=== PATIENT | female | born 1975 | race Caucasian/White ===

== ENCOUNTER 2017-05-18 11:32 | Emergency (ER) | payer OTHER ==
[2017-05-18] MEDS ORDERED: ONDANSETRON 4 MG/2 ML VIAL IVP STA ×3 (12:14→18:22)
[2017-05-18] MEDS ORDERED: SODIUM CHLORIDE 0.9% 1,000 ML IV STA (12:14)
[2017-05-18] MEDS ORDERED: DIPHENOX-ATROP 2.5-0.025 MG 1 EACH TAB PO STA (12:17)
[2017-05-18] MEDS ORDERED: ACETAMINOPHEN IV (For NPO) 1,000 MG in EMPTY BAG 1 BAG IVPB STA (12:22)
[2017-05-18] MEDS ORDERED: IBUPROFEN IV 800 MG in SODIUM CHLORIDE 0.9% 250 ML IV ONE (12:30)
[2017-05-18 12:53] LABS: Basophils % (A) 0 %; Eosinophils % (A) 0 %; HCT 39.7 % (34.0-46.0); HGB 13.8 gm/dL (11.4-16.0); Lymphocytes # (A) 1.7 k/uL (1.0-4.8); Lymphocytes % (A) 20 %; MCH 35.6 pg (25.0-35.0); MCHC 34.8 g/dL (31.0-37.0); MCV 102.1 fL (80.0-100.0); Mean Platelet Volume 6.8; Monocytes # (A) 0.5 k/uL (0-1.0); Monocytes % (A) 6 %; Neutrophils # (A) 6.2 k/uL (1.3-7.7); Neutrophils % (A) 73 %; Platelet Count 205 k/uL (150-450); RBC 3.89 m/uL (3.80-5.40); RDW 12.4 % (11.5-15.5); WBC 8.6 k/uL (3.8-10.6)
[2017-05-18 12:57] LABS: ALT 40 U/L (9-52); AST 22 U/L (14-36); Albumin 4.5 g/dL (3.5-5.0); Alkaline Phosphatase 81 U/L (38-126); Amylase <30 U/L (30-110); Anion Gap 15 mmol/L; Blood Urea Nitrogen 22 mg/dL (7-17); Calcium 10.6 mg/dL (8.4-10.2); Carbon Dioxide 19 mmol/L (22-30); Chloride 106 mmol/L (98-107); Glucose 201 mg/dL (74-99); Lipase 11 U/L (23-300); Potassium 3.6 mmol/L (3.5-5.1); Sodium 140 mmol/L (137-145); Total Bilirubin 0.9 mg/dL (0.2-1.3); Total Protein 6.8 g/dL (6.3-8.2)
[2017-05-18 13:13] VITALS: RESP 18
[2017-05-18] MEDS ORDERED: MAG HYDROX/AL HYDROX/SIMETH 30 ML CUP PO ONE (13:35)
[2017-05-18 14:41] LABS: Appearance,Urine Clear (Clear); Bilirubin,Urine Negative (Negative); Blood,Urine Negative (Negative); Color,Urine Light Yellow; Glucose,Urine (UA) 1+ (Negative); Leukocyte Esterase,Urine Negative (Negative); Nitrite,Urine Negative (Negative); PH, Urine 7.5 (5.0-8.0); Protein,Urine Negative (Negative); Specific Gravity,Urine 1.016 (1.001-1.035); Urobilinogen,Urine <2.0 mg/dL (<2.0)
[2017-05-18 14:58] LABS: Ketones,Urine 2+ (Negative)
[2017-05-18] MEDS ORDERED: CEFEPIME 2 GM in SODIUM CHLORIDE 0.9% 50 ML IVPB STA (15:15)
--- NOTE | 2017-05-18 15:21 | ED ---
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 Patient comes in today complaining of the chills and nausea vomiting and diarrhea. Patient does not complain of any abdominal pain. Patient denies any known fever. Patient denies any blood in the stool or the vomitus. Patient denies any chest pain difficulty breathing or shortness of breath per patient denies any dysuria hematuria urinary frequency. - Related Data Home Medications Medication Instructions Recorded Confirmed Acyclovir [Zovirax] 800 mg PO BID 05/18/17 05/18/17 LORazepam [Ativan] 1 mg PO TID PRN 05/18/17 05/18/17 Metoprolol Tartrate [Lopressor] 12.5 mg PO DAILY 05/18/17 05/18/17 Morphine Sulfate ER [Ms Contin 30 mg PO Q12HR 05/18/17 05/18/17 30Mg] Morphine Sulfate Ir [Msir] 30 mg PO Q4HR PRN 05/18/17 05/18/17 Ondansetron [Zofran] 4 mg PO Q6HR PRN 05/18/17 05/18/17 Sulfamethox-Tmp 400-80Mg [Bactrim 1 tab PO DAILY 05/18/17 05/18/17 SS 400-80 mg] Tacrolimus [Prograf] 2 mg PO Q12H 05/18/17 05/18/17 Topiramate [Trokendi Xr] 50 mg PO DAILY 05/18/17 05/18/17 methylPREDNISolone [Medrol] 8 mg PO DAILY 05/18/17 05/18/17 Allergies Allergy/AdvReac Type Severity Reaction Status Date / Time acetaminophen Allergy Rash/Hives Verified 05/18/17 12:29 [From Darvocet-N] propoxyphene napsylate Allergy Rash/Hives Verified 05/18/17 12:29 [From Darvocet-N] Review of Systems ROS Statement: Those systems with pertinent positive or pertinent negative responses have been documented in the HPI. ROS Other: All systems not noted in ROS Statement are negative. Past Medical History Additional Past Medical History / Comment(s): Congenital heart failure, ALL History of Any Multi-Drug Resistant Organisms: None Reported Past Surgical History: Section, Cholecystectomy, Tubal Ligation Additional Past Surgical History / Comment(s): left knee, left shoulder, bone marrow transplant Past Psychological History: No Psychological Hx Reported Smoking Status: Never smoker Past Alcohol Use History: Occasional Past Drug Use History: None Reported General Exam - General Exam Comments Initial Comments: GENERAL: Patient is well-developed and well-nourished. Patient is nontoxic and well- hydrated and is in mild distress. ENT: Neck is soft and supple. No significant lymphadenopathy is noted. Oropharynx is clear. Moist mucous membranes. Neck has full range of motion without eliciting any pain. EYES: The sclera were anicteric and conjunctiva were pink and moist. Extraocular movements were intact and pupils were equal round and reactive to light. Eyelids were unremarkable. PULMONARY: Unlabored respirations. Good breath sounds bilaterally. No audible rales rhonchi or wheezing was noted. CARDIOVASCULAR: There is a regular rate and rhythm without any murmurs gallops or rubs. ABDOMEN: Soft and nontender with normal bowel sounds. No palpable organomegaly was noted. There is no palpable pulsatile mass. SKIN: Skin is clear with no lesions or rashes and otherwise unremarkable. NEUROLOGIC: Patient is alert and oriented x3. Cranial nerves II through XII are grossly intact. Motor and sensory are also intact. Normal speech, volume and content. Symmetrical smile. MUSCULOSKELETAL: Normal extremities with adequate strength and full range of motion. No lower extremity swelling or edema. No calf tenderness. LYMPHATICS: No significant lymphadenopathy is noted PSYCHIATRIC: Normal psychiatric evaluation. Normal interpersonal interactions appears functionally intact in deals appropriately with others. No signs of depression. No signs of anxiety. Limitations: no limitations Course Vital Signs 05/18/17 05/18/17 11:44 13:12 Temperature 97.4 F L 100.3 F H Pulse Rate 84 71 Respiratory 20 18 Rate Blood Pressure 146/83 136/82 O2 Sat by Pulse 98 97 Oximetry Medical Decision Making - Medical Decision Making Patient received Zofran and Lomotil while in the emergency department she also received a liter of normal saline. I spoke with Dr. Grayson washington at [facility] he wanted the patient transferred to their ER. He also wanted cefepime started here. I spoke to the ER doctor Dr. Moreno and he accepted the patient in the ER. - Lab Data Result diagrams: 05/18/17 12:31 05/18/17 12:31 Lab Results 05/18/17 05/18/17 05/18/17 Range/Units 12:24 12:31 12:31 WBC 8.6 (3.8-10.6) k/uL RBC 3.89 (3.80-5.40) m/uL Hgb 13.8 (11.4-16.0) gm/dL Hct 39.7 (34.0-46.0) % MCV 102.1 H (80.0-100.0) fL MCH 35.6 H (25.0-35.0) pg MCHC 34.8 (31.0-37.0) g/dL RDW 12.4 (11.5-15.5) % Plt Count 205 (150-450) k/uL Neutrophils % 73 % Lymphocytes % 20 % Monocytes % 6 % Eosinophils % 0 % Basophils % 0 % Neutrophils # 6.2 (1.3-7.7) k/uL Lymphocytes # 1.7 (1.0-4.8) k/uL Monocytes # 0.5 (0-1.0) k/uL Eosinophils # 0.0 (0-0.7) k/uL Basophils # 0.0 (0-0.2) k/uL Sodium 140 (137-145) mmol/L Potassium 3.6 (3.5-5.1) mmol/L Chloride 106 (98-107) mmol/L Carbon Dioxide 19 L (22-30) mmol/L Anion Gap 15 mmol/L BUN 22 H (7-17) mg/dL Creatinine 0.86 (0.52-1.04) mg/dL Est GFR (MDRD) Af Amer >60 (>60 ml/min/1.73 sqM) Est GFR (MDRD) Non-Af >60 (>60 ml/min/1.73 sqM) Glucose 201 H (74-99) mg/dL Calcium 10.6 H (8.4-10.2) mg/dL Total Bilirubin 0.9 (0.2-1.3) mg/dL AST 22 (14-36) U/L ALT 40 (9-52) U/L Alkaline Phosphatase 81 (38-126) U/L Total Protein 6.8 (6.3-8.2) g/dL Albumin 4.5 (3.5-5.0) g/dL Amylase <30 L (30-110) U/L Lipase 11 L (23-300) U/L Urine Color Urine Appearance (Clear) Urine pH (5.0-8.0) Ur Specific [place] (1.001-1.035) Urine Protein (Negative) Urine Glucose (UA) (Negative) Urine Ketones (Negative) Urine Blood (Negative) Urine Nitrite (Negative) Urine Bilirubin (Negative) Urine Urobilinogen (<2.0) mg/dL Ur Leukocyte Esterase (Negative) C. difficile (EIA) Intrp Negative (Negative) 05/18/17 Range/Units 14:20 WBC (3.8-10.6) k/uL RBC (3.80-5.40) m/uL Hgb (11.4-16.0) gm/dL Hct (34.0-46.0) % MCV (80.0-100.0) fL MCH (25.0-35.0) pg MCHC (31.0-37.0) g/dL RDW (11.5-15.5) % Plt Count (150-450) k/uL Neutrophils % % Lymphocytes % % Monocytes % % Eosinophils % % Basophils % % Neutrophils # (1.3-7.7) k/uL Lymphocytes # (1.0-4.8) k/uL Monocytes # (0-1.0) k/uL Eosinophils # (0-0.7) k/uL Basophils # (0-0.2) k/uL Sodium (137-145) mmol/L Potassium (3.5-5.1) mmol/L Chloride (98-107) mmol/L Carbon Dioxide (22-30) mmol/L Anion Gap mmol/L BUN (7-17) mg/dL Creatinine (0.52-1.04) mg/dL Est GFR (MDRD) Af Amer (>60 ml/min/1.73 sqM) Est GFR (MDRD) Non-Af (>60 ml/min/1.73 sqM) Glucose (74-99) mg/dL Calcium (8.4-10.2) mg/dL Total Bilirubin (0.2-1.3) mg/dL AST (14-36) U/L ALT (9-52) U/L Alkaline Phosphatase (38-126) U/L Total Protein (6.3-8.2) g/dL Albumin (3.5-5.0) g/dL Amylase (30-110) U/L Lipase (23-300) U/L Urine Color Light Yellow Urine Appearance Clear (Clear) Urine pH 7.5 (5.0-8.0) Ur Specific [place] 1.016 (1.001-1.035) Urine Protein Negative (Negative) Urine Glucose (UA) 1+ H (Negative) Urine Ketones 2+ H (Negative) Urine Blood Negative (Negative) Urine Nitrite Negative (Negative) Urine Bilirubin Negative (Negative) Urine Urobilinogen <2.0 (<2.0) mg/dL Ur Leukocyte Esterase Negative (Negative) C. difficile (EIA) Intrp (Negative) Disposition Clinical Impression: Gastroenteritis, History of bone marrow transplant, History of acute lymphoblastic leukemia (ALL) Disposition: OTHER INSTITUTION NOT DEFINED Referrals: Chris Lafleur MD [Primary Care Provider] - 1-2 days Time of Disposition: 15:20 - Out of Hospital Transfer - Req. Specs Out of Hospital Transfer - Requested Specifics: Other Emergency Center ([facility])
[2017-05-18] MEDS ORDERED: METOCLOPRAMIDE 5 MG/ML 2 ML VIAL IVP STA (15:54)
[2017-05-18] MEDS ORDERED: PANTOPRAZOLE 40 MG/10 ML VIAL IVP STA (15:54)
[2017-05-18 18:23] VITALS: BP 148/72; PULSE 75; TEMP 98.3
== END 2017-05-18 18:49 | disposition short-term general hospital (02) ==
LOC: EC 11:32
DX: K52.9 Noninfective gastroenteritis and colitis, unspecified (principal); Z94.81 Bone marrow transplant status; Z85.6 Personal history of leukemia; Z90.49 Acquired absence of other specified parts of digestive tract; Z98.890 Other specified postprocedural states; Z88.5 Allergy status to narcotic agent; Z88.6 Allergy status to analgesic agent; Z79.899 Other long term (current) drug therapy
CPT/HCPCS: 99284; 96365; 96367; 96375 ×4; 96376 ×2; 36415; 80053; 82150; 83690; 85025; 81003; 87324; 87045; 87046; J2765; J2405; J0692; J0131; J1741; C9113

== ENCOUNTER 2017-09-26 15:06 | Emergency (ER) | payer OTHER ==
[2017-09-26 15:25] VITALS: BP 106/67; PULSE 64; RESP 20; TEMP 99
[2017-09-26] MEDS ORDERED: KETOROLAC 30 MG/ML 1 ML VIAL IM STA (16:01)
--- NOTE | 2017-09-26 16:13 | ED ---
General Adult HPI - General Chief complaint: Fall Stated complaint: Fall Time Seen by Provider: 09/26/17 15:54 Source: patient, RN notes reviewed Mode of arrival: wheelchair Limitations: no limitations - History of Present Illness Initial comments: 42-year-old female presents to the emergency department for a chief complaint of lower back pain 2 hours. Patient states she fell on her bottom down 6 stairs. Patient denies any head injury. She did not hit her head or lose consciousness. No headaches. Patient states states her pain is mostly in her low back and buttocks. Patient has a history of leukemia which she has right now in remission from. She has morphine at home which she usually takes because of this. She did not take any today. Patient has no other complaints at this time including shortness of breath, chest pain, abdominal pain, nausea or vomiting, headache, or visual changes. - Related Data Home Medications Medication Instructions Recorded Confirmed Acyclovir [Zovirax] 800 mg PO BID 05/18/17 05/18/17 LORazepam [Ativan] 1 mg PO TID PRN 05/18/17 05/18/17 Metoprolol Tartrate [Lopressor] 12.5 mg PO DAILY 05/18/17 05/18/17 Morphine Sulfate ER [Ms Contin 30 mg PO Q12HR 05/18/17 05/18/17 30Mg] Morphine Sulfate Ir [Msir] 30 mg PO Q4HR PRN 05/18/17 05/18/17 Ondansetron [Zofran] 4 mg PO Q6HR PRN 05/18/17 05/18/17 Sulfamethox-Tmp 400-80Mg [Bactrim 1 tab PO DAILY 05/18/17 05/18/17 SS 400-80 mg] Tacrolimus [Prograf] 2 mg PO Q12H 05/18/17 05/18/17 Topiramate [Trokendi Xr] 50 mg PO DAILY 05/18/17 05/18/17 methylPREDNISolone [Medrol] 8 mg PO DAILY 05/18/17 05/18/17 Allergies Allergy/AdvReac Type Severity Reaction Status Date / Time acetaminophen Allergy Rash/Hives Verified 09/26/17 15:25 [From Darvocet-N] propoxyphene napsylate Allergy Rash/Hives Verified 09/26/17 15:25 [From Darvocet-N] Review of Systems ROS Statement: Those systems with pertinent positive or pertinent negative responses have been documented in the HPI. ROS Other: All systems not noted in ROS Statement are negative. Past Medical History Additional Past Medical History / Comment(s): Congenital heart failure, ALL History of Any Multi-Drug Resistant Organisms: None Reported Past Surgical History: Section, Cholecystectomy, Tubal Ligation Additional Past Surgical History / Comment(s): left knee, left shoulder, bone marrow transplant Past Psychological History: No Psychological Hx Reported Smoking Status: Former smoker Past Alcohol Use History: Occasional Past Drug Use History: None Reported General Exam Limitations: no limitations General appearance: alert, in no apparent distress Head exam: Present: atraumatic, normocephalic, normal inspection Neck exam: Present: normal inspection, full ROM. Absent: tenderness, meningismus, lymphadenopathy Respiratory exam: Present: normal lung sounds bilaterally. Absent: respiratory distress, wheezes, rales, rhonchi, stridor Cardiovascular Exam: Present: regular rate, normal rhythm, normal heart sounds. Absent: systolic murmur, diastolic murmur, rubs, gallop, clicks Extremities exam: Present: other (Pedal pulse 2+ and capillary refill less than 2 seconds in BLE) Back exam: Present: tenderness (Patient has tenderness of the lumbar spine and sacrum.), paraspinal tenderness (Paraspinal lumbar tenderness), vertebral tenderness (Lumbar spine tenderness). Absent: full ROM (Patient has about 30 of flexion. She has limited extension. Patient has pain when twisting to the right and left ear), CVA tenderness (R), CVA tenderness (L) Neurological exam: Present: alert, oriented X3, CN II-XII intact Psychiatric exam: Present: normal affect, normal mood Course Vital Signs 09/26/17 15:22 Temperature 99.0 F Pulse Rate 64 Respiratory 20 Rate Blood Pressure 106/67 O2 Sat by Pulse 95 Oximetry Medical Decision Making - Medical Decision Making 42-year-old female presents to the emergency department for a chief complaint of fall 2 hours ago. Patient fell down 6 stairs on her buttock. Patient has pain in her low back. She did not hit her head. Patient has limited range of motion of the back but can walk without difficulty. Neurovascular intact in the lower extremities bilaterally. No bladder or bowel changes or saddle anesthesia. There is a possible mild grade 2 spondylolisthesis subluxation of the distal coccygeal segment. No displaced fractures evident in the lumbar spine, sacrum, or coccyx. Patient will be given a stool softener and told to get a doughnut seat. She can take motrin or tylenol for pain. She will follow up with primary care in 1-2 days. Disposition Clinical Impression: Fall Disposition: HOME SELF-CARE Condition: Good Instructions: Coccyx Injury (ED) Additional Instructions: Please take a stool softener and use a doughnut seat if it is helpful to you. Return to the emergency department if symptoms worsen. Follow-up with primary care in 1-2 days. Is patient prescribed a controlled substance at d/c from ED?: No Referrals: Chris Lafleur MD [Primary Care Provider] - 1-2 days Time of Disposition: 16:54
--- NOTE | 2017-09-26 16:30 | XR ---
EXAMINATION TYPE: XR lumbar spine 2 or 3V DATE OF EXAM: 09/26/2017 COMPARISON: NONE HISTORY: Fall down stairs, pain TECHNIQUE: Three-view lumbar spine FINDINGS: There 5 lumbar-type vertebral bodies. Pedicles are intact. Disc heights are preserved. Vert ebral body heights are preserved. Alignment is normal. IMPRESSION: 1. Normal three-view lumbar spine
--- NOTE | 2017-09-26 16:30 | XR ---
EXAMINATION TYPE: XR sacrum coccyx DATE OF EXAM: 09/26/2017 COMPARISON: NONE HISTORY: Fall, pain TECHNIQUE: Three-view sacrum and coccyx FINDINGS: Sacroiliac joints are intact. Bowel gas overlies the sacrum creating some limitation. No di splaced fractures are identified. Tiny amount subluxation of the distalmost coccyx is not excluded. T his is visualized on the lateral projection IMPRESSION: 1. Possible mild grade 2 spondylolisthesis subluxation of the distal coccygeal segment anterior iden tified on the lateral projection.
== END 2017-09-26 17:10 | disposition home or self-care (01) ==
LOC: EC 15:06
DX: M54.5 Low back pain (principal); I50.9 Heart failure, unspecified; C95.91 Leukemia, unspecified, in remission; Z87.891 Personal history of nicotine dependence; Z79.891 Long term (current) use of opiate analgesic; Z79.899 Other long term (current) drug therapy; Z88.5 Allergy status to narcotic agent; W10.9XXA Fall (on) (from) unspecified stairs and steps, initial encounter; Y92.009 Unspecified place in unspecified non-institutional (private) residence as the place of occurrence of the external cause
CPT/HCPCS: 72100; 72220; 99283; 96372; J1885

== ENCOUNTER 2017-10-26 18:29 | Inpatient (IN) | payer OTHER ==
--- NOTE | 2017-10-26 19:06 | ED ---
Nausea/Vomiting/Diarrhea HPI - General Source: patient, family, RN notes reviewed Mode of arrival: wheelchair Limitations: no limitations - History of Present Illness MD complaint: nausea, vomiting, diarrhea, abdominal pain <Shahab Subramanian - Last Filed: 10/26/17 21:30> <Armando Feng - Last Filed: 10/26/17 22:18> - General Chief complaint: Nausea/Vomiting/Diarrhea Stated complaint: Vomiting/Diarrhea Time Seen by Provider: 10/26/17 18:54 - History of Present Illness Initial comments: This is a 42-year-old female history of AML who is been treated with bone marrow transplant about a year ago in August who states she had the onset this morning of nausea vomiting and diarrhea with multiple episodes of all the above. She believes she's vomited more than 20 times. Diarrhea is been less than that. She does not think she ate any food was bad her boyfriend does have shingles but she's been on prophylaxis. She has some generalized abdominal pain but now she also complains of some back pain extremity pain because she threw up her pain medication. She denies any overt fevers she has had some chills some nonspecific crampy abdominal pain. (Shahab Subramanian) - Related Data Home Medications Medication Instructions Recorded Confirmed Acyclovir [Zovirax] 800 mg PO BID 05/18/17 05/18/17 LORazepam [Ativan] 1 mg PO TID PRN 05/18/17 05/18/17 Metoprolol Tartrate [Lopressor] 12.5 mg PO DAILY 05/18/17 05/18/17 Morphine Sulfate ER [Ms Contin 30 mg PO Q12HR 05/18/17 05/18/17 30Mg] Morphine Sulfate Ir [Msir] 30 mg PO Q4HR PRN 05/18/17 05/18/17 Ondansetron [Zofran] 4 mg PO Q6HR PRN 05/18/17 05/18/17 Sulfamethox-Tmp 400-80Mg [Bactrim 1 tab PO DAILY 05/18/17 05/18/17 SS 400-80 mg] Tacrolimus [Prograf] 2 mg PO Q12H 05/18/17 05/18/17 Topiramate [Trokendi Xr] 50 mg PO DAILY 05/18/17 05/18/17 methylPREDNISolone [Medrol] 8 mg PO DAILY 05/18/17 05/18/17 Allergies Allergy/AdvReac Type Severity Reaction Status Date / Time acetaminophen Allergy Rash/Hives Verified 10/26/17 18:35 [From Darvocet-N] fondaparinux [From Arixtra] Allergy Rash/Hives Verified 10/26/17 18:36 propoxyphene napsylate Allergy Rash/Hives Verified 10/26/17 18:35 [From Darvocet-N] Review of Systems ROS Other: All systems not noted in ROS Statement are negative. <Shahab Subramanian - Last Filed: 10/26/17 21:30> ROS Other: All systems not noted in ROS Statement are negative. <Armando Feng - Last Filed: 10/26/17 22:18> ROS Statement: Those systems with pertinent positive or pertinent negative responses have been documented in the HPI. Past Medical History Past Medical History: Cancer, Heart Failure Additional Past Medical History / Comment(s): Congenital heart failure, ALL History of Any Multi-Drug Resistant Organisms: None Reported Past Surgical History: Section, Cholecystectomy, Tubal Ligation Additional Past Surgical History / Comment(s): left knee, left shoulder, bone marrow transplant Past Psychological History: No Psychological Hx Reported Smoking Status: Former smoker Past Alcohol Use History: Occasional Past Drug Use History: None Reported <Shahab Subramanian - Last Filed: 10/26/17 21:30> General Exam Limitations: no limitations General appearance: alert, anxious Head exam: Present: atraumatic, normocephalic, normal inspection Eye exam: Present: normal appearance, PERRL, EOMI. Absent: scleral icterus, conjunctival injection, periorbital swelling ENT exam: Present: mucous membranes dry Neck exam: Present: normal inspection. Absent: tenderness, meningismus, lymphadenopathy Respiratory exam: Present: normal lung sounds bilaterally. Absent: respiratory distress, wheezes, rales, rhonchi, stridor Cardiovascular Exam: Present: regular rate, normal rhythm, normal heart sounds. Absent: systolic murmur, diastolic murmur, rubs, gallop, clicks GI/Abdominal exam: Present: soft, normal bowel sounds. Absent: distended, tenderness, guarding, rebound, rigid Extremities exam: Present: normal inspection, full ROM, normal capillary refill. Absent: tenderness, pedal edema, joint swelling, calf tenderness Back exam: Present: normal inspection Neurological exam: Present: alert, oriented X3, CN II-XII intact Psychiatric exam: Present: normal affect, normal mood Skin exam: Present: warm, dry, intact, normal color. Absent: rash <MorisShahab - Last Filed: 10/26/17 21:30> <Armando Feng - Last Filed: 10/26/17 22:18> - General Exam Comments Initial Comments: This is a well-developed well-nourished awake alert oriented 3 female (Shahab Subramanian) Course <Shahab Subramanian - Last Filed: 10/26/17 21:30> <Armando Feng - Last Filed: 10/26/17 22:18> Vital Signs 10/26/17 10/26/17 18:32 21:05 Temperature 98.3 F Pulse Rate 82 64 Respiratory 18 18 Rate Blood Pressure 138/86 141/68 O2 Sat by Pulse 98 100 Oximetry - Reevaluation(s) Reevaluation #1: 10/26/17 21:30 Patient was still nauseated. Care was endorsed to Dr. Feng at our shift change. (Shahab Subramanian) 10/26/17 22:15 Evaluated by myself, Dr. Feng. Patient resting comfortably in bed. Case was discussed with a hematology fellow who recommended I spoke with Dr. Martinez. Case was discussed with him who recommended talking to the transplant doctor. Case was then discussed with Dr. Orona at [phone]. He feels patient is stable for admission here. He would like patient to continue to receive IV fluids and recheck renal status in the morning. He would like to talk to admitting physician tomorrow regarding patient's status. He states if patient did seem to worsen she may need transfer at that point. Dr. Hart has been paged for admission for Dr. Lafleur. Patient and family are updated. Patient is nauseated again at this time (Armando Feng) Medical Decision Making - Lab Data Result diagrams: 10/26/17 20:15 10/26/17 20:15 <Shahab Subramanian - Last Filed: 10/26/17 21:30> - Lab Data Result diagrams: 10/26/17 20:15 10/26/17 20:15 <Armando Feng - Last Filed: 10/26/17 22:18> - Lab Data Lab Results 10/26/17 10/26/17 10/26/17 Range/Units 20:15 20:15 20:15 WBC 5.9 (3.8-10.6) k/uL RBC 4.28 (3.80-5.40) m/uL Hgb 14.1 (11.4-16.0) gm/dL Hct 40.8 (34.0-46.0) % MCV 95.3 (80.0-100.0) fL MCH 32.9 (25.0-35.0) pg MCHC 34.5 (31.0-37.0) g/dL RDW 13.3 (11.5-15.5) % Plt Count 176 (150-450) k/uL Neutrophils % 63 % Lymphocytes % 31 % Monocytes % 4 % Eosinophils % 0 % Basophils % 0 % Neutrophils # 3.7 (1.3-7.7) k/uL Lymphocytes # 1.8 (1.0-4.8) k/uL Monocytes # 0.2 (0-1.0) k/uL Eosinophils # 0.0 (0-0.7) k/uL Basophils # 0.0 (0-0.2) k/uL Sodium 141 (137-145) mmol/L Potassium 3.8 (3.5-5.1) mmol/L Chloride 103 (98-107) mmol/L Carbon Dioxide 19 L (22-30) mmol/L Anion Gap 19 mmol/L BUN 19 H (7-17) mg/dL Creatinine 1.06 H (0.52-1.04) mg/dL Est GFR (CKD-EPI)AfAm 74 (>60 ml/min/1.73 sqM) Est GFR (CKD-EPI)NonAf 64 (>60 ml/min/1.73 sqM) Glucose 134 H (74-99) mg/dL Calcium 10.0 (8.4-10.2) mg/dL Magnesium 1.8 (1.6-2.3) mg/dL Total Bilirubin 0.9 (0.2-1.3) mg/dL AST 34 (14-36) U/L ALT 41 (9-52) U/L Alkaline Phosphatase 93 (38-126) U/L Total Protein 7.7 (6.3-8.2) g/dL Albumin 4.9 (3.5-5.0) g/dL Amylase 35 (30-110) U/L Lipase 11 L (23-300) U/L Urine Color Yellow Urine Appearance Cloudy H (Clear) Urine pH 5.5 (5.0-8.0) Ur Specific [place] 1.023 (1.001-1.035) Urine Protein 1+ H (Negative) Urine Glucose (UA) Negative (Negative) Urine Ketones 2+ H (Negative) Urine Blood Moderate H (Negative) Urine Nitrite Negative (Negative) Urine Bilirubin Negative (Negative) Urine Urobilinogen 2.0 (<2.0) mg/dL Ur Leukocyte Esterase Large H (Negative) Urine RBC 46 H (0-5) /hpf Urine WBC >182 H (0-5) /hpf Ur Squamous Epith Cells 2 (0-4) /hpf Urine Mucus Few H (None) /hpf Disposition <Shahab Subramanian - Last Filed: 10/26/17 21:30> Is patient prescribed a controlled substance at d/c from ED?: No Decision Time: 22:18 <Armando Feng - Last Filed: 10/26/17 22:18> Clinical Impression: Acute vomiting Disposition: ADMITTED IP TO THIS HOSP Referrals: Chris Lafleur MD [Primary Care Provider] - 1-2 days
[2017-10-26] MEDS ORDERED: SODIUM CHLORIDE 0.9% 2,000 ML IV STA (20:02)
[2017-10-26] MEDS ORDERED: ONDANSETRON ODT 4 MG TAB PO STA (20:02)
[2017-10-26] MEDS ORDERED: SODIUM CHLORIDE 0.9% 1,000 ML IV STA (20:02)
[2017-10-26 20:28] LABS: Appearance,Urine Cloudy (Clear); Basophils % (A) 0 %; Bilirubin,Urine Negative (Negative); Blood,Urine Moderate (Negative); Color,Urine Yellow; Eosinophils % (A) 0 %; Glucose,Urine (UA) Negative (Negative); HCT 40.8 % (34.0-46.0); HGB 14.1 gm/dL (11.4-16.0); Ketones,Urine 2+ (Negative); Leukocyte Esterase,Urine Large (Negative); Lymphocytes # (A) 1.8 k/uL (1.0-4.8); Lymphocytes % (A) 31 %; MCH 32.9 pg (25.0-35.0); MCHC 34.5 g/dL (31.0-37.0); MCV 95.3 fL (80.0-100.0); Mean Platelet Volume 7.4; Monocytes # (A) 0.2 k/uL (0-1.0); Monocytes % (A) 4 %; Mucus,Urine Few /hpf; Neutrophils # (A) 3.7 k/uL (1.3-7.7); Neutrophils % (A) 63 %; Nitrite,Urine Negative (Negative); PH, Urine 5.5 (5.0-8.0); Platelet Count 176 k/uL (150-450); Protein,Urine 1+ (Negative); RBC 4.28 m/uL (3.80-5.40); RBC,Urine 46 /hpf (0-5); RDW 13.3 % (11.5-15.5); Specific Gravity,Urine 1.023 (1.001-1.035); Squamous Epithelial Cell,Urine 2 /hpf (0-4); WBC 5.9 k/uL (3.8-10.6); WBC,Urine >182 /hpf (0-5)
[2017-10-26 20:33] LABS: Albumin 4.9 g/dL (3.5-5.0); Magnesium 1.8 mg/dL (1.6-2.3); Potassium 3.8 mmol/L (3.5-5.1); Total Bilirubin 0.9 mg/dL (0.2-1.3); Total Protein 7.7 g/dL (6.3-8.2)
--- NOTE | 2017-10-26 20:37 | XR ---
EXAMINATION TYPE: XR chest 2V DATE OF EXAM: 10/26/2017 COMPARISON: NONE TECHNIQUE: PA and lateral views submitted. HISTORY: Pain FINDINGS: The lungs are clear and there is no pneumothorax, pleural effusion, or focal pneumonia. Postsurgica l changes overlying the mediastinum. Hyperinflation suggests COPD. Hypertrophic changes of the spine. IMPRESSION: 1. No acute process.
--- NOTE | 2017-10-26 20:38 | XR ---
EXAMINATION TYPE: XR KUB DATE OF EXAM: 10/26/2017 COMPARISON: NONE HISTORY: Pain TECHNIQUE: One view abdominal series FINDINGS: The osseous structures are intact. The bowel gas pattern is nonspecific. Calcifications the pelvis a re likely vascular. Surgical clips in the gallbladder fossa.. IMPRESSION: 1. Nonspecific abdomen.
[2017-10-26] MEDS ORDERED: ONDANSETRON 4 MG/2 ML VIAL IVP STA ×2 (20:52→22:14)
[2017-10-26] MEDS ORDERED: fentaNYL (PF) 50 MCG/ML 2 ML AMP IV STA (20:53)
[2017-10-26] MEDS ORDERED: ONDANSETRON 4 MG/2 ML VIAL IVP PRN (22:18)
[2017-10-26] MEDS ORDERED: NALOXONE 0.4 MG/ML 1 ML VIAL IV PRN (22:18)
[2017-10-26] MEDS ORDERED: ACETAMINOPHEN TAB 325 MG TAB PO PRN (22:32)
[2017-10-26] MEDS ORDERED: ACETAMINOPHEN TAB 325 MG TAB PO STA (22:32)
[2017-10-26] MEDS ORDERED: ACETAMINOPHEN IV (For NPO) 1,000 MG in EMPTY BAG 1 BAG IVPB STA (22:39)
[2017-10-26] MEDS: cefTRIAXone IN SWFI 1,000 MG/10 ML SYRINGE IVP SCH (23:51)
[2017-10-26] MEDS: SODIUM CHLORIDE 0.9% 1,000 ML IV SCH (23:52)
[2017-10-27] MEDS ORDERED: ACETAMINOPHEN IV (For NPO) 1,000 MG in EMPTY BAG 1 BAG IVPB PRN (00:27)
[2017-10-27] MEDS ORDERED: ONDANSETRON 4 MG/2 ML VIAL IVP STA (00:29)
[2017-10-27] MEDS: MORPHINE SULFATE 2 MG/ML SYRINGE IVP PRN ×6 (00:54→23:21)
[2017-10-27 01:18] VITALS: BMI 20.5
[2017-10-27] MEDS: METOCLOPRAMIDE 5 MG/ML 2 ML VIAL IVP PRN ×2 (04:15→19:02)
[2017-10-27 07:49] LABS: Basophils % (A) 0 %; Eosinophils % (A) 0 %; HCT 33.3 % (34.0-46.0); HGB 11.3 gm/dL (11.4-16.0); Lymphocytes # (A) 2.4 k/uL (1.0-4.8); Lymphocytes % (A) 38 %; MCH 32.9 pg (25.0-35.0); MCHC 33.9 g/dL (31.0-37.0); MCV 97.2 fL (80.0-100.0); Mean Platelet Volume 7.1; Monocytes # (A) 0.3 k/uL (0-1.0); Monocytes % (A) 5 %; Neutrophils # (A) 3.4 k/uL (1.3-7.7); Neutrophils % (A) 55 %; Platelet Count 157 k/uL (150-450); RBC 3.42 m/uL (3.80-5.40); RDW 13.5 % (11.5-15.5); WBC 6.2 k/uL (3.8-10.6)
[2017-10-27 07:54] LABS: ALT 32 U/L (9-52); AST 22 U/L (14-36); Albumin 3.5 g/dL (3.5-5.0); Alkaline Phosphatase 66 U/L (38-126); Anion Gap 14 mmol/L; Blood Urea Nitrogen 17 mg/dL (7-17); Calcium 8.8 mg/dL (8.4-10.2); Carbon Dioxide 17 mmol/L (22-30); Chloride 110 mmol/L (98-107); Glucose 94 mg/dL (74-99); Sodium 141 mmol/L (137-145); Total Bilirubin 0.5 mg/dL (0.2-1.3); Total Protein 5.9 g/dL (6.3-8.2)
[2017-10-27] MEDS: ACYCLOVIR 800 MG TAB PO SCH ×2 (08:56→23:20)
[2017-10-27] MEDS: SODIUM CHLORIDE 0.9% 1,000 ML IV SCH ×2 (08:56→19:00)
[2017-10-27] MEDS: PANTOPRAZOLE 40 MG/10 ML VIAL IVP SCH ×2 (08:56→23:20)
[2017-10-27] MEDS: TACROLIMUS 1 MG CAP PO SCH ×2 (08:56→23:20)
[2017-10-27] MEDS ORDERED: PANTOPRAZOLE 40 MG/10 ML VIAL IV SCH (09:00)
[2017-10-27] MEDS: cefTRIAXone IN SWFI 1,000 MG/10 ML SYRINGE IVP SCH ×2 (11:07→23:24)
--- NOTE | 2017-10-27 13:11 | P.HPIM ---
History of Present Illness H&P Date: 10/27/17 Chief Complaint: Nausea and vomiting Mrs. Key is a 42-year-old female with a past medical history of congenital heart disease, AML status post bone marrow transplant coming into the hospital with a chief complaint of nausea vomiting and diarrhea for the past 1 day. Patient states that she threw up 36 times in the past 12 hours and was not able to keep down anything. Patient also had diarrhea loose watery 5-6 with no blood or mucus. Patient states couple of days back she was having urinary urgency and frequency and she was also having chills for the past couple of days he did patient denies having any blood in her urine but has pain while urination. Patient denies having any also had foot consumption. She was also complaining of diffuse abdominal pain that was with her nausea and vomiting. She denies having any chest pain, cough, difficulty in breathing or lower extremity swelling. She follows with [facility] at [place] for her AML. She is in remission currently. Patient has been compliant with her home medication regimen and did not miss any of her doses except the ones yesterday as she could not keep them down with her vomiting. Review of Systems REVIEW OF SYSTEMS: PSYCH: No anxiety or depression NEURO:No c/o weakness of the extremties, No facial droop, No speech abnormalities. VASCULAR: No lower extremity edema HEMATOLOGIC: History of AML status post bone marrow transplant RESPIRATORY: No cough, No SOB, No chest discomfort. IMMUNE: On antibiotics for prophylaxis INTEGUMENT: no rashes OPHTHALMOLOGIC: No blurry vision and no eye discharge : As per HPI [employer]: She does not have her periods CARDIAC: No chest pain , shortness of breath , paroxysmal nocturnal dyspnea MUSCULOSKELETAL : No Aches or pains in the joints or muscles. GI: As per HPI Past Medical History Past Medical History: Cancer, Heart Failure Additional Past Medical History / Comment(s): Congenital heart failure, ALL History of Any Multi-Drug Resistant Organisms: None Reported Past Surgical History: Section, Cholecystectomy, Tubal Ligation Additional Past Surgical History / Comment(s): left knee, left shoulder, bone marrow transplant Past Psychological History: No Psychological Hx Reported Smoking Status: Former smoker Past Alcohol Use History: Occasional Past Drug Use History: None Reported - Past Family History Mother Family Medical History: No Reported History Father Family Medical History: No Reported History Medications and Allergies Home Medications Medication Instructions Recorded Confirmed Type Acyclovir [Zovirax] 800 mg PO BID@0800,2200 05/18/17 10/27/17 History LORazepam [Ativan] 1 mg PO TID@0800,1400,2200 05/18/17 10/27/17 History Metoprolol Tartrate [Lopressor] 12.5 mg PO DAILY 05/18/17 10/27/17 History Morphine Sulfate ER [Ms Contin 30 mg PO BID@0800,2200 05/18/17 10/27/17 History 30Mg] Morphine Sulfate Ir [Msir] 30 mg PO Q3H PRN 05/18/17 10/27/17 History Sulfamethox-Tmp 400-80Mg [Bactrim 1 tab PO DAILY@0800 05/18/17 10/27/17 History SS 400-80 mg] Tacrolimus [Prograf] 2 mg PO BID@0800,2000 05/18/17 10/27/17 History Topiramate [Trokendi Xr] 50 mg PO DAILY 05/18/17 10/27/17 History Amoxicillin 2,000 mg PO ONCE PRN 10/27/17 10/27/17 History Dexamethasone [Decadron Intensol 5 mg PO TID PRN 10/27/17 10/27/17 History Oral Solution] Hydrocortisone Oint 1 applic TOPICAL BID PRN 10/27/17 10/27/17 History [Hydrocortisone 1% Oint] Magnesium Plus Protein 2 tab PO TID@0800,1400,2200 10/27/17 10/27/17 History Ondansetron HCl [Zofran] 8 mg PO Q8H PRN 10/27/17 10/27/17 History Pantoprazole Sodium [Protonix] 40 mg PO DAILY 10/27/17 10/27/17 History Prochlorperazine [Compazine] 10 mg PO Q6H PRN 10/27/17 10/27/17 History Triamcinolone 0.1% Ointment 1 applic TOPICAL TID PRN 10/27/17 10/27/17 History [Kenalog 0.1% Ointment] Allergies Allergy/AdvReac Type Severity Reaction Status Date / Time acetaminophen Allergy Rash/Hives Verified 10/26/17 18:35 [From Darvocet-N] fondaparinux [From Arixtra] Allergy Rash/Hives Verified 10/26/17 18:36 propoxyphene napsylate Allergy Rash/Hives Verified 10/26/17 18:35 [From Darvocet-N] Physical Exam Vitals: Vital Signs Temp Pulse Pulse Resp BP BP Pulse Ox 10/27/17 09:08 98.4 F 62 16 124/76 98 10/27/17 01:05 99.0 F 88 16 10/27/17 01:02 100.0 F H 10/26/17 23:15 99.1 F 81 16 135/72 100 10/26/17 22:22 100.6 F H 69 18 146/65 100 10/26/17 21:05 64 18 141/68 100 10/26/17 18:32 98.3 F 82 18 138/86 98 Intake and Output 10/26/17 10/27/17 10/27/17 22:59 06:59 14:59 Other: # Voids 2 Weight 49.442 kg 49.442 kg 49.442 kg GENERAL EXAM GEN. APPEARANCE: thin appearance HEAD EXAM: atraumatic, normocephalic, normal inspection EYE EXAM: normal appearance, PERRL, EOMI. Absent: scleral icterus, conjunctival injection, periorbital swelling ENT EXAM: normal exam, mucous membranes moist NECK EXAM: normal inspection. Absent: tenderness, meningismus, full ROM, lymphadenopathy RESPIRATORY EXAM: normal lung sounds bilaterally. Absent: respiratory distress , wheezes, rales, rhonchi, stridor CARDIOVASCULAR EXAM: regular rate, normal rhythm, normal heart sounds. Pansystolic murmur GI/ABDOMINAL EXAM: soft, normal bowel sounds. Absent: distended, tenderness, guarding, rebound, rigid EXTREMITIES EXAM: normal inspection, full ROM, normal capillary refill. Absent : tenderness, pedal edema, joint swelling, calf tenderness BACK EXAM: normal inspection NEUROLOGICAL EXAM: alert, oriented X3, no focal neurological deficits PSYCHIATRIC EXAM: normal affect, normal mood SKIN EXAM: warm, dry, intact, normal color. Absent: rash Results CBC & Chem 7: 10/27/17 06:45 10/27/17 06:45 Labs: Abnormal Lab Results - Last 24 Hours (Table) 10/26/17 10/26/17 10/27/17 Range/Units 20:15 20:15 06:45 RBC 3.42 L (3.80-5.40) m/uL Hgb 11.3 L (11.4-16.0) gm/dL Hct 33.3 L (34.0-46.0) % Chloride (98-107) mmol/L Carbon Dioxide 19 L (22-30) mmol/L BUN 19 H (7-17) mg/dL Creatinine 1.06 H (0.52-1.04) mg/dL Glucose 134 H (74-99) mg/dL Total Protein (6.3-8.2) g/dL Lipase 11 L (23-300) U/L Urine Appearance Cloudy H (Clear) Urine Protein 1+ H (Negative) Urine Ketones 2+ H (Negative) Urine Blood Moderate H (Negative) Ur Leukocyte Esterase Large H (Negative) Urine RBC 46 H (0-5) /hpf Urine WBC >182 H (0-5) /hpf Urine Mucus Few H (None) /hpf 10/27/17 Range/Units 06:45 RBC (3.80-5.40) m/uL Hgb (11.4-16.0) gm/dL Hct (34.0-46.0) % Chloride 110 H (98-107) mmol/L Carbon Dioxide 17 L (22-30) mmol/L BUN (7-17) mg/dL Creatinine (0.52-1.04) mg/dL Glucose (74-99) mg/dL Total Protein 5.9 L (6.3-8.2) g/dL Lipase (23-300) U/L Urine Appearance (Clear) Urine Protein (Negative) Urine Ketones (Negative) Urine Blood (Negative) Ur Leukocyte Esterase (Negative) Urine RBC (0-5) /hpf Urine WBC (0-5) /hpf Urine Mucus (None) /hpf Microbiology - Last 24 Hours (Table) 10/26/17 20:15 Urine Culture - Preliminary Urine,Voided Thrombosis Risk Factor Assmnt - Choose All That Apply Any of the Below Risk Factors Present?: No Other Risk Factors: No Other congenital or acquired thrombophilia - If yes, enter type in comment: No Thrombosis Risk Factor Assessment Level: Very Low Risk Assessment and Plan Assessment: ASSESSMENT Acute nausea and vomiting - most likely gastroenteritis Urinary tract infection AML status post bone marrow transplant in remission Congenital heart disease PLAN : Continue the patient on IV fluids. Ceftriaxone for her UTI. Antibiotics did help her with the nausea and vomiting and she did not throw up since this morning. We will resume her home medications. Advanced the diet as tolerated. Hematology Dr. Rodriguez has been consulted. Discussed in detail the treatment plan with the patient at bedside today. Further recommendations to follow depending on the clinical course of the patient.
[2017-10-27] MEDS ORDERED: TOPIRAMATE 25 MG TAB PO SCH (22:30)
[2017-10-27] MEDS: LORazepam 1 MG TAB PO SCH (23:20)
[2017-10-27] MEDS: TOPIRAMATE 25 MG TAB PO SCH (23:20)
[2017-10-28] MEDS: SODIUM CHLORIDE 0.9% 1,000 ML IV SCH ×5 (05:07→22:15)
[2017-10-28] MEDS: MORPHINE SULFATE 2 MG/ML SYRINGE IVP PRN ×4 (06:58→22:14)
[2017-10-28 08:01] LABS: ALT 38 U/L (9-52); AST 27 U/L (14-36); Alkaline Phosphatase 74 U/L (38-126); Anion Gap 14 mmol/L; Blood Urea Nitrogen 12 mg/dL (7-17); Calcium 8.9 mg/dL (8.4-10.2); Carbon Dioxide 19 mmol/L (22-30); Chloride 106 mmol/L (98-107); Glucose 78 mg/dL (74-99); Potassium 3.4 mmol/L (3.5-5.1); Sodium 139 mmol/L (137-145); Total Bilirubin 0.7 mg/dL (0.2-1.3); Total Protein 6.4 g/dL (6.3-8.2)
[2017-10-28 08:02] LABS: Basophils % (A) 0 %; Eosinophils # (A) 0.1 k/uL (0-0.7); Eosinophils % (A) 1 %; HCT 36.7 % (34.0-46.0); HGB 12.3 gm/dL (11.4-16.0); Lymphocytes # (A) 3.5 k/uL (1.0-4.8); Lymphocytes % (A) 53 %; MCH 32.9 pg (25.0-35.0); MCHC 33.5 g/dL (31.0-37.0); MCV 98.1 fL (80.0-100.0); Mean Platelet Volume 6.9; Monocytes # (A) 0.4 k/uL (0-1.0); Monocytes % (A) 6 %; Neutrophils # (A) 2.5 k/uL (1.3-7.7); Neutrophils % (A) 38 %; Platelet Count 147 k/uL (150-450); RBC 3.74 m/uL (3.80-5.40); RDW 13.5 % (11.5-15.5); WBC 6.7 k/uL (3.8-10.6)
[2017-10-28] MEDS: LORazepam 1 MG TAB PO SCH ×3 (08:30→22:14)
[2017-10-28] MEDS: TOPIRAMATE 25 MG TAB PO SCH ×2 (08:30→22:16)
[2017-10-28] MEDS: PANTOPRAZOLE 40 MG/10 ML VIAL IVP SCH ×2 (08:30→22:14)
[2017-10-28] MEDS: TACROLIMUS 1 MG CAP PO SCH ×2 (08:31→22:16)
[2017-10-28] MEDS: ACYCLOVIR 800 MG TAB PO SCH ×2 (08:31→22:16)
[2017-10-28] MEDS: cefTRIAXone IN SWFI 1,000 MG/10 ML SYRINGE IVP SCH ×2 (12:40→22:47)
--- NOTE | 2017-10-28 15:15 | P.PN ---
Subjective Progress Note Date: 10/28/17 Principal diagnosis: UTI and Acute Gastritis Mrs. Key is a 42-year-old female with a past medical history of congenital heart disease, AML status post bone marrow transplant coming into the hospital with a chief complaint of nausea vomiting and diarrhea for the past 1 day. Patient states that she threw up 36 times in the past 12 hours and was not able to keep down anything. Patient also had diarrhea loose watery 5-6 with no blood or mucus. Patient states couple of days back she was having urinary urgency and frequency and she was also having chills for the past couple of days he did patient denies having any blood in her urine but has pain while urination. Patient denies having any also had foot consumption. She was also complaining of diffuse abdominal pain that was with her nausea and vomiting. She denies having any chest pain, cough, difficulty in breathing or lower extremity swelling. She follows with [facility] [place] for her AML. She is in remission currently. Patient has been compliant with her home medication regimen and did not miss any of her doses except the ones yesterday as she could not keep them down with her vomiting. On 10/28/2017 ; patient is lying in bed comfortably. She is getting IV fluids and levofloxacin. She states her vomiting did improve and she did not throw up since last night. But she is nauseous. She is able to tolerate by mouth liquids but not solids as of yet. She states overall she feels that she is being well hydrated with IV fluids. She was seen by Dr. Jennifer goodman who said that he would talk with with her cancer doctors at [facility] to get her something to improve her appetite. On review of systems Constitutional: Generalized weakness and fatigue Cardiovascular: No chest pain or palpitations Respiratory: No cough or difficulty in breathing : No hematuria or dysuria Objective - Vital Signs Vital signs: Vital Signs Temp 97.6 F 10/28/17 08:29 Pulse 60 10/28/17 08:29 Resp 18 10/28/17 08:29 BP 148/82 10/28/17 08:29 Pulse Ox 100 10/28/17 08:29 Intake & Output 10/27/17 10/28/17 10/28/17 18:59 06:59 18:59 Weight 49.442 kg Other: Voiding Method Toilet # Voids 1 2 - Exam GEN. APPEARANCE: thin appearance HEAD EXAM: atraumatic, normocephalic, normal inspection EYE EXAM: normal appearance, PERRL, EOMI. Absent: scleral icterus, conjunctival injection, periorbital swelling ENT EXAM: normal exam, mucous membranes moist NECK EXAM: normal inspection. Absent: tenderness, meningismus, full ROM, lymphadenopathy RESPIRATORY EXAM: normal lung sounds bilaterally. Absent: respiratory distress , wheezes, rales, rhonchi, stridor CARDIOVASCULAR EXAM: regular rate, normal rhythm, normal heart sounds. Pansystolic murmur GI/ABDOMINAL EXAM: soft, normal bowel sounds. Absent: distended, tenderness, guarding, rebound, rigid EXTREMITIES EXAM: normal inspection, full ROM, normal capillary refill. Absent : tenderness, pedal edema, joint swelling, calf tenderness NEUROLOGICAL EXAM: alert, oriented X3, no focal neurological deficits PSYCHIATRIC EXAM: normal affect, normal mood SKIN EXAM: warm, dry, intact, normal color. Absent: rash - Labs CBC & Chem 7: 10/28/17 06:59 10/28/17 06:59 Labs: Abnormal Lab Results - Last 24 Hours (Table) 10/28/17 10/28/17 Range/Units 06:59 06:59 RBC 3.74 L (3.80-5.40) m/uL Plt Count 147 L (150-450) k/uL Potassium 3.4 L (3.5-5.1) mmol/L Carbon Dioxide 19 L (22-30) mmol/L Microbiology - Last 24 Hours (Table) 10/26/17 20:15 Urine Culture - Final Urine,Voided 10/26/17 22:35 Blood Culture - Preliminary Blood No Growth after 24 hours Assessment and Plan Assessment: ASSESSMENT Acute gastroenteritis Urinary tract infection AML status post bone marrow transplant in remission Congenital heart disease PLAN : Continue the patient on IV fluids. Ceftriaxone for her UTI. Antibiotics did help her with the nausea and vomiting and she did not throw up since last night. Awaiting blood and urine cultures. Advanced the diet as tolerated. Hematology Dr. Rodriguez has been consulted and is on board. Discussed in detail the treatment plan with the patient at bedside today. Further recommendations to follow depending on the clinical course of the patient.
--- NOTE | 2017-10-28 16:07 | P.CONS ---
History of Present Illness - Reason for Consult Consult date: 10/28/17 Hx: Leukemia Requesting physician: Armando Feng - Chief Complaint Decreased Appetite. - History of Present Illness Ms Key is a pleasant [place], in good health otherwise, she was last seen by me in December 2015 after noticing a reddish raised area of swelling on her outer left thigh, in early 07/05. She was started on antibiotics, but did not respond. 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 She was treated with prednisone and responded, she was later diagnosed with Acute leukemia, and underwent transplant. She presents to the hospital with a chief complaint of nausea vomiting and diarrhea for the past couple days. Patient states that she threw up over 30 times in the past 12 hours and was not able to keep down anything. Patient also had diarrhea loose watery 5-6 with no blood or mucus. Patient states couple of days back she was having urinary urgency and frequency and she was also having chills for the past couple of days he did patient denies having any blood in her urine but has pain while urination. She states her biggest concern is she has lost a lot of weight and has no desire to eat a thing, this has been going on for a while. She was also complaining of diffuse abdominal pain that was with her nausea and vomiting. As far as her Leukemia, currently in remission. She was treated and followed by [facility]. Continues on Prograft. Review of Systems A 14 point review of systems assessed and completed and all negative except HPI Past Medical History Past Medical History: Cancer, Heart Failure Additional Past Medical History / Comment(s): Congenital heart failure, ALL History of Any Multi-Drug Resistant Organisms: None Reported Past Surgical History: Section, Cholecystectomy, Tubal Ligation Additional Past Surgical History / Comment(s): left knee, left shoulder, bone marrow transplant Past Psychological History: No Psychological Hx Reported Smoking Status: Former smoker Past Alcohol Use History: Occasional Past Drug Use History: None Reported - Past Family History Mother Family Medical History: No Reported History Father Family Medical History: No Reported History Medications and Allergies Home Medications Medication Instructions Recorded Confirmed Type Acyclovir [Zovirax] 800 mg PO BID@0800,2200 05/18/17 10/27/17 History LORazepam [Ativan] 1 mg PO TID@0800,1400,2200 05/18/17 10/27/17 History Metoprolol Tartrate [Lopressor] 12.5 mg PO DAILY 05/18/17 10/27/17 History Morphine Sulfate ER [Ms Contin 30 mg PO BID@0800,2200 05/18/17 10/27/17 History 30Mg] Morphine Sulfate Ir [Msir] 30 mg PO Q3H PRN 05/18/17 10/27/17 History Sulfamethox-Tmp 400-80Mg [Bactrim 1 tab PO DAILY@0800 05/18/17 10/27/17 History SS 400-80 mg] Tacrolimus [Prograf] 2 mg PO BID@0800,2000 05/18/17 10/27/17 History Topiramate [Trokendi Xr] 50 mg PO DAILY 05/18/17 10/27/17 History Amoxicillin 2,000 mg PO ONCE PRN 10/27/17 10/27/17 History Dexamethasone [Decadron Intensol 5 mg PO TID PRN 10/27/17 10/27/17 History Oral Solution] Hydrocortisone Oint 1 applic TOPICAL BID PRN 10/27/17 10/27/17 History [Hydrocortisone 1% Oint] Magnesium Plus Protein 2 tab PO TID@0800,1400,2200 10/27/17 10/27/17 History Ondansetron HCl [Zofran] 8 mg PO Q8H PRN 10/27/17 10/27/17 History Pantoprazole Sodium [Protonix] 40 mg PO DAILY 10/27/17 10/27/17 History Prochlorperazine [Compazine] 10 mg PO Q6H PRN 10/27/17 10/27/17 History Triamcinolone 0.1% Ointment 1 applic TOPICAL TID PRN 10/27/17 10/27/17 History [Kenalog 0.1% Ointment] Allergies Allergy/AdvReac Type Severity Reaction Status Date / Time acetaminophen Allergy Rash/Hives Verified 10/26/17 18:35 [From Darvocet-N] fondaparinux [From Arixtra] Allergy Rash/Hives Verified 10/26/17 18:36 propoxyphene napsylate Allergy Rash/Hives Verified 10/26/17 18:35 [From Darvocet-N] Physical Exam Vitals: Vital Signs Temp Pulse Resp BP Pulse Ox 10/28/17 15:00 99 F 60 17 121/79 99 10/28/17 08:29 97.6 F 60 18 148/82 100 10/28/17 01:00 98.9 F 65 15 102/65 98 10/27/17 20:21 99.1 F 64 14 119/72 99 Intake and Output 10/28/17 10/28/17 10/28/17 06:59 14:59 22:59 Other: # Voids 2 2 - Constitutional General appearance: average body habitus, cooperative, no acute distress - EENT Eyes: EOMI, PERRLA, dentition normal ENT: NA/AT, normal oropharynx - Neck Neck: other - Respiratory Respiratory: bilateral: CTA (No increased effort) - Cardiovascular Rhythm: regular Heart sounds: normal: S1, S2 - Gastrointestinal General gastrointestinal: normal bowel sounds, soft, tenderness - Integumentary Integumentary: pale - Neurologic Neurologic: CNII-XII intact - Musculoskeletal Musculoskeletal: gait normal, generalized weakness, strength equal bilaterally - Psychiatric Psychiatric: A&O x's 3, appropriate affect, intact judgment & insight Results CBC & Chem 7: 10/28/17 06:59 10/28/17 06:59 Labs: Abnormal Lab Results - Last 24 Hours (Table) 10/28/17 10/28/17 Range/Units 06:59 06:59 RBC 3.74 L (3.80-5.40) m/uL Plt Count 147 L (150-450) k/uL Potassium 3.4 L (3.5-5.1) mmol/L Carbon Dioxide 19 L (22-30) mmol/L Microbiology - Last 24 Hours (Table) 10/26/17 20:15 Urine Culture - Final Urine,Voided 10/26/17 22:35 Blood Culture - Preliminary Blood No Growth after 24 hours Assessment and Plan Plan: Assessment and Recommendations: 1. Acute Intractable Nausea and Vomiting - Likely secondary to viral Gastritis and/or Bacterial UTI - Agree with supportive care and treaments 2. History of Acute Leukemia with Transplant - Continue Prograft - CBC appears within normal limits, as not to suggest concern for any recurrent malignant disease - Leukocytosis is neutrophil shift would be consistent with acute infection 3. Decreased PO intake, Weight loss - If persists after treatment of number one , may benefit from appetite stimulatator as megace or marinil Physician Attestation: I have completed the Full history and physical of this patient and agree with above dictation by Alondra Gutierrez NP. Dictated as a scribe.
[2017-10-29] MEDS: MORPHINE SULFATE 2 MG/ML SYRINGE IVP PRN ×2 (02:38→05:50)
[2017-10-29 05:50] VITALS: BP 108/56; PULSE 80; RESP 18; TEMP 98.7
[2017-10-29 08:00] LABS: Basophils % (A) 0 %; Eosinophils # (A) 0.1 k/uL (0-0.7); Eosinophils % (A) 1 %; HCT 32.3 % (34.0-46.0); HGB 10.9 gm/dL (11.4-16.0); Lymphocytes # (A) 2.1 k/uL (1.0-4.8); Lymphocytes % (A) 54 %; MCH 32.8 pg (25.0-35.0); MCHC 33.9 g/dL (31.0-37.0); MCV 96.6 fL (80.0-100.0); Mean Platelet Volume 7.7; Monocytes # (A) 0.3 k/uL (0-1.0); Monocytes % (A) 7 %; Neutrophils # (A) 1.3 k/uL (1.3-7.7); Neutrophils % (A) 34 %; Platelet Count 120 k/uL (150-450); RBC 3.34 m/uL (3.80-5.40); RDW 13.3 % (11.5-15.5); WBC 3.8 k/uL (3.8-10.6)
[2017-10-29 09:15] LABS: Anisocytosis (M) Present; Poikilocytosis (M) Present
[2017-10-29] MEDS: TOPIRAMATE 25 MG TAB PO SCH (09:51)
[2017-10-29] MEDS: TACROLIMUS 1 MG CAP PO SCH (09:51)
[2017-10-29] MEDS: cefTRIAXone IN SWFI 1,000 MG/10 ML SYRINGE IVP SCH (09:51)
[2017-10-29] MEDS: ACYCLOVIR 800 MG TAB PO SCH (09:51)
[2017-10-29] MEDS: PANTOPRAZOLE 40 MG/10 ML VIAL IVP SCH (09:52)
[2017-10-29] MEDS: SODIUM CHLORIDE 0.9% 1,000 ML IV SCH (09:52)
[2017-10-29] MEDS: LORazepam 1 MG TAB PO SCH (09:52)
[2017-10-29] MEDS ORDERED: PROCHLORPERAZINE 10 MG TAB PO PRN (10:54)
[2017-10-29] MEDS ORDERED: MORPHINE SULFATE IR 15 MG TABLET PO PRN (10:54)
[2017-10-29] MEDS ORDERED: ONDANSETRON 4 MG TAB PO PRN (10:54)
[2017-10-29] MEDS ORDERED: MORPHINE SULFATE ER 30 MG TABLET PO SCH (11:00)
--- NOTE | 2017-10-29 17:09 | P.PN ---
Subjective Progress Note Date: 10/29/17 Principal diagnosis: Nausea and Vomiting Patient seen in follow-up, still decreased appetite, no other acute complaints Objective - Vital Signs Vital signs: Vital Signs Temp 98.7 F 10/29/17 05:50 Pulse 80 10/29/17 05:50 Resp 18 10/29/17 05:50 BP 108/56 10/29/17 05:50 Pulse Ox 96 10/29/17 05:50 Intake & Output 10/28/17 10/29/17 10/29/17 18:59 06:59 18:59 Intake Total 1500 Balance 1500 Weight 49.442 kg Intake: Intake, IV Titration 900 Amount Sodium Chloride 0.9% 1, 900 000 ml @ 100 mls/hr IV . Q10H BINU Rx#:[id number] Oral 600 Other: Voiding Method Toilet Toilet # Voids 2 1 - Constitutional General appearance: Present: average body habitus, cooperative, no acute distress - EENT Eyes: Present: EOMI, dentition normal ENT: Present: NA/AT, normal oropharynx - Neck Details: Supple, Trachea Midline Neck: Present: normal ROM - Respiratory Respiratory: bilateral: CTA (No increased effort) - Cardiovascular Rhythm: regular Heart sounds: normal: S1, S2 - Gastrointestinal General gastrointestinal: Present: normal bowel sounds, soft - Integumentary Integumentary: Present: pale - Neurologic Neurologic: Present: CNII-XII intact - Musculoskeletal Musculoskeletal: Present: generalized weakness, strength equal bilaterally - Psychiatric Psychiatric: Present: A&O x's 3, appropriate affect, intact judgment & insight - Labs CBC & Chem 7: 10/29/17 07:41 10/28/17 06:59 Labs: Abnormal Lab Results - Last 24 Hours (Table) 10/29/17 Range/Units 07:41 RBC 3.34 L (3.80-5.40) m/uL Hgb 10.9 L (11.4-16.0) gm/dL Hct 32.3 L (34.0-46.0) % Plt Count 120 L (150-450) k/uL Microbiology - Last 24 Hours (Table) 10/26/17 22:35 Blood Culture - Preliminary Blood No Growth after 48 hours 10/26/17 20:15 Urine Culture - Final Urine,Voided Assessment and Plan Plan: Assessment and Recommendations: 1. Acute Intractable Nausea and Vomiting - Likely secondary to viral Gastritis and/or Bacterial UTI - Agree with supportive care and treaments 2. History of Acute Leukemia with Transplant - Continue Prograft - CBC appears within normal limits, as not to suggest concern for any recurrent malignant disease - Leukocytosis is neutrophil shift would be consistent with acute infection 3. Decreased PO intake, Weight loss - If persists after treatment of number one , may benefit from appetite stimulatator as megace or marinol 4. Mild Thrombocytopenia - Recent decrease in platelets - WIll check smear with history of Leukemia, likely from infection component of prograft Physician Attestation: I have completed the Full history and physical of this patient and agree with above dictation by Alondra Gutierrez NP. Dictated as a scribe.
--- NOTE | 2017-10-29 17:16 | P.DS ---
Providers Date of admission: 10/26/17 22:18 Expected date of discharge: 10/29/17 Attending physician: Kelton Gannon Consults: 10/26/17 22:19 Consult Physician Urgent Consulting Provider: Campos Rodriguez Consult Reason/Comments: Oncological care Do you want consulting provider notified?: Yes Primary care physician: Miquel Perez Hospital Course: final Diagnoses: Acute gastroenteritis,improved Urinary tract infection AML status post bone marrow transplant in remission Congenital heart disease Hospital course:UTI and Acute Gastritis Mrs. Key is a 42-year-old female with a past medical history of congenital heart disease, AML status post bone marrow transplant coming into the hospital with a chief complaint of nausea vomiting and diarrhea for the past 1 day. Patient states that she threw up 36 times in the past 12 hours and was not able to keep down anything. Patient also had diarrhea loose watery 5-6 with no blood or mucus. Patient states couple of days back she was having urinary urgency and frequency and she was also having chills for the past couple of days he did patient denies having any blood in her urine but has pain while urination. Patient denies having any also had foot consumption. She was also complaining of diffuse abdominal pain that was with her nausea and vomiting. She denies having any chest pain, cough, difficulty in breathing or lower extremity swelling. She follows with [facility] [place] [facility] [employer] for her AML. She is in remission currently. Patient has been compliant with her home medication regimen and did not miss any of her doses except the ones yesterday as she could not keep them down with her vomiting. On 10/28/2017 ; patient is lying in bed comfortably. She is getting IV fluids and levofloxacin. She states her vomiting did improve and she did not throw up since last night. But she is nauseous. She is able to tolerate by mouth liquids but not solids as of yet. She states overall she feels that she is being well hydrated with IV fluids. She was seen by Dr. Rodriguez earlier who said that he would talk with with her cancer doctors at [facility] to get her something to improve her appetite. 10/29/2017 no overnight events. Maintained on gentle IV fluid hydration, IV antibiotics. Headache, nausea, diarrhea subsided. patient is being discharged home in a stable condition with guarded prognosis. GEN. APPEARANCE: thin appearance HEAD EXAM: atraumatic, normocephalic, normal inspection EYE EXAM: normal appearance, PERRL, EOMI. Absent: scleral icterus, conjunctival injection, periorbital swelling ENT EXAM: normal exam, mucous membranes moist NECK EXAM: normal inspection. Absent: tenderness, meningismus, full ROM, lymphadenopathy RESPIRATORY EXAM: normal lung sounds bilaterally. Absent: respiratory distress , wheezes, rales, rhonchi, stridor CARDIOVASCULAR EXAM: regular rate, normal rhythm, normal heart sounds. Pansystolic murmur GI/ABDOMINAL EXAM: soft, normal bowel sounds. Absent: distended, tenderness, guarding, rebound, rigid EXTREMITIES EXAM: normal inspection, full ROM, normal capillary refill. Absent : tenderness, pedal edema, joint swelling, calf tenderness NEUROLOGICAL EXAM: alert, oriented X3, no focal neurological deficits PSYCHIATRIC EXAM: normal affect, normal mood SKIN EXAM: warm, dry, intact, normal color. Absent: rash The impression and plan of care has been dictated as directed. : I performed a history and examination of this patient, discussed the same with the dictator. I agree with the dictator's note ,documented as a scribe. Any additional findings or plans will be noted time taken: 35 minutes. Patient Condition at Discharge: Stable Plan - Discharge Summary Discharge Rx Participant: No New Discharge Prescriptions: Continue Morphine Sulfate Ir [MSIR] 30 mg PO Q3H PRN PRN Reason: Pain Morphine Sulfate ER [Ms Contin] 30 mg PO BID@0800,2200 LORazepam [Ativan] 1 mg PO TID@0800,1400,2200 Topiramate [Trokendi Xr] 50 mg PO DAILY Tacrolimus [Prograf] 2 mg PO BID@0800,2000 Metoprolol Tartrate [Lopressor] 12.5 mg PO DAILY Acyclovir [Zovirax] 800 mg PO BID@0800,2200 Dexamethasone [Decadron Intensol Oral Solution] 5 mg PO TID PRN PRN Reason: TO TREAT GVHD Hydrocortisone Oint [Hydrocortisone 1% Oint] 1 applic TOPICAL BID PRN PRN Reason: Rash Magnesium Plus Protein 2 tab PO TID@0800,1400,2200 Ondansetron HCl [Zofran] 8 mg PO Q8H PRN PRN Reason: Nausea Pantoprazole Sodium [Protonix] 40 mg PO DAILY Prochlorperazine [Compazine] 10 mg PO Q6H PRN PRN Reason: Nausea Triamcinolone 0.1% Ointment [Kenalog 0.1% Ointment] 1 applic TOPICAL TID PRN PRN Reason: Rash Sulfamethox-Tmp 400-80Mg [Bactrim SS 400-80 mg] 1 tab PO DAILY@0800 #0 Discontinued Amoxicillin 2,000 mg PO ONCE PRN PRN Reason: DENTAL APPOINTMENT Discharge Medication List Acyclovir [Zovirax] 800 mg PO BID@0800,0 05/18/17 [History] LORazepam [Ativan] 1 mg PO TID@0800,1400,219905/18/17 [History] Metoprolol Tartrate [Lopressor] 12.5 mg PO DAILY 05/18/17 [History] Morphine Sulfate ER [Ms Contin] 30 mg PO BID@0800,219905/18/17 [History] Morphine Sulfate Ir [MSIR] 30 mg PO Q3H PRN 05/18/17 [History] Tacrolimus [Prograf] 2 mg PO BID@0800,199905/18/17 [History] Topiramate [Trokendi Xr] 50 mg PO DAILY 05/18/17 [History] Dexamethasone [Decadron Intensol Oral Solution] 5 mg PO TID PRN 10/27/17 [ History] Hydrocortisone Oint [Hydrocortisone 1% Oint] 1 applic TOPICAL BID PRN 10/27/17 [ History] Magnesium Plus Protein 2 tab PO TID@0800,1400,0 10/27/17 [History] Ondansetron HCl [Zofran] 8 mg PO Q8H PRN 10/27/17 [History] Pantoprazole Sodium [Protonix] 40 mg PO DAILY 10/27/17 [History] Prochlorperazine [Compazine] 10 mg PO Q6H PRN 10/27/17 [History] Triamcinolone 0.1% Ointment [Kenalog 0.1% Ointment] 1 applic TOPICAL TID PRN 03/06 [History] Sulfamethox-Tmp 400-80Mg [Bactrim SS 400-80 mg] 1 tab PO DAILY@0800 #0 10/29/17 [Rx] Follow up Appointment(s)/Referral(s): OncologistDr.@ [facility] [Other] - 3 Weeks (patient will need to call [facility] and schedule own appt.) Chris Lafleur MD [Primary Care Provider] - 11/05/17 1:40 pm Ambulatory/Diagnostic Orders: Complete Blood Count w/diff [LAB.AMB] Time Frame: 3 Days, Location: Determined By Patient Patient Instructions/Handouts: Acute Nausea and Vomiting (DC) Activity/Diet/Wound Care/Special Instructions: Diet: soft,heart healthy Discharge Disposition: HOME SELF-CARE
[2017-10-30] MEDS ORDERED: PANTOPRAZOLE 40 MG TABLET PO SCH (07:30)
== END 2017-10-29 14:30 | disposition home or self-care (01) | DRG 690 ==
LOC: EC 18:29 → 3SUR 22:18 → 5ONC 10-28 16:24
PROVIDERS: ADMIT Internal Medicine; ATTEND Internal Medicine
DX: N39.0 Urinary tract infection, site not specified (principal); C92.01 Acute myeloblastic leukemia, in remission; Z94.81 Bone marrow transplant status; A08.4 Viral intestinal infection, unspecified; Z87.891 Personal history of nicotine dependence; L52 Erythema nodosum; I50.9 Heart failure, unspecified; R63.4 Abnormal weight loss; Z68.20 Body mass index [BMI] 20.0-20.9, adult; Z79.2 Long term (current) use of antibiotics; Z79.899 Other long term (current) drug therapy
CPT/HCPCS: 36415; 71046; 74018; 80053; 81001; 82150; 83690; 83735; 85025; 87040; 87086; 87324; 96361; 96374; 96375; 96376; 99285

== ENCOUNTER 2018-04-04 23:56 | Emergency (ER) | payer OTHER ==
[2018-04-05] MEDS ORDERED: SODIUM CHLORIDE 0.9% 1,000 ML IV STA ×2 (01:16)
[2018-04-05] MEDS ORDERED: ONDANSETRON 4 MG/2 ML VIAL IVP STA (01:16)
--- NOTE | 2018-04-05 01:16 | ED ---
Nausea/Vomiting/Diarrhea HPI - General Chief complaint: Nausea/Vomiting/Diarrhea Stated complaint: Vomitting Time Seen by Provider: 04/05/18 01:06 Source: patient, RN notes reviewed, old records reviewed Mode of arrival: ambulatory Limitations: no limitations - History of Present Illness Initial comments: This is a 42-year-old female the ER for evaluation of persistent nausea and vomiting. Patient is unable to keep down medications secondary significant nausea vomiting. Does not feel well, with occasional fever. States she has a tinea but is currently not going to treatment, his 2 years of remission. Patient denies any other significant complaints no diarrhea no recent sick contact or travel history no chest pain or abdominal pain MD complaint: nausea, vomiting, diarrhea -: days(s) Description of Vomiting: food contents Associated Abdominal Pain: No Quality: cramping Consistency: constant Improves with: none Worsens with: eating Associated Symptoms: denies other symptoms - Related Data Home Medications Medication Instructions Recorded Confirmed Acyclovir [Zovirax] 800 mg PO BID@0800,2200 05/18/17 10/27/17 LORazepam [Ativan] 1 mg PO TID@0800,1400,0 05/18/17 10/27/17 Metoprolol Tartrate [Lopressor] 12.5 mg PO DAILY 05/18/17 10/27/17 Morphine Sulfate ER [Ms Contin] 30 mg PO BID@0800,0 05/18/17 10/27/17 Morphine Sulfate Ir [MSIR] 30 mg PO Q3H PRN 05/18/17 10/27/17 Tacrolimus [Prograf] 2 mg PO BID@0800,199905/18/17 10/27/17 Topiramate [Trokendi Xr] 50 mg PO DAILY 05/18/17 10/27/17 Dexamethasone [Decadron Intensol 5 mg PO TID PRN 10/27/17 10/27/17 Oral Solution] Hydrocortisone Oint 1 applic TOPICAL BID PRN 10/27/17 10/27/17 [Hydrocortisone 1% Oint] Magnesium Plus Protein 2 tab PO TID@0800,1400,2200 10/27/17 10/27/17 Ondansetron HCl [Zofran] 8 mg PO Q8H PRN 10/27/17 10/27/17 Pantoprazole Sodium [Protonix] 40 mg PO DAILY 10/27/17 10/27/17 Prochlorperazine [Compazine] 10 mg PO Q6H PRN 10/27/17 10/27/17 Triamcinolone 0.1% Ointment 1 applic TOPICAL TID PRN 10/27/17 10/27/17 [Kenalog 0.1% Ointment] Previous Rx's Medication Instructions Recorded Sulfamethox-Tmp 400-80Mg [Bactrim 1 tab PO DAILY@0800 #0 10/29/17 SS 400-80 mg] Allergies Allergy/AdvReac Type Severity Reaction Status Date / Time acetaminophen Allergy Rash/Hives Verified 04/05/18 00:08 [From Darvocet-N] fondaparinux [From Arixtra] Allergy Rash/Hives Verified 04/05/18 00:08 propoxyphene napsylate Allergy Rash/Hives Verified 04/05/18 00:08 [From Darvocet-N] Review of Systems ROS Statement: Those systems with pertinent positive or pertinent negative responses have been documented in the HPI. ROS Other: All systems not noted in ROS Statement are negative. Past Medical History Past Medical History: Cancer, Heart Failure Additional Past Medical History / Comment(s): Congenital heart failure, ALL History of Any Multi-Drug Resistant Organisms: None Reported Past Surgical History: Section, Cholecystectomy, Tubal Ligation Additional Past Surgical History / Comment(s): left knee, left shoulder, bone marrow transplant Past Psychological History: Anxiety Smoking Status: Former smoker Past Alcohol Use History: Occasional Past Drug Use History: None Reported - Past Family History Mother Family Medical History: No Reported History Father Family Medical History: No Reported History General Exam Limitations: no limitations General appearance: alert, in no apparent distress Head exam: Present: atraumatic, normocephalic, normal inspection Eye exam: Present: normal appearance, PERRL, EOMI. Absent: scleral icterus, conjunctival injection, periorbital swelling ENT exam: Present: normal exam, mucous membranes moist Neck exam: Present: normal inspection. Absent: tenderness, meningismus, lymphadenopathy Respiratory exam: Present: normal lung sounds bilaterally. Absent: respiratory distress, wheezes, rales, rhonchi, stridor Cardiovascular Exam: Present: regular rate, normal rhythm, normal heart sounds. Absent: systolic murmur, diastolic murmur, rubs, gallop, clicks GI/Abdominal exam: Present: soft, normal bowel sounds. Absent: distended, tenderness, guarding, rebound, rigid Extremities exam: Present: normal inspection, full ROM, normal capillary refill. Absent: tenderness, pedal edema, joint swelling, calf tenderness Back exam: Present: normal inspection Neurological exam: Present: alert, oriented X3, CN II-XII intact Psychiatric exam: Present: normal affect, normal mood Skin exam: Present: warm, dry, intact, normal color. Absent: rash Course Vital Signs 04/05/18 00:04 Temperature 99.5 F Pulse Rate 81 Respiratory 24 Rate Blood Pressure 128/79 O2 Sat by Pulse 99 Oximetry - Reevaluation(s) Reevaluation #1: 04/05/18 05:54 Medical record is reviewed Reevaluation #2: 04/05/18 05:54 Patient's symptoms are much improved, resolved Medical Decision Making - Medical Decision Making 42 female the ER with persistent nausea vomiting. Patient symptoms are much improved currently. Patient can be discharged home - Lab Data Result diagrams: 04/05/18 01:58 04/05/18 01:58 Lab Results 04/05/18 04/05/18 04/05/18 Range/Units 01:58 01:58 01:58 WBC 11.5 H (3.8-10.6) k/uL RBC 4.05 (3.80-5.40) m/uL Hgb 14.5 (11.4-16.0) gm/dL Hct 41.2 (34.0-46.0) % MCV 101.6 H (80.0-100.0) fL MCH 35.6 H (25.0-35.0) pg MCHC 35.1 (31.0-37.0) g/dL RDW 12.9 (11.5-15.5) % Plt Count 165 (150-450) k/uL Neutrophils % 73 % Lymphocytes % 20 % Monocytes % 5 % Eosinophils % 1 % Basophils % 0 % Neutrophils # 8.5 H (1.3-7.7) k/uL Lymphocytes # 2.3 (1.0-4.8) k/uL Monocytes # 0.5 (0-1.0) k/uL Eosinophils # 0.1 (0-0.7) k/uL Basophils # 0.0 (0-0.2) k/uL PT (9.0-12.0) sec INR (<1.2) APTT (22.0-30.0) sec Sodium 139 (137-145) mmol/L Potassium 3.4 L (3.5-5.1) mmol/L Chloride 102 (98-107) mmol/L Carbon Dioxide 22 (22-30) mmol/L Anion Gap 15 mmol/L BUN 23 H (7-17) mg/dL Creatinine 0.77 (0.52-1.04) mg/dL Est GFR (CKD-EPI)AfAm >90 (>60 ml/min/1.73 sqM) Est GFR (CKD-EPI)NonAf >90 (>60 ml/min/1.73 sqM) Glucose 179 H (74-99) mg/dL Lactic Ac Sepsis Rflx Plasma Lactic Acid [place] (0.7-2.0) mmol/L Calcium 10.4 H (8.4-10.2) mg/dL Phosphorus 2.9 (2.5-4.5) mg/dL Magnesium 1.5 L (1.6-2.3) mg/dL Total Bilirubin 1.1 (0.2-1.3) mg/dL AST 33 (14-36) U/L ALT 36 (9-52) U/L Alkaline Phosphatase 75 (38-126) U/L Total Creatine Kinase 49 (30-135) U/L CK-MB (CK-2) 0.7 (0.0-2.4) ng/mL CK-MB (CK-2) Rel Index 1.4 Troponin I <0.012 (0.000-0.034) ng/mL Total Protein 7.9 (6.3-8.2) g/dL Albumin 4.9 (3.5-5.0) g/dL TSH 3.010 (0.465-4.680) mIU/L Urine Color Urine Appearance (Clear) Urine pH (5.0-8.0) Ur Specific [place] (1.001-1.035) Urine Protein (Negative) Urine Glucose (UA) (Negative) Urine Ketones (Negative) Urine Blood (Negative) Urine Nitrite (Negative) Urine Bilirubin (Negative) Urine Urobilinogen (<2.0) mg/dL Ur Leukocyte Esterase (Negative) Urine RBC (0-5) /hpf Urine WBC (0-5) /hpf Ur Squamous Epith Cells (0-4) /hpf Urine Bacteria (None) /hpf Urine Mucus (None) /hpf 04/05/1818 04/05/18 Range/Units 01:58 01:58 02:49 WBC (3.8-10.6) k/uL RBC (3.80-5.40) m/uL Hgb (11.4-16.0) gm/dL Hct (34.0-46.0) % MCV (80.0-100.0) fL MCH (25.0-35.0) pg MCHC (31.0-37.0) g/dL RDW (11.5-15.5) % Plt Count (150-450) k/uL Neutrophils % % Lymphocytes % % Monocytes % % Eosinophils % % Basophils % % Neutrophils # (1.3-7.7) k/uL Lymphocytes # (1.0-4.8) k/uL Monocytes # (0-1.0) k/uL Eosinophils # (0-0.7) k/uL Basophils # (0-0.2) k/uL PT 10.4 (9.0-12.0) sec INR 1.1 (<1.2) APTT 22.6 (22.0-30.0) sec Sodium (137-145) mmol/L Potassium (3.5-5.1) mmol/L Chloride (98-107) mmol/L Carbon Dioxide (22-30) mmol/L Anion Gap mmol/L BUN (7-17) mg/dL Creatinine (0.52-1.04) mg/dL Est GFR (CKD-EPI)AfAm (>60 ml/min/1.73 sqM) Est GFR (CKD-EPI)NonAf (>60 ml/min/1.73 sqM) Glucose (74-99) mg/dL Lactic Ac Sepsis Rflx Y Plasma Lactic Acid [place] 3.7 H* (0.7-2.0) mmol/L Calcium (8.4-10.2) mg/dL Phosphorus (2.5-4.5) mg/dL Magnesium (1.6-2.3) mg/dL Total Bilirubin (0.2-1.3) mg/dL AST (14-36) U/L ALT (9-52) U/L Alkaline Phosphatase (38-126) U/L Total Creatine Kinase (30-135) U/L CK-MB (CK-2) (0.0-2.4) ng/mL CK-MB (CK-2) Rel Index Troponin I (0.000-0.034) ng/mL Total Protein (6.3-8.2) g/dL Albumin (3.5-5.0) g/dL TSH (0.465-4.680) mIU/L Urine Color Urine Appearance (Clear) Urine pH (5.0-8.0) Ur Specific [place] (1.001-1.035) Urine Protein (Negative) Urine Glucose (UA) (Negative) Urine Ketones (Negative) Urine Blood (Negative) Urine Nitrite (Negative) Urine Bilirubin (Negative) Urine Urobilinogen (<2.0) mg/dL Ur Leukocyte Esterase (Negative) Urine RBC (0-5) /hpf Urine WBC (0-5) /hpf Ur Squamous Epith Cells (0-4) /hpf Urine Bacteria (None) /hpf Urine Mucus (None) /hpf 04/05/18 Range/Units 05:05 WBC (3.8-10.6) k/uL RBC (3.80-5.40) m/uL Hgb (11.4-16.0) gm/dL Hct (34.0-46.0) % MCV (80.0-100.0) fL MCH (25.0-35.0) pg MCHC (31.0-37.0) g/dL RDW (11.5-15.5) % Plt Count (150-450) k/uL Neutrophils % % Lymphocytes % % Monocytes % % Eosinophils % % Basophils % % Neutrophils # (1.3-7.7) k/uL Lymphocytes # (1.0-4.8) k/uL Monocytes # (0-1.0) k/uL Eosinophils # (0-0.7) k/uL Basophils # (0-0.2) k/uL PT (9.0-12.0) sec INR (<1.2) APTT (22.0-30.0) sec Sodium (137-145) mmol/L Potassium (3.5-5.1) mmol/L Chloride (98-107) mmol/L Carbon Dioxide (22-30) mmol/L Anion Gap mmol/L BUN (7-17) mg/dL Creatinine (0.52-1.04) mg/dL Est GFR (CKD-EPI)AfAm (>60 ml/min/1.73 sqM) Est GFR (CKD-EPI)NonAf (>60 ml/min/1.73 sqM) Glucose (74-99) mg/dL Lactic Ac Sepsis Rflx Plasma Lactic Acid [place] (0.7-2.0) mmol/L Calcium (8.4-10.2) mg/dL Phosphorus (2.5-4.5) mg/dL Magnesium (1.6-2.3) mg/dL Total Bilirubin (0.2-1.3) mg/dL AST (14-36) U/L ALT (9-52) U/L Alkaline Phosphatase (38-126) U/L Total Creatine Kinase (30-135) U/L CK-MB (CK-2) (0.0-2.4) ng/mL CK-MB (CK-2) Rel Index Troponin I (0.000-0.034) ng/mL Total Protein (6.3-8.2) g/dL Albumin (3.5-5.0) g/dL TSH (0.465-4.680) mIU/L Urine Color Yellow Urine Appearance Clear (Clear) Urine pH 6.5 (5.0-8.0) Ur Specific [place] 1.017 (1.001-1.035) Urine Protein Trace H (Negative) Urine Glucose (UA) Negative (Negative) Urine Ketones 2+ H (Negative) Urine Blood Negative (Negative) Urine Nitrite Negative (Negative) Urine Bilirubin Negative (Negative) Urine Urobilinogen <2.0 (<2.0) mg/dL Ur Leukocyte Esterase Large H (Negative) Urine RBC 1 (0-5) /hpf Urine WBC 7 H (0-5) /hpf Ur Squamous Epith Cells 1 (0-4) /hpf Urine Bacteria Rare H (None) /hpf Urine Mucus Occasional H (None) /hpf - EKG Data -: EKG Interpreted by Me (EKG shows NSR rate 69 OK 152 QRS 106 QTc 458) - Radiology Data Radiology results: report reviewed (Asked x-rays negative for acute disease), image reviewed Disposition Clinical Impression: Acute vomiting Disposition: HOME SELF-CARE Condition: Good Instructions: Acute Nausea and Vomiting (ED) Is patient prescribed a controlled substance at d/c from ED?: No Referrals: Chris Lafleur MD [Primary Care Provider] - 1-2 days
[2018-04-05] MEDS ORDERED: LORazepam 2 MG/ML INJ IV STA (01:36)
[2018-04-05] MEDS ORDERED: MORPHINE SULFATE 4 MG/ML SYRINGE IVP STA (01:36)
[2018-04-05] MEDS ORDERED: PANTOPRAZOLE 40 MG/10 ML VIAL IVP STA (01:36)
[2018-04-05 02:24] LABS: Basophils % (A) 0 %; Eosinophils # (A) 0.1 k/uL (0-0.7); Eosinophils % (A) 1 %; HCT 41.2 % (34.0-46.0); HGB 14.5 gm/dL (11.4-16.0); Lymphocytes # (A) 2.3 k/uL (1.0-4.8); Lymphocytes % (A) 20 %; MCH 35.6 pg (25.0-35.0); MCHC 35.1 g/dL (31.0-37.0); MCV 101.6 fL (80.0-100.0); Monocytes # (A) 0.5 k/uL (0-1.0); Monocytes % (A) 5 %; Neutrophils # (A) 8.5 k/uL (1.3-7.7); Neutrophils % (A) 73 %; Platelet Count 165 k/uL (150-450); RBC 4.05 m/uL (3.80-5.40); RDW 12.9 % (11.5-15.5); WBC 11.5 k/uL (3.8-10.6)
--- NOTE | 2018-04-05 02:31 | XR ---
EXAMINATION TYPE: XR chest 2V DATE OF EXAM: 04/05/2018 COMPARISON: NONE HISTORY: Weakness TECHNIQUE: Frontal and lateral views of the chest are obtained. FINDINGS: Heart and mediastinum are normal. There are sternal wires. Lungs are clear of infiltrate. There is previous surgery on the left clavicle. Diaphragm is normal. IMPRESSION: Normal chest. No change.
[2018-04-05 02:39] LABS: ALT 36 U/L (9-52); AST 33 U/L (14-36); Albumin 4.9 g/dL (3.5-5.0); Alkaline Phosphatase 75 U/L (38-126); Anion Gap 15 mmol/L; Blood Urea Nitrogen 23 mg/dL (7-17); Calcium 10.4 mg/dL (8.4-10.2); Carbon Dioxide 22 mmol/L (22-30); Chloride 102 mmol/L (98-107); Glucose 179 mg/dL (74-99); Magnesium 1.5 mg/dL (1.6-2.3); Phosphorus 2.9 mg/dL (2.5-4.5); Potassium 3.4 mmol/L (3.5-5.1); Sodium 139 mmol/L (137-145); Total Bilirubin 1.1 mg/dL (0.2-1.3); Total Protein 7.9 g/dL (6.3-8.2)
[2018-04-05 02:44] LABS: INR 1.1 (<1.2); Partial Thromboplastin Time 22.6 sec (22.0-30.0); Prothrombin Time 10.4 sec (9.0-12.0)
[2018-04-05 02:46] LABS: Creatine Kinase 49 U/L (30-135)
[2018-04-05 02:59] LABS: Creatine Kinase MB 0.7 ng/mL (0.0-2.4); Troponin I <0.012 ng/mL (0.000-0.034)
[2018-04-05] MEDS ORDERED: POTASSIUM BICARBONATE/CIT AC 20 MEQ TABLET.EFF PO ONE (03:35)
[2018-04-05] MEDS ORDERED: MAGNESIUM OXIDE 400 MG TAB PO STA (03:35)
[2018-04-05 06:01] LABS: Appearance,Urine Clear (Clear); Bacteria,Urine Rare /hpf; Bilirubin,Urine Negative (Negative); Blood,Urine Negative (Negative); Color,Urine Yellow; Glucose,Urine (UA) Negative (Negative); Ketones,Urine 2+ (Negative); Leukocyte Esterase,Urine Large (Negative); Mucus,Urine Occasional /hpf; Nitrite,Urine Negative (Negative); PH, Urine 6.5 (5.0-8.0); Protein,Urine Trace (Negative); RBC,Urine 1 /hpf (0-5); Specific Gravity,Urine 1.017 (1.001-1.035); Squamous Epithelial Cell,Urine 1 /hpf (0-4); Urobilinogen,Urine <2.0 mg/dL (<2.0); WBC,Urine 7 /hpf (0-5)
[2018-04-05 06:37] VITALS: BP 122/78; PULSE 73; RESP 16; TEMP 98.8
== END 2018-04-05 06:37 | disposition home or self-care (01) ==
LOC: EC 23:56
DX: R11.2 Nausea with vomiting, unspecified (principal); R19.7 Diarrhea, unspecified; I50.9 Heart failure, unspecified; R50.9 Fever, unspecified; Z87.891 Personal history of nicotine dependence; Z88.6 Allergy status to analgesic agent; Z88.8 Allergy status to other drugs, medicaments and biological substances; Z79.891 Long term (current) use of opiate analgesic; Z79.899 Other long term (current) drug therapy; Z90.49 Acquired absence of other specified parts of digestive tract; Z87.2 Personal history of diseases of the skin and subcutaneous tissue; Z85.6 Personal history of leukemia
CPT/HCPCS: 96374 ×2; 96375 ×4; 96361 ×6; 99284 ×2; 36415; 93005; 80053; 82550; 82553; 83605; 83735; 84100; 84443; 84484; 85025; 85610; 85730; 81001; 87086; 71046; J2060; J2270; J2405; C9113

== ENCOUNTER 2018-05-23 10:06 | Observation (INO) | payer MEDICARE, OTHER ==
[2018-05-23] MEDS ORDERED: SODIUM CHLORIDE 0.9% 1,000 ML IV STA ×3 (10:41→13:20)
--- NOTE | 2018-05-23 11:14 | ED ---
Abdominal Pain HPI - General Chief Complaint: Abdominal Pain Stated Complaint: dehydration/Cancer pt Time Seen by Provider: 05/23/18 10:32 Source: patient, RN notes reviewed Mode of arrival: ambulatory Limitations: no limitations - History of Present Illness Initial Comments: Is a 42-year-old female with a history of leukemia who is status post stem cell transplant and also history of cholecystectomy who states she's had 3 days of crampy abdominal pain mostly mid and upper abdominal area she feels tired had decreased oral intake feels thirsty started developing rhinorrhea and a cough. She denies any fevers chills or sweats any phlegm production dysuria hematuria or other symptoms. The crampy dull pain is [id number] in severity. MD Complaint: abdominal pain - Related Data Home Medications Medication Instructions Recorded Confirmed Acyclovir [Zovirax] 800 mg PO BID@0800,2200 05/18/17 05/23/18 LORazepam [Ativan] 1 mg PO TID@0800,1400,2200 05/18/17 05/23/18 Metoprolol Tartrate [Lopressor] 12.5 mg PO DAILY 05/18/17 05/23/18 Dexamethasone [Decadron Intensol 5 mg PO TID PRN 10/27/17 05/23/18 Oral Solution] Hydrocortisone Oint 1 applic TOPICAL BID PRN 10/27/17 05/23/18 [Hydrocortisone 1% Oint] Magnesium Plus Protein 2 tab PO TID@0800,1400,2200 10/27/17 05/23/18 Ondansetron HCl [Zofran] 8 mg PO Q8H PRN 10/27/17 05/23/18 Pantoprazole Sodium [Protonix] 40 mg PO DAILY 10/27/17 05/23/18 Prochlorperazine [Compazine] 10 mg PO Q6H PRN 10/27/17 05/23/18 Triamcinolone 0.1% Ointment 1 applic TOPICAL TID PRN 10/27/17 05/23/18 [Kenalog 0.1% Ointment] Docusate [Colace] 100 mg PO DAILY PRN 05/23/18 05/23/18 Tacrolimus [Prograf] 0.5 mg PO DAILY 05/23/18 05/23/18 Topiramate [Topamax] 50 mg PO DAILY 05/23/18 05/23/18 Previous Rx's Medication Instructions Recorded Sulfamethox-Tmp 400-80Mg [Bactrim 1 tab PO DAILY@0800 #0 10/29/17 SS 400-80 mg] Allergies Allergy/AdvReac Type Severity Reaction Status Date / Time fondaparinux [From Arixtra] Allergy Rash/Hives Verified 05/23/18 11:26 propoxyphene napsylate Allergy Rash/Hives Verified 05/23/18 11:26 [From Darvocet-N] Review of Systems ROS Statement: Those systems with pertinent positive or pertinent negative responses have been documented in the HPI. ROS Other: All systems not noted in ROS Statement are negative. Past Medical History Past Medical History: Cancer, Heart Failure Additional Past Medical History / Comment(s): Congenital heart failure, ALL History of Any Multi-Drug Resistant Organisms: None Reported Past Surgical History: Section, Cholecystectomy, Tubal Ligation Additional Past Surgical History / Comment(s): left knee, left shoulder, bone marrow transplant, open heart surgery Past Psychological History: Anxiety Smoking Status: Former smoker Past Alcohol Use History: Occasional Past Drug Use History: Marijuana - Past Family History Mother Family Medical History: No Reported History Father Family Medical History: No Reported History General Exam - General Exam Comments Initial Comments: This is a well-developed well-nourished awake alert oriented history female Limitations: no limitations General appearance: alert, anxious Head exam: Present: atraumatic, normocephalic, normal inspection Eye exam: Present: normal appearance, PERRL, EOMI. Absent: scleral icterus, conjunctival injection, periorbital swelling ENT exam: Present: mucous membranes dry, other (Bogginess mucosa TMs appear to be intact and clear) Neck exam: Present: normal inspection. Absent: tenderness, meningismus, lymphadenopathy Respiratory exam: Present: normal lung sounds bilaterally. Absent: respiratory distress, wheezes, rales, rhonchi, stridor Cardiovascular Exam: Present: regular rate, normal rhythm, normal heart sounds. Absent: systolic murmur, diastolic murmur, rubs, gallop, clicks GI/Abdominal exam: Present: soft, tenderness (Minimal discomfort to palpation no guarding rebound masses or bruits), normal bowel sounds. Absent: distended, guarding, rebound, rigid Rectal exam: Present: deferred Extremities exam: Present: normal inspection, full ROM, normal capillary refill. Absent: tenderness, pedal edema, joint swelling, calf tenderness Back exam: Present: normal inspection Neurological exam: Present: alert, oriented X3, CN II-XII intact Psychiatric exam: Present: normal affect, normal mood Skin exam: Present: warm, dry, intact, normal color. Absent: rash Course Vital Signs 05/23/18 05/23/18 10:19 12:22 Temperature 98.7 F Pulse Rate 79 Respiratory 18 16 Rate Blood Pressure 129/76 O2 Sat by Pulse 98 Oximetry Medical Decision Making - Medical Decision Making The patient had been getting improvement after IV fluids and Bentyl but she did again experienced intractable pain of unknown etiology at this time. I did discuss the eyes with her and with Dr. mobley the patient will be admitted for evaluation by GI. - Lab Data Result diagrams: 05/23/18 11:10 05/23/18 11:10 Lab Results 05/23/18 05/23/18 05/23/18 Range/Units 11:10 11:10 11:10 WBC 11.8 H (3.8-10.6) k/uL RBC 3.46 L (3.80-5.40) m/uL Hgb 11.9 (11.4-16.0) gm/dL Hct 36.8 (34.0-46.0) % MCV 106.5 H (80.0-100.0) fL MCH 34.6 (25.0-35.0) pg MCHC 32.4 (31.0-37.0) g/dL RDW 12.5 (11.5-15.5) % Plt Count 212 (150-450) k/uL Neutrophils % 77 % Lymphocytes % 17 % Monocytes % 4 % Eosinophils % 0 % Basophils % 0 % Neutrophils # 9.1 H (1.3-7.7) k/uL Lymphocytes # 2.0 (1.0-4.8) k/uL Monocytes # 0.5 (0-1.0) k/uL Eosinophils # 0.0 (0-0.7) k/uL Basophils # 0.0 (0-0.2) k/uL Macrocytosis Slight Sodium 139 (137-145) mmol/L Potassium 5.2 H (3.5-5.1) mmol/L Chloride 110 H (98-107) mmol/L Carbon Dioxide 22 (22-30) mmol/L Anion Gap 7 mmol/L BUN 27 H (7-17) mg/dL Creatinine 0.90 (0.52-1.04) mg/dL Est GFR (CKD-EPI)AfAm >90 (>60 ml/min/1.73 sqM) Est GFR (CKD-EPI)NonAf 78 (>60 ml/min/1.73 sqM) Glucose 118 H (74-99) mg/dL Plasma Lactic Acid Cayden (0.7-2.0) mmol/L Calcium 9.5 (8.4-10.2) mg/dL Total Bilirubin 0.5 (0.2-1.3) mg/dL AST 18 (14-36) U/L ALT 28 (9-52) U/L Alkaline Phosphatase 84 (38-126) U/L Total Creatine Kinase <20 L (30-135) U/L CK-MB (CK-2) 0.4 (0.0-2.4) ng/mL CK-MB (CK-2) Rel Index Troponin I <0.012 (0.000-0.034) ng/mL Total Protein 6.5 (6.3-8.2) g/dL Albumin 4.0 (3.5-5.0) g/dL Amylase 39 (30-110) U/L Lipase 24 (23-300) U/L Urine Color Urine Appearance (Clear) Urine pH (5.0-8.0) Ur Specific [place] (1.001-1.035) Urine Protein (Negative) Urine Glucose (UA) (Negative) Urine Ketones (Negative) Urine Blood (Negative) Urine Nitrite (Negative) Urine Bilirubin (Negative) Urine Urobilinogen (<2.0) mg/dL Ur Leukocyte Esterase (Negative) Urine RBC (0-5) /hpf Urine WBC (0-5) /hpf Ur Squamous Epith Cells (0-4) /hpf Hyaline Casts (0-2) /lpf Urine Mucus (None) /hpf Influenza Type A RNA (Not Detectd) Influenza Type B (PCR) (Not Detectd) 05/23/18 05/23/18 05/23/18 Range/Units 11:10 11:10 11:40 WBC (3.8-10.6) k/uL RBC (3.80-5.40) m/uL Hgb (11.4-16.0) gm/dL Hct (34.0-46.0) % MCV (80.0-100.0) fL MCH (25.0-35.0) pg MCHC (31.0-37.0) g/dL RDW (11.5-15.5) % Plt Count (150-450) k/uL Neutrophils % % Lymphocytes % % Monocytes % % Eosinophils % % Basophils % % Neutrophils # (1.3-7.7) k/uL Lymphocytes # (1.0-4.8) k/uL Monocytes # (0-1.0) k/uL Eosinophils # (0-0.7) k/uL Basophils # (0-0.2) k/uL Macrocytosis Sodium (137-145) mmol/L Potassium (3.5-5.1) mmol/L Chloride (98-107) mmol/L Carbon Dioxide (22-30) mmol/L Anion Gap mmol/L BUN (7-17) mg/dL Creatinine (0.52-1.04) mg/dL Est GFR (CKD-EPI)AfAm (>60 ml/min/1.73 sqM) Est GFR (CKD-EPI)NonAf (>60 ml/min/1.73 sqM) Glucose (74-99) mg/dL Plasma Lactic Acid Cayden 1.1 (0.7-2.0) mmol/L Calcium (8.4-10.2) mg/dL Total Bilirubin (0.2-1.3) mg/dL AST (14-36) U/L ALT (9-52) U/L Alkaline Phosphatase (38-126) U/L Total Creatine Kinase (30-135) U/L CK-MB (CK-2) (0.0-2.4) ng/mL CK-MB (CK-2) Rel Index Troponin I (0.000-0.034) ng/mL Total Protein (6.3-8.2) g/dL Albumin (3.5-5.0) g/dL Amylase (30-110) U/L Lipase (23-300) U/L Urine Color Yellow Urine Appearance Clear (Clear) Urine pH 5.5 (5.0-8.0) Ur Specific [place] 1.020 (1.001-1.035) Urine Protein Negative (Negative) Urine Glucose (UA) Negative (Negative) Urine Ketones Negative (Negative) Urine Blood Negative (Negative) Urine Nitrite Negative (Negative) Urine Bilirubin Negative (Negative) Urine Urobilinogen <2.0 (<2.0) mg/dL Ur Leukocyte Esterase Small H (Negative) Urine RBC 1 (0-5) /hpf Urine WBC 3 (0-5) /hpf Ur Squamous Epith Cells 2 (0-4) /hpf Hyaline Casts 3 H (0-2) /lpf Urine Mucus Few H (None) /hpf Influenza Type A RNA Not Detected (Not Detectd) Influenza Type B (PCR) Not Detected (Not Detectd) - Radiology Data Radiology results: report reviewed (Review the imaging and report shows no acute findings.), image reviewed Disposition Clinical Impression: Abdominal pain, Dehydration Disposition: ADMITTED IP TO THIS [facility] Condition: Stable Referrals: Chris Lafleur MD [Primary Care Provider] - 1-2 days
[2018-05-23] MEDS ORDERED: KETOROLAC 30 MG/ML 1 ML VIAL IVP STA (11:22)
--- NOTE | 2018-05-23 11:41 | XR ---
EXAMINATION TYPE: XR chest 2V DATE OF EXAM: 05/23/2018 COMPARISON: 04/05/2018 HISTORY: Chest pain TECHNIQUE: Frontal and lateral views of the chest are obtained. FINDINGS: There is no focal air space opacity. No evidence for pneumothorax. No pleural effusion. The cardiac silhouette size is within normal limits. The osseous structures are grossly intact. IMPRESSION: 1. No acute cardiopulmonary process.
--- NOTE | 2018-05-23 11:42 | XR ---
EXAMINATION TYPE: XR KUB DATE OF EXAM: 05/23/2018 COMPARISON: NONE HISTORY: Pain TECHNIQUE: Single supine KUB image of the abdomen is obtained FINDINGS: Small bowel demonstrates no evidence for dilatation or air fluid levels. Gas and fecal material is seen in non-distended colon. No convincing evidence for pneumoperitoneum. No unusual calcifications. The lung bases are clear. The osseous structures are intact. IMPRESSION: 1. Overall nonobstructive bowel gas pattern.
[2018-05-23 11:49] LABS: ALT 28 U/L (9-52); AST 18 U/L (14-36); Alkaline Phosphatase 84 U/L (38-126); Amylase 39 U/L (30-110); Anion Gap 7 mmol/L; Blood Urea Nitrogen 27 mg/dL (7-17); Calcium 9.5 mg/dL (8.4-10.2); Carbon Dioxide 22 mmol/L (22-30); Chloride 110 mmol/L (98-107); Glucose 118 mg/dL (74-99); Lipase 24 U/L (23-300); Potassium 5.2 mmol/L (3.5-5.1); Sodium 139 mmol/L (137-145); Total Bilirubin 0.5 mg/dL (0.2-1.3); Total Protein 6.5 g/dL (6.3-8.2)
[2018-05-23 12:11] LABS: Appearance,Urine Clear (Clear); Bilirubin,Urine Negative (Negative); Blood,Urine Negative (Negative); Color,Urine Yellow; Glucose,Urine (UA) Negative (Negative); Hyaline Casts,Urine 3 /lpf (0-2); Ketones,Urine Negative (Negative); Leukocyte Esterase,Urine Small (Negative); Mucus,Urine Few /hpf; Nitrite,Urine Negative (Negative); PH, Urine 5.5 (5.0-8.0); Protein,Urine Negative (Negative); RBC,Urine 1 /hpf (0-5); Squamous Epithelial Cell,Urine 2 /hpf (0-4); Urobilinogen,Urine <2.0 mg/dL (<2.0); WBC,Urine 3 /hpf (0-5)
[2018-05-23 12:17] LABS: Basophils % (A) 0 %; Eosinophils % (A) 0 %; HCT 36.8 % (34.0-46.0); HGB 11.9 gm/dL (11.4-16.0); Lymphocytes % (A) 17 %; MCH 34.6 pg (25.0-35.0); MCHC 32.4 g/dL (31.0-37.0); MCV 106.5 fL (80.0-100.0); Macrocytosis Slight; Mean Platelet Volume 7.1; Monocytes # (A) 0.5 k/uL (0-1.0); Monocytes % (A) 4 %; Neutrophils # (A) 9.1 k/uL (1.3-7.7); Neutrophils % (A) 77 %; Platelet Count 212 k/uL (150-450); RBC 3.46 m/uL (3.80-5.40); RDW 12.5 % (11.5-15.5); WBC 11.8 k/uL (3.8-10.6)
[2018-05-23 12:18] LABS: Creatine Kinase <20 U/L (30-135)
[2018-05-23 12:28] LABS: Creatine Kinase MB 0.4 ng/mL (0.0-2.4)
[2018-05-23 12:31] LABS: Troponin I <0.012 ng/mL (0.000-0.034)
[2018-05-23] MEDS ORDERED: DICYCLOMINE 10 MG/ML 2 ML AMP IM STA (13:20)
[2018-05-23] MEDS ORDERED: NALOXONE 0.4 MG/ML 1 ML VIAL IV PRN (15:07)
[2018-05-23] MEDS ORDERED: KETOROLAC 30 MG/ML 1 ML VIAL IVP PRN (15:07)
[2018-05-23] MEDS ORDERED: TRIAMCINOLONE ACET 0.1% OINTMENT 15 GM TUBE TOPICAL PRN (15:09)
[2018-05-23] MEDS: SODIUM CHLORIDE 0.9% 1,000 ML IV SCH (16:25)
[2018-05-23] MEDS ORDERED: HYDROcodone/APAP 5-325MG 1 EACH TAB PO ONE (17:22)
[2018-05-23] MEDS ORDERED: IOPAMIDOL-300 CONTRAST 30 ML VIAL (ORAL USE) PO PRN (20:29)
[2018-05-23] MEDS: HYDROmorphone 0.5 MG/0.5 ML SYRINGE IVP PRN (20:45)
[2018-05-23] MEDS ORDERED: PANTOPRAZOLE 40 MG TABLET PO SCH (20:45)
[2018-05-23] MEDS ORDERED: ONDANSETRON 4 MG TAB PO PRN (22:57)
[2018-05-23] MEDS ORDERED: HYDROCORTISONE 1% OINT 28.35 GM TUBE TOPICAL PRN (22:57)
[2018-05-23] MEDS ORDERED: DOCUSATE 100 MG CAP PO PRN (22:57)
[2018-05-23] MEDS ORDERED: PROCHLORPERAZINE 10 MG TAB PO PRN (22:57)
[2018-05-23] MEDS ORDERED: ALPRAZolam 0.25 MG TAB PO PRN (22:58)
[2018-05-23] MEDS ORDERED: TEMAZEPAM 15 MG CAP PO PRN (22:58)
--- NOTE | 2018-05-23 23:32 | HP ---
HISTORY AND PHYSICAL DATE OF SERVICE: 05/23/2018 CHIEF COMPLAINT: Abdominal pain. HISTORY OF PRESENT ILLNESS: This 42-year-old woman with a past medical history of multiple medical problems including history of CHF, history of DJD, history of congenital heart failure, irregular rhythm with a leaky valve and regurgitation valve recently, history of menorrhagia, history of cholecystectomy also history of anxiety, nicotine dependence, history of THC, also had a recent diagnosis of acute lymphocytic leukemia. The patient had stem cell transplant at [facility] and the patient also had a cortisone injection in the left knee and left shoulder recently. Currently the patient is complaining of upper abdominal pain, which was radiating back and forth for the last 3 days. Patient also had back pain also. The patient is admitted for further evaluation and treatment because intractable back pain. The pain is crampy. The p.o. intake was significantly limited resulting dehydration. The initial evaluation included KUB x-ray did not show any acute abnormality. There is no history of fever, rigors or chills at this time. PAST MEDICAL HISTORY: History of acute myelogenic leukemia, bone marrow transplant, history of congestive heart failure, congenital heart disease, history of tubal ligation. MEDICATIONS: Prior to admission include: 1. Kenalog 0.1% topically t.i.d. p.r.n. 2. Topamax 50 mg. 3. Prograf 0.5 mg daily. 4. Bactrim mg 1 p.o. daily. 5. Compazine 10 mg q.6h. 6. Protonix 40 mg daily. 7. Zofran 8 mg daily p.r.n. 8. Lopressor 12.5 mg. 9. Magnesium 2 tablets p.o. t.i.d. 10.Ativan 1 mg p.o. t.i.d. 11.Hydrocortisone 1% topically b.i.d. 12.Colace 100 mg daily p.r.n. 13.Decadron 5 mg t.i.d. p.r.n. 14.Zovirax 800 mg p.o. b.i.d. ALLERGIES: ARIXTRA AND PROPOXYPHENE. FAMILY HISTORY: History of hyperlipidemia, history of renal disease, vitamin D deficiency and anemia. SOCIAL HISTORY: History of alcohol. History of THC, history of nicotine dependence. REVIEW OF SYSTEMS: ENT: No diminished hearing or vision. CARDIOVASCULAR: No angina or palpitations. RESPIRATORY: No cough. GI as mentioned earlier. No dysuria. CENTRAL NERVOUS SYSTEM: No numbness, weakness. ALLERGY/IMMUNOLOGY: As mentioned earlier. HEMATOLOGY/ONCOLOGY: As mentioned earlier. ENDOCRINE: History of diabetes or hypothyroidism. CONSTITUTIONAL: As mentioned earlier. Dermatology: Negative. Rheumatology: Negative. Psychiatry: As mentioned earlier. PHYSICAL EXAMINATION: The patient is alert and oriented times three. VITAL SIGNS: Pulse 61. Blood pressure 120/68, respiration 18, temperature 98.2, pulse ox 98% on room air. HEENT: Conjunctivae normal. NECK is no jugular venous distention. CARDIOVASCULAR: S1, S2. RESPIRATIONS: Breath sounds diminished in the bases. No rhonchi. No crackles. ABDOMEN: Soft. Mild diffuse tenderness in the epigastrium. No mass palpable. No guarding and no rigidity. LEGS: No edema. No swelling. NERVOUS SYSTEM: Higher functions as mentioned earlier. Moves all 4 limbs. No focal motor deficits. Lymphatics: No lymph nodes palpable in the neck, axillae or groin. SKIN: No ulcer, rash or bleeding. LABS: At this time shows WBC 11.8, hemoglobin 11.9, sodium 139, potassium 5.2. ASSESSMENT: 1. Acute upper abdominal pain for evaluation, rule out acute gastritis. 2. Dehydration. 3. Diminished p.o. intake. 4. History of stem cell transplantation for acute leukemia. 5. Increased glucose. 6. Increased MCV. 7. Increased WBC. 8. History of congestive heart failure. 9. History of congenital heart failure and heart disease. 10.Nephrolithiasis. 11.History of migraine. 12.History of cholecystectomy. 13.History of nicotine dependence. 14.History of THC. 15.History of anxiety. RECOMMENDATIONS AND DISCUSSION: In this 42-year-old woman who presents with multiple medical complex medical issues, we will monitor the patient closely. Continue the current medications, offer symptomatic treatment. Protonix and I would also recommend a CT scan of the abdomen and pelvis. We will consult Gastroenterology for possible EGD for further evaluation. Also consult Dr. Rodriguez and Dr. Gasca for continued hematology oncology consultation also. Guarded prognosis. Further recommendations to follow. MMODL / IJN: [id number] / [facility]
[2018-05-24] MEDS: HEPARIN SODIUM,PORCINE 5,000 UNIT/ML 1 ML VIAL SQ SCH ×3 (00:28→20:55)
[2018-05-24] MEDS: PANTOPRAZOLE 40 MG/10 ML VIAL IVP SCH ×4 (00:36→20:58)
[2018-05-24] MEDS: HYDROmorphone 0.5 MG/0.5 ML SYRINGE IVP PRN ×5 (00:37→18:27)
[2018-05-24] MEDS: SODIUM CHLORIDE 0.9% 1,000 ML IV SCH ×2 (00:38→15:17)
[2018-05-24] MEDS: IOPAMIDOL-300 CONTRAST 30 ML VIAL (ORAL USE) PO PRN ×2 (07:54→08:45)
[2018-05-24] MEDS ORDERED: MAGNESIUM PLUS PROTEIN PO SCH (08:00)
[2018-05-24] MEDS ORDERED: LORazepam 1 MG TAB PO PRN (08:00)
[2018-05-24] MEDS: TOPIRAMATE 25 MG TAB PO SCH (09:34)
[2018-05-24] MEDS: TACROLIMUS 0.5 MG CAP PO SCH (09:34)
[2018-05-24] MEDS: ACYCLOVIR 800 MG TAB PO SCH ×2 (09:34→20:55)
[2018-05-24] MEDS: METOPROLOL TARTRATE 25 MG TAB PO SCH (09:35)
--- NOTE | 2018-05-24 09:55 | CT ---
EXAMINATION TYPE: CT abdomen pelvis wo con DATE OF EXAM: 05/24/2018 COMPARISON: Previous study dated 03/17/2013. HISTORY: Stomach pains CT DLP: 226.0 mGycm Automated exposure control for dose reduction was used. FINDINGS: Visualized portions of the lungs are clear. There is no pleural or pericardial fluid. The h eart is not enlarged. Within the abdomen, the gallbladder is been removed. Liver and spleen appear unremarkable. Both adrenal glands appear normal. There is no evidence of nephrolithiasis or hydronephrosis. Limited views of the pancreas are unremarkable. There is no significant retroperitoneal or inguinal adenopathy. There is some fullness in the right e xternal iliac region. I could not exclude some adenopathy in this location. The bladder is unremarkable. The uterus and ovaries are normal. There are scattered diverticula within the sigmoid:. I do not see convincing evidence of diverticulit is. There is marked prominence of the ileocecal valve and this appears to have progressed from the pr evious study. The appendix is not clearly visualized. Small bowel loops are of normal caliber. There is a small amount of free fluid within the pelvis. There is no evidence of free air. There is mild, generalized anasarca of the lower abdomen and pelvic soft tissues. No bony lesion is seen. IMPRESSION: 1. I CANNOT EXCLUDE SOME RIGHT-SIDED ILIAC ADENOPATHY. 2. MILD, GENERALIZED ANASARCA. 3. MARKED PROMINENCE OF THE ILEOCECAL VALVE WHICH APPEARS TO HAVE PROGRESSED. DIRECT VISUALIZATION WO ULD BE SUGGESTED.
[2018-05-24 16:31] VITALS: BMI 18.8
--- NOTE | 2018-05-24 19:20 | PN ---
PROGRESS NOTE DATE OF SERVICE: 05/24/2018. This 42-year-old woman who was admitted with abdominal pain, had a CT scan of the abdomen showed some abnormalities. No other acute findings at this time. The pain is slightly better today. Patient unable to keep some fluids down. Some adenopathy was noted also. Mildly prominent ileocecal valve was also noted. PAST MEDICAL HISTORY: Reviewed. REVIEW OF SYSTEM: CARDIOVASCULAR: No angina. RESPIRATORY: As mentioned earlier. GI as mentioned earlier. no dysuria. PHYSICAL EXAM: Patient is alert, oriented x3. The pulse is 54, blood pressure 130/82, respiratory rate 16, temperature 98.2, pulse ox 100 percent on room air. HEENT: Conjunctivae normal. Oral mucosa moist. NECK is no jugular venous distention. No carotid bruit. No lymph node enlargement. CARDIOVASCULAR: S1, S2. RESPIRATORY: Breath sounds diminished in the bases. No rhonchi. No crackles. ABDOMEN: Soft. Mild diffuse tenderness. LEGS: No edema, no swelling. CENTRAL NERVOUS SYSTEM: No focal deficits. LABS: WBC 11.8, hemoglobin 11.9. UA noted. ASSESSMENT: 1. Acute abdominal pain, possible acute gastritis. 2. Chronically occluded right-sided iliac adenopathy in the CT scan. 3. Dehydration present on admission. 4. Diminished p.o. intake. 5. History of stem cell transplantation for acute leukemia. 6. Increased glucose. 7. Increased MCV. 8. Increased WBC. 9. History of congestive heart failure and heart disease. 10.Nephrolithiasis. 11.History of migraines. 12.History of cholecystectomy. 13.History of nicotine dependence. 14.History of TSH. 15.History of anxiety. RECOMMENDATIONS AND DISCUSSION: Recommend to continue current medications, management. Monitoring and symptomatic treatment. Otherwise, at this time, I recommend advance diet. Surgical and gastroenterology consultations underway. Guarded prognosis because of multiple complex medical issues. CT scan report noted. Further recommendations to follow. MMODL / IJN: [id number] / [facility]
[2018-05-24 21:10] VITALS: RESP 18
[2018-05-24] MEDS ORDERED: PANTOPRAZOLE 40 MG/10 ML VIAL IVP SCH (23:00)
[2018-05-25] MEDS: HYDROmorphone 0.5 MG/0.5 ML SYRINGE IVP PRN ×3 (00:16→10:03)
[2018-05-25] MEDS: SODIUM CHLORIDE 0.9% 1,000 ML IV SCH (01:10)
[2018-05-25 05:02] VITALS: BP 122/66; PULSE 62; TEMP 98.2
--- NOTE | 2018-05-25 08:19 | CONS ---
CONSULTATION DATE OF SERVICE: May 24, 2018. REASON FOR CONSULTATION: History of acute lymphoblastic leukemia. CHIEF COMPLAINT: Abdominal pain. Maddy is a very pleasant, 42 years old lady, well known to our practice and she was initially evaluated by Dr. Rodriguez in 2016 for abnormal blood count and after extensive evaluation, she was diagnosed with acute lymphoblastic leukemia. She was referred to [facility] and was treated over there and then she underwent allogeneic stem cell transplantation in 2016. She has been doing well in that regard. Over the last 4 days she has been experiencing abdominal pain, mostly lower abdominal pain, a crampy feeling off and on, then and became consistent. It was not related to eating and not related to bowel movement. She has chronic nausea since she has had the transplant, which happens in the morning and then resolves and this has not worsened. There is no vomiting and no change in her bowel habit and there is no urinary symptoms. There is no fever or chills. This pain has been going on for the last 4 days. Her weight has been relatively stable over the last 6 months. Because of this persistent pain, the patient came into the emergency department. Her laboratory workup was negative and she did undergo a CT scan of the abdomen and pelvis earlier today which basically reveals some prominence at the ileocecal valve, but otherwise was negative. PAST MEDICAL HISTORY: As stated above. She has a history of acute myelogenous leukemia. History of degenerative joint disease. She had congenital heart disease for which she had open- heart surgery. SURGERY: She had tubal ligation in the past, , cholecystectomy, knee surgery and shoulder surgery. ALLERGIES: She is ALLERGIC TO ARIXTRA AND PROPOXYPHENE. FAMILY HISTORY: For malignancy is negative. SOCIAL HISTORY: She is an occasional alcohol user. She is a past user of marijuana. She is a former smoker. REVIEW OF SYSTEMS: As stated above in the history of present illness. Otherwise negative. MEDICATIONS: Medication all reviewed in her electronic medical record. PHYSICAL EXAMINATION: She is alert, oriented x3. She does not appear to be in distress at this time. Well developed, well nourished. Her vital signs are temperature 98.4, afebrile. Pulse is a 54, regular. Respirations 16, blood pressure 131/81. HEENT: Normocephalic, atraumatic. No obvious scleral icterus. NECK: Supple. No jugular venous distention. Chest equal expansion bilaterally. Lungs are clear to auscultation and percussion. Heart is regular rhythm. Abdomen is soft. No obvious organomegaly or masses. Bowel sounds present. She has tenderness in the kathy umbilical tenderness and right lower quadrant tenderness. Extremities revealed no significant edema. SKIN: No significant bruise, petechiae. LYMPHATICS: No peripherally enlarged cervical supraclavicular nodes. MUSCULOSKELETAL: Moving all extremities appropriately. No percussion tenderness detected over spine, sternum. LABORATORY DATA: WBC are 11.8, hemoglobin is 11.9, hematocrit 36.8, platelets are 212. Sodium 139, potassium 5.2, chloride 110, CO2 is 22, BUN is 27, creatinine 0.9, total bilirubin 0.5, AST is 18, ALT is 28. Amylase, lipase are within normal limits. IMPRESSION: 1. History of acute lymphoblastic leukemia. The patient is status post allogeneic stem cell transplantation. There is no evidence to suggest recurrent disease. 2. Abdominal pain of unclear etiology. RECOMMENDATION: 1. I discussed the recent laboratory data with the patient and her family today. 2. Awaiting GI evaluation in regard to her abdominal pain. May consider a colonoscopy. Thank you very much. MMODL / IJN: [id number] /
[2018-05-25] MEDS: HEPARIN SODIUM,PORCINE 5,000 UNIT/ML 1 ML VIAL SQ SCH (09:04)
[2018-05-25] MEDS: TACROLIMUS 0.5 MG CAP PO SCH (09:04)
[2018-05-25] MEDS: ACYCLOVIR 800 MG TAB PO SCH (09:04)
[2018-05-25] MEDS: PANTOPRAZOLE 40 MG/10 ML VIAL IVP SCH (09:04)
[2018-05-25] MEDS: TOPIRAMATE 25 MG TAB PO SCH (09:04)
[2018-05-25] MEDS: METOPROLOL TARTRATE 25 MG TAB PO SCH (09:05)
[2018-05-25 09:33] LABS: Basophils % (A) 0 %; Eosinophils % (A) 1 %; HCT 35.8 % (34.0-46.0); HGB 11.7 gm/dL (11.4-16.0); Lymphocytes # (A) 2.1 k/uL (1.0-4.8); Lymphocytes % (A) 37 %; MCH 34.5 pg (25.0-35.0); MCHC 32.8 g/dL (31.0-37.0); MCV 105.4 fL (80.0-100.0); Macrocytosis Slight; Mean Platelet Volume 6.9; Monocytes # (A) 0.3 k/uL (0-1.0); Monocytes % (A) 5 %; Neutrophils # (A) 3.1 k/uL (1.3-7.7); Neutrophils % (A) 55 %; Platelet Count 172 k/uL (150-450); RDW 12.4 % (11.5-15.5); WBC 5.6 k/uL (3.8-10.6)
--- NOTE | 2018-05-26 13:59 | DS ---
DISCHARGE SUMMARY FINAL DIAGNOSES: 1. Upper abdominal pain, possible acute gastritis, improved. 2. Right-sided iliac adenopathy in the CT scan. 3. Dehydration present on admission. 4. Diminished p.o. intake. 5. History of stem cell transplant for acute leukemia. 6. Increased glucose. 7. Increased MCV. 8. Increased WBC. 9. History of congestive heart failure and heart disease. 10.Nephrolithiasis. 11.History of migraine. 12.History of cholecystectomy. 13.History of nicotine dependence. 14.History of anxiety disorder. DISCHARGE DISPOSITION: The patient will be discharged in stable condition with guarded prognosis. HISTORY OF PRESENT ILLNESS: This 42-year-old woman with a past medical history of multiple medical problems was admitted with upper abdominal pain. The patient was treated symptomatically, seen by Dr. Villegas, also recommended possible evaluation in the outpatient setting and colonoscopy. Patient improved significantly. The white count was stable at 5.6. The patient is being discharged in stable condition with guarded prognosis. On exam, vital signs stable. CARDIOVASCULAR: S1, S2. Abdomen soft. Nervous system: No focal deficits. DISCHARGE ADVICE AND MEDICATIONS: 1. Discharge diet is cardiac, soft. 2. Activity limited until follow up. 3. Follow up with Dr. Lafleur in 2 to 3 days. 4. Follow up with Gastroenterology for 1 week for outpatient evaluation follow up. 5. Follow up with Hematology/Oncology as recommended. MEDICATIONS: 1. Zovirax 800 mg p.o. b.i.d. 2. Decadron 5 mg t.i.d. p.r.n. 3. Colace 100 mg daily p.r.n. 4. Hydrocortisone as before. 5. Ativan 1 mg t.i.d. p.r.n. 6. Magnesium as before. 7. Metoprolol 12.5 mg daily. 8. Zofran 8 mg q.8h p.r.n. 9. Protonix 40 mg daily. 10.Compazine 10 mg q.6h p.r.n. 11.Prograf 0.5 mg p.o. daily. 12.Topamax 50 mg p.o. daily. 13ointment t.i.d. p.r.n. 14.Bactrim DS 1 p.o. daily. The patient is being discharged in a stable condition with a guarded prognosis. MMODL / IJN: [id number] / [facility]
== END 2018-05-25 13:55 | disposition home or self-care (01) ==
LOC: EC 10:06 → 3NMEDONC 15:07
PROVIDERS: ADMIT Internal Medicine; ATTEND Internal Medicine
DX: R10.10 Upper abdominal pain, unspecified (principal); R59.9 Enlarged lymph nodes, unspecified; E86.0 Dehydration; Z94.84 Stem cells transplant status; Z85.6 Personal history of leukemia; I50.9 Heart failure, unspecified; R73.9 Hyperglycemia, unspecified; D72.829 Elevated white blood cell count, unspecified; R71.8 Other abnormality of red blood cells; R05 Cough; R11.0 Nausea; G43.909 Migraine, unspecified, not intractable, without status migrainosus; N20.0 Calculus of kidney; F41.9 Anxiety disorder, unspecified; M19.90 Unspecified osteoarthritis, unspecified site; Z90.49 Acquired absence of other specified parts of digestive tract; Z87.891 Personal history of nicotine dependence; Z82.49 Family history of ischemic heart disease and other diseases of the circulatory system; Z84.1 Family history of disorders of kidney and ureter; Z83.2 Family history of diseases of the blood and blood-forming organs and certain disorders involving the immune mechanism; Z88.8 Allergy status to other drugs, medicaments and biological substances; J34.89 Other specified disorders of nose and nasal sinuses; Z79.899 Other long term (current) drug therapy; Z88.5 Allergy status to narcotic agent
CPT/HCPCS: 96376 ×2; 96361 ×2; 96372 ×3; 96375 ×2; 96374; 99285; 36415; 80053; 82150; 82550; 82553; 83605; 83690; 84484; 85025 ×2; 81001; 87040; 87502; 71046; 74018; 74176; G0378 ×3; J0500; J1644 ×2; J1885; C9113 ×2; J1170 ×3

== ENCOUNTER → 2020-06-06 | Outpatient (CLI) | payer MEDICARE, OTHER ==
--- NOTE | 2020-06-06 11:41 | FL ---
EXAMINATION TYPE: FL barium swallow DATE OF EXAM: 06/06/2020 CLINICAL INDICATION: 44-year-old female R13.10, dysphagia, history of hiatal hernia and GERD. COMPARISON: None Total Fluoroscopy Time: 1 minute 45 seconds Total images: 28 FINDINGS: The swallowing mechanism is normal and hypopharyngeal anatomy is preserved. The cervical and thoracic portions have a normal course and caliber and normal motility. The mucosa is normal and no persistent filling defect is encountered. There is a moderate-sized hiatal hernia and severe gastroesophageal reflux to the throat during Valsa lva and turning maneuvers. IMPRESSION: Moderate-sized hiatal hernia with severe gastroesophageal reflux up to the throat.
== END | disposition home or self-care (01) ==
LOC: RADUSWWP 09:46
PROVIDERS: ATTEND Surgery Plastic and Reconstructive Surgery
DX: K44.9 Diaphragmatic hernia without obstruction or gangrene (principal); K21.9 Gastro-esophageal reflux disease without esophagitis
CPT/HCPCS: 74220

== ENCOUNTER → 2020-06-29 | Outpatient (CLI) | payer MEDICARE, OTHER ==
[2020-06-29 15:15] VITALS: BP 122/82; PULSE 128; RESP 20; TEMP 97.7; BMI 36.8
--- NOTE | 2020-06-29 15:21 | P.HPBAR ---
Bariatric H&P - History & Physicial H&P Date: 06/29/20 History & Physicial: Visit/CC: initial visit Patient initial contact: Initial weight: Initial weight in pounds: Height: 5 ft 5 in Initial BMI: Last weight: Current weight: 100.607 kg Current weight in pounds: 221.80 Current BMI: 36.8 [place] body weight (based on NIH guidelines): 56.699 kg Excess body weight loss: The patient is a 44 year-old F who presents for Bariatric Assessment. DATE OF SERVICE: 06/29/2020 REASON FOR CONSULTATION: Initial bariatric evaluation. HISTORY OF PRESENT ILLNESS: Maddy Key is a 44-year-old female who comes with lifelong morbid obesity. 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 She also comes in with gastroparesis. Her highest weight is at present. She had C-sections and tubal including cholecystectomy. She has not done recent medical supervised weight loss. She is looking into the gastric bypass to address her gastroesophageal reflux disease including morbid obesity. She presents in consultation. At height of 5 feet 5 inches, her ideal body weight is 149 pounds. She comes in 221 pounds. Her body mass index is 36.9. She is 72 pounds overweight. PAST MEDICAL HISTORY: 1. Morbid obesity due to excess calories 2. Body mass index of 3. Osteoarthritis of the knees. 4. Congenital heart disease. 6. Gastroesophageal reflux disease 7. Acute lymphocytic leukemia (ALL) 8. Depressive disorder 9. Generalized anxiety disorder 10. Migraines 11. Gastroparesis PAST SURGICAL HISTORY: 1. Cholecystectomy 2. section 3. Tubal ligation 4. Left knee arthroscopy 5. Left shoulder rotator cuff repair 6. Bone marrow transplant 7. Open heart surgery, age 18 months 8. EGDs 9. Hysteroscopy 10. Dilation and curettage 11. Multiple blood transfusions HOME MEDICATIONS: Home Medications Medication Instructions Recorded Confirmed Acyclovir [Zovirax] 800 mg PO BID@0800,2200 05/18/17 06/29/20 Hydrocortisone Oint 1 applic TOPICAL BID PRN 10/27/17 06/29/20 [Hydrocortisone 1% Oint] Magnesium Plus Protein 2 tab PO TID@0800,1400,2200 10/27/17 06/29/20 Pantoprazole Sodium [Protonix] 40 mg PO DAILY 10/27/17 06/29/20 Prochlorperazine [Compazine] 10 mg PO Q6H PRN 10/27/17 06/29/20 dexAMETHasone [Decadron Intensol 5 mg PO TID PRN 10/27/17 06/29/20 Oral Solution] ondansetron HCL [Zofran] 8 mg PO Q8H PRN 10/27/17 06/29/20 Docusate [Colace] 100 mg PO DAILY PRN 05/23/18 06/29/20 Tacrolimus [Prograf] 0.5 mg PO DAILY 05/23/18 06/29/20 Escitalopram [Lexapro] 5 mg PO DAILY 06/29/20 06/29/20 Pregabalin [Lyrica] 25 mg PO DIRECTED 06/29/20 06/29/20 SUMAtriptan succinate [Imitrex] 50 mg PO DIRECTED 06/29/20 06/29/20 Previous Rx's Medication Instructions Recorded Sulfamethox-Tmp 400-80Mg [Bactrim 1 tab PO DAILY@0800 #0 10/29/17 SS 400-80 mg] ALLERGIES: Allergies Allergy/AdvReac Type Severity Reaction Status Date / Time fondaparinux [From Arixtra] Allergy Rash/Hives Verified 06/29/20 15:44 propoxyphene napsylate Allergy Rash/Hives Verified 06/29/20 15:44 [From Darvocet-N] SOCIAL HISTORY: Past tobacco use. FAMILY HISTORY: No family history of ulcerative colitis disease or Crohn's disease. Family history of morbid obesity. No lupus in the family. No reports of stomach or esophageal cancer. REVIEW OF ORGAN SYSTEMS: CONSTITUTIONAL: At height of 5 feet 5 inches, her ideal body weight is 149 pounds. She comes in 221 pounds. Her body mass index is 36.9. She is 72 pounds overweight. HEENT: Denies any active troubles with hearing. Wears glasses. ENDOCRINE: No diabetes. No hypothyroidism. CARDIOVASCULAR: Past reports of palpitations or heart attacks or chest pain. Has congenital heart disease. RESPIRATORY: Has daytime somnolence. Has asthma. Has chronic obstructive pulmonary disease. GASTROINTESTINAL: Denies any bright red blood per rectum. No diarrhea. No constipation. Has gastroesophageal reflux disease. Has gastroparesis. GENITOURINARY: No bladder urgency. No recent blood in urine. Has kidney stones. Has heavy menstrual bleeding. MUSCULOSKELETAL: Has lower back pain and joint pain. Has osteoarthritis of the knees. NEURO: Has headaches. No seizure disorders. PSYCH: Has depression. No suicidal ideation. Has anxiety. RHEUMATOLOGIC: No lupus. No rheumatoid arthritis. On chronic immune suppr ession with Prograf and Decadron HEMATOLOGIC: Denies any abnormal bleeding or bruising. Has acute lymphocytic leukemia (ALL). SKIN: No rash. No skin cancer. PHYSICAL EXAM: VITAL SIGNS: Height 5 foot 5 inches, weight 221 pounds. BMI 36.9 Vital Signs Temp 97.7 F 06/29/20 15:08 Pulse 128 H 06/29/20 15:08 Resp 20 06/29/20 15:08 BP 122/82 06/29/20 15:08 Pulse Ox GENERAL: Well-developed in no acute distress. HEENT: No scleral icterus. Extraocular movements grossly intact. Hears conversational speech. No nasal drainage. NECK: Supple without lymphadenopathy. CHEST: Nonlabored respirations with equal bilateral excursions. CARDIOVASCULAR: Regular rate and regular rhythm. Distal 2+ pulses. ABDOMEN: Obese, soft, nontender, nondistended. MUSCULOSKELETAL: No clubbing, cyanosis. NEURO: No focal or lateralizing signs. Cranial nerves 2 through 12 grossly within normal limits. PSYCH: Appropriate affect. Alert and oriented to person, place and time. SKIN: Good skin turgor. Well perfused. ASSESSMENT: 1. Morbid obesity due to excess calories 2. Body mass index of 3. Osteoarthritis of the knees. 4. Congenital heart disease. 6. Gastroesophageal reflux disease 7. Acute lymphocytic leukemia (ALL) 8. Depressive disorder 9. Generalized anxiety disorder 10. Migraines 11. Gastroparesis PLAN: 1. Surgical options including a band, gastric bypass, sleeve gastrectomy were described in detail. Alternatives such as gastric balloon including duodenal switch were described. She is looking into the gastric bypass. 2. The [place] bariatric surgical collaborative data and outcomes calculator were described with surgical options. 3. Recommend a bariatric metabolic panel to evaluate for micro- including macronutrient deficiencies. 4. Recommend evaluation and treatment for sleep apnea. 5. Dietary surveillance and counseling was reviewed. Increased protein intake over 65 grams daily advised. 6. Will need cardiac risk assessment. 7. Recommend medical risk assessment. 8. Psych assessment per insurance guidelines. 9. May need repeat upper endoscopy for recent gastritis and follow-up after therapy 10. Recommend 12-lead EKG. 11. Recommend esophagram 12. She is elevated risk for per-operative complications with chronic immune suppression, congenital heart disease, and active acute lymphocytic leukemia. 13. Will need clearance letter from oncologist as well. Thank you for this consultation. Past Medical History Past Medical History: Cancer, Heart Failure, Osteoarthritis (OA) Additional Past Medical History / Comment(s): Congenital heart failure,"irreg rythym" ALL, kidney stones,mumur"leaky heart valve", migraines,past menorrhagia History of Any Multi-Drug Resistant Organisms: None Reported Past Surgical History: Section, Cholecystectomy, Tubal Ligation Additional Past Surgical History / Comment(s): left knee arthroscopy, left shoulder torn rotator cuff repair has pin in place, bone marrow transplant, open heart surgery at age 18 months "they took an artery out of her leg to use in heart", egd, 2016 d&c/hysteroscopy/novasure ablation, pt stated had both flu and pne vaccine but commercial underwriter unable to verify dates at time of admit. Past Anesthesia/Blood Transfusion Reactions: No Reported Reaction Additional Past Anesthesia/Blood Transfusion Reaction / Comm: several blood transfusion-pt denies any reaction Past Psychological History: Anxiety Smoking Status: Former smoker Past Alcohol Use History: Occasional Additional Past Alcohol Use History / Comment(s): started smoking age 17(1992) and quit age 22(1998), smoked less than 1 ppd. Past Drug Use History: Marijuana Additional Drug Use History / Comment(s): uses marijuana for appetite - Past Family History Mother Family Medical History: Hyperlipidemia, Renal Disease Additional Family Medical History / Comment(s): vit d- deficiency, anemia Father Family Medical History: COPD Additional Family Medical History / Comment(s): "bowel problems-hx resection" Surgical - Exam Vital Signs Temp Pulse Resp BP 97.7 F 128 H 20 122/82 06/29/20 15:08 06/29/20 15:08 06/29/20 15:08 06/29/20 15:08 Results - Labs 06/29/20 15:32 06/29/20 15:32 Bariatric Checklist Checklist: Plan: Checklist: EGD: 1. Hiatal hernia: 2. H. Pylori: HgbA1c: Vitamin D: Smoking: Former smoker Primary care physician referral: Dr. Lafleur Psychiatry clearance: Cardiology clearance: Sleep study: Diet journal: VTE risk score: VTE risk level: Rehab needs at discharge:
[2020-06-29 16:33] LABS: HCT 33.4 % (34.0-46.0); HGB 11.4 gm/dL (11.4-16.0); MCH 34.5 pg (25.0-35.0); MCHC 34.2 g/dL (31.0-37.0); MCV 100.9 fL (80.0-100.0); Macrocytosis Slight; Mean Platelet Volume 7.8; Platelet Count 245 k/uL (150-450); RBC 3.31 m/uL (3.80-5.40); RDW 15.1 % (11.5-15.5); WBC 4.8 k/uL (3.8-10.6)
[2020-06-29 22:50] LABS: INR 0.96 (0.90-1.11); Partial Thromboplastin Time 25.9 sec (23.5-31.0); Prothrombin Time 10.5 sec (9.9-11.9)
[2020-06-30 02:47] LABS: % Iron Saturation 64.23 (12.00-45.00); African American GFR (CKD) 78.2 (60.0-200.0); Albumin 4.5 g/dL (3.80-4.90); Albumin/Globulin Ratio 2.25 (1.60-3.17); Anion Gap 7.5 mmol/L (4.00-12.00); Calcium 9.1 mg/dL (8.7-10.3); Carbon Dioxide 23.5 mmol/L (21.6-31.8); Chol/HDL Ratio 4.65; Folate, Serum 15.5 ng/mL; Magnesium 1.8 mg/dL (1.5-2.4); Non-African American GFR(CKD) 67.5 (60.0-200.0); Phosphorus 3.6 mg/dL (2.4-5.1); Potassium 4.5 mmol/L (3.5-5.5); Total Bilirubin 0.4 mg/dL (0.3-1.2); Total Protein 6.5 g/dL (6.2-8.2)
[2020-06-30 03:23] LABS: Hemoglobin A1C 6.1 % (4.0-6.0)
[2020-06-30 14:19] LABS: Zinc, Serum 55 ug/dL (60-130)
[2020-07-01 07:41] LABS: Vitamin A 58 ug/dL (38-106)
[2020-07-04 10:44] LABS: Selenium 130 mcg/L (63-160)
[2020-07-04 14:01] LABS: Vit B1(Thiamine) 60 ug/L (38-122)
== END | disposition home or self-care (01) ==
LOC: BARWHC3 14:32
PROVIDERS: ATTEND Surgery Plastic and Reconstructive Surgery
DX: E66.01 Morbid (severe) obesity due to excess calories (principal); M17.0 Bilateral primary osteoarthritis of knee; Q24.9 Congenital malformation of heart, unspecified; K21.9 Gastro-esophageal reflux disease without esophagitis; C91.00 Acute lymphoblastic leukemia not having achieved remission; F32.9 Major depressive disorder, single episode, unspecified; F41.9 Anxiety disorder, unspecified; G43.909 Migraine, unspecified, not intractable, without status migrainosus; K31.84 Gastroparesis; D50.8 Other iron deficiency anemias; K90.89 Other intestinal malabsorption; E55.9 Vitamin D deficiency, unspecified; K74.1 Hepatic sclerosis; N19 Unspecified kidney failure; K50.90 Crohn's disease, unspecified, without complications; Z88.8 Allergy status to other drugs, medicaments and biological substances; Z79.891 Long term (current) use of opiate analgesic; Z79.899 Other long term (current) drug therapy; Z90.49 Acquired absence of other specified parts of digestive tract
CPT/HCPCS: 84255; 84134; 84425; 80061; 80053; 82607; 82728; 82525; 82746; 83540; 83550; 83735; 84100; 84443; 84590; 84630; 85027; 85610; 85730; 83721; 82306; 83970; 83036; 93005; 36415; G0463; 99211

== ENCOUNTER → 2021-01-25 | Outpatient (CLI) | payer MEDICARE ==
--- NOTE | 2021-01-25 16:20 | P.PN ---
Subjective Progress Note Date: 01/25/21 She comes in with weight loss. She has GERD. She reports clearance with her oncologist for bariatric procedures. Her GERD is worse. She presents for options. She is on Prograf and steroids. Recommend hiatal hernia repair first to manage reflux. Continue assessment for weight loss procedures.
[2021-01-25 16:47] VITALS: BP 131/86; PULSE 99; RESP 18; TEMP 98.3; BMI 35.2
[2021-01-25 17:19] LABS: HCT 41.9 % (34.0-46.0); HGB 14.1 gm/dL (11.4-16.0); MCH 35.3 pg (25.0-35.0); MCHC 33.6 g/dL (31.0-37.0); MCV 104.9 fL (80.0-100.0); Macrocytosis Slight; Mean Platelet Volume 7.6; Platelet Count 260 k/uL (150-450); RDW 14.2 % (11.5-15.5); WBC 5.5 k/uL (3.8-10.6)
[2021-01-25 17:52] LABS: Prothrombin Time 10.4 sec (9.0-12.0)
[2021-01-25 23:52] LABS: Hemoglobin A1C 5.8 % (4.0-6.0)
[2021-01-26 10:31] LABS: Zinc, Serum 75 ug/dL (60-130)
[2021-01-26 15:36] LABS: Folate, Serum 7.8 ng/mL
[2021-01-26 16:24] LABS: % Iron Saturation 37.35 (12.00-45.00); African American GFR (CKD) 56.6 (60.0-200.0); Albumin/Globulin Ratio 2.17 (1.60-3.17); Anion Gap 13.6 mmol/L (4.00-12.00); BUN/Creat Ratio 10.77 Ratio (12.00-20.00); Calcium 9.8 mg/dL (8.7-10.3); Carbon Dioxide 19.4 mmol/L (21.6-31.8); Chol/HDL Ratio 6.21; Globulin 2.3 g/dL (1.6-3.3); LDL Cholesterol,Calculated 118.6 mg/dL (0.0-131.0); Magnesium 1.9 mg/dL (1.5-2.4); Non-African American GFR(CKD) 48.8 (60.0-200.0); Phosphorus 3.2 mg/dL (2.4-5.1); Potassium 5.3 mmol/L (3.5-5.5); Total Bilirubin 0.5 mg/dL (0.3-1.2); Total Protein 7.3 g/dL (6.2-8.2); VLDL Calculation 53.4 mg/dL (5.00-40.00)
[2021-01-26 22:07] LABS: Ferritin 4468.3 ng/mL (10.0-291.0)
[2021-01-27 06:09] LABS: Vitamin A 40 ug/dL (38-106)
[2021-01-27 13:05] LABS: Vit B1(Thiamine) 61 ug/L (38-122)
== END ==
LOC: BARWHC3 15:53
PROVIDERS: ATTEND Surgery Plastic and Reconstructive Surgery
DX: E66.01 Morbid (severe) obesity due to excess calories (principal); E89.1 Postprocedural hypoinsulinemia; D50.8 Other iron deficiency anemias; E44.0 Moderate protein-calorie malnutrition; E55.9 Vitamin D deficiency, unspecified; K74.1 Hepatic sclerosis; N19 Unspecified kidney failure; K50.90 Crohn's disease, unspecified, without complications; Z68.35 Body mass index [BMI] 35.0-35.9, adult; Z87.891 Personal history of nicotine dependence; Z88.8 Allergy status to other drugs, medicaments and biological substances; Z88.6 Allergy status to analgesic agent
CPT/HCPCS: 84255; 84134; 84425; 80061; 80053; 82607; 82728; 82525; 82746; 83540; 83550; 83735; 84100; 84443; 84590; 84630; 85027; 85610; 85730; 82306; 83970; 83036; G0463; 99211

== ENCOUNTER → 2022-01-17 | Outpatient (CLI) | payer MEDICARE ==
[2022-01-17 14:06] VITALS: BP 132/92; PULSE 77; TEMP 99.8; BMI 40.6
--- NOTE | 2022-01-17 14:21 | P.BASOAP ---
Subjective Progress Note Date: 01/17/22 She has severe regurgitation. Still pending oncology clearance. Recommend diet class. Recommend weight loss surgery following. She needs approval for weight loss procedure. Needs psych and PCP clearance for weight loss procedure. Recommend letter for clearances. She is pending cardiology. Repeat labs. Needs EKG update. Last labs 2020. Objective - Vital Signs Vital signs: Vital Signs Temp 99.8 F H 01/17/22 14:01 Pulse 77 01/17/22 14:01 Resp BP 132/92 01/17/22 14:01 Pulse Ox FiO2 Intake & Output 01/16/22 01/17/22 01/17/22 18:59 06:59 18:59 Weight 94.347 kg Assessment/Plan Plan: Date: 01/17/22 Initial Weight: Initial BMI: Current Weight: 94.347 kg Current BMI: 40.6 Type of Surgery: Total Volume in Band: Previous Volume: Volume Removed: Volume Added: Band Size:
== END | disposition home or self-care (01) ==
LOC: BARWHC3 13:50
PROVIDERS: ATTEND Surgery Plastic and Reconstructive Surgery
DX: E66.01 Morbid (severe) obesity due to excess calories (principal); Z68.41 Body mass index [BMI] 40.0-44.9, adult
CPT/HCPCS: 99211

== ENCOUNTER → 2022-01-26 | Outpatient (CLI) | payer MEDICARE ==
[2022-01-26 10:05] LABS: Partial Thromboplastin Time 23.9 sec (22.0-30.0); Prothrombin Time 10.7 sec (9.0-12.0)
[2022-01-26 14:53] LABS: HCT 44.4 % (37.2-46.3); HGB 15.1 g/dL (12.0-15.0); MCH 34.6 pg (27.0-32.0); MCV 101.6 fL (80.0-97.0); Mean Platelet Volume 9.5 fL (9.5-12.2); NRBC Per 100 WBC 0 /100 WBCS (0.0-0.0); Platelet Count 299 X 10*3/uL (140-440); RBC 4.37 X 10*6/uL (4.10-5.20); RDW 12.3 % (11.5-14.5); WBC 6.29 X 10*3/uL (4.50-10.00)
[2022-01-26 15:58] LABS: Chol/HDL Ratio 6.44 Ratio; LDL Cholesterol,Calculated 220.7 mg/dL (0.0-131.0); Prealbumin 26.6 mg/dL (18.0-42.0)
[2022-01-26 16:07] LABS: % Iron Saturation 28.04 (12.00-45.00); ALT 63 U/L (8-44); AST 51 U/L (13-35); African American GFR (CKD) 61.9 (60.0-200.0); Albumin 4.7 g/dL (3.8-4.9); Albumin/Globulin Ratio 1.88 (1.60-3.17); Alkaline Phosphatase 109 U/L (41-126); Blood Urea Nitrogen 24.6 mg/dL (9.0-27.0); Carbon Dioxide 21.2 mmol/L (20.0-27.5); Chloride 100 mmol/L (96-109); Globulin 2.5 g/dL (1.6-3.3); Glucose 217 mg/dL (70-110); Iron 115 ug/dL (50-170); Magnesium 1.9 mg/dL (1.5-2.4); Non-African American GFR(CKD) 53.4 (60.0-200.0); Phosphorus 4.3 mg/dL (2.4-5.1); Potassium 4.3 mmol/L (3.5-5.5); Sodium 137 mmol/L (135-145); Total Iron Binding Capacity 410 ug/dL (228-460); Total Protein 7.2 g/dL (6.2-8.2)
== END | disposition home or self-care (01) ==
LOC: LABWHC1 08:47
PROVIDERS: ATTEND Surgery Plastic and Reconstructive Surgery
DX: E66.01 Morbid (severe) obesity due to excess calories (principal); D50.8 Other iron deficiency anemias; K91.2 Postsurgical malabsorption, not elsewhere classified; E44.0 Moderate protein-calorie malnutrition; E45 Retarded development following protein-calorie malnutrition; K74.1 Hepatic sclerosis; N19 Unspecified kidney failure; T56.894A Toxic effect of other metals, undetermined, initial encounter
CPT/HCPCS: 36415; 80053; 80061; 82306; 82525; 82607; 82728; 82746; 83036; 83540; 83550; 83735; 83970; 84100; 84134; 84255; 84425; 84443; 84590; 84630; 85027; 85610; 85730; 93005

== ENCOUNTER 2022-02-09 07:51 | Day surgery (SDC) | payer MEDICARE ==
--- NOTE | 2022-02-09 07:25 | P.GSHP ---
History of Present Illness H&P Date: 02/09/22 CHIEF COMPLAINT: Morbid obesity HISTORY OF PRESENT ILLNESS: Maddy Key is a 46-year-old female who comes with lifelong morbid obesity. She comes in with moderate to severe gastroesophageal reflux disease including morbid obesity. She is on immunosuppressants. She completed an upper endoscopy. She presents here for further assessment. At height of 5 feet 5 inches, her ideal body weight is 149 pounds. She comes in 201 pounds from 211 pounds, 8 months ago. She has lost 11 pounds in 8 months. Her body mass index is 43.4 down to 39.3. She is 52 pounds overweight. PAST MEDICAL HISTORY: 1. Morbid obesity due to excess calories 2. Body mass index of 43.3 3. Osteoarthritis of the knees. 4. Congenital heart disease. 6. Gastroesophageal reflux disease 7. Acute lymphocytic leukemia (ALL) 8. Depressive disorder 9. Generalized anxiety disorder 10. Migraines 11. Gastroparesis PAST SURGICAL HISTORY: 1. Cholecystectomy 2. section 3. Tubal ligation 4. Left knee arthroscopy 5. Left shoulder rotator cuff repair 6. Bone marrow transplant 7. Open heart surgery, age 18 months 8. EGDs 9. Hysteroscopy 10. Dilation and curettage 11. Multiple blood transfusions HOME MEDICATIONS: Home Medications Medication Instructions Recorded Confirmed Acyclovir [Zovirax] 800 mg PO BID@0800,2200 05/18/17 01/17/22 Hydrocortisone Oint 1 applic TOPICAL BID PRN 10/27/17 01/17/22 [Hydrocortisone 1% Oint] Magnesium Plus Protein 2 tab PO BID 10/27/17 01/17/22 Pantoprazole Sodium [Protonix] 40 mg PO DAILY 10/27/17 01/17/22 Prochlorperazine [Compazine] 10 mg PO QAM PRN 10/27/17 01/17/22 Docusate [Colace] 100 mg PO DAILY 05/23/18 01/17/22 Tacrolimus [Prograf] 1 mg PO QAM 05/23/18 01/17/22 Escitalopram [Lexapro] 5 mg PO DAILY 06/29/20 01/17/22 SUMAtriptan succinate [Imitrex] 50 mg PO DIRECTED PRN 06/29/20 01/17/22 Ergocalciferol [Vitamin D2 (1250 50,000 unit PO WEEKLY 02/02/21 01/17/22 Mcg = 61130 Iu)] Cyclobenzaprine [Flexeril] 10 mg PO BID 10/03/21 01/17/22 Cyclobenzaprine [Flexeril] 10 mg PO DAILY PRN 10/03/21 01/17/22 Fluticasone/Vilanterol [Breo 1 inhalation INHALATION QAM 10/03/21 01/17/22 Ellipta 200-25 Mcg Inhaler] Insulin Glargine,Hum.rec.anlog 20 units SQ QAM 10/03/21 01/17/22 [Toujeo Solostar] Levothyroxine Sodium 25 mcg PO QAM 10/03/21 01/17/22 Pioglitazone [Actos] 15 mg PO QAM 10/03/21 01/17/22 Ruxolitinib Phosphate [Jakafi] 5 mg PO BID 10/03/21 01/17/22 Tacrolimus [Prograf] 0.5 mg PO HS 10/03/21 01/17/22 carvediloL [Coreg] 3.125 mg PO BID 10/03/21 01/17/22 lisinopriL [Zestril] 5 mg PO DAILY 10/03/21 01/17/22 sitaGLIPtin [Januvia] 50 mg PO QAM 10/03/21 01/17/22 traMADol HCl [Ultram] 50 mg PO QID 10/03/21 01/17/22 Previous Rx's Medication Instructions Recorded Sulfamethox-Tmp 400-80Mg [Bactrim 1 tab PO DAILY@0800 #0 10/29/17 SS 400-80 mg] ALLERGIES: Allergies Allergy/AdvReac Type Severity Reaction Status Date / Time fondaparinux [From Arixtra] Allergy Rash/Hives Verified 01/25/21 16:44 propoxyphene napsylate Allergy Rash/Hives Verified 01/25/21 16:44 [From Darvocet-N] SOCIAL HISTORY: Past tobacco use. FAMILY HISTORY: No family history of ulcerative colitis disease or Crohn's disease. Family history of morbid obesity. No lupus in the family. No reports of stomach or esophageal cancer. REVIEW OF ORGAN SYSTEMS: CONSTITUTIONAL: At height of 5 feet 5 inches, her ideal body weight is 149 pounds. She comes in 201 pounds from 211 pounds, 8 months ago. She has lost 11 pounds in 8 months. Her body mass index is 43.4 down to 39.3. She is 52 pounds overweight. HEENT: Denies any active troubles with hearing. Wears glasses. ENDOCRINE: No diabetes. No hypothyroidism. CARDIOVASCULAR: Past reports of palpitations or heart attacks or chest pain. Has congenital heart disease. RESPIRATORY: Has daytime somnolence. Has asthma. Has chronic obstructive pulmonary disease. GASTROINTESTINAL: Denies any bright red blood per rectum. No diarrhea. No constipation. Has gastroesophageal reflux disease. Has gastroparesis. GENITOURINARY: No bladder urgency. No recent blood in urine. Has kidney stones. Has heavy menstrual bleeding. MUSCULOSKELETAL: Has lower back pain and joint pain. Has osteoarthritis of the knees. NEURO: Has headaches. No seizure disorders. PSYCH: Has depression. No suicidal ideation. Has anxiety. RHEUMATOLOGIC: No lupus. No rheumatoid arthritis. On chronic immune suppression with Prograf and Decadron HEMATOLOGIC: Denies any abnormal bleeding or bruising. Has acute lymphocytic leukemia (ALL). SKIN: No rash. No skin cancer. PHYSICAL EXAM: VITAL SIGNS: Height 5 foot 0 inches, weight 201 pounds. BMI 40.8 GENERAL: Well-developed in no acute distress. HEENT: No scleral icterus. Extraocular movements grossly intact. Hears conversational speech. No nasal drainage. NECK: Supple without lymphadenopathy. CHEST: Nonlabored respirations with equal bilateral excursions. CARDIOVASCULAR: Regular rate and regular rhythm. Distal 2+ pulses. ABDOMEN: Obese, soft, nontender, nondistended. MUSCULOSKELETAL: No clubbing, cyanosis. NEURO: No focal or lateralizing signs. Cranial nerves 2 through 12 grossly within normal limits. PSYCH: Appropriate affect. Alert and oriented to person, place and time. SKIN: Good skin turgor. Well perfused. EKG: Reviewed with septal infarct, abnormal EKG. FINDINGS: Squamocolumnar junction 33 cm from the incisors. Diaphragmatic hiatus at 35 cm. Hiatal hernia, 2 cm Hill grade 3 lower esophageal valve. LA grade B erosive esophagitis. No active duodenitis. Chronic gastritis Final Pathologic Diagnosis STOMACH, ANTRUM, BIOPSY: Mild chronic gastritis. Negative for Helicobacter organisms on H&E staining. ASSESSMENT: 1. Morbid obesity due to excess calories 2. Body mass index of 43.4 to 40.8 3. Osteoarthritis of the knees. 4. Congenital heart disease. 6. Gastroesophageal reflux disease 7. Acute lymphocytic leukemia (ALL) 8. Depressive disorder 9. Generalized anxiety disorder 10. Migraines 11. Gastroparesis 12. Elevated liver enzymes 13. Hypertriglyceridemia 14. Hypercholesterolemia 15. Vitamin D deficiency 16. Secondary hyperparathyroidism 17. Hiatal hernia PLAN: 1. Hiatal hernia repair advised for which she is high risk due to her immune suppression. 2. Recommend inpatient hospitalization due to high risk complications 3. Anti-emetics and non-narcotic pain management reviewed. Past Medical History Past Medical History: Cancer, Heart Failure, COPD, Diabetes Mellitus, GERD/Reflux, Osteoarthritis (OA), Thyroid Disorder Additional Past Medical History / Comment(s): Congenital heart failure,"irreg rhythm" ,AML 2016-had chemo, radiation, stem cell transplant, hx of kidney stones, mumur"leaky heart valve", migraines. GVHD History of Any Multi-Drug Resistant Organisms: None Reported Past Surgical History: Section, Cholecystectomy, Orthopedic Surgery, Tubal Ligation, Uterine Ablation Additional Past Surgical History / Comment(s): left knee arthroscopy, left shoulder torn rotator cuff repair has pin in place, stem cell transplant, open heart surgery at age 18 months "they took an artery out of leg to use in heart", egd, 2016 Past Anesthesia/Blood Transfusion Reactions: No Reported Reaction Additional Past Anesthesia/Blood Transfusion Reaction / Comment(s): several blood transfusion-pt denies any reaction Smoking Status: Former smoker - Past Family History Mother Family Medical History: Hyperlipidemia, Renal Disease Additional Family Medical History / Comment(s): vit d- deficiency, anemia Father Family Medical History: COPD Additional Family Medical History / Comment(s): "bowel problems-hx resection" Medications and Allergies Home Medications Medication Instructions Recorded Confirmed Type Acyclovir [Zovirax] 800 mg PO BID@0800,2200 05/18/17 02/06/22 History Magnesium Plus Protein 2 tab PO BID 10/27/17 02/06/22 History Pantoprazole Sodium [Protonix] 40 mg PO BID 10/27/17 02/06/22 History Prochlorperazine [Compazine] 10 mg PO QAM 10/27/17 02/06/22 History Docusate [Colace] 100 mg PO DAILY 05/23/18 02/06/22 History Tacrolimus [Prograf] 1 mg PO BID 05/23/18 02/06/22 History Escitalopram [Lexapro] 5 mg PO DAILY 06/29/20 02/06/22 History SUMAtriptan succinate [Imitrex] 50 mg PO DIRECTED PRN 06/29/20 02/06/22 History Ergocalciferol [Vitamin D2 (1250 50,000 unit PO WEEKLY 02/02/21 02/06/22 History Mcg = 61057 Iu)] Cyclobenzaprine [Flexeril] 10 mg PO BID 10/03/21 02/06/22 History Insulin Glargine,Hum.rec.anlog 10 units SQ QAM 10/03/21 02/06/22 History [Toujeo Solostar] Levothyroxine Sodium 25 mcg PO QAM 10/03/21 02/06/22 History Pioglitazone [Actos] 15 mg PO QAM 10/03/21 02/06/22 History Ruxolitinib Phosphate [Jakafi] 5 mg PO BID 10/03/21 02/06/22 History carvediloL [Coreg] 3.125 mg PO BID 10/03/21 02/06/22 History lisinopriL [Zestril] 5 mg PO DAILY 10/03/21 02/06/22 History sitaGLIPtin [Januvia] 50 mg PO QAM 10/03/21 02/06/22 History traMADol HCl [Ultram] 50 mg PO QID 10/03/21 02/06/22 History Allergies Allergy/AdvReac Type Severity Reaction Status Date / Time fondaparinux [From Arixtra] Allergy Intermediate Rash/Hives Verified 02/06/22 09 :33 propoxyphene napsylate Allergy Intermediate Rash/Hives Verified 02/06/22 09:33 [From Darvocet-N]
[~2022-02-09 07:51] MED LIST: ACETAMINOPHEN TAB 500 MG TAB PO STA; DEXAMETHASONE SOD PHOSPHATE 4 MG/ML 1 ML VIAL IV ONE; HYDROmorphone 0.5 MG/0.5 ML SYRINGE IVP PRN; LACTATED RINGERS 1,000 ML IV SCH; LIDOCAINE 1% (10MG/ML) FOR IV START INTRADERMA PRN; MIDAZOLAM 2 MG/2 ML VIAL IV PRN; ONDANSETRON 4 MG/2 ML VIAL IVP ONE; SCOPOLAMINE 1 MG/72 HR PATCH TRANSDERM STA
[2022-02-09 08:39] LABS: Glucose,Whole Blood 129 mg/dL (70-110)
[2022-02-09 09:01] LABS: Basophils % (A) 1 %; Eosinophils # (A) 0.1 k/uL (0-0.7); Eosinophils % (A) 1 %; HCT 46.5 % (34.0-46.0); HGB 15.4 gm/dL (11.4-16.0); Lymphocytes # (A) 3.6 k/uL (1.0-4.8); Lymphocytes % (A) 55 %; MCH 34.3 pg (25.0-35.0); MCHC 33.2 g/dL (31.0-37.0); MCV 103.5 fL (80.0-100.0); Macrocytosis Slight; Mean Platelet Volume 7.4; Monocytes # (A) 0.4 k/uL (0-1.0); Monocytes % (A) 6 %; Neutrophils # (A) 2.2 k/uL (1.3-7.7); Neutrophils % (A) 34 %; Platelet Count 282 k/uL (150-450); RBC 4.49 m/uL (3.80-5.40); RDW 12.7 % (11.5-15.5); WBC 6.5 k/uL (3.8-10.6)
[2022-02-09 09:10] LABS: Albumin 4.8 g/dL (3.5-5.0); Calcium 9.4 mg/dL (8.4-10.2); Potassium 4.3 mmol/L (3.5-5.1); Total Bilirubin 0.8 mg/dL (0.2-1.3); Total Protein 7.2 g/dL (6.3-8.2)
[2022-02-09] MEDS ORDERED: GLYCOPYRROLATE 0.2 MG/ML 2 ML VIAL ONE (09:35)
[2022-02-09] MEDS ORDERED: LIDOCAINE 2% INJ 20 MG/ML (2 ML VIAL) ONE (09:35)
[2022-02-09] MEDS ORDERED: MIDAZOLAM 2 MG/2 ML VIAL ONE (09:35)
[2022-02-09] MEDS ORDERED: ROCURONIUM 10 MG/ML (5 ML VIAL) IV ONE (09:35)
[2022-02-09] MEDS ORDERED: PROPOFOL 10 MG/ML 20 ML VIAL IV ONE (09:35)
[2022-02-09] MEDS ORDERED: fentaNYL (PF) 50 MCG/ML 2 ML AMP ONE (09:35)
[2022-02-09] MEDS ORDERED: SUCCINYLCHOLINE CHLORIDE 200 MG/10 ML VIAL IV ONE (09:35)
[2022-02-09] MEDS ORDERED: NEOSTIGMINE 1 MG/ML 10 ML VIAL ONE (09:35)
[2022-02-09] MEDS ORDERED: HEPARIN SODIUM,PORCINE 5,000 UNIT/ML 1 ML VIAL ONE (09:35)
[2022-02-09] MEDS ORDERED: HEPARIN SODIUM,PORCINE/PF 5,000 UNIT/0.5 ML SYRINGE SQ ONE (09:39)
[2022-02-09] MEDS ORDERED: BUPIVACAIN-EPI 0.25%-1:200,000 30 ML VIAL SQ ONE (10:13)
[2022-02-09 11:00] VITALS: TEMP 97.1
--- NOTE | 2022-02-09 11:50 | P.OP ---
Date of Procedure: 02/09/22 Description of Procedure: SURGEON: YASH BOATENG MD PREOPERATIVE DIAGNOSES: 1. Gastroesophageal reflux disease 2. Diaphragmatic hiatal hernia 3. Morbid obesity due to excess calories, BMI 42.1 4. Congenital heart disease. 6. Gastroesophageal reflux disease 7. Acute lymphocytic leukemia (ALL) 8. Depressive disorder 9. Generalized anxiety disorder 10. Migraines 11. Gastroparesis 12. Elevated liver enzymes 13. Hypertriglyceridemia 14. Hypercholesterolemia 15. Vitamin D deficiency 16. Secondary hyperparathyroidism 17. Osteoarthritis of the knees. POSTOPERATIVE DIAGNOSES: 1. Gastroesophageal reflux disease 2. Diaphragmatic hiatal hernia 3. Morbid obesity due to excess calories, BMI 42.1 4. Congenital heart disease. 6. Gastroesophageal reflux disease 7. Acute lymphocytic leukemia (ALL) 8. Depressive disorder 9. Generalized anxiety disorder 10. Migraines 11. Gastroparesis 12. Elevated liver enzymes 13. Hypertriglyceridemia 14. Hypercholesterolemia 15. Vitamin D deficiency 16. Secondary hyperparathyroidism 17. Osteoarthritis of the knees. 18. Cirrhosis of the liver 19. Severe hepatomegaly OPERATION: 1. Robotic-assisted da Laura Xi laparoscopic hiatal hernia repair ABORTED for diagnostic laparoscopy DUE TO new cirrhosis of the liver with severe hepatomegaly ANESTHESIA: General with local anesthetic. ESTIMATED BLOOD LOSS: 5 mL Pathology: None COMPLICATIONS: None. FINDINGS: 1. Severe hepatomegaly with macronodular cirrhosis of the liver prohibiting exposure in view of the stomach/hiatus hernia 2. Pelvis unremarkable for prevention of adhesions INDICATIONS: The patient is a 46-year-old female who presents with gastroesophageal reflux recalcitrant to medical therapy with a symptomatic diaphragmatic hiatal hernia. Preoperative workup including upper endoscopy demonstrated hiatal hernia with erosive esophagitis. She completed an esophagram. Given the severity of her symptoms, she had elected for surgical intervention. Benefits and risks including bleeding, infection, recurrence, dysphagia, injury to the lung, need for further surgery was described at length. Informed consent was obtained. DESCRIPTION: The patient was brought into the operating room and placed in supine position. Preoperatively she had received heparin subcutaneously for DVT prophylaxis. After general induction, the abdomen was prepped and draped in standard sterile fashion. The patient had previously voided prior to coming to the operating room. Ioban draping was placed along the abdomen. A timeout protocol was confirmed with the surgical team, for which the patient's name, procedure to be performed including DVT prophylaxis with bilateral SCDs, and preoperative antibiotics were also confirmed. A robotic da Laura Xi system was prepped and primed. At 15 cm from the xiphoid to just below the umbilicus, proposed port sites were marked with indelible marker along the left axillary line, left mid-clavicular line with each ports were marked 10 cm from each other. A 5 mm 0 degrees laparoscopic trocar entry was performed along the left upper quadrant. The abdomen was insufflated to 15 mmHg pressure was tolerated well. Next, one 8 mm robotic port was placed along the right upper abdomen. An 8-mm port was were placed along the left lateral abdominal wall. The camera 8-mm port was maintained along the epigastrium. Another 12 mm port was placed along the left upper abdominal wall after exchanging the 5 mm port. Please note that the ports were placed at least 20 cm away from the target anatomy. Diagnostic laparoscopy demonstrated no injury to bowel, viscera. No acute peritoneal adhesions were identified. Severe cirrhosis of the liver with macronodular cirrhosis was identified. Separate hepatomegaly was also confirmed. A grasper was used to attempt to elevate the liver however the stomach was completely secured by the liver prohibiting view and further advancement of the procedure. As a result, hiatal hernia was aborted due to new findings of cirrhosis of the liver with hepatomegaly and risk of port of renal hypertension. All instruments and pneumoperitoneum were evacuated from the abdominal cavity. The incisions were cleansed with dilute hydrogen peroxide with saline solution. Incisions were reapproximated using 4-0 Monocryl in an interrupted subcuticular fashion. The 12-mm port site fascial defect was less than 8 mm in size. Exofin was applied to the skin. Local anesthetic was infiltrated in all wounds for postop analgesia. Multiple intra-abdominal films were obtained. At the end of the procedure, needle, sponge, and instrument count was verified correct by the rn medical surgical. The patient had tolerated the procedure well and was taken to the postanesthesia unit in stable condition. Plan - Discharge Summary Discharge Rx Participant: Yes New Discharge Prescriptions: New Acetaminophen Tab [Tylenol Tab] 1,000 mg PO Q6HR PRN #30 tablet PRN Reason: Pain Continue Acyclovir [Zovirax] 800 mg PO BID@0800,2200 Magnesium Plus Protein 2 tab PO BID Pantoprazole Sodium [Protonix] 40 mg PO BID Prochlorperazine [Compazine] 10 mg PO QAM Tacrolimus [Prograf] 1 mg PO BID Docusate [Colace] 100 mg PO DAILY Escitalopram [Lexapro] 5 mg PO DAILY SUMAtriptan succinate [Imitrex] 50 mg PO DIRECTED PRN PRN Reason: Migraine Headache Pioglitazone [Actos] 15 mg PO QAM Insulin Glargine,Hum.rec.anlog [Rafa Wellingtonostlorelei] 10 units SQ QAM carvediloL [Coreg] 3.125 mg PO BID Ergocalciferol [Vitamin D2 (1250 Mcg = 96812 Iu)] 50,000 unit PO WEEKLY traMADol HCl [Ultram] 50 mg PO QID sitaGLIPtin [Januvia] 50 mg PO QAM lisinopriL [Zestril] 5 mg PO DAILY Cyclobenzaprine [Flexeril] 10 mg PO BID Levothyroxine Sodium 25 mcg PO QAM Ruxolitinib Phosphate [Jakafi] 5 mg PO BID Discharge Medication List Acyclovir [Zovirax] 800 mg PO BID@0800,2200 05/18/17 [History] Magnesium Plus Protein 2 tab PO BID 10/27/17 [History] Pantoprazole Sodium [Protonix] 40 mg PO BID 10/27/17 [History] Prochlorperazine [Compazine] 10 mg PO QAM 10/27/17 [History] Docusate [Colace] 100 mg PO DAILY 05/23/18 [History] Tacrolimus [Prograf] 1 mg PO BID 05/23/18 [History] Escitalopram [Lexapro] 5 mg PO DAILY 06/29/20 [History] SUMAtriptan succinate [Imitrex] 50 mg PO DIRECTED PRN 06/29/20 [History] Ergocalciferol [Vitamin D2 (1250 Mcg = 38343 Iu)] 50,000 unit PO WEEKLY 02/02/21 [History] Cyclobenzaprine [Flexeril] 10 mg PO BID 10/03/21 [History] Insulin Glargine,Hum.rec.anlog [Todanica Wellingtonostlorelei] 10 units SQ QAM 10/03/21 [History] Levothyroxine Sodium 25 mcg PO QAM 10/03/21 [History] Pioglitazone [Actos] 15 mg PO QAM 10/03/21 [History] Ruxolitinib Phosphate [Jakafi] 5 mg PO BID 10/03/21 [History] carvediloL [Coreg] 3.125 mg PO BID 10/03/21 [History] lisinopriL [Zestril] 5 mg PO DAILY 10/03/21 [History] sitaGLIPtin [Januvia] 50 mg PO QAM 10/03/21 [History] traMADol HCl [Ultram] 50 mg PO QID 10/03/21 [History] Acetaminophen Tab [Tylenol Tab] 1,000 mg PO Q6HR PRN #30 tablet 02/09/22 [Rx] Follow up [facility]ment(s[facility] [place] [facility] [place] Patient Instructions/Handouts: *Surgery [facility] - (Anesthesia) Discharge Instructions Outpatient Surgery, Scopolamine (Absorbed through the skin), Cirrhosis (GEN), Non-Alcoholic Fatty Liver Disease (GEN) Activity/Diet/Wound Care/Special Instructions: No lifting over 10 pounds for 1 week. May shower. No bath tub soaks for two weeks until February 23 Diet as tolerated. Use Tylenol, simethicone scheduled for the next 24-48 hours for best pain relief. Use ice along incisions for today to prevent swelling. Discharge Disposition: HOME SELF-CARE
[2022-02-09] MEDS ORDERED: SODIUM CHLORIDE 0.9% 1,000 ML IV ONE (12:18)
[2022-02-09 12:27] VITALS: RESP 15
[2022-02-09 12:28] LABS: Glucose,Whole Blood 135 mg/dL (70-110)
[2022-02-09 12:46] VITALS: BP 157/79; PULSE 80
== END 2022-02-09 13:45 | disposition home or self-care (01) ==
LOC: OR 07:51
PROVIDERS: ATTEND Surgery Plastic and Reconstructive Surgery
DX: K44.9 Diaphragmatic hernia without obstruction or gangrene (principal); K21.9 Gastro-esophageal reflux disease without esophagitis; E66.01 Morbid (severe) obesity due to excess calories; I10 Essential (primary) hypertension; Q24.9 Congenital malformation of heart, unspecified; C91.00 Acute lymphoblastic leukemia not having achieved remission; K74.69 Other cirrhosis of liver; J44.9 Chronic obstructive pulmonary disease, unspecified; H53.40 Unspecified visual field defects; F41.1 Generalized anxiety disorder; G43.909 Migraine, unspecified, not intractable, without status migrainosus; K31.84 Gastroparesis; R74.8 Abnormal levels of other serum enzymes; E78.1 Pure hyperglyceridemia; E78.00 Pure hypercholesterolemia, unspecified; E55.9 Vitamin D deficiency, unspecified; N25.81 Secondary hyperparathyroidism of renal origin; M17.10 Unilateral primary osteoarthritis, unspecified knee; K74.60 Unspecified cirrhosis of liver; R16.0 Hepatomegaly, not elsewhere classified; Z68.41 Body mass index [BMI] 40.0-44.9, adult; Z88.8 Allergy status to other drugs, medicaments and biological substances
CPT/HCPCS: 81025; 80053; 85025; 43280; J2250; J0330; J1644; J1100; J2710; J0690; J2405; J3010; J2704; J1170; J2001

== ENCOUNTER 2022-02-12 11:17 | Emergency (ER) | payer MEDICARE ==
[2022-02-12 11:42] VITALS: TEMP 98.3
[2022-02-12] MEDS ORDERED: SODIUM CHLORIDE 0.9% 1,000 ML IV STA (12:16)
[2022-02-12] MEDS ORDERED: ONDANSETRON 4 MG/2 ML VIAL IVP STA (12:16)
[2022-02-12] MEDS ORDERED: HYDROmorphone 1 MG/ML 1 ML SYRINGE IVP STA (12:16)
[2022-02-12] MEDS ORDERED: FAMOTIDINE 20 MG/2 ML VIAL IV STA (12:17)
--- NOTE | 2022-02-12 12:23 | ED ---
General Adult HPI - General Chief complaint: Abdominal Pain Stated complaint: abd pain Time Seen by Provider: 02/12/22 11:52 Source: patient, RN notes reviewed Mode of arrival: ambulatory Limitations: no limitations - History of Present Illness Initial comments: Patient is a pleasant 46-year-old female presenting to the emergency department with complaints of abdominal pain. Onset of symptoms was a couple of days ago. Slightly worse since that time. Patient does have nausea and did vomit once. Patient does have history of chronic similar symptoms related with her hiatal hernia. Patient was going to have surgery on Saturday. Patient states they did go and however surgery was not done secondary to her having cirrhosis. - Related Data Home Medications Medication Instructions Recorded Confirmed Acyclovir [Zovirax] 800 mg PO BID@0800,2200 05/18/17 02/06/22 Magnesium Plus Protein 2 tab PO BID 10/27/17 02/06/22 Pantoprazole Sodium [Protonix] 40 mg PO BID 10/27/17 02/06/22 Prochlorperazine [Compazine] 10 mg PO QAM 10/27/17 02/06/22 Docusate [Colace] 100 mg PO DAILY 05/23/18 02/06/22 Tacrolimus [Prograf] 1 mg PO BID 05/23/18 02/06/22 Escitalopram [Lexapro] 5 mg PO DAILY 06/29/20 02/06/22 SUMAtriptan succinate [Imitrex] 50 mg PO DIRECTED PRN 06/29/20 02/06/22 Ergocalciferol [Vitamin D2 (1250 50,000 unit PO WEEKLY 02/02/21 02/06/22 Mcg = 46318 Iu)] Cyclobenzaprine [Flexeril] 10 mg PO BID 10/03/21 02/06/22 Insulin Glargine,Hum.rec.anlog 10 units SQ QAM 10/03/21 02/06/22 [Toujepaul Solostar] Levothyroxine Sodium 25 mcg PO QAM 10/03/21 02/06/22 Pioglitazone [Actos] 15 mg PO QAM 10/03/21 02/06/22 Ruxolitinib Phosphate [Jakafi] 5 mg PO BID 10/03/21 02/06/22 carvediloL [Coreg] 3.125 mg PO BID 10/03/21 02/06/22 lisinopriL [Zestril] 5 mg PO DAILY 10/03/21 02/06/22 sitaGLIPtin [Januvia] 50 mg PO QAM 10/03/21 02/06/22 traMADol HCl [Ultram] 50 mg PO QID 10/03/21 02/06/22 Previous Rx's Medication Instructions Recorded Acetaminophen Tab [Tylenol Tab] 1,000 mg PO Q6HR PRN #30 tablet 02/09/22 Allergies Allergy/AdvReac Type Severity Reaction Status Date / Time fondaparinux [From Arixtra] Allergy Intermediate Rash/Hives Verified 02/12/22 11:42 propoxyphene napsylate Allergy Intermediate Rash/Hives Verified 02/12/22 11:42 [From Darvocet-N] Review of Systems ROS Statement: Those systems with pertinent positive or pertinent negative responses have been documented in the HPI. ROS Other: All systems not noted in ROS Statement are negative. Constitutional: Denies: fever Eyes: Denies: eye pain ENT: Denies: ear pain Respiratory: Denies: cough Cardiovascular: Denies: chest pain Endocrine: Denies: fatigue Gastrointestinal: Reports: as per HPI, abdominal pain, nausea, vomiting. Denies: constipation Genitourinary: Denies: dysuria Musculoskeletal: Denies: back pain Skin: Denies: rash Neurological: Denies: weakness Past Medical History Past Medical History: Cancer, Heart Failure, COPD, Diabetes Mellitus, Osteoarthritis (OA) Additional Past Medical History / Comment(s): Congenital heart failure,"irreg rythym" ,ALL, hx of kidney stones,mumur"leaky heart valve", migraines,past menorrhagia. GVHD History of Any Multi-Drug Resistant Organisms: None Reported Past Surgical History: Section, Cholecystectomy, Tubal Ligation Additional Past Surgical History / Comment(s): left knee arthroscopy, left shoulder torn rotator cuff repair has pin in place, bone marrow transplant, open heart surgery at age 18 months "they took an artery out of her leg to use in heart", egd, 2015 d&c/hysteroscopy/novasure ablation, pt stated had both flu and pne vaccine 2020 but entry writer unable to verify dates at time of admit. Past Anesthesia/Blood Transfusion Reactions: No Reported Reaction Additional Past Anesthesia/Blood Transfusion Reaction / Comment(s): several blood transfusion-pt denies any reaction Past Psychological History: Anxiety, Depression Smoking Status: Former smoker - Past Family History Mother Family Medical History: Hyperlipidemia, Renal Disease Additional Family Medical History / Comment(s): vit d- deficiency, anemia Father Family Medical History: COPD Additional Family Medical History / Comment(s): "bowel problems-hx resection" General Exam Limitations: no limitations General appearance: alert, in no apparent distress Head exam: Present: normocephalic Eye exam: Present: normal appearance Neck exam: Present: normal inspection Respiratory exam: Present: normal lung sounds bilaterally Cardiovascular Exam: Present: regular rate, normal rhythm Expanded Peripheral pulses: 2+: Posterior Tibialis (R), Posterior Tibialis (L) GI/Abdominal exam: Present: soft, tenderness (Mild diffuse tenderness), normal bowel sounds. Absent: distended, guarding, rebound, rigid, pulsatile mass Extremities exam: Present: normal inspection. Absent: pedal edema, calf tenderness Neurological exam: Present: alert Psychiatric exam: Present: normal affect, normal mood Skin exam: Present: normal color Course Vital Signs 02/12/22 02/12/22 11:40 13:30 Temperature 98.3 F Pulse Rate 81 77 Respiratory 16 15 Rate Blood Pressure 115/71 101/79 O2 Sat by Pulse 95 94 L Oximetry Medical Decision Making - Medical Decision Making Patient reevaluated and resting comfortably in bed. Patient updated on results and need for follow-up. - Lab Data Result diagrams: 02/12/22 12:25 02/12/22 13:11 Lab Results 02/12/22 02/12/22 02/12/22 Range/Units 12:25 12:25 13:11 WBC 5.8 (3.8-10.6) k/uL RBC 4.28 (3.80-5.40) m/uL Hgb 14.4 (11.4-16.0) gm/dL Hct 43.7 (34.0-46.0) % MCV 102.3 H (80.0-100.0) fL MCH 33.7 (25.0-35.0) pg MCHC 33.0 (31.0-37.0) g/dL RDW 12.5 (11.5-15.5) % Plt Count 265 (150-450) k/uL MPV 7.3 Neutrophils % 40 % Lymphocytes % 49 % Monocytes % 7 % Eosinophils % 1 % Basophils % 1 % Neutrophils # 2.3 (1.3-7.7) k/uL Lymphocytes # 2.8 (1.0-4.8) k/uL Monocytes # 0.4 (0-1.0) k/uL Eosinophils # 0.1 (0-0.7) k/uL Basophils # 0.0 (0-0.2) k/uL Macrocytosis Slight PT 10.5 (9.0-12.0) sec INR 1.0 (<1.2) APTT 22.6 (22.0-30.0) sec Sodium 137 (137-145) mmol/L Potassium 4.6 (3.5-5.1) mmol/L Chloride 104 (98-107) mmol/L Carbon Dioxide 21 L (22-30) mmol/L Anion Gap 12 mmol/L BUN 25 H (7-17) mg/dL Creatinine 0.90 (0.52-1.04) mg/dL Est GFR (CKD-EPI)AfAm 88 (>60 ml/min/1.73 sqM) Est GFR (CKD-EPI)NonAf 76 (>60 ml/min/1.73 sqM) Glucose 128 H (74-99) mg/dL Calcium 8.8 (8.4-10.2) mg/dL Total Bilirubin 0.3 (0.2-1.3) mg/dL AST 48 H (14-36) U/L ALT 36 H (4-34) U/L Alkaline Phosphatase 111 (38-126) U/L Total Protein 6.6 (6.3-8.2) g/dL Albumin 4.2 (3.5-5.0) g/dL Amylase 40 (30-110) U/L Lipase 23 (23-300) U/L - Radiology Data Radiology results: report reviewed (Computed tomography scan abdomen pelvis does not reveal acute abnormality) Disposition Clinical Impression: Abdominal pain Disposition: HOME SELF-CARE Condition: Stable Instructions (If sedation given, give patient instructions): Abdominal Pain (ED) Additional Instructions: Please do follow-up with your primary care physician and surgeon next couple of days for recheck. Return for vomiting, increased pain, fevers, worsening or changing symptoms or other concerns. Is patient prescribed a controlled substance at d/c from ED?: No Referrals: Chris Lafleur MD [Primary Care Provider] - 1-2 days Time of Disposition: 14:41
[2022-02-12 12:40] LABS: Basophils % (A) 1 %; Eosinophils # (A) 0.1 k/uL (0-0.7); Eosinophils % (A) 1 %; HCT 43.7 % (34.0-46.0); HGB 14.4 gm/dL (11.4-16.0); Lymphocytes # (A) 2.8 k/uL (1.0-4.8); Lymphocytes % (A) 49 %; MCH 33.7 pg (25.0-35.0); MCV 102.3 fL (80.0-100.0); Macrocytosis Slight; Mean Platelet Volume 7.3; Monocytes # (A) 0.4 k/uL (0-1.0); Monocytes % (A) 7 %; Neutrophils # (A) 2.3 k/uL (1.3-7.7); Neutrophils % (A) 40 %; Platelet Count 265 k/uL (150-450); RBC 4.28 m/uL (3.80-5.40); RDW 12.5 % (11.5-15.5); WBC 5.8 k/uL (3.8-10.6)
[2022-02-12 13:26] LABS: Partial Thromboplastin Time 22.6 sec (22.0-30.0); Prothrombin Time 10.5 sec (9.0-12.0)
[2022-02-12 13:31] VITALS: PULSE 77
[2022-02-12 13:39] LABS: Albumin 4.2 g/dL (3.5-5.0); Calcium 8.8 mg/dL (8.4-10.2); Potassium 4.6 mmol/L (3.5-5.1); Total Bilirubin 0.3 mg/dL (0.2-1.3); Total Protein 6.6 g/dL (6.3-8.2)
--- NOTE | 2022-02-12 14:36 | CT ---
EXAMINATION TYPE: CT abdomen pelvis w con DATE OF EXAM: 02/12/2022 HISTORY: Diffuse pain, history of stage IV cirrhosis. CT DLP: 1619.2mGycm Automated Exposure Control for Dose Reduction was Utilized. CONTRAST: CT scan of the abdomen and pelvis is performed without oral but with IV Contrast, patient injected wi th 100 mL of Isovue 300. COMPARISON: CT abdomen and pelvis May 24, 2018 FINDINGS: LUNG BASES: No significant abnormality is appreciated. LIVER/GB: Cholecystectomy clips are redemonstrated. Liver is normal in size without concerning mass o r biliary dilatation. Surrounding ascites. PANCREAS: Mild to moderate generalized fat replaced atrophy. SPLEEN: No significant abnormality is seen. ADRENALS: No significant abnormality is seen. KIDNEYS: Symmetric cortical medullary uptake and excretion without hydronephrosis seen bilaterally. S ubcentimeter thin-walled cyst anterior left kidney lower pole level delayed axial image 37 is noted. BOWEL: Fvaxu-ge-azgothry size hiatal hernia on the current exam. No suspicious small or large bowel d ilatation. UTERUS/ADNEXA: Prominent cervix or uterus remnant is redemonstrated. Scattered pelvic phleboliths. LYMPH NODES: No greater than 1cm abdominal or pelvic lymph nodes are appreciated. OSSEOUS STRUCTURES: No significant abnormality is seen. OTHER: No significant additional abnormality is seen. IMPRESSION: No ascites. No significant acute finding is seen to account for patient's clinical sympto ms of nonspecified pain.
[2022-02-12 15:22] VITALS: BP 107/70; RESP 16
== END 2022-02-12 15:22 | disposition home or self-care (01) ==
LOC: EC 11:17
DX: R10.9 Unspecified abdominal pain (principal); E11.9 Type 2 diabetes mellitus without complications; J44.9 Chronic obstructive pulmonary disease, unspecified; Z87.891 Personal history of nicotine dependence; Z88.6 Allergy status to analgesic agent; Z88.8 Allergy status to other drugs, medicaments and biological substances
CPT/HCPCS: 36415; 80053; 82150; 83690; 85025; 85610; 85730; 74177; 99284; 96374; 96375; 96361; J2405; J1170; Q9967

== ENCOUNTER → 2022-09-12 | Outpatient (CLI) | payer MEDICARE ==
[2022-09-12 15:24] VITALS: BP 146/93; PULSE 85; TEMP 98.5; BMI 35.3
--- NOTE | 2022-09-12 15:38 | P.BASOAP ---
Subjective Progress Note Date: 09/12/22 Hiatal hernia repair. Weight loss. Hepatomegaly reviewed. Objective - Vital Signs Vital signs: Vital Signs Temp 98.5 F 09/12/22 15:20 Pulse 85 09/12/22 15:20 Resp BP 146/93 09/12/22 15:20 Pulse Ox FiO2 Intake & Output 09/11/22 09/12/22 09/12/22 18:59 06:59 18:59 Weight 82.1 kg Assessment/Plan Plan: Date: 09/12/22 Initial Weight: Initial BMI: Current Weight: 82.1 kg Current BMI: 35.3 Type of Surgery: Total Volume in Band: Previous Volume: Volume Removed: Volume Added: Band Size:
== END ==
LOC: BARWHC3 13:51
PROVIDERS: ATTEND Surgery Plastic and Reconstructive Surgery
DX: M51.36 Other intervertebral disc degeneration, lumbar region (principal); M47.816 Spondylosis without myelopathy or radiculopathy, lumbar region; G89.29 Other chronic pain
CPT/HCPCS: 99211

== ENCOUNTER 2022-10-22 09:29 | Observation (INO) | payer MEDICARE ==
[~2022-10-22 09:29] MED LIST changes: -ACETAMINOPHEN TAB 500 MG TAB PO STA; +CHLORHEXIDINE GLUCONATE 15 ML CUP MUCOUS MEM PRN; -DEXAMETHASONE SOD PHOSPHATE 4 MG/ML 1 ML VIAL IV ONE; -HYDROmorphone 0.5 MG/0.5 ML SYRINGE IVP PRN; -LACTATED RINGERS 1,000 ML IV SCH; -LIDOCAINE 1% (10MG/ML) FOR IV START INTRADERMA PRN; -MIDAZOLAM 2 MG/2 ML VIAL IV PRN; -ONDANSETRON 4 MG/2 ML VIAL IVP ONE; +PANTOPRAZOLE 40 MG/10 ML VIAL IVP PRN; -SCOPOLAMINE 1 MG/72 HR PATCH TRANSDERM STA
[2022-10-22] MEDS ORDERED: LIDOCAINE 1% (10MG/ML) FOR IV START INTRADERMA PRN (09:46)
[2022-10-22] MEDS ORDERED: ONDANSETRON 4 MG/2 ML VIAL IVP ONE (09:46)
[2022-10-22] MEDS ORDERED: DEXAMETHASONE SOD PHOSPHATE 4 MG/ML 1 ML VIAL IV ONE (09:46)
[2022-10-22] MEDS ORDERED: MIDAZOLAM 2 MG/2 ML VIAL IV PRN (09:46)
--- NOTE | 2022-10-22 10:13 | P.GSHP ---
History of Present Illness H&P Date: 10/22/22 CHIEF COMPLAINT: Paraesophageal hiatal hernia with gastroesophageal reflux disease. HISTORY OF PRESENT ILLNESS: The patient is a 47-year-old female who presents with symptomatic paraesophageal hiatal hernia over 3 years with gastroesophageal reflux disease. She has completed upper endoscopy workup. Now she presents for surgical intervention. PAST MEDICAL HISTORY: Please see list. PAST SURGICAL HISTORY: Please see list. MEDICATIONS: Please see list. ALLERGIES: Please see list. SOCIAL HISTORY: No illicit drug use FAMILY HISTORY: No reports of Crohn disease or ulcerative colitis. REVIEW OF ORGAN SYSTEMS: CONSTITUTIONAL: No reports of fevers or chills. GI: Denies any blood in stools or constipation. PHYSICAL EXAM: VITAL SIGNS: Stable GENERAL: Well-developed pleasant and in no acute distress. HEENT: No scleral icterus. Extraocular movements grossly intact. Moist buccal mucosa. NECK: Supple without lymphadenopathy. CHEST: Unlabored respirations. Equal bilateral excursions. CARDIOVASCULAR: Regular rate and rhythm. Distal 2+ pulses. ABDOMEN: Soft, nondistended. No peritoneal signs. MUSCULOSKELETAL: No clubbing, cyanosis, or edema. SKIN: Well-perfused. Good skin turgor. REPORTS: Upper endoscopy demonstrates paraesophageal hiatal hernia BARIUM SWALLOW: Images reviewed demonstrating paraesophageal hiatal hernia. This is my independent interpretation. REPORTS: Cardiology risk assessment obtained. Please see chart. ASSESSMENT: 1. Diaphragmatic paraesophageal hiatal hernia with severe gastroesophageal reflux disease. PLAN: 1. Recommend proceeding with a robotic paraesophageal hiatal hernia with possible mesh. 2. Benefits and risks of surgical intervention was discussed including possibility of open technique. 3. Inpatient hospitalization recommended of 2 nights 4. DVT prophylaxis. 5. Antibiotic prophylaxis. 6. She has also completed a very low caloric high-protein diet to address underlying hepatomegaly. 7. Non narcotic pain management including abdominal wall block described 8. Blood sugar glucose described. 9. Weight loss management described. 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 Past Anesthesia/Blood Transfusion Reactions: No Reported Reaction Additional Past Anesthesia/Blood Transfusion Reaction / Comment(s): several blood transfusion-pt denies any reaction Past Psychological History: Anxiety, Depression Additional Psychological History / Comment(s): no medications at this time Smoking Status: Former smoker Past Alcohol Use History: Occasional Additional Past Alcohol Use History / Comment(s): started smoking age 17(1992) and quit age 22(1998), smoked less than 1 ppd. Past Drug Use History: Marijuana Additional Drug Use History / Comment(s): uses marijuana for appetite, edibles.or oil - Past Family History Mother Family Medical History: Hyperlipidemia, Renal Disease Additional Family Medical History / Comment(s): vit d- deficiency, anemia Father Family Medical History: COPD Additional Family Medical History / Comment(s): "bowel problems-hx resection" Medications and Allergies Home Medications Medication Instructions Recorded Confirmed Type Acyclovir [Zovirax] 800 mg PO BID 05/18/17 10/18/22 History Pantoprazole Sodium [Protonix] 40 mg PO BID 10/27/17 10/18/22 History Docusate [Colace] 100 mg PO DAILY 05/23/18 10/18/22 History Tacrolimus [Prograf] 1 mg PO BID 05/23/18 10/18/22 History Ergocalciferol [Vitamin D2 (1250 1,250 mcg PO FLOYD 02/02/21 10/18/22 History Mcg = 50627 Iu)] Levothyroxine Sodium 25 mcg PO DAILY 10/03/21 10/18/22 History Pioglitazone [Actos] 15 mg PO DAILY 10/03/21 10/18/22 History Ruxolitinib Phosphate [Jakafi] 5 mg PO BID 10/03/21 10/18/22 History carvediloL [Coreg] 3.125 mg PO BID 10/03/21 10/18/22 History Empagliflozin [Jardiance] 25 mg PO DAILY 02/12/22 10/18/22 History Sulfamethoxazole/Trimethoprim 1 tab PO DAILY 02/12/22 10/18/22 History [Bactrim SS 400-80 mg] HYDROcodone/APAP 5-325MG [[place] 1 tab PO Q6HR PRN 10/18/22 10/18/22 History 5-325] Prochlorperazine [Compazine] 10 mg PO BID PRN 10/18/22 10/18/22 History Allergies Allergy/AdvReac Type Severity Reaction Status Date / Time fondaparinux [From Arixtra] Allergy Intermediate Rash/Hives Verified 10/18/22 11:31 propoxyphene napsylate Allergy Intermediate Rash/Hives Verified 10/18/22 11:31 [From Darvocet-N]
[2022-10-22 10:36] LABS: Glucose,Whole Blood 100 mg/dL (70-110)
[2022-10-22 10:43] LABS: Basophils % (A) 0 %; Eosinophils # (A) 0.1 k/uL (0-0.7); Eosinophils % (A) 2 %; HGB 13.9 gm/dL (11.4-16.0); Lymphocytes # (A) 2.2 k/uL (1.0-4.8); Lymphocytes % (A) 41 %; MCH 33.6 pg (25.0-35.0); MCHC 33.1 g/dL (31.0-37.0); MCV 101.7 fL (80.0-100.0); Macrocytosis Slight; Mean Platelet Volume 7.3; Monocytes # (A) 0.3 k/uL (0-1.0); Monocytes % (A) 6 %; Neutrophils # (A) 2.5 k/uL (1.3-7.7); Neutrophils % (A) 47 %; Platelet Count 310 k/uL (150-450); RBC 4.13 m/uL (3.80-5.40); RDW 13.2 % (11.5-15.5); WBC 5.3 k/uL (3.8-10.6)
[2022-10-22] MEDS ORDERED: HEPARIN SODIUM,PORCINE/PF 5,000 UNIT/0.5 ML SYRINGE SQ PRN (10:44)
[2022-10-22] MEDS ORDERED: HEPARIN SODIUM,PORCINE/PF 5,000 UNIT/0.5 ML SYRINGE SQ ONE (10:46)
[2022-10-22 10:47] LABS: Prothrombin Time 10.7 sec (9.0-12.0)
[2022-10-22 10:54] LABS: ALT 35 U/L (4-34); AST 39 U/L (14-36); African American GFR (CKD) 69 (>60 ml/min/1.73 sqM); Albumin 4.4 g/dL (3.5-5.0); Alkaline Phosphatase 94 U/L (38-126); Anion Gap 8 mmol/L; Blood Urea Nitrogen 19 mg/dL (7-17); Calcium 9.3 mg/dL (8.4-10.2); Carbon Dioxide 26 mmol/L (22-30); Chloride 106 mmol/L (98-107); Glucose 95 mg/dL (74-99); Non-African American GFR(CKD) 60 (>60 ml/min/1.73 sqM); Potassium 4.3 mmol/L (3.5-5.1); Sodium 140 mmol/L (137-145); Total Bilirubin 0.6 mg/dL (0.2-1.3); Total Protein 6.9 g/dL (6.3-8.2)
[2022-10-22] MEDS: LACTATED RINGERS 1,000 ML IV SCH (11:07)
[2022-10-22] MEDS ORDERED: PROPOFOL 10 MG/ML 20 ML VIAL IV ONE (11:16)
[2022-10-22] MEDS ORDERED: PHENYLEPHRINE-0.9% NACL SYG 1,000 MCG/10 ML SYRINGE ONE (11:16)
[2022-10-22] MEDS ORDERED: fentaNYL (PF) 50 MCG/ML 2 ML AMP ONE (11:16)
[2022-10-22] MEDS ORDERED: MIDAZOLAM 2 MG/2 ML VIAL ONE (11:16)
[2022-10-22] MEDS ORDERED: ROCURONIUM 10 MG/ML (5 ML VIAL) IV ONE (11:16)
[2022-10-22] MEDS ORDERED: NEOSTIGMINE 1 MG/ML 10 ML VIAL ONE (11:16)
[2022-10-22] MEDS ORDERED: LIDOCAINE 2% INJ 20 MG/ML (2 ML VIAL) ONE (11:16)
[2022-10-22] MEDS ORDERED: KETOROLAC 15 MG/ML 1 ML VIAL ONE (11:16)
[2022-10-22] MEDS ORDERED: SUCCINYLCHOLINE CHLORIDE 200 MG/10 ML VIAL IV ONE (11:16)
[2022-10-22] MEDS ORDERED: GLYCOPYRROLATE 0.2 MG/ML 2 ML VIAL ONE (11:16)
[2022-10-22] MEDS ORDERED: LIDOCAINE 0.5%-EPI 1:200,000 50 ML VIAL SQ ONE (12:12)
[2022-10-22] MEDS ORDERED: LACTATED RINGERS 1,000 ML IV ONE (12:55)
[2022-10-22 13:47] LABS: Glucose,Whole Blood 160 mg/dL (70-110)
[2022-10-22] MEDS: HYDROmorphone 0.5 MG/0.5 ML SYRINGE IVP PRN ×2 (14:05→14:16)
--- NOTE | 2022-10-22 14:05 | P.OP ---
Date of Procedure: 10/22/22 Description of Procedure: SURGEON: YASH BOATENG MD PREOPERATIVE DIAGNOSES: 1. Symptomatic paraesophageal diaphragmatic hiatal hernia. 2. Gastroesophageal reflux disease. 3. Morbid obesity due to excess calories, BMI 42.1 down to 34.8 4. Congenital heart disease. 5. Cirrhosis of the liver with hepatomegaly 6. Gastroesophageal reflux disease 7. Acute lymphocytic leukemia (ALL) 8. Depressive disorder 9. Generalized anxiety disorder 10. Migraines 11. Gastroparesis 12. Elevated liver enzymes 13. Hypertriglyceridemia 14. Hypercholesterolemia 15. Vitamin D deficiency 16. Secondary hyperparathyroidism 17. Osteoarthritis of the knees. POSTOPERATIVE DIAGNOSES: 1. Paraesophageal midline diaphragmatic hernia, 3 cm, without incarceration. 2. Gastroesophageal reflux disease. 3. Morbid obesity due to excess calories, BMI 42.1 down to 34.8 4. Congenital heart disease. 5. Cirrhosis of the liver with hepatomegaly 6. Gastroesophageal reflux disease 7. Acute lymphocytic leukemia (ALL) 8. Depressive disorder 9. Generalized anxiety disorder 10. Migraines 11. Gastroparesis 12. Elevated liver enzymes 13. Hypertriglyceridemia 14. Hypercholesterolemia 15. Vitamin D deficiency 16. Secondary hyperparathyroidism 17. Osteoarthritis of the knees. OPERATION: 1. Robotic-assisted da Laura Xi laparoscopic repair of incarcerated paraesophageal hiatal hernia, 4 x 3 cm, with [place] Biopatch A 8 x 8 cm. 2. Intraoperative esophagogastroduodenoscopy ANESTHESIA: General with local anesthetic. ESTIMATED BLOOD LOSS: 5 mL SPECIMENS REMOVED: None COMPLICATIONS: None. Condition: stable Disposition: floor FINDINGS: 1. Midline incarcerated paraesophageal hiatal hernia 4 x 3 cm 2. Intraoperative upper endoscopy confirms complete closure of hiatal hernia from Hill grade 3 to Hill grade 1 3. Intraesophageal length over 2 cm 4. Incarceration of upper pole of the stomach with mediastinal fat INDICATIONS: The patient is a 47-year-old female who presents with gastroesophageal reflux disease poorly controlled despite medications, and a symptomatic diaphragmatic hiatal hernia. Preoperative workup including upper endoscopy demonstrated a sliding hiatal hernia. Given the severity of symptoms, the patient had elected for surgical intervention. Benefits and risks including bleeding, infection, recurrence, dysphagia, injury to the lung, need for further surgery was described at length. Informed consent was obtained. DESCRIPTION: The patient was brought into the operating room and placed in supine position. Preoperatively the patient had received heparin subcutaneously for DVT prophylaxis. After general induction, the abdomen was prepped and draped in standard sterile fashion. The patient had previously voided prior to coming to the operating room. [place] draping was placed along the abdomen. A timeout protocol was confirmed with the surgical team, for which the patient's name, procedure to be performed including DVT prophylaxis with bilateral SCDs, and preoperative antibiotics were also confirmed. A robotic da Laura Xi system was prepped and primed. At 12 cm from the xiphoid to just below the umbilicus, proposed port sites were marked with indelible marker along the left axillary line, left mid-clavicular line with each ports were marked 10 cm from each other. A 5 mm 0 degrees laparoscopic trocar entry was performed along the left upper quadrant. The abdomen was insufflated to 15 mmHg pressure was tolerated well. Diagnostic laparoscopy demonstrated no injury to bowel, viscera, or mesentery. No injury had occurred to the small bowel or viscera. Cirrhosis of the liver fatty liver disease was identified. Previous trochar sites from cholecystectomy were used. Next, one 8 mm robotic port was placed along the right upper abdomen. An 8-mm port was were placed along the right lateral lateral abdominal wall. The camera 8-mm port was maintained along the epigastrium. Another 12 mm port was placed along the left upper abdominal wall after exchanging the 5 mm port. Please note that the ports were placed at least 20 cm away from the target anatomy. Care was taken to check that each robotic arm were safely away from collision with the bed or the patient. At the epigastrium, a medium sized Nirmal liver retractor was placed under direct visualization with the Iron Assistant Athletic Trainer placed under the right shoulder of the patient. All robotic arms were used. The patient was repositioned in reverse Trendelenburg position at 21-degrees after lowering the bed. The robot was docked above the right side of the patient. Using a grasper for arm 3, a grasper for arm 1, including vessel sealer for arm 2, the robotic system was docked and primed as described. Instruments were interchanged by the reference library assistant. I had sat at the console. The gastrohepatic ligament was cleaved using a vessel sealer. Next, the phrenoes ophageal ligament was mobilized and the distal esophagus was mobilized circumferentially. The left and right crura was identified. Circumferentially, the hernia sac was excised and brought into the peritoneal cavity. Moderate dissection into the mediastinum was performed to release the esophagus into the abdominal cavity. The paraesophageal hiatal hernia sac was also incised and divided from the esophagus. Care was taken to avoid any gastrotomy. The measured defect was consistent with 3 cm axial length and 3 cm in width. After dissection, the distal esophagus of 2+ cm was brought into the abdominal cavity. Once the hiatus and crura was dissected, 2-0 VLOC nonabsorbable suture was placed to reapproximate the diaphragmatic hiatus posteriorly. To buttress the repair, a [place] Biopatch A was prepared along the back table and cut in half of a najera-hole fashion as to reinforce the repair as an underlay. The mesh was placed along the crural repair and tagged using horizontal mattress s utures using 2-0 VLOC. An Olympus gastroscope was passed through posterior oropharynx. Retroflexion of the scope confirmed a Hill grade 1 lower esophageal valve. The stomach had been desufflated. No evidence of leaks were found of the esophagus or stomach. The GI tract with desufflated This concluded the endoscopic portion of the case. The robot was undocked from the patient. I re-scrubbed into the case. All instruments and pneumoperitoneum and specimens were evacuated from the abdominal cavity. Incisions were reapproximated using 4-0 Monocryl in an interrupted subcuticular fashion. Liquid glue was applied to the skin. Local anesthetic was infiltrated in all wounds for postop analgesia. At the end of the procedure, needle, sponge, and instrument count was verified correct by the surgical territory manager. The patient had tolerated the procedure well and was taken to the postanesthesia unit in stable condition.
--- NOTE | 2022-10-22 16:02 | FL ---
EXAMINATION TYPE: FL esophagus cervic/pharynx DATE OF EXAM: 10/22/2022 LIMITED UGI-ESOPHAGRAM: CLINICAL HISTORY: Hiatal hernia with Remigio fundoplication surgery earlier today. TECHNIQUE: Limited esophagram is performed utilizing 20 oz of barium. A total of 17 seconds of fluor oscopic time was utilized during procedure and 15 images obtained. FINDINGS: The patient swallowed contrast without difficulty or delay. Esophageal peristalsis and mo tility are within normal limits. There is good flow of contrast along the diaphragmatic hiatus into t he stomach, there is no evidence of contrast extravasation to suggest leak. No persistent hiatal vidhi ia is seen. Patient remains asymptomatic. Overlying sternal wires several which are broken are identi fied. Cholecystectomy clips are identified. IMPRESSION: No evidence of leak or significant obstruction status post Alonzo fundoplication surgery earlier today.
[2022-10-22] MEDS: ONDANSETRON 4 MG/2 ML VIAL IVP SCH ×2 (16:56→23:11)
[2022-10-22] MEDS: METOCLOPRAMIDE 5 MG/ML 2 ML VIAL IVP SCH ×2 (16:56→23:11)
[2022-10-22] MEDS: HYDROmorphone 1 MG/ML 1 ML SYRINGE IVP PRN ×2 (16:57→20:56)
[2022-10-22] MEDS: HYDROcodone/APAP 5-325MG 1 EACH TAB PO PRN (19:27)
[2022-10-22] MEDS: carvediloL 3.125 MG TAB PO SCH (20:56)
[2022-10-22] MEDS: ACYCLOVIR 800 MG TAB PO SCH (20:56)
[2022-10-22] MEDS: TACROLIMUS 1 MG CAP PO SCH (20:56)
[2022-10-22] MEDS: HEPARIN SODIUM,PORCINE/PF 5,000 UNIT/0.5 ML SYRINGE SQ SCH (20:57)
[2022-10-22] MEDS: Ruxolitinib Phosphate [Jakafi] 5 MG Tablet PO SCH (20:59)
[2022-10-23] MEDS: HYDROmorphone 1 MG/ML 1 ML SYRINGE IVP PRN ×5 (00:59→20:51)
[2022-10-23] MEDS: LEVOTHYROXINE 25 MCG TAB PO SCH (05:03)
[2022-10-23] MEDS: ONDANSETRON 4 MG/2 ML VIAL IVP SCH ×3 (05:03→19:19)
[2022-10-23] MEDS: METOCLOPRAMIDE 5 MG/ML 2 ML VIAL IVP SCH ×3 (05:03→19:19)
[2022-10-23] MEDS: HYDROcodone/APAP 5-325MG 1 EACH TAB PO PRN ×2 (08:34→19:13)
[2022-10-23] MEDS: carvediloL 3.125 MG TAB PO SCH ×2 (08:36→21:37)
[2022-10-23] MEDS: HEPARIN SODIUM,PORCINE/PF 5,000 UNIT/0.5 ML SYRINGE SQ SCH ×2 (08:36→21:41)
[2022-10-23] MEDS: DOCUSATE 100 MG CAP PO SCH (08:36)
[2022-10-23] MEDS: TACROLIMUS 1 MG CAP PO SCH ×2 (08:37→21:44)
[2022-10-23] MEDS: SULFAMETHOX-TMP 400-80MG 1 EACH TAB PO SCH (08:37)
[2022-10-23] MEDS: ACYCLOVIR 800 MG TAB PO SCH ×2 (08:38→21:28)
[2022-10-23] MEDS: DAPAGLIFLOZIN PROPANEDIOL 10 MG TABLET PO SCH (08:40)
[2022-10-23] MEDS: PIOGLITAZONE 15 MG TAB PO SCH (08:40)
[2022-10-23] MEDS: Ruxolitinib Phosphate [Jakafi] 5 MG Tablet PO SCH ×2 (08:41→21:55)
[2022-10-23 08:46] LABS: Glucose,Whole Blood 161 mg/dL (70-110)
[2022-10-23] MEDS: LACTATED RINGERS 1,000 ML IV SCH ×3 (10:57→17:02)
[2022-10-23 11:36] LABS: Glucose,Whole Blood 92 mg/dL (70-110)
--- NOTE | 2022-10-23 13:21 | P.PN ---
Subjective Progress Note Date: 10/23/22 CHIEF COMPLAINT: paraesophageal diaphragmatic hiatal hernia HISTORY OF PRESENT ILLNESS: Patient is postop day #1 status post robotic- assisted laparoscopic repair of incarcerated paraesophageal hiatal hernia with gore biopatch. The patient is complaining of abdominal pain. She did need Dilaudid this morning even after taking a [place]. She is having flatus. No bowel movement. Denies any difficulty urinating. Upper GI shows no evidence of leak or obstruction. Patient tolerating liquids. Afebrile. WBC 5.3HB 13.9 creatinine 1.09 PHYSICAL EXAM: VITAL SIGNS: Reviewed GENERAL: Well-developed in no acute distress. HEENT: No sclera icterus. Extraocular movements grossly intact. Moist buccal mucosa. Head is atraumatic, normocephalic. Hears conversational speech. No nasal drainage. NECK: Supple without lymphadenopathy. CHEST: Non-labored respirations and equal bilateral excursions. CARDIOVASCULAR: Palpable 2+ radial pulses. ABDOMEN: Soft. Nondistended. Incision sites clean dry and intact MUSCULOSKELETAL: No clubbing or cyanosis. NEUROLOGIC: No focal or lateralizing signs. Cranial nerves II through XII grossly intact. PSYCH: Appropriate affect. Alert and oriented to person, place and time. SKIN: Well perfused. Good skin turgor. ASSESSMENT: 1. Paraesophageal midline diaphragmatic hernia, 3 cm, without incarceration. 2. Gastroesophageal reflux disease. 3. Morbid obesity due to excess calories, BMI 42.1 down to 34.8 4. Congenital heart disease. 5. Cirrhosis of the liver with hepatomegaly 6. Gastroesophageal reflux disease 7. Acute lymphocytic leukemia (ALL) 8. Depressive disorder 9. Generalized anxiety disorder 10. Migraines 11. Gastroparesis 12. Elevated liver enzymes 13. Hypertriglyceridemia 14. Hypercholesterolemia 15. Vitamin D deficiency 16. Secondary hyperparathyroidism 17. Osteoarthritis of the knees. PLAN: -Continue pain management -Add Mylicon chews for gas pains -Abdominal binder ordered -Continue Remigio clear liquid diet -Encourage patient to ambulate -Continue supportive care -Anticipate discharge possibly tomorrow Physician Tube Backer note has been reviewed by physician. Signing provider agrees with the documented findings, assessment, and plan of care. Objective - Vital Signs Vital signs: Vital Signs Temp 98.3 F 10/23/22 12:15 Pulse 82 10/23/22 12:15 Resp 16 10/23/22 12:15 BP 111/74 06/06/23 12:15 Pulse Ox 92 L 10/23/22 12:15 FiO2 Intake & Output 10/22/22 10/23/22 10/23/22 18:59 06:59 18:59 Intake Total 1600 240 Output Total 20 Balance 1580 240 Weight 80.9 kg Intake: IV 1550 Intake, IV Titration 50 Amount ceFAZolin 2 gm In Sodium 50 Chloride 0.9% 50 ml @ 100 mls/hr IVPB ONCE PRN Rx# :[id number] Oral 240 Output: Estimated Blood Loss 20 Other: Voiding Method Toilet Toilet Toilet # Voids 1 1 - Labs CBC & Chem 7: 10/22/22 10:26 10/22/22 10:26 Labs: Abnormal Lab Results - Last 24 Hours (Table) 10/22/22 10/23/22 Range/Units 13:46 08:45 POC Glucose (mg/dL) 160 H 161 H (70-110) mg/dL
[2022-10-23] MEDS: SIMETHICONE 80 MG CHEWABLE PO SCH ×3 (13:25→21:37)
[2022-10-23 14:48] VITALS: BMI 34.8
[2022-10-23 17:14] LABS: Glucose,Whole Blood 96 mg/dL (70-110)
[2022-10-23 20:26] LABS: Glucose,Whole Blood 98 mg/dL (70-110)
[2022-10-24] MEDS: METOCLOPRAMIDE 5 MG/ML 2 ML VIAL IVP SCH ×3 (01:18→12:46)
[2022-10-24] MEDS: ONDANSETRON 4 MG/2 ML VIAL IVP SCH ×3 (01:18→12:46)
[2022-10-24] MEDS: HYDROmorphone 1 MG/ML 1 ML SYRINGE IVP PRN ×2 (01:30→06:44)
[2022-10-24] MEDS: LEVOTHYROXINE 25 MCG TAB PO SCH (06:44)
[2022-10-24 07:12] LABS: Glucose,Whole Blood 102 mg/dL (70-110)
[2022-10-24 07:30] VITALS: RESP 16
[2022-10-24] MEDS: DAPAGLIFLOZIN PROPANEDIOL 10 MG TABLET PO SCH (09:18)
[2022-10-24] MEDS: HEPARIN SODIUM,PORCINE/PF 5,000 UNIT/0.5 ML SYRINGE SQ SCH (09:18)
[2022-10-24] MEDS: TACROLIMUS 1 MG CAP PO SCH (09:18)
[2022-10-24] MEDS: SIMETHICONE 80 MG CHEWABLE PO SCH ×2 (09:18→12:47)
[2022-10-24] MEDS: ACYCLOVIR 800 MG TAB PO SCH (09:18)
[2022-10-24] MEDS: PIOGLITAZONE 15 MG TAB PO SCH (09:18)
[2022-10-24] MEDS: SULFAMETHOX-TMP 400-80MG 1 EACH TAB PO SCH (09:18)
[2022-10-24] MEDS: DOCUSATE 100 MG CAP PO SCH (09:18)
[2022-10-24] MEDS: carvediloL 3.125 MG TAB PO SCH (09:18)
[2022-10-24] MEDS: Ruxolitinib Phosphate [Jakafi] 5 MG Tablet PO SCH (09:19)
[2022-10-24 11:27] LABS: Glucose,Whole Blood 99 mg/dL (70-110)
[2022-10-24 12:19] VITALS: BP 134/83; PULSE 86; TEMP 98.3
--- NOTE | 2022-10-24 12:32 | P.DS ---
Providers Date of admission: 10/23/22 07:35 Expected date of discharge: 10/24/22 Attending physician: Aleena Vanegas Primary care physician: Miquel Perez Hospital Course: Discharge diagnosis 1. Paraesophageal midline diaphragmatic hernia, 3 cm, without incarceration. 2. Gastroesophageal reflux disease. 3. Morbid obesity due to excess calories, BMI 42.1 down to 34.8 4. Congenital heart disease. 5. Cirrhosis of the liver with hepatomegaly 6. Gastroesophageal reflux disease 7. Acute lymphocytic leukemia (ALL) 8. Depressive disorder 9. Generalized anxiety disorder 10. Migraines 11. Gastroparesis 12. Elevated liver enzymes 13. Hypertriglyceridemia 14. Hypercholesterolemia 15. Vitamin D deficiency 16. Secondary hyperparathyroidism 17. Osteoarthritis of the knees. Hospital course The patient is a 47-year-old female who presents with gastroesophageal reflux disease poorly controlled despite medications and a symptomatic diaphragmatic hiatal hernia. She is status post Robotic-assisted da Laura Xi laparoscopic repair of incarcerated paraesophageal hiatal hernia with [place] Biopatch. Patient reports her pain is controlled. She is tolerating diet. Upper GI showed no evidence of leak or obstruction. She is afebrile. She has been up and ambulating. She is stable for discharge. Physician Motorcoach Driver note has been reviewed by physician. Signing provider agrees with the documented findings, assessment, and plan of care. Patient Condition at Discharge: Stable Plan - Discharge Summary Discharge Rx Participant: Yes New Discharge Prescriptions: New bisacodyL [Dulcolax] 5 mg PO DAILY PRN #10 tab PRN Reason: Constipation Simethicone 40 mg/0.6 ml Drops [Mylicon Drops] 40 mg PO PCHS PRN #30 ml PRN Reason: Gas Omeprazole [PriLOSEC] 40 mg PO DAILY #30 cap Ondansetron Odt [Zofran Odt] 4 mg PO Q8HR PRN #9 tab PRN Reason: Nausea Continue Acyclovir [Zovirax] 800 mg PO BID Tacrolimus [Prograf] 1 mg PO BID Docusate [Colace] 100 mg PO DAILY Pioglitazone [Actos] 15 mg PO DAILY carvediloL [Coreg] 3.125 mg PO BID Sulfamethoxazole/Trimethoprim [Bactrim SS 400-80 mg] 1 tab PO DAILY Prochlorperazine [Compazine] 10 mg PO BID PRN PRN Reason: Nausea Levothyroxine Sodium 25 mcg PO DAILY Ruxolitinib Phosphate [Jakafi] 5 mg PO BID Empagliflozin [Jardiance] 25 mg PO DAILY HYDROcodone/APAP 5-325MG [[place] 5-325] 1 tab PO Q6HR PRN PRN Reason: Pain Discontinued Pantoprazole Sodium [Protonix] 40 mg PO BID No Action Ergocalciferol [Vitamin D2 (1250 Mcg = 40183 Iu)] 1,250 mcg PO FLOYD Discharge Medication List Acyclovir [Zovirax] 800 mg PO BID 05/18/17 [History] Docusate [Colace] 100 mg PO DAILY 05/23/18 [History] Tacrolimus [Prograf] 1 mg PO BID 05/23/18 [History] Ergocalciferol [Vitamin D2 (1250 Mcg = 16174 Iu)] 1,250 mcg PO FLOYD 02/02/21 [History] Levothyroxine Sodium 25 mcg PO DAILY 10/03/21 [History] Pioglitazone [Actos] 15 mg PO DAILY 10/03/21 [History] Ruxolitinib Phosphate [Jakafi] 5 mg PO BID 10/03/21 [History] carvediloL [Coreg] 3.125 mg PO BID 10/03/21 [History] Empagliflozin [Jardiance] 25 mg PO DAILY 02/12/22 [History] Sulfamethoxazole/Trimethoprim [Bactrim SS 400-80 mg] 1 tab PO DAILY 02/12/22 [History] HYDROcodone/APAP 5-325MG [[place] 5-325] 1 tab PO Q6HR PRN 10/18/22 [History] Prochlorperazine [Compazine] 10 mg PO BID PRN 10/18/22 [History] Omeprazole [PriLOSEC] 40 mg PO DAILY #30 cap 10/24/22 [Rx] Ondansetron Odt [Zofran Odt] 4 mg PO Q8HR PRN #9 tab 10/24/22 [Rx] Simethicone 40 mg/0.6 ml Drops [Mylicon Drops] 40 mg PO PCHS PRN #30 ml 10/24/22 [Rx] bisacodyL [Dulcolax] 5 mg PO DAILY PRN #10 tab 10/24/22 [Rx] Follow up Appointment(s)/Referral(s): [facility] [[facility]-STAFF] - 10/31/22 Activity/Diet/Wound Care/Special Instructions: Liquid diet only for 2 weeks No lifting over 4 pounds in 4 weeks, May shower No soaking in bath tubs for 2 weeks Please notify your surgeon if you develop nausea and vomiting including new onset of abdominal pain. Please ambulate at all times. Use Simethicone, Gas-X, scheduled for the next 24-48 hours for best pain relief. Use ice along incisions for the today to prevent swelling. Please open, cut, crush pills larger than the size of a tic tack No carbonated beverages. No straws. Hold on taking the Vitamin D until seen by surgeon due to increased bleeding risk with this medication Continue pain medication as prescribed by pain specialist Do not remove scopolamine patch for 3 days, if present Avoiding Gas Avoid drinking through a straw. Do not chew gum or tobacco. These actions cause you to swallow air, which produces excess gas in your stomach. Chew with your mouth closed. Avoid any foods that cause stomach gas and distention. These foods include corn, dried beans, peas, lentils, onions, broccoli, cauliflower and any food from the cabbage family. Avoid carbonated drinks, alcohol, citrus and tomato products. Carbonated drinks (sodas) are not allowed for the first six to eight weeks after surgery. After this time you can try them again in small amounts Clear Liquid Diet The first diet after surgery is the clear liquid diet. It includes the following liquids: Apple juice Cranberry juice Grape juice Chicken broth Beef broth Flavored gelatin (Jell-O) Decaf tea and coffee Caffeinated beverages are permitted based on tolerance Popsicles [place]ien ice Full Liquid Diet The full liquid diet contains anything on the clear liquid diet, plus: Milk, soy, rice and almond (no chocolate) Cream of wheat, cream of rice, grits Strained creamed soups (no tomato or broccoli) Vanilla and strawberry-flavored ice cream Sherbet Blended, custard styled or whipped yogurt (plain or vanilla only) Vanilla and butterscotch pudding (no chocolate or coconut) Nutritional drinks including Ensure, Boost, [place] Instant Breakfast (no chocolate-flavored) Note: Dairy products, such as milk, ice cream and pudding, may cause diarrhea in some people just after surgery. You may need to avoid milk products. If so, substitute them with lactose-free beverages, such as soy, rice, Lactaid or almond milks. Discharge Disposition: HOME SELF-CARE
[2022-10-24] MEDS: HYDROcodone/APAP 5-325MG 1 EACH TAB PO PRN (12:45)
== END 2022-10-24 14:08 | disposition home or self-care (01) ==
LOC: OR 09:29 → 5NMEDONC 13:32 → OR 10-23 07:35
PROVIDERS: ADMIT Surgery Plastic and Reconstructive Surgery; ATTEND Surgery Plastic and Reconstructive Surgery
DX: K44.0 Diaphragmatic hernia with obstruction, without gangrene (principal); K21.9 Gastro-esophageal reflux disease without esophagitis; K76.0 Fatty (change of) liver, not elsewhere classified; K74.60 Unspecified cirrhosis of liver; G43.909 Migraine, unspecified, not intractable, without status migrainosus; C91.01 Acute lymphoblastic leukemia, in remission; D89.813 Graft-versus-host disease, unspecified; J44.9 Chronic obstructive pulmonary disease, unspecified; E11.43 Type 2 diabetes mellitus with diabetic autonomic (poly)neuropathy; K31.84 Gastroparesis; E78.1 Pure hyperglyceridemia; E78.00 Pure hypercholesterolemia, unspecified; E55.9 Vitamin D deficiency, unspecified; N25.81 Secondary hyperparathyroidism of renal origin; M17.0 Bilateral primary osteoarthritis of knee; F32.A Depression, unspecified; F41.1 Generalized anxiety disorder; E66.01 Morbid (severe) obesity due to excess calories; Z68.34 Body mass index [BMI] 34.0-34.9, adult; Z79.84 Long term (current) use of oral hypoglycemic drugs; Z79.890 Hormone replacement therapy; Z79.899 Other long term (current) drug therapy; Z88.5 Allergy status to narcotic agent; Z88.8 Allergy status to other drugs, medicaments and biological substances; Z87.442 Personal history of urinary calculi; Z90.49 Acquired absence of other specified parts of digestive tract; Z94.81 Bone marrow transplant status; Z87.74 Personal history of (corrected) congenital malformations of heart and circulatory system; Z87.891 Personal history of nicotine dependence; Z83.49 Family history of other endocrine, nutritional and metabolic diseases; Z84.1 Family history of disorders of kidney and ureter; Z83.2 Family history of diseases of the blood and blood-forming organs and certain disorders involving the immune mechanism; Z82.5 Family history of asthma and other chronic lower respiratory diseases
CPT/HCPCS: 43282; S2900; 74210; 80053; 81025; 85025; 85610

== ENCOUNTER → 2022-10-31 | Outpatient (CLI) | payer MEDICARE ==
[2022-10-31 15:46] VITALS: BP 136/83; PULSE 71; TEMP 98.2; BMI 34.0
--- NOTE | 2022-10-31 15:59 | P.BASOAP ---
Subjective Progress Note Date: 10/31/22 She has 3 years of medical supervised weight loss. She wants the sleeve. She reports no reflux. She is doing very well. Sleeve for anti-rejection medications. Objective - Vital Signs Vital signs: Vital Signs Temp 98.2 F 10/31/22 15:41 Pulse 71 10/31/22 15:41 Resp BP 136/83 10/31/22 15:41 Pulse Ox FiO2 Intake & Output 10/30/22 10/31/22 10/31/22 18:59 06:59 18:59 Weight 78.925 kg Assessment/Plan Plan: Date: 10/31/22 Initial Weight: Initial BMI: Current Weight: 78.925 kg Current BMI: 34.0 Type of Surgery: Total Volume in Band: Previous Volume: Volume Removed: Volume Added: Band Size:
== END ==
LOC: BARWHC3 14:34
PROVIDERS: ATTEND Surgery Plastic and Reconstructive Surgery
DX: E66.01 Morbid (severe) obesity due to excess calories (principal); Z68.34 Body mass index [BMI] 34.0-34.9, adult; Z88.8 Allergy status to other drugs, medicaments and biological substances; Z87.891 Personal history of nicotine dependence
CPT/HCPCS: 99211

== ENCOUNTER → 2023-01-28 | Outpatient (CLI) | payer MEDICARE ==
[2023-01-28 12:22] VITALS: BMI 33.5
== END ==
LOC: BARWHC3 08:44
PROVIDERS: ATTEND Surgery Plastic and Reconstructive Surgery
DX: E66.01 Morbid (severe) obesity due to excess calories (principal); Z71.3 Dietary counseling and surveillance; Z68.33 Body mass index [BMI] 33.0-33.9, adult; Z88.6 Allergy status to analgesic agent; Z88.5 Allergy status to narcotic agent; Z87.891 Personal history of nicotine dependence
CPT/HCPCS: 97804

== ENCOUNTER → 2023-03-13 | Outpatient (CLI) | payer MEDICARE ==
[2023-03-13 14:54] VITALS: BP 122/73; PULSE 94; TEMP 98.3; BMI 33.7
--- NOTE | 2023-03-13 15:31 | P.BASOAP ---
Subjective Progress Note Date: 03/13/23 She lost 50 pounds. Target 115 oz of fluids daily. Weight of 180 pounds for 5'0. Reports feeling fat. Follow up after adjusting diet. No heartburn. She has dysphagia occassional Objective - Vital Signs Vital signs: Vital Signs Temp 98.3 F 03/13/23 14:49 Pulse 94 03/13/23 14:49 Resp BP 122/73 03/13/23 14:49 Pulse Ox FiO2 Intake & Output 03/12/23 03/13/23 03/13/23 18:59 06:59 18:59 Weight 78.471 kg Assessment/Plan Plan: Date: 03/13/23 Initial Weight: Initial BMI: Current Weight: 78.471 kg Current BMI: 33.7 Type of Surgery: Total Volume in Band: Previous Volume: Volume Removed: Volume Added: Band Size:
== END ==
LOC: BARWHC3 14:17
PROVIDERS: ATTEND Surgery Plastic and Reconstructive Surgery
DX: Z53.9 Procedure and treatment not carried out, unspecified reason (principal)
CPT/HCPCS: 99211

== ENCOUNTER → 2023-04-17 | Outpatient (CLI) | payer MEDICARE ==
[2023-04-17 15:14] VITALS: BP 121/85; PULSE 104; TEMP 97.9; BMI 35.9
--- NOTE | 2023-04-17 15:26 | P.BASOAP ---
Subjective Progress Note Date: 04/17/23 She has BMI 35.0. Plan for Sleeve. No more reflux. HR high 120 down to 58. Sleeve it is! Objective - Vital Signs Vital signs: Vital Signs Temp 97.9 F 04/17/23 14:46 Pulse 104 H 04/17/23 14:46 Resp BP 121/85 04/17/23 14:46 Pulse Ox FiO2 Intake & Output 04/16/23 04/17/23 04/17/23 18:59 06:59 18:59 Weight 83.461 kg Assessment/Plan Plan: Date: 04/17/23 Initial Weight: Initial BMI: Current Weight: 83.461 kg Current BMI: 35.9 Type of Surgery: Total Volume in Band: Previous Volume: Volume Removed: Volume Added: Band Size:
== END ==
LOC: BARWHC3 14:10
PROVIDERS: ATTEND Surgery Plastic and Reconstructive Surgery
DX: Z53.9 Procedure and treatment not carried out, unspecified reason (principal)
CPT/HCPCS: 99211

== ENCOUNTER → 2023-05-15 | Outpatient (CLI) | payer MEDICARE ==
[2023-05-15 15:33] VITALS: BP 112/75; PULSE 48; RESP 16; TEMP 98.5; BMI 35.5
--- NOTE | 2023-06-06 16:59 | P.BASOAP ---
Subjective Progress Note Date: 05/15/23 DATE OF SERVICE: 05/15/23 CHIEF COMPLAINT: Morbid obesity HISTORY OF PRESENT ILLNESS: Maddy Key is a 47-year-old female who comes with lifelong morbid obesity. She has completed medical supervised weight loss. She denies any current gastroesophageal reflux disease following a hiatal hernia repair. She has maintained weight loss over 6 months. She presents for surgical options. At height of 5 feet 0 inches, her ideal body weight is 127 pounds. Highest weight 221 pounds, BMI 43.4. She comes in 182 pounds from 208 pounds, 1 year. She has lost 26 pounds in 1 year. Her body mass index is 43.4 down to 35.5. Lifetime weight loss of 39 pounds. She is 81 pounds overweight. PAST MEDICAL HISTORY: 1. Morbid obesity due to excess calories 2. Body mass index of 43.3 3. Osteoarthritis of the knees. 4. Congenital heart disease. 6. Gastroesophageal reflux disease 7. Acute lymphocytic leukemia (ALL) 8. Depressive disorder 9. Generalized anxiety disorder 10. Migraines 11. Gastroparesis 12. Cirrhosis of the liver PAST SURGICAL HISTORY: 1. Cholecystectomy 2. section 3. Tubal ligation 4. Left knee arthroscopy 5. Left shoulder rotator cuff repair 6. Bone marrow transplant 7. Open heart surgery, age 18 months 8. EGDs 9. Hysteroscopy 10. Dilation and curettage 11. Multiple blood transfusions 12. Hiatal hernia repair. HOME MEDICATIONS: Home Medications Medication Instructions Recorded Confirmed Acyclovir [Zovirax] 800 mg PO BID 05/18/17 06/12/23 Levothyroxine Sodium 25 mcg PO DAILY 10/03/21 06/12/23 Pioglitazone [Actos] 15 mg PO DAILY 10/03/21 06/12/23 Ruxolitinib Phosphate [Jakafi] 5 mg PO BID 10/03/21 06/12/23 Empagliflozin [Jardiance] 25 mg PO DAILY 02/12/22 06/12/23 Sulfamethoxazole/Trimethoprim 1 tab PO DAILY 02/12/22 06/12/23 [Bactrim SS 400-80 mg] HYDROcodone/APAP 5-325MG [[place] 1 tab PO Q6HR PRN 10/18/22 06/12/23 5-325] Prochlorperazine [Compazine] 10 mg PO DAILY 10/18/22 06/12/23 Tacrolimus [Prograf] 0.5 mg PO BID 05/23/23 06/12/23 Previous Rx's Medication Instructions Recorded Omeprazole [PriLOSEC] 40 mg PO DAILY #30 cap 10/24/22 Apixaban [Eliquis] 5 mg PO BID #180 tab 05/28/23 Metoprolol Tartrate [Lopressor] 25 mg PO BID #180 tab 05/28/23 Simethicone 40 mg/0.6 ml Drops 40 mg PO PCHS PRN #30 ml 05/28/23 [Mylicon Drops] bisacodyL [Dulcolax] 5 mg PO DAILY PRN #10 tab 05/28/23 ALLERGIES: Allergies Allergy/AdvReac Type Severity Reaction Status Date / Time fondaparinux [From Arixtra] Allergy Intermediate Rash/Hives Verified 05/27/23 09:38 propoxyphene napsylate Allergy Intermediate Rash/Hives Verified 05/27/23 09:38 [facility] SOCIAL HISTORY: Past tobacco use. FAMILY HISTORY: No family history of ulcerative colitis disease or Crohn's disease. Family history of morbid obesity. No lupus in the family. No reports of stomach or esophageal cancer. REVIEW OF ORGAN SYSTEMS: CONSTITUTIONAL: At height of 5 feet 5 inches, her ideal body weight is 149 pounds. She comes in 201 pounds from 211 pounds, 8 months ago. She has lost 11 pounds in 8 months. Her body mass index is 43.4 down to 39.3. She is 52 pounds overweight. Her highest weight is 221 pounds, BMI 43.4. HEENT: Denies any active troubles with hearing. Wears glasses. ENDOCRINE: Has diabetes type II insulin dependent. Has hypothyroidism. CARDIOVASCULAR: Past reports of palpitations or heart attacks or chest pain. Linn s congestive heart disease. RESPIRATORY: Has daytime somnolence. Has asthma. Has chronic obstructive pulmonary disease. GASTROINTESTINAL: Denies any bright red blood per rectum. No diarrhea. No const ipation. Has gastroesophageal reflux disease. Has gastroparesis. GENITOURINARY: No bladder urgency. No recent blood in urine. Has kidney stones. Has heavy menstrual bleeding. MUSCULOSKELETAL: Has lower back pain and joint pain. Has osteoarthritis of the knees, including back. NEURO: Has headaches. No seizure disorders. PSYCH: Has depression. No suicidal ideation. Has anxiety. RHEUMATOLOGIC: No lupus. No rheumatoid arthritis. On chronic immune suppression with Prograf and Decadron HEMATOLOGIC: Denies any abnormal bleeding or bruising. Has acute lymphocytic leukemia (ALL). SKIN: No rash. No skin cancer. PHYSICAL EXAM: VITAL SIGNS: Height 5 foot 0 inches, weight 182 pounds. BMI 35.5 Vital Signs Temp 98.5 F 05/15/23 15:17 Pulse 48 L 05/15/23 15:17 Resp 16 05/15/23 15:17 BP 112/75 05/15/23 15:17 Pulse Ox FiO2 GENERAL: Well-developed in no acute distress. HEENT: No scleral icterus. Extraocular movements grossly intact. Hears conversational speech. No nasal drainage. NECK: Supple without lymphadenopathy. CHEST: Nonlabored respirations with equal bilateral excursions. CARDIOVASCULAR: Regular rate and regular rhythm. Distal 2+ pulses. ABDOMEN: Obese, soft, nontender, nondistended. MUSCULOSKELETAL: No clubbing, cyanosis. NEURO: No focal or lateralizing signs. PSYCH: Appropriate affect. Alert and oriented to person, place and time. SKIN: Good skin turgor. Well perfused. LABS: Reviewed. Hemoglobin 13.9. LFTs elevated EKG: Septal infarct. Abnormal EKG. STUDIES: Barium swallow independently reviewed from October 2022 demonstrates hiatal hernia repair without obstruction. This is my independent interpretation ASSESSMENT: 1. Morbid obesity due to excess calories 2. Body mass index of 43.4 to 35.5 3. Osteoarthritis of the knees. 4. Congenital heart disease. 6. Gastroesophageal reflux disease 7. Acute lymphocytic leukemia (ALL) 8. Depressive disorder 9. Generalized anxiety disorder 10. Migraines 11. Gastroparesis 12. Elevated liver enzymes 13. Hypertriglyceridemia 14. Hypercholesterolemia 15. Vitamin D deficiency 16. Secondary hyperparathyroidism 17. Hiatal hernia 18. Cirrhosis of the liver PLAN: 1. Bariatric options between a sleeve, band and a Dajuan-en-Y gastric bypass were reviewed in detail. The patient elected for a sleeve gastrectomy. Robotic assisted approach described. 2. [facility] [place] [facility] Data was obtained. 3. An 8 page second-generation bariatric consent form was reviewed in detail including potential of bleeding, infection, leaks, adequate weight loss, nutritional deficiencies which the patient demonstrated understanding of the risks. 4. A 2 week high-protein low caloric 800 kcal diet described to address hepatomegaly. 5. Preoperative labs including complete metabolic panel and CBC with type and screen recommended. 6. DVT prophylaxis per [place] [facility]. 7. Antibiotic prophylaxis. 8. Inpatient hospitalization anticipated for more than 2 nights. 9. All questions and concerns were addressed with the patient. 10. The patient is at elevated risk for perioperative complications with leukemia 11. Overall, patient has expressed understanding of bariatric care including postoperative diet and commitment of lifestyle. Patient should benefit from surgical intervention for correction of morbid obesity. 12. She is elevated risk due to pre-existing comorbid conditions 13. Strict 2 week diet advised including hydration over 64 ounces daily and increased activity Objective - Vital Signs Vital signs: Vital Signs Temp 98.5 F 05/15/23 15:17 Pulse 48 L 05/15/23 15:17 Resp 16 05/15/23 15:17 BP 112/75 05/15/23 15:17 Pulse Ox FiO2 Assessment/Plan Plan: Date: 05/15/23 Initial Weight: 100.267 kg Initial BMI: 43.2 Current Weight: 82.554 kg Current BMI: 35.5 Type of Surgery: Total Volume in Band: Previous Volume: Volume Removed: Volume Added: Band Size:
== END ==
LOC: BARWHC3 14:53
PROVIDERS: ATTEND Surgery Plastic and Reconstructive Surgery
DX: E66.01 Morbid (severe) obesity due to excess calories (principal); C91.00 Acute lymphoblastic leukemia not having achieved remission; M17.0 Bilateral primary osteoarthritis of knee; I51.9 Heart disease, unspecified; K21.9 Gastro-esophageal reflux disease without esophagitis; F32.A Depression, unspecified; F41.1 Generalized anxiety disorder; G43.909 Migraine, unspecified, not intractable, without status migrainosus; K31.84 Gastroparesis; E78.00 Pure hypercholesterolemia, unspecified; E78.1 Pure hyperglyceridemia; E55.9 Vitamin D deficiency, unspecified; E03.9 Hypothyroidism, unspecified; K44.9 Diaphragmatic hernia without obstruction or gangrene; K74.60 Unspecified cirrhosis of liver; F12.90 Cannabis use, unspecified, uncomplicated; Z68.35 Body mass index [BMI] 35.0-35.9, adult; Z98.84 Bariatric surgery status; Z88.8 Allergy status to other drugs, medicaments and biological substances; Z88.5 Allergy status to narcotic agent; Z79.890 Hormone replacement therapy; Z79.899 Other long term (current) drug therapy; Z87.891 Personal history of nicotine dependence
CPT/HCPCS: 99211

== ENCOUNTER → 2023-05-23 | Outpatient (CLI) | payer MEDICARE ==
[2023-05-23 15:47] LABS: Basophils # (A) 0.04 X 10*3/uL (0.00-0.10); Basophils % (A) 0.6 %; Eosinophils # (A) 0.12 X 10*3/uL (0.04-0.35); Eosinophils % (A) 1.9 %; HCT 41.5 % (37.2-46.3); HGB 13.7 g/dL (12.0-15.0); Lymphocytes % (A) 37.7 %; MCH 32.4 pg (27.0-32.0); MCV 98.1 FL (80.0-97.0); Monocytes # (A) 0.62 X 10*3/uL (0.20-1.00); Monocytes % (A) 9.7 %; NRBC Per 100 WBC 0 X 10*3/uL (0.00-0.01); Neutrophils # (A) 3.15 X 10*3/uL (1.80-7.70); Neutrophils % (A) 49.6 %; Platelet Count 302 X 10*3/uL (140-440); RBC 4.23 X 10*6/uL (4.10-5.20); RDW 13.6 % (11.5-14.5); WBC 6.36 X 10*3/uL (4.50-10.00)
[2023-05-23 16:11] LABS: ALT 26 U/L (8-44); AST 24 U/L (13-35); Albumin 4.6 g/dL (3.8-4.9); Albumin/Globulin Ratio 1.84 Ratio (1.60-3.17); Alkaline Phosphatase 105 U/L (41-126); BUN/Creat Ratio 23.64 Ratio (12.00-20.00); Calcium 9.8 mg/dL (8.7-10.3); Carbon Dioxide 24.7 mmol/L (21.6-31.8); Chloride 103 mmol/L (96-109); Globulin 2.5 g/dL (1.6-3.3); Glucose 90 mg/dL (70-110); Potassium 4.5 mmol/L (3.5-5.5); Sodium 140 mmol/L (135-145); Total Bilirubin 0.2 mg/dL (0.3-1.2); Total Protein 7.1 g/dL (6.2-8.2)
== END | disposition home or self-care (01) ==
LOC: LABPAT 11:33
PROVIDERS: ATTEND Surgery Plastic and Reconstructive Surgery
DX: Z01.812 Encounter for preprocedural laboratory examination (principal)
CPT/HCPCS: 80053; 85025; 86850; 86900; 86901

== ENCOUNTER 2023-05-27 09:15 | Inpatient (IN) | payer MEDICARE ==
--- NOTE | 2023-05-27 08:11 | P.GSHP ---
History of Present Illness H&P Date: 05/27/23 CHIEF COMPLAINT: Morbid obesity HISTORY OF PRESENT ILLNESS: Maddy Key is a 47-year-old female who comes with lifelong morbid obesity. She has severe gastroesophageal reflux disease, obstructive sleep apnea, including comorbidities related to morbid obesity. She has undergone moderate weight loss preoperatively including hiatal hernia repair. She presents for sleeve gastrectomy. At height of 5 feet 0 inches, her ideal body weight is 127 pounds. She comes was 208 pounds down to 183 pounds, 1 year ago. Her body mass index was 43.4 down to 35.7. PAST MEDICAL HISTORY: 1. Morbid obesity due to excess calories 2. Body mass index of 43.3 3. Osteoarthritis of the Knees. 4. Congenital Heart Disease. 6. Gastroesophageal Reflux Disease 7. Acute Lymphocytic Leukemia (All) 8. Depressive Disorder 9. Generalized Anxiety Disorder 10. Migraines 11. Gastroparesis Past Surgical History: 1. Cholecystectomy 2. section 3. Tubal ligation 4. Left knee arthroscopy 5. Left shoulder rotator cuff repair 6. Bone marrow transplant 7. Open heart surgery, age 18 months 8. EGDs 9. Hysteroscopy 10. Dilation and curettage 11. Multiple blood transfusions 12. Status post hiatal hernia repair HOME MEDICATIONS: Reviewed ALLERGIES: Reviewed SOCIAL HISTORY: Past tobacco use. FAMILY HISTORY: No family history of ulcerative colitis disease or Crohn's disease. Family history of morbid obesity. No lupus in the family. No reports of stomach or esophageal cancer. REVIEW OF ORGAN SYSTEMS: CONSTITUTIONAL: At height of 5 feet 5 inches, her ideal body weight is 149 pounds. She comes in 201 pounds from 211 pounds, 8 months ago. She has lost 11 pounds in 8 months. Her body mass index is 43.4 down to 39.3. She is 52 pounds overweight. HEENT: Denies any active troubles with hearing. Wears glasses. ENDOCRINE: Has diabetes type II insulin dependent. Has hypothyroidism. CARDIOVASCULAR: Past reports of palpitations or heart attacks or chest pain. Has congestive heart disease. RESPIRATORY: Has daytime somnolence. Has asthma. Has chronic obstructive pulmona ry disease. GASTROINTESTINAL: Denies any bright red blood per rectum. No diarrhea. No constipation. Has gastroesophageal reflux disease. Has gastroparesis. GENITOURINARY: No bladder urgency. No recent blood in urine. Has kidney stones. Has heavy menstrual bleeding. MUSCULOSKELETAL: Has lower back pain and joint pain. Has osteoarthritis of the knees, including back. NEURO: Has headaches. No seizure disorders. PSYCH: Has depression. No suicidal ideation. Has anxiety. RHEUMATOLOGIC: No lupus. No rheumatoid arthritis. On chronic immune suppression with Prograf and Decadron HEMATOLOGIC: Denies any abnormal bleeding or bruising. Has acute lymphocytic leukemia (ALL). SKIN: No rash. No skin cancer. PHYSICAL EXAM: VITAL SIGNS: Height 5 foot 0 inches, weight 182 pounds. BMI 35.7 GENERAL: Well-developed in no acute distress. HEENT: No scleral icterus. Extraocular movements grossly intact. Hears conversational speech. No nasal drainage. NECK: Supple without lymphadenopathy. CHEST: Nonlabored respirations with equal bilateral excursions. CARDIOVASCULAR: Regular rate and regular rhythm. Distal 2+ pulses. ABDOMEN: Obese, soft, nontender, nondistended. MUSCULOSKELETAL: No clubbing, cyanosis. NEURO: No focal or lateralizing signs. Cranial nerves 2 through 12 grossly within normal limits. PSYCH: Appropriate affect. Alert and oriented to person, place and time. SKIN: Good skin turgor. Well perfused. ASSESSMENT: 1. Morbid obesity due to excess calories 2. Body mass index of 43.4 to 35.7 3. Osteoarthritis of the knees. 4. Congenital heart disease. 6. Gastroesophageal reflux disease 7. Acute lymphocytic leukemia (ALL) 8. Depressive disorder 9. Generalized anxiety disorder 10. Migraines 11. Gastroparesis 12. Elevated liver enzymes 13. Hypertriglyceridemia 14. Hypercholesterolemia 15. Vitamin D deficiency 16. Secondary hyperparathyroidism 17. Status post hiatal hernia repair PLAN: 1. Bariatric options between a sleeve, band and a Dajuan-en-Y gastric bypass were reviewed in detail. The patient elected for a sleeve gastrectomy. Robotic assisted approach described. 2. The [place] [facility] Data was also reviewed with benefits and risks as described. 3. An 8 page second-generation bariatric consent form was reviewed in detail including potential of bleeding, infection, leaks, adequate weight loss, nutritional deficiencies which the patient demonstrated understanding of the risks. 4. A 2 week high-protein low caloric 800 kcal diet described to address hepatomegaly. 5. Preoperative labs including complete metabolic panel and CBC with type and screen recommended. 6. DVT prophylaxis per [place] [facility]. 7. Antibiotic prophylaxis. 8. Inpatient hospitalization anticipated for more than 2 nights. 9. All questions and concerns were addressed with the patient. 10. The patient is at elevated risk for perioperative complications with sleep apnea and hypertensive heart disease. 11. Overall, patient has expressed understanding of bariatric care including postoperative diet and commitment of lifestyle. Patient should benefit from surgical intervention for correction of morbid obesity. 12. She is elevated risk for complications due to multiple co-morbidities and chronic immunosuppresants. 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 Past Anesthesia/Blood Transfusion Reactions: No Reported Reaction Additional Past Anesthesia/Blood Transfusion Reaction / Comment(s): several blood transfusion-pt denies any reaction Additional Drug Use History / Comment(s): uses marijuana for appetite, edibles.or oil - Past Family History Mother Family Medical History: Hyperlipidemia, Renal Disease Additional Family Medical History / Comment(s): vit d- deficiency, anemia Father Family Medical History: COPD Additional Family Medical History / Comment(s): "bowel problems-hx resection" Medications and Allergies Home Medications Medication Instructions Recorded Confirmed Type Acyclovir [Zovirax] 800 mg PO BID 05/18/17 05/23/23 History Docusate [Colace] 100 mg PO DAILY 05/23/18 05/23/23 History Ergocalciferol [Vitamin D2 (1250 1,250 mcg PO FLOYD 02/02/21 05/23/23 History Mcg = 50907 Iu)] Levothyroxine Sodium 25 mcg PO DAILY 10/03/21 05/23/23 History Pioglitazone [Actos] 15 mg PO DAILY 10/03/21 05/23/23 History Ruxolitinib Phosphate [Jakafi] 5 mg PO BID 10/03/21 05/23/23 History carvediloL [Coreg] 3.125 mg PO BID 10/03/21 05/23/23 History Empagliflozin [Jardiance] 25 mg PO DAILY 02/12/22 05/23/23 History Sulfamethoxazole/Trimethoprim 1 tab PO DAILY 02/12/22 05/23/23 History [Bactrim SS 400-80 mg] HYDROcodone/APAP 5-325MG [[place] 1 tab PO Q6HR PRN 10/18/22 05/23/23 History 5-325] Prochlorperazine [Compazine] 10 mg PO DAILY 10/18/22 05/23/23 History Omeprazole [PriLOSEC] 40 mg PO DAILY #30 cap 10/24/22 05/23/23 Rx bisacodyL [Dulcolax] 5 mg PO DAILY PRN #10 tab 10/24/22 05/23/23 Rx Escitalopram [Lexapro] 10 mg PO DAILY 05/23/23 05/23/23 History Magnesium + Protein 133 mg PO DAILY 05/23/23 History Tacrolimus [Prograf] 0.5 mg PO HS 05/23/23 05/23/23 History Tacrolimus [Prograf] 0.5 mg PO HS 05/23/23 05/23/23 History Allergies Allergy/AdvReac Type Severity Reaction Status Date / Time fondaparinux [From Arixtra] Allergy Intermediate Rash/Hives Verified 05/23/23 08:24 propoxyphene napsylate Allergy Intermediate Rash/Hives Verified 05/23/23 08:24 [From Hayleyt-N]
[~2023-05-27 09:15] MED LIST changes: +ACETAMINOPHEN TAB 500 MG TAB PO PRN; +ALVIMOPAN 12 MG CAPSULE PO PRN; +DEXAMETHASONE SOD PHOSPHATE 4 MG/ML 1 ML VIAL IV ONE; +ENOXAPARIN 40 MG/0.4 ML SYRINGE SQ PRN; +LIDOCAINE 1% (10MG/ML) FOR IV START INTRADERMA PRN; +ONDANSETRON 4 MG/2 ML VIAL IVP ONE; +ONDANSETRON 4 MG/2 ML VIAL IVP PRN; +SCOPOLAMINE 1 MG/72 HR PATCH TRANSDERM ONE; +droPERidol 5 MG/2 ML VIAL IVP PRN
[2023-05-27] MEDS: LACTATED RINGERS 1,000 ML IV SCH (09:50)
[2023-05-27 09:59] LABS: Glucose,Whole Blood 92 mg/dL (70-110)
[2023-05-27] MEDS ORDERED: LIDOCAINE 1% INJ 10MG/ML (20 ML MDV) ONE (10:16)
[2023-05-27] MEDS ORDERED: MIDAZOLAM 2 MG/2 ML VIAL ONE (10:16)
[2023-05-27] MEDS ORDERED: PROPOFOL 10 MG/ML 20 ML VIAL IV ONE (10:16)
[2023-05-27] MEDS ORDERED: ROCURONIUM 10 MG/ML (5 ML VIAL) IV ONE (10:16)
[2023-05-27] MEDS ORDERED: NEOSTIGMINE 1 MG/ML 10 ML VIAL ONE (10:16)
[2023-05-27] MEDS ORDERED: GLYCOPYRROLATE 0.2 MG/ML 2 ML VIAL ONE (10:16)
[2023-05-27] MEDS ORDERED: PHENYLEPHRINE 10 MG/ML VIAL ONE (10:16)
[2023-05-27] MEDS ORDERED: KETOROLAC 15 MG/ML 1 ML VIAL ONE (10:16)
[2023-05-27] MEDS ORDERED: fentaNYL (PF) 50 MCG/ML 2 ML AMP ONE (10:16)
[2023-05-27] MEDS ORDERED: LABETALOL 5 MG/ML VIAL MDV ONE (10:16)
[2023-05-27] MEDS ORDERED: SUCCINYLCHOLINE CHLORIDE 200 MG/10 ML VIAL IV ONE (10:16)
[2023-05-27 10:32] LABS: Basophils % (A) 0 %; Eosinophils # (A) 0.1 k/uL (0-0.7); Eosinophils % (A) 2 %; HCT 42.7 % (34.0-46.0); HGB 14.2 gm/dL (11.4-16.0); Lymphocytes # (A) 1.9 k/uL (1.0-4.8); Lymphocytes % (A) 39 %; MCH 33.3 pg (25.0-35.0); MCHC 33.3 g/dL (31.0-37.0); MCV 99.8 fL (80.0-100.0); Mean Platelet Volume 7.1; Monocytes # (A) 0.3 k/uL (0-1.0); Monocytes % (A) 5 %; Neutrophils # (A) 2.5 k/uL (1.3-7.7); Neutrophils % (A) 50 %; Platelet Count 285 k/uL (150-450); RBC 4.28 m/uL (3.80-5.40); RDW 13.3 % (11.5-15.5)
[2023-05-27 10:47] LABS: ALT 23 U/L (4-34); AST 29 U/L (14-36); African American GFR (CKD) 80 (>60 ml/min/1.73 sqM); Albumin 4.3 g/dL (3.5-5.0); Alkaline Phosphatase 75 U/L (38-126); Anion Gap 8 mmol/L; Blood Urea Nitrogen 22 mg/dL (7-17); Carbon Dioxide 23 mmol/L (22-30); Chloride 108 mmol/L (98-107); Glucose 84 mg/dL (74-99); Non-African American GFR(CKD) 69 (>60 ml/min/1.73 sqM); Potassium 4.6 mmol/L (3.5-5.1); Sodium 139 mmol/L (137-145); Total Bilirubin 0.6 mg/dL (0.2-1.3); Total Protein 6.9 g/dL (6.3-8.2)
[2023-05-27] MEDS ORDERED: LIDOCAINE 1%/EPI 1:200,000 MPF 10 ML VIAL SQ ONE (10:55)
[2023-05-27] MEDS: HYDROmorphone 0.5 MG/0.5 ML SYRINGE IVP PRN ×2 (12:44→13:08)
[2023-05-27] MEDS ORDERED: LACTATED RINGERS 1,000 ML IV ONE (12:45)
--- NOTE | 2023-05-27 13:57 | P.CRDCN ---
History of Present Illness Consult date: 05/27/23 Reason for Consult (text): abnormal EKG History of present illness: History of present illness: This is a 47 year old female patient of Dr. 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 We have been asked to evaluate the patient for abnormal EKG. Patient was last seen in the office in February of this year for preop clearance. Patient has been brought in under the care of Dr. Wolff that is post gastric sleeve. Patient is seen today in the recovery room where an EKG was obtained and found to be abnormal. Patient denies having any chest pain, palpitations, lightheadedness or dizziness, no shortness of breath. EKG atrial flutter rate controlled Home cardiac medications: Coreg 3.125 mg twice daily. Review Of Systems: At the time of my exam: CONSTITUTIONAL: Denies fever or chills. CARDIOVASCULAR: Denies chest pain, Denies shortness of breath, no orthopnea, PND or palpitations. RESPIRATORY: Denies cough. GASTROINTESTINAL: Denies abdominal pain, diarrhea, constipation, nausea or vomiting. MUSCULOSKELETAL: Denies myalgias. NEUROLOGIC: Denies numbness, tingling or weakness. ENDOCRINE: Denies fatigue, weight change, polydipsia or polyurina. GENITOURINARY: Denies burning, hematuria or urgency with micturation. HEMATOLOGIC: Denies history of anemia or bleeding. Physical examination: Gen: This is a 47-year-old female. She is resting on stretcher and a ppears to be comfortable VS: reviewed HEENT: Head is atraumatic, normocephalic. Pupils equal, round. Sclerae is anicteric. NECK: Supple. No JVD. LUNGS: Clear to auscultation. No wheezes or rhonchi. No intercostal retractions. HEART: Irregular rate and rhythm. No murmur. ABDOMEN: Soft No tenderness. EXTREMITIES: No pedal edema. No calf tenderness. Dorsalis pedis +2 bilaterally. NEUROLOGICAL: Patient is awake, alert and oriented x3. 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 Further recommendations to follow based upon clinical course Thank you kindly for this consultation. Nurse practitioner note has been reviewed, I agree with documented findings and plan of care. Patient was seen and examined. 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 Past Anesthesia/Blood Transfusion Reactions: No Reported Reaction Additional Past Anesthesia/Blood Transfusion Reaction / Comment(s): several blood transfusion-pt denies any reaction Additional Drug Use History / Comment(s): uses marijuana for appetite, edibles.or oil - Past Family History Mother Family Medical History: Hyperlipidemia, Renal Disease Additional Family Medical History / Comment(s): vit d- deficiency, anemia Father Family Medical History: COPD Additional Family Medical History / Comment(s): "bowel problems-hx resection" Medications and Allergies Home Medications Medication Instructions Recorded Confirmed Type Acyclovir [Zovirax] 800 mg PO BID 05/18/17 05/27/23 History Docusate [Colace] 100 mg PO DAILY 05/23/18 05/27/23 History Ergocalciferol [Vitamin D2 (1250 1,250 mcg PO FLOYD 02/02/21 05/27/23 History Mcg = 11115 Iu)] Levothyroxine Sodium 25 mcg PO DAILY 10/03/21 05/27/23 History Pioglitazone [Actos] 15 mg PO DAILY 10/03/21 05/27/23 History Ruxolitinib Phosphate [Jakafi] 5 mg PO BID 10/03/21 05/27/23 History carvediloL [Coreg] 3.125 mg PO BID 10/03/21 05/27/23 History Empagliflozin [Jardiance] 25 mg PO DAILY 02/12/22 05/27/23 History Sulfamethoxazole/Trimethoprim 1 tab PO DAILY 02/12/22 05/27/23 History [Bactrim SS 400-80 mg] HYDROcodone/APAP 5-325MG [[place] 1 tab PO Q6HR PRN 10/18/22 05/27/23 History 5-325] Prochlorperazine [Compazine] 10 mg PO DAILY 10/18/22 05/27/23 History Omeprazole [PriLOSEC] 40 mg PO DAILY #30 cap 10/24/22 05/27/23 Rx bisacodyL [Dulcolax] 5 mg PO DAILY PRN #10 tab 10/24/22 05/27/23 Rx Escitalopram [Lexapro] 10 mg PO DAILY 05/23/23 05/27/23 History Magnesium + Protein 133 mg PO DAILY 05/23/23 05/27/23 History Tacrolimus [Prograf] 0.5 mg PO HS 05/23/23 05/27/23 History Tacrolimus [Prograf] 0.5 mg PO HS 05/23/23 05/27/23 History Allergies Allergy/AdvReac Type Severity Reaction Status Date / Time fondaparinux [From Arixtra] Allergy Intermediate Rash/Hives Verified 05/27/23 09:38 propoxyphene napsylate Allergy Intermediate Rash/Hives Verified 05/27/23 09:38 [From Darvocet-N] Physical Exam Vitals: Vital Signs Temp Pulse Resp BP BP Pulse Ox 05/27/23 13:28 80 16 140/77 97 05/27/23 13:13 77 18 144/69 96 05/27/23 12:58 73 18 147/91 97 05/27/23 12:43 76 18 153/86 97 05/27/23 12:28 70 16 142/95 97 05/27/23 12:13 97.5 F L 112 H 16 146/94 95 05/27/23 09:30 97.6 F 87 14 125/77 97 Intake and Output 05/26/23 05/27/23 05/27/23 22:59 06:59 14:59 Intake Total 850 Output Total 10 Balance 840 Intake: IV 850 Output: Estimated Blood Loss 10 Other: Weight 80.8 kg Results 05/27/23 10:00 05/27/23 10:00 Cardiac Enzymes 05/27/23 Range/Units 10:00 AST 29 (14-36) U/L CBC 05/27/23 Range/Units 10:00 WBC 5.0 (3.8-10.6) k/uL RBC 4.28 (3.80-5.40) m/uL Hgb 14.2 (11.4-16.0) gm/dL Hct 42.7 (34.0-46.0) % Plt Count 285 (150-450) k/uL Comprehensive Metabolic Panel 05/27/23 Range/Units 10:00 Sodium 139 (137-145) mmol/L Potassium 4.6 (3.5-5.1) mmol/L Chloride 108 H (98-107) mmol/L Carbon Dioxide 23 (22-30) mmol/L BUN 22 H (7-17) mg/dL Creatinine 0.97 (0.52-1.04) mg/dL Glucose 84 (74-99) mg/dL Calcium 9.0 (8.4-10.2) mg/dL AST 29 (14-36) U/L ALT 23 (4-34) U/L Alkaline Phosphatase 75 (38-126) U/L Total Protein 6.9 (6.3-8.2) g/dL Albumin 4.3 (3.5-5.0) g/dL Current Medications Generic Name Dose Route Start Last Admin Trade Name Freq PRN Reason Stop Dose Admin Chlorhexidine Gluconate 15 ml 05/27/23 07:00 Chlorhexidine Gluconate 15 Ml Cup MUCOUS MEM 05/28/23 23:00 ONCE PRN Pre-Op Droperidol 0.625 mg 05/27/23 08:43 Droperidol 5 Mg/2 Ml Vial IVP 05/27/23 23:00 ONCE PRN Phase 1 or 2 - Nausea/Vomiting Hydromorphone HCl 0.5 mg 05/27/23 08:43 05/27/23 13:08 Hydromorphone 0.5 Mg/0.5 Ml Syringe IVP 05/27/23 23:00 0.5 mg Q5M PRN Administration Phase 1 or 2 - Pain Control Lactated Ringer's 1,000 mls @ 20 mls/hr 05/27/23 08:43 05/27/23 09:50 Lactated Ringers IV 800 mls .Q24H BINU Administration Lidocaine HCl 0.1 ml 05/27/23 08:43 Lidocaine 1% (10mg/Ml) For Iv Start INTRADERMA PER PROTOCOL PRN IV Start Ondansetron HCl 4 mg 05/27/23 05:00 Ondansetron 4 Mg/2 Ml Vial IVP 05/28/23 00:01 ONCE PRN pre-op Intake and Output 05/26/23 05/27/23 05/27/23 22:59 06:59 14:59 Intake Total 850 Output Total 10 Balance 840 Intake: IV 850 Output: Estimated Blood Loss 10 Other: Weight 80.8 kg Patient Weight 05/28/23 06:59 Weight 80.8 kg 05/27/23 10:00 05/27/23 10:00
[2023-05-27] MEDS ORDERED: NALOXONE 0.4 MG/ML 1 ML VIAL IV PRN (14:59)
--- NOTE | 2023-05-27 14:59 | P.OP ---
Date of Procedure: 05/27/23 Description of Procedure: SURGEON: YASH BOATENG MD PREOPERATIVE DIAGNOSES: 1. Morbid obesity due to excess calories 2. Body mass index of 43.4 to 35.7 3. Osteoarthritis of the knees. 4. Congenital heart disease. 6. Gastroesophageal reflux disease 7. Acute lymphocytic leukemia (ALL) 8. Depressive disorder 9. Generalized anxiety disorder 10. Migraines 11. Gastroparesis 12. Elevated liver enzymes 13. Hypertriglyceridemia 14. Hypercholesterolemia 15. Vitamin D deficiency 16. Secondary hyperparathyroidism 17. Status post hiatal hernia repair 18. Hepatomegaly POSTOPERATIVE DIAGNOSES: 1. Morbid obesity due to excess calories 2. Body mass index of 43.4 to 35.7 3. Osteoarthritis of the knees. 4. Congenital heart disease. 6. Gastroesophageal reflux disease 7. Acute lymphocytic leukemia (ALL) 8. Depressive disorder 9. Generalized anxiety disorder 10. Migraines 11. Gastroparesis 12. Elevated liver enzymes 13. Hypertriglyceridemia 14. Hypercholesterolemia 15. Vitamin D deficiency 16. Secondary hyperparathyroidism 17. Status post hiatal hernia repair 18. Hepatomegaly OPERATION: 1. Robotic assisted daVinci Xi laparoscopic sleeve gastrectomy with 40-Welsh bougie, multiport. 2. Intraoperative esophagogastroduodenoscopy. ANESTHESIA: Gen. local anesthetic ESTIMATED BLOOD LOSS: 5 mL SPECIMENS REMOVED: Sleeve gastrectomy COMPLICATIONS: None. FINDINGS: 1. Negative intraoperative esophagogastrojejunoscopy leak test. 2. Mild hepatomegaly and no recurrent hiatus hernia. 3. Total of 6 staplers used including 2 - 60 mm green robot mac and 4 - 60 mm blue robot loads used to create the gastric sleeve. 4. Sleeve gastrectomy, 29 x 4 cm INDICATIONS: Maddy Key is a 47-year-old female who comes with lifelong morbid obesity. She has severe gastroesophageal reflux disease, obstructive sleep apnea, including comorbidities related to morbid obesity. She has undergone moderate weight loss preoperatively including hiatal hernia repair. She presents for sleeve gastrectomy. At height of 5 feet 0 inches, her ideal body weight is 127 pounds. She comes was 208 pounds down to 183 pounds, 1 year ago. Her body mass index was 43.4 down to 35.7. All surgical options for morbid obesity had been described using the [place] [facility] collaborative comorbidity resolution including complication risk score. A second-generation bariatric consent form was described in detail including the possibility of protein malnutrition, leaks, gastric stricture, venous thrombosis, gastroesophageal reflux disease, need for further surgery for which she demonstrated understanding. Benefits and risks of the procedure were described at length. Informed consent was obtained. DESCRIPTION: The patient was brought into the operating room theater. Preoperatively she had received Lovenox subcutaneously for DVT prophylaxis. Additionally she had Peridex oral solution as an oral decontaminant. After general induction, the abdomen was prepped and draped in standard sterile fashion. An Ioban draping was placed along the abdomen. A robotic da Laura Xi system was prepped and primed. At 15 cm from the xiphoid, proposed port sites were marked with indelible marker along the anterior axillary line bilaterally, mid axillary line bilaterally with each ports were marked 10 to 15 cm from each other. The robotic stapler port was marked for the right midclavicular line. A 5 mm 0 degrees laparoscopic trocar entry was performed along the left upper quadrant. The abdomen was insufflated to 15 mmHg pressure was tolerated well. Diagnostic laparoscopy demonstrated no injury to bowel, viscera, or mesentery. No evidence of large hiatus hernia was identified. The liver edge was sharp consistent with 2 week low-carb high-protein diet. A 8 mm port was placed along the left upper abdominal wall after exchanging the 5 mm port. A separate 8 mm port was placed along the left lateral abdominal wall. Please note that the ports were placed at least 20 cm away from the target anatomy. Care was taken to check each robotic arms were safely away from collision with the bed or the patient. At the epigastrium, a medium sized Nirmal liver retractor was placed under direct visualization with the Iron Risk Reduction Counselor placed under the right shoulder of the patient. Next, 12-mm robot stapler port was placed along the right upper quadrant. The camera 8-mm port was maintained along the epigastrium. The patient was repositioned in reverse Trendelenburg position at 21-degrees after lowering the bed. The robot was docked along the left side of the patient. Using a grasper for arm 4, a vessel sealer for arm 3, including grasper for arm 1, the robotic system was docked and primed as described. Instruments were interchanged by the farm assistant for stapler loads. The camera was placed at 30- degrees down. I had sat at the console. The pylorus was identified and 6 cm proximally along the greater curvature of the stomach, the short gastrics were mobilized upwards to the angle of His using a vessel sealer. Hemostasis was excellent during this portion of the procedure. Next, the upper pole of the stomach was adherent to the left donovan, which was gently dissected free using atraumatic grasper. I went to the head of the bed and placed 40-Welsh blunt bougie into the stomach. The bougie was readjusted by the nurse merchandising execution manager. Robotic stapler green load 60 mm 2 followed by blue 60 mm x 4 loads were used to create the sleeve. Initial firing was across the antrum of the stomach towards the angle of His. The staple line was linear without corkscrewing. The space from the angularis incisura of the sleeve was approximately 4 cm. I then went to the head of the bed to perform the intraoperative esophagogastroduodenoscopy leak test. The bougie was withdrawn. The upper pole of the stomach was bathed using normal saline solution. The scope was withdrawn with careful inspection along the staple line for which no leaks were found along the entire length. Additionally,the sleeve was completely hemostatic without any encroachment along the angularis incisura. Its topology was a soft "J". No stricture was encountered upon placement of the scope. The GI tract was desufflated. The patient tolerated this portion of the procedure well. The scope was completely withdrawn. The robot was undocked. I then rescrubbed into case, whereby the irrigation fluid was aspirated from the abdominal cavity. Tisseel fibrin sealant was placed along the entire staple length. Once dried the Nirmal liver retractor was removed. Attention was now brought to removal of the specimen. The distal end of the sleeve gastrectomy specimen was brought out through the 12 mm port at the left upper quadrant. The specimen was gently removed en total. No contamination had occurred during this process. All instruments and pneumoperitoneum including irrigation fluid was removed from the abdominal cavity. The 12 mm port site was closed using 0-Vicryl and Manolo Nicoleson and irrigated with diluted hydrogen peroxide. The final incisions were closed using subcuticular interrupted suture of 4-0 Monocryl. Exofin was applied to the skin once the skin had been cleansed. OptiFoam dressing was placed along the stomach extraction site. The sleeve specimen was measured and checked also for leaks which none were found. At the end of the procedure, needle, sponge, and instrument count was verified correct by the surgical scrub technician. The patient was taken to the postanesthesia care unit in stable condition. She had tolerated the procedure well. Intraoperative films and findings were reviewed with the patient's family.
[2023-05-27] MEDS ORDERED: diphenhydrAMINE 50 MG/ML 1 ML VIAL IVP PRN (15:00)
[2023-05-27] MEDS ORDERED: HYOSCYAMINE ORAL DROPS 1.875 MG/15 ML BOTTLE PO PRN (15:00)
[2023-05-27] MEDS ORDERED: HYDROcodone/APAP 5-325MG 1 EACH TAB PO PRN (15:01)
[2023-05-27] MEDS: HYDROmorphone 1 MG/ML 1 ML SYRINGE IVP PRN ×3 (15:21→22:08)
[2023-05-27] MEDS: ALBUTEROL NEBULIZED 2.5 MG/3 ML INHALATION SCH ×2 (16:43→21:37)
[2023-05-27] MEDS: carvediloL 3.125 MG TAB PO SCH (17:56)
[2023-05-27] MEDS: SIMETHICONE 80 MG CHEWABLE PO SCH (17:56)
[2023-05-27] MEDS: 0.9% NACL WITH KCL 20 MEQ/L 1,000 ML IV SCH ×2 (17:56→20:14)
[2023-05-27] MEDS: DEXAMETHASONE SOD PHOSPHATE 4 MG/ML 1 ML VIAL IVP SCH (17:57)
[2023-05-27] MEDS: ACETAMINOPHEN IV (For NPO) 1,000 MG in EMPTY BAG 1 BAG IVPB SCH (17:57)
[2023-05-27] MEDS: PANTOPRAZOLE 40 MG/10 ML VIAL IV SCH (20:14)
[2023-05-27 21:00] LABS: Glucose,Whole Blood 135 mg/dL (70-110)
[2023-05-28] MEDS: ACETAMINOPHEN IV (For NPO) 1,000 MG in EMPTY BAG 1 BAG IVPB SCH ×3 (01:07→12:13)
[2023-05-28] MEDS: SIMETHICONE 80 MG CHEWABLE PO SCH ×3 (01:07→12:13)
[2023-05-28] MEDS: DEXAMETHASONE SOD PHOSPHATE 4 MG/ML 1 ML VIAL IVP SCH ×3 (01:08→12:12)
[2023-05-28] MEDS: 0.9% NACL WITH KCL 20 MEQ/L 1,000 ML IV SCH (01:22)
[2023-05-28] MEDS: carvediloL 3.125 MG TAB PO SCH (05:10)
[2023-05-28 05:50] LABS: Glucose,Whole Blood 137 mg/dL (70-110)
[2023-05-28] MEDS ORDERED: 1: MVI, ADULT NO.4 WITH VIT K 10 ML, THIAMINE 100 MG, FOLIC ACID 1 MG, POTASSIUM CHLORID IV SCH ×6 (08:00)
[2023-05-28] MEDS: PANTOPRAZOLE 40 MG/10 ML VIAL IV SCH (08:12)
[2023-05-28] MEDS: HYDROmorphone 1 MG/ML 1 ML SYRINGE IVP PRN ×2 (08:21→12:18)
[2023-05-28] MEDS ORDERED: SODIUM CHLORIDE 0.9% 1,000 ML IV ONE (08:39)
[2023-05-28] MEDS ORDERED: ENOXAPARIN 40 MG/0.4 ML SYRINGE SQ SCH (09:00)
[2023-05-28 09:34] LABS: Basophils # (A) 0.01 X 10*3/uL (0.00-0.10); Basophils % (A) 0.1 %; Eosinophils # (A) 0 X 10*3/uL (0.04-0.35); Eosinophils % (A) 0 %; HCT 36.3 % (37.2-46.3); HGB 11.7 g/dL (12.0-15.0); Lymphocytes # (A) 1.06 X 10*3/uL (0.90-5.00); Lymphocytes % (A) 9.5 %; MCH 33.1 pg (27.0-32.0); MCHC 32.2 g/dL (32.0-37.0); MCV 102.5 FL (80.0-97.0); Mean Platelet Volume 9.4 FL (9.5-12.2); Monocytes # (A) 0.27 X 10*3/uL (0.20-1.00); Monocytes % (A) 2.4 %; NRBC Per 100 WBC 0 X 10*3/uL (0.00-0.01); Neutrophils # (A) 9.78 X 10*3/uL (1.80-7.70); Neutrophils % (A) 87.6 %; Platelet Count 305 X 10*3/uL (140-440); RBC 3.54 X 10*6/uL (4.10-5.20); RDW 13.8 % (11.5-14.5); WBC 11.17 X 10*3/uL (4.50-10.00)
[2023-05-28 09:40] LABS: Blood Urea Nitrogen 17.9 mg/dL (9.0-27.0)
[2023-05-28 09:41] LABS: Calcium 8.9 mg/dL (8.7-10.3); Carbon Dioxide 20.9 mmol/L (21.6-31.8); Chloride 104 mmol/L (96-109); Magnesium 1.9 mg/dL (1.5-2.4); Phosphorus 4.3 mg/dL (2.4-5.1); Potassium 4.7 mmol/L (3.5-5.5); Sodium 139 mmol/L (135-145)
[2023-05-28] MEDS: ALBUTEROL NEBULIZED 2.5 MG/3 ML INHALATION SCH ×3 (09:42→17:03)
[2023-05-28 10:37] VITALS: BMI 34.7
--- NOTE | 2023-05-28 10:54 | CA ---
Transthoracic Echo Report Name: Maddy Key Age: 47 Gender: F : 1975 Exam Date: 05/28/2023 08:50 Exam Location: [facility] Ht (in): 60 Wt (lb): 178 Ordering Physician: Lydia Andrews Attending/Referring Phys: [id number], Juliana Lead Electrical Engineer Alexus Velázquez, ERIC Procedure CPT: Indications: LVF Cardiac Hx: Technical Quality: Fair Contrast 1: Total Dose (mL): Contrast 2: Total Dose (mL): MEASUREMENTS (Male / Female) Normal Values 2D ECHO LV Diastolic Diameter PLAX 4.6 cm 4.2 - 5.9 / 3.9 - 5.3 cm LV Systolic Diameter PLAX 4.1 cm IVS Diastolic Thickness 0.9 cm 0.6 - 1.0 / 0.6 - 0.9 cm LVPW Diastolic Thickness 1.0 cm 0.6 - 1.0 / 0.6 - 0.9 cm LV Relative Wall Thickness 0.4 RV Internal Dim ED PLAX 2.5 cm LA Systolic Diameter LX 4.3 cm 3.0 - 4.0 / 2.7 - 3.8 cm LV Diastolic Volume MOD 4C 73.6 cm??? LV Systolic Volume MOD 4C 44.8 cm??? LV Ejection Fraction MOD 4C 39.1 % LV Cardiac Index MOD 4C 1751.0 cm???/min???m??? LV Diastolic Length 4C 6.9 cm LV Systolic Length 4C 6.4 cm LV Diastolic Volume MOD 2C 69.2 cm??? LV Systolic Volume MOD 2C 44.3 cm??? LV Ejection Fraction MOD 2C 35.9 % LV Cardiac Index MOD 2C 1512.5 cm???/min???m??? LV Diastolic Length 2C 7.4 cm LV Systolic Length 2C 6.6 cm LA Volume 54.6 cm??? 18 - 58 / 22 - 52 cm??? LA Volume Index 28.9 cm???/m??? 16 - 28 cm???/m??? M-MODE Aortic Root Diameter MM 2.7 cm MV E Point Septal Separation 0.9 cm DOPPLER AV Peak Velocity 99.8 cm/s AV Peak Gradient 4.0 mmHg MV Area PHT 7.1 cm??? MV Deceleration Time 105.0 ms FINDINGS Left Ventricle Left ventricular ejection fraction is estimated at 35-40 %. Left ventricular cavity size normal. Mildly increased posterior wall thickness. Right Ventricle Normal right ventricular size. Unable to estimate the right ventricular systolic pressure. Right Atrium Normal right atrial size. Left Atrium Mildly increased left atrial diameter. Mildly increased left atrial volume. Mitral Valve Mitral valve not well visualized. Mild mitral regurgitation. Aortic Valve Trileaflet aortic valve. No aortic valve stenosis or regurgitation. Tricuspid Valve Structurally normal tricuspid valve. No tricuspid regurgitation. Pulmonic Valve Structurally normal pulmonic valve. No pulmonic regurgitation. Pericardium No pericardial effusion. Aorta Normal size aortic root and proximal ascending aorta. CONCLUSIONS Moderate to severe LV systolic dysfunction with an ejection fraction of 35-40% Mild mitral regurgitation Previewed by: Dr. Jose Godinez MD (Electronically Signed) Final Date: 28 May 2023 10:53
[2023-05-28] MEDS: LACTATED RINGERS 1,000 ML IV SCH (11:47)
[2023-05-28 11:48] LABS: Glucose,Whole Blood 128 mg/dL (70-110)
[2023-05-28] MEDS ORDERED: METOPROLOL TARTRATE 25 MG TAB PO SCH (12:15)
--- NOTE | 2023-05-28 12:36 | FL ---
EXAMINATION TYPE: FL UGI DATE OF EXAM: 05/28/2023 COMPARISON: None HISTORY: Postop bariatric surgery gastric sleeve TECHNIQUE: A single contrast UGI study is performed. FINDINGS: Contrast passes from the distal esophagus through the gastric sleeve with mild hesitancy. N o extravasation of contrast is evident. No free air is noted during this examination. Overhead radiographs were obtained which are unremarkable. Fluoroscopy time: 28 seconds. DAP: 1282.24 Images: 12 IMPRESSION: 1. Normal post gastric sleeve without obstruction or hesitancy. No extravasation.
--- NOTE | 2023-05-28 14:39 | P.PN ---
Subjective Progress Note Date: 05/28/23 abnormal EKG History of present illness: History of present illness: This is a 47 year old female patient of Dr. 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 We have been asked to evaluate the patient for abnormal EKG. Patient was last seen in the office in February of this year for preop clearance. Patient has been brought in under the care of Dr. Vanegas that is post gastric sleeve. Patient is seen today in the recovery room where an EKG was obtained and found to be abnormal. Patient denies having any chest pain, palpitations, lightheadedness or dizziness, no shortness of breath. EKG atrial flutter rate controlled Home cardiac medications: Coreg 3.125 mg twice daily. 05/28 Patient is seen today on the [facility] floor. No new concerns for the patient. No chest pain no palpitations. Heart rate is in the 80s, blood pressure 125/84. Pulse ox 97% on room air. WBC 11.1, hemoglobin 11.7, platelet count 305. Creatinine 1.1. Echocardiogram reveals EF of 35-40% with mild mitral regurgitation. Physical examination: Gen: This is a 47-year-old female. She is resting on stretcher and appears to be comfortable VS: reviewed HEENT: Head is atraumatic, normocephalic. Pupils equal, round. Sclerae is anicteric. NECK: Supple. No JVD. LUNGS: Clear to auscultation. No wheezes or rhonchi. No intercostal retractions. HEART: Irregular rate and rhythm. No murmur. ABDOMEN: Soft No tenderness. EXTREMITIES: No pedal edema. No calf tenderness. Dorsalis pedis +2 bilaterally. NEUROLOGICAL: Patient is awake, alert and oriented x3. 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 Further recommendations to follow based upon clinical course At the time of discharge, patient will follow-up with Dr. Rey Godinez in 2 weeks. Nurse practitioner note has been reviewed, I agree with documented findings and plan of care. Patient was seen and examined. Objective - Vital Signs Vital signs: Vital Signs Temp 98.6 F 05/28/23 08:00 Pulse 104 H 05/28/23 09:49 Resp 18 05/28/23 08:00 BP 125/84 05/28/23 08:00 Pulse Ox 96 05/28/23 08:00 FiO2 Intake & Output 05/27/23 05/28/23 05/28/23 18:59 06:59 18:59 Intake Total 2049 Output Total 10 Balance 2039 Weight 80.8 kg 80.8 kg Intake: IV 2049 Output: Estimated Blood Loss 10 Other: Voiding Method Toilet # Voids 1 2 - Labs CBC & Chem 7: 05/28/23 05:00 05/28/23 05:00 Labs: Abnormal Lab Results - Last 24 Hours (Table) 05/27/23 05/28/23 05/28/23 Range/Units 20:58 05:00 05:00 WBC 11.17 H (4.50-10.00) X 10*3/uL RBC 3.54 L (4.10-5.20) X 10*6/uL Hgb 11.7 L (12.0-15.0) g/dL Hct 36.3 L (37.2-46.3) % MCV 102.5 H (80.0-97.0) FL MCH 33.1 H (27.0-32.0) pg MPV 9.4 L (9.5-12.2) FL Immature Gran # 0.05 H (0.00-0.04) X 10*3/uL Neutrophils # 9.78 H (1.80-7.70) X 10*3/uL Eosinophils # 0 L (0.04-0.35) X 10*3/uL Carbon Dioxide 20.9 L (21.6-31.8) mmol/L Anion Gap 14.10 H (4.00-12.00) mmol/L POC Glucose (mg/dL) 135 H (70-110) mg/dL 05/28/23 Range/Units 05:48 WBC (4.50-10.00) X 10*3/uL RBC (4.10-5.20) X 10*6/uL Hgb (12.0-15.0) g/dL Hct (37.2-46.3) % MCV (80.0-97.0) FL MCH (27.0-32.0) pg MPV (9.5-12.2) FL Immature Gran # (0.00-0.04) X 10*3/uL Neutrophils # (1.80-7.70) X 10*3/uL Eosinophils # (0.04-0.35) X 10*3/uL Carbon Dioxide (21.6-31.8) mmol/L Anion Gap (4.00-12.00) mmol/L POC Glucose (mg/dL) 137 H (70-110) mg/dL
[2023-05-28 14:42] VITALS: BP 100/68; PULSE 103; RESP 17; TEMP 98.4
--- NOTE | 2023-05-28 15:34 | P.DS ---
Providers Date of admission: 05/27/23 09:15 Expected date of discharge: 05/28/23 Attending physician: Aleena Vanegas Consults: 05/27/23 12:59 Consult Physician Routine Consulting Provider: Jose Godinez Consult Reason/Comments: EKG CHANGES Do you want consulting provider notified?: Yes 05/27/23 18:39 Consult Physician Routine Consulting Provider: Elder Kramer Consult Reason/Comments: Medical management Do you want consulting provider notified?: Yes Primary care physician: Miquel Perez Hospital Course: Discharge diagnosis 1. Morbid obesity due to excess calories 2. Body mass index of 43.4 to 35.7 3. Osteoarthritis of the knees. 4. Congenital heart disease. 6. Gastroesophageal reflux disease 7. Acute lymphocytic leukemia (ALL) 8. Depressive disorder 9. Generalized anxiety disorder 10. Migraines 11. Gastroparesis 12. Elevated liver enzymes 13. Hypertriglyceridemia 14. Hypercholesterolemia 15. Vitamin D deficiency 16. Secondary hyperparathyroidism 17. Status post hiatal hernia repair 18. Hepatomegaly 19. Leukocytosis likely due to steroids Hospital course Maddy Key is a 47-year-old female who comes with lifelong morbid obesity. She has severe gastroesophageal reflux disease, obstructive sleep apnea, including comorbidities related to morbid obesity. Patient is status post Robotic assisted daVinci Xi laparoscopic sleeve gastrectomy. Patient tolerated surgery well. Her pain is controlled. She is tolerating diet. She is afebrile. She has been up and ambulating. Her tachycardia is improving. Cardiology has adjusted medications. She also did receive a fluid bolus. Upper GI shows no evidence of leak or obstruction. Patient is stable for discharge. Physician Sustainability Executive Director note has been reviewed by physician. Signing provider agrees with the documented findings, assessment, and plan of care. Patient Condition at Discharge: Stable Plan - Discharge Summary Discharge Rx Participant: Yes New Discharge Prescriptions: New Simethicone 40 mg/0.6 ml Drops [Mylicon Drops] 40 mg PO PCHS PRN #30 ml PRN Reason: Gas bisacodyL [Dulcolax] 5 mg PO DAILY PRN #10 tab PRN Reason: Constipation Omeprazole [PriLOSEC] 40 mg PO DAILY #30 cap Ondansetron Odt [Zofran Odt] 4 mg PO Q8HR PRN #9 tab PRN Reason: Nausea Continue Acyclovir [Zovirax] 800 mg PO BID Pioglitazone [Actos] 15 mg PO DAILY Sulfamethoxazole/Trimethoprim [Bactrim SS 400-80 mg] 1 tab PO DAILY Prochlorperazine [Compazine] 10 mg PO DAILY Tacrolimus [Prograf] 0.5 mg PO HS Tacrolimus [Prograf] 0.5 mg PO HS Levothyroxine Sodium 25 mcg PO DAILY Empagliflozin [Jardiance] 25 mg PO DAILY HYDROcodone/APAP 5-325MG [[place] 5-325] 1 tab PO Q6HR PRN PRN Reason: Pain Omeprazole [PriLOSEC] 40 mg PO DAILY #30 cap Discontinued Docusate [Colace] 100 mg PO DAILY bisacodyL [Dulcolax] 5 mg PO DAILY PRN #10 tab PRN Reason: Constipation Escitalopram [Lexapro] 10 mg PO DAILY Ergocalciferol [Vitamin D2 (1250 Mcg = 04445 Iu)] 1,250 mcg PO FLOYD Magnesium + Protein 133 mg PO DAILY No Action carvediloL [Coreg] 3.125 mg PO BID Ruxolitinib Phosphate [Jakafi] 5 mg PO BID Discharge Medication List Acyclovir [Zovirax] 800 mg PO BID 05/18/17 [History] Levothyroxine Sodium 25 mcg PO DAILY 10/03/21 [History] Pioglitazone [Actos] 15 mg PO DAILY 10/03/21 [History] Ruxolitinib Phosphate [Jakafi] 5 mg PO BID 10/03/21 [History] carvediloL [Coreg] 3.125 mg PO BID 10/03/21 [History] Empagliflozin [Jardiance] 25 mg PO DAILY 02/12/22 [History] Sulfamethoxazole/Trimethoprim [Bactrim SS 400-80 mg] 1 tab PO DAILY 02/12/22 [History] HYDROcodone/APAP 5-325MG [[place] 5-325] 1 tab PO Q6HR PRN 10/18/22 [History] Prochlorperazine [Compazine] 10 mg PO DAILY 10/18/22 [History] Omeprazole [PriLOSEC] 40 mg PO DAILY #30 cap 10/24/22 [Rx] Tacrolimus [Prograf] 0.5 mg PO HS 05/23/23 [History] Tacrolimus [Prograf] 0.5 mg PO HS 05/23/23 [History] Omeprazole [PriLOSEC] 40 mg PO DAILY #30 cap 05/28/23 [Rx] Ondansetron Odt [Zofran Odt] 4 mg PO Q8HR PRN #9 tab 05/28/23 [Rx] Simethicone 40 mg/0.6 ml Drops [Mylicon Drops] 40 mg PO PCHS PRN #30 ml 05/28/23 [Rx] bisacodyL [Dulcolax] 5 mg PO DAILY PRN #10 tab 05/28/23 [Rx] Follow up [facility]ment(s[facility] [facility] [place] [facility] [place] [facility] Activity/Diet/Wound Care/Special Instructions: Liquid diet only for 2 weeks No lifting over 4 pounds in 4 weeks May Shower. No soaking in bath tubs for 2 weeks Please notify your surgeon if you develop nausea and vomiting including new onset of abdominal pain. Continue to use incentive spirometry to prevent pneumonias. Please continue to ambulate at home to prevent blood clots in legs. Follow-up at the bariatric center. May shower. Dressings to be discontinued by surgeon in the office. Drink 64 oz of fluid daily. Start protein shakes on . Notify bariatric center for temp over 101.0, increased pain, drainage from incisions. No straws or carbonated beverages. Liquid diet only. Sugar content should be less than 6 g to avoid dumping syndrome. Take MOM for constipation. CRUSH, OPEN, OR CUT TABLETS LARGER THAN A SIZE OF A TIC TAC Hold on taking vitamins, lexapro and Jakafi due to increase bleeding risk until seen by surgeon Discharge Disposition: HOME SELF-CARE
--- NOTE | 2023-05-29 01:08 | CONS ---
CONSULTATION REASON FOR CONSULTATION: Advice regarding COPD and other medical issues requested by surgery. HISTORY OF PRESENT ILLNESS: This is a 47-year-old woman with a past medical history of multiple medical problems including COPD, diabetes mellitus, underwent sleeve gastrectomy. The patient also had a new-onset atrial flutter, rate is fairly controlled. The patient is being closely monitored at this time. There is no history of any fever, rigors, or chills. No history of shortness of breath. PAST MEDICAL HISTORY: Reviewed include COPD, diabetes mellitus, rest of the history and rest of the chart is also reviewed. HOME MEDICATIONS: Reviewed include Coreg, dose and rest of medications reviewed. ALLERGIES: Arixtra. FAMILY HISTORY: History of hyperlipidemia. SOCIAL HISTORY: Previous history of smoking. REVIEW OF SYSTEMS: A 14-point review is negative except as mentioned earlier. PHYSICAL EXAMINATION: VITALS: Pulse is 83 currently, blood pressure 123/84, and respirations 18. HEENT: Conjunctivae normal. NECK: No jugular venous distention. CARDIOVASCULAR: S1, S2 muffled. RESPIRATIONS: Diminished breath sounds at the bases. No rhonchi, no crackles. ABDOMEN: Soft, status post surgery. LEGS: No edema, no swelling. NERVOUS SYSTEM: No focal deficits. LABORATORY DATA: Reviewed. The EKG shows atrial flutter with varying conduction. ASSESSMENT: 1. Atrial flutter with varying conduction. 2. History of ischemic cardiomyopathy, ejection fraction 40%. 3. Status post sleeve gastrectomy. 4. Hypertension. 5. Chronic obstructive pulmonary disease. 6. Diabetes mellitus type 2. 7. History of liver disease. 8. History of congenital heart disease. 9. History of leukemia, in remission. 10.Multiple complex medical issues. RECOMMENDATIONS AND DISCUSSION: This 47-year-old woman presented after surgery. Currently, the patient is stable. Cardiology input appreciated. I would recommend to continue the current medications, DVT prophylaxis, incentive spirometry. Recommended to follow closely with Primary Physician and Cardiology in the outpatient setting. MMODL / IJN: [id number] /
[2023-05-29] MEDS ORDERED: LEVOTHYROXINE 25 MCG TAB PO SCH (09:00)
[2023-05-29] MEDS ORDERED: ESCITALOPRAM 10 MG TAB PO SCH (09:00)
== END 2023-05-28 17:07 | disposition home or self-care (01) | DRG 620 ==
LOC: 2ORMAIN 09:15 → 4SSUR 14:39
PROVIDERS: ADMIT Surgery Plastic and Reconstructive Surgery; ATTEND Surgery Plastic and Reconstructive Surgery
PROC: 0DB64Z3 Excision of Stomach, Percutaneous Endoscopic Approach, Vertical (ICD-10-PCS; principal; 2023-05-27 10:30)
PROC: 0DJ08ZZ Inspection of Upper Intestinal Tract, Via Natural or Artificial Opening Endoscopic (ICD-10-PCS; principal; 2023-05-27 10:30)
PROC: 8E0W4CZ Robotic Assisted Procedure of Trunk Region, Percutaneous Endoscopic Approach (ICD-10-PCS; principal; 2023-05-27 10:30)
DX: E66.01 Morbid (severe) obesity due to excess calories (principal); C91.01 Acute lymphoblastic leukemia, in remission; Z94.81 Bone marrow transplant status; N25.81 Secondary hyperparathyroidism of renal origin; I48.3 Typical atrial flutter; E11.43 Type 2 diabetes mellitus with diabetic autonomic (poly)neuropathy; K76.0 Fatty (change of) liver, not elsewhere classified; K31.84 Gastroparesis; K74.60 Unspecified cirrhosis of liver; D72.829 Elevated white blood cell count, unspecified; T38.0X5A Adverse effect of glucocorticoids and synthetic analogues, initial encounter; J44.9 Chronic obstructive pulmonary disease, unspecified; Z68.34 Body mass index [BMI] 34.0-34.9, adult; I10 Essential (primary) hypertension; M17.0 Bilateral primary osteoarthritis of knee; I25.5 Ischemic cardiomyopathy; K21.9 Gastro-esophageal reflux disease without esophagitis; E55.9 Vitamin D deficiency, unspecified; E78.00 Pure hypercholesterolemia, unspecified; E78.1 Pure hyperglyceridemia; F32.A Depression, unspecified; F41.1 Generalized anxiety disorder; G47.33 Obstructive sleep apnea (adult) (pediatric); R16.0 Hepatomegaly, not elsewhere classified; Z79.84 Long term (current) use of oral hypoglycemic drugs; Z79.890 Hormone replacement therapy; Z79.621 Long term (current) use of calcineurin inhibitor; Z79.622 Long term (current) use of Janus kinase inhibitor; Z79.899 Other long term (current) drug therapy; Z71.3 Dietary counseling and surveillance; Z87.442 Personal history of urinary calculi; Z87.891 Personal history of nicotine dependence; Z87.74 Personal history of (corrected) congenital malformations of heart and circulatory system; Z88.5 Allergy status to narcotic agent; Z88.8 Allergy status to other drugs, medicaments and biological substances
CPT/HCPCS: 43235; 74240; 80051; 80053; 81025; 82310; 82565; 83735; 84100; 84520; 85025; 88305; 88307; 93306; 94640; 94760

== ENCOUNTER → 2023-06-03 | Outpatient (CLI) | payer MEDICARE ==
[2023-06-03 11:37] VITALS: BP 107/90; PULSE 80; TEMP 99.1; BMI 33.0
== END ==
LOC: BARWHC3 10:58
PROVIDERS: ATTEND Surgery Plastic and Reconstructive Surgery
DX: E66.01 Morbid (severe) obesity due to excess calories (principal); F12.90 Cannabis use, unspecified, uncomplicated; Z71.3 Dietary counseling and surveillance; Z68.33 Body mass index [BMI] 33.0-33.9, adult; Z88.5 Allergy status to narcotic agent; Z88.8 Allergy status to other drugs, medicaments and biological substances; Z87.891 Personal history of nicotine dependence
CPT/HCPCS: 97802; 99211

== ENCOUNTER → 2023-06-12 | Outpatient (CLI) | payer MEDICARE ==
[2023-06-12 14:32] VITALS: BP 105/72; PULSE 77; TEMP 98.4; BMI 33.6
== END ==
LOC: BARWHC3 13:55
PROVIDERS: ATTEND Surgery Plastic and Reconstructive Surgery
DX: Z53.9 Procedure and treatment not carried out, unspecified reason (principal)
CPT/HCPCS: 99211

== ENCOUNTER → 2023-06-19 | Outpatient (CLI) | payer MEDICARE ==
[2023-06-19 14:49] VITALS: BP 101/69; PULSE 51; TEMP 98.3; BMI 33.3
== END ==
LOC: BARWHC3 13:55
PROVIDERS: ATTEND Surgery Plastic and Reconstructive Surgery
DX: E66.01 Morbid (severe) obesity due to excess calories (principal); Z68.33 Body mass index [BMI] 33.0-33.9, adult; Z88.8 Allergy status to other drugs, medicaments and biological substances; Z88.5 Allergy status to narcotic agent
CPT/HCPCS: 99211

== ENCOUNTER → 2023-06-26 | Outpatient (CLI) | payer MEDICARE ==
[2023-06-26 16:13] VITALS: BMI 4808.5
[2023-06-26 17:09] VITALS: BP 97/67; PULSE 69; TEMP 98
== END ==
LOC: BARWHC3 13:52
PROVIDERS: ATTEND Surgery Plastic and Reconstructive Surgery
DX: E66.01 Morbid (severe) obesity due to excess calories (principal); F12.90 Cannabis use, unspecified, uncomplicated; Z71.3 Dietary counseling and surveillance; Z88.1 Allergy status to other antibiotic agents; Z88.6 Allergy status to analgesic agent; Z87.891 Personal history of nicotine dependence
CPT/HCPCS: 97803; 99211

== ENCOUNTER 2023-10-25 20:06 | Observation (INO) | payer MEDICARE ==
--- NOTE | 2023-10-25 20:30 | ED ---
General Adult HPI - General Chief complaint: Syncope Stated complaint: Syncope,Facial Swelling Time Seen by Provider: 10/25/23 20:20 Source: patient, RN notes reviewed Mode of arrival: wheelchair Limitations: no limitations - History of Present Illness Initial comments: This is a 48-year-old female with a history of congenital heart disease and bariatric surgery who presents to the emergency department chief complaint of syncope and fall. Patient states that she has been experiencing multiple syncopal events over the past week where her primary care provider recently took her off two of her hypertension medications. She states that she fell yesterday and today. Patient states that when she fell today she injured her face and right knee. She endorses lightheadedness and shakiness. She denies chest pain, chest pressure, palpitations dyspnea. She also denies symptoms of fever, nausea, vomiting, congestion, rhinorrhea, worsening productive cough. - Related Data Home Medications Medication Instructions Recorded Confirmed Acyclovir [Zovirax] 800 mg PO BID 05/18/17 10/26/23 Ruxolitinib Phosphate [Jakafi] 5 mg PO BID 10/03/21 10/26/23 Prochlorperazine [Compazine] 10 mg PO DAILY 10/18/22 10/26/23 Cyclobenzaprine [Flexeril] 10 mg PO BID 10/26/23 10/26/23 Docusate [Colace] 100 mg PO DAILY 10/26/23 10/26/23 Ergocalciferol [Vitamin D2 (1250 1,250 mcg PO FLOYD 10/26/23 10/26/23 Mcg = 11901 Iu)] Escitalopram [Lexapro] 10 mg PO DAILY 10/26/23 10/26/23 HYDROcodone/APAP 10-325MG [Carriere 1 tab PO QID PRN 10/26/23 10/26/23 10-325] Naloxone HCl [Narcan] 4 mg NASAL DIRECTED PRN 10/26/23 10/26/23 Oxybutynin ER [Ditropan XL] 10 mg PO DAILY 10/26/23 10/26/23 Pantoprazole [Protonix] 40 mg PO BID 10/26/23 10/26/23 Pentosan Polysulfate Sodium 100 mg PO TID 10/26/23 10/26/23 [Elmiron] Sulfamethox-Tmp 400-80Mg [Bactrim 1 tab PO DAILY 10/26/23 10/26/23 SS 400-80 mg] Tacrolimus [Prograf] 0.5 mg PO BID 10/26/23 10/26/23 carvediloL [Coreg] 3.125 mg PO BID 10/26/23 10/26/23 Previous Rx's Medication Instructions Recorded Apixaban [Eliquis] 5 mg PO BID #180 tab 05/28/23 Cyanocobalamin [Vitamin B-12] 1,000 mcg PO DAILY 30 Days #30 tab 10/27/23 Allergies Allergy/AdvReac Type Severity Reaction Status Date / Time fondaparinux [From Arixtra] Allergy Intermediate Rash/Hives Verified 10/26/23 13:06 propoxyphene napsylate Allergy Intermediate Rash/Hives Verified 10/26/23 13:06 [From Darvocet-N] Review of Systems ROS Statement: Those systems with pertinent positive or pertinent negative responses have been documented in the HPI. ROS Other: All systems not noted in ROS Statement are negative. 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, non-alcoholic fatty liver disease/cirrhosis (pt was found to have this during attempted surgery 01/2022) History of Any Multi-Drug Resistant Organisms: None Reported Past Surgical History: Bariatric Surgery, Section, Cholecystectomy, Hernia Repair, Orthopedic Surgery, Tubal Ligation, Uterine Ablation Additional Past Surgical History / Comment(s): left knee arthroscopy, left shoulder torn rotator cuff repair has pin in place, bone marrow transplant, open heart surgery at age 18 months "they took an artery out of leg to use in heart"., robotic assisted laproscopic sleeve gastrectomy 05-27-23 Past Anesthesia/Blood Transfusion Reactions: No Reported Reaction Additional Past Anesthesia/Blood Transfusion Reaction / Comment(s): several blood transfusion-pt denies any reaction Past Psychological History: Anxiety, Depression Smoking Status: Former smoker Past Alcohol Use History: Occasional Past Drug Use History: Marijuana - Past Family History Mother Family Medical History: Hyperlipidemia, Renal Disease Additional Family Medical History / Comment(s): vit d- deficiency, anemia Father Family Medical History: COPD Additional Family Medical History / Comment(s): "bowel problems-hx resection" General Exam - General Exam Comments Initial Comments: Visual Physical Exam Vital signs reviewed General: Well-appearing, nontoxic, no acute distress. Head: Normocephalic, atraumatic Eyes: PERRLA, EOMI ENT: Airway patent Chest: Nonlabored breathing Skin: No visual rash, normal skin tone Neuro: Alert and oriented 3 Musculoskeletal: No gross abnormalities Limitations: no limitations General appearance: alert, in no apparent distress Head exam: Present: atraumatic, normocephalic, normal inspection Eye exam: Present: normal appearance, PERRL, EOMI. Absent: scleral icterus, conjunctival injection, periorbital swelling ENT exam: Present: normal exam, mucous membranes moist Neck exam: Present: normal inspection. Absent: tenderness, meningismus, lymphadenopathy Respiratory exam: Present: wheezes (right lung field), decreased breath sounds. Absent: normal lung sounds bilaterally, respiratory distress, rales Cardiovascular Exam: Present: regular rate, normal rhythm, normal heart sounds. Absent: systolic murmur, diastolic murmur, rubs, gallop, clicks GI/Abdominal exam: Present: soft, normal bowel sounds. Absent: distended, tenderness, guarding, rebound, rigid Extremities exam: Present: normal inspection, full ROM, normal capillary refill. Absent: tenderness, pedal edema, joint swelling, calf tenderness Right Knee exam: Present: tenderness (anterior knee), swelling. Absent: abrasion, laceration, ecchymosis, deformity Back exam: Present: normal inspection Neurological exam: Present: alert, oriented X3, CN II-XII intact Psychiatric exam: Present: normal affect, normal mood Skin exam: Present: warm, dry, intact, normal color. Absent: rash Course Vital Signs 10/25/23 10/25/23 10/25/23 20:12 21:56 23:00 Temperature 99.4 F Pulse Rate 109 H 82 79 Respiratory 18 18 18 Rate Blood Pressure 94/65 106/74 106/71 O2 Sat by Pulse 95 95 97 Oximetry 10/26/23 10/26/23 01:00 05:25 Temperature 97.9 F Pulse Rate 87 74 Respiratory 18 16 Rate Blood Pressure 121/76 121/81 O2 Sat by Pulse 98 95 Oximetry Medical Decision Making - Medical Decision Making I completed the quick note portion of this chart signed Keerthi Martinez PA-C Was pt. sent in by a medical professional or institution ([facility] Rosario, BEAMER OPERATOR, urgent care, hospital, or retirement...) When possible be specific @ -No Did you speak to anyone other than the patient for history (EMS, parent, family, police, friend...)? What history was obtained from this source @ -No Did you review nursing and triage notes (agree or disagree)? Why? @ -I reviewed and agree with nursing and triage notes Were old charts reviewed (outside hosp., previous admission, EMS record, old EKG, old radiological studies, urgent care reports/EKG's, retirement records)? Report findings @ -I read the scanned document from 01/24/2022 stating that patient has a history of AML in remission. She also has a history of congenital heart disease with an echo completed 11/16/2020 with decreased left ventricular function with an ejection fraction 35 to 40%. Differential Diagnosis (chest pain, altered mental status, abdominal pain women, abdominal pain men, vaginal bleeding, weakness, fever, dyspnea, syncope, headache, dizziness, GI bleed, back pain, seizure, CVA, palpatations, mental health, musculoskeletal)? @ -Differential Syncope: Valvular disease, hypertrophic cardiomyopathy, pulmonary embolism, tamponade, tachycardia, bradycardia, HI, hypovolemia, hemorrhage, dissection, anemia, intracranial hemorrhage, seizure, hypoglycemia, carbon monoxide poisoning, this is not meant to be an all-inclusive list. EKG interpreted by me (3pts min.). @ -Completed at 2103, sinus rhythm with left atrial enlargement and left axis deviation, ventricular rate 91, parable 156, QTc 393. No acute signs of ischemia. X-rays interpreted by me (1pt min.). @ -X-ray of the right knee no acute osseous abnormalities noted. CT interpreted by me (1pt min.). @ -CT facial bones without contrast mild right cheek soft tissue swelling with minimal deviation of the right nasal bone. U/S interpreted by me (1pt. min.). @ -None done What testing was considered but not performed or refused? (CT, X-rays, U/S, labs)? Why? @ -None What meds were considered but not given or refused? Why? @ -None Did you discuss the management of the patient with other professionals (professionals i.e. DrDiaz, PA, BEAMER OPERATOR, lab, RT, psych nurse, child protective services social worker, daycare worker, teacher, air defence officer, shelter case manager)? Give summary @ -Spoke with my attending Dr. Matute in regard to admission due to multiple syncopal events. At this time a consult was placed to [facility] physicians, I spoke with Dr. Benson who agrees with admission for the patient for management of hypertension and unremarkable for ischemia. His open the patient received sublingual due to hypoglycemia. Was smoking cessation discussed for >3mins.? @ -No Was critical care preformed (if so, how long)? @ -No Were there social determinants of health that impacted care today? How? (Homelessness, low income, unemployed, alcoholism, drug addiction, transportation, low edu. Level, literacy, decrease access to med. care, long term, rehab)? @ -No Was there de-escalation of care discussed even if they declined (Discuss DNR or withdrawal of care, Hospice)? DNR status @ -No What co-morbidities impacted this encounter? (DM, HTN, Smoking, COPD, CAD, Cancer, CVA, ARF, Chemo, Hep., AIDS, mental health diagnosis, sleep apnea, morbid obesity)? @ -Diabetes Was patient admitted / discharged? Hospital course, mention meds given and route, prescriptions, significant lab abnormalities, going to OR and other pertinent info. @ -48-year-old female with syncope and lightheadedness. On examination patient is noted to be tachycardic with notes of adventitious sounds and wheezes bi laterally. Will be evaluated for laboratory studies including CT and x-ray due to bony complaints after a fall. Additionally on evaluation patient is found to be mildly hypotensive therefore ordered a liter fluid bolus and IV push of Toradol. CBC and coagulation profile unremarkable, troponin nonelevated. CMP reveals elevated chloride of 113 and low CO2 of 19. Patient was accepted for observation of hypoglycemia and hypotension. She was provided with orange juice. case discussed with my attending Dr. Matute Undiagnosed new problem with uncertain prognosis? @ -No Drug Therapy requiring intensive monitoring for toxicity (Heparin, Nitro, Insulin, Cardizem)? @ -No Were any procedures done? @ -No Diagnosis/symptom? @ -Syncope, hypotension, hypoglycemia Acute, or Chronic, or Acute on Chronic? @ -Acute Uncomplicated (without systemic symptoms) or Complicated (systemic symptoms)? @ -Uncomplicated Side effects of treatment? @ -No Exacerbation, Progression, or Severe Exacerbation? @ -No Poses a threat to life or bodily function? How? (Chest pain, USA, HI, pneumonia, PE, COPD, DKA, ARF, appy, cholecystitis, CVA, Diverticulitis, Homicidal, Suicidal, threat to staff... and all critical care pts) @ -No - Lab Data Result diagrams: 10/27/23 05:51 10/27/23 05:51 Lab Results 10/25/23 10/25/23 10/25/23 Range/Units 20:53 20:53 20:53 WBC 6.6 (3.8-10.6) k/uL RBC 4.17 (3.80-5.40) m/uL Hgb 13.5 (11.4-16.0) gm/dL Hct 40.7 (34.0-46.0) % MCV 97.7 (80.0-100.0) fL MCH 32.4 (25.0-35.0) pg MCHC 33.2 (31.0-37.0) g/dL RDW 15.0 (11.5-15.5) % Plt Count 243 (150-450) k/uL MPV 7.4 Neutrophils % 71 % Lymphocytes % 18 % Monocytes % 7 % Eosinophils % 1 % Basophils % 0 % Neutrophils # 4.7 (1.3-7.7) k/uL Lymphocytes # 1.2 (1.0-4.8) k/uL Monocytes # 0.5 (0-1.0) k/uL Eosinophils # 0.1 (0-0.7) k/uL Basophils # 0.0 (0-0.2) k/uL PT 11.3 (10.0-12.5) sec INR 1.0 (<1.2) APTT 25.7 (22.0-30.0) sec Sodium (137-145) mmol/L Potassium (3.5-5.1) mmol/L Chloride (98-107) mmol/L Carbon Dioxide (22-30) mmol/L Anion Gap mmol/L BUN (7-17) mg/dL Creatinine (0.52-1.04) mg/dL Est GFR (CKD-EPI)AfAm (>60 ml/min/1.73 sqM) Est GFR (CKD-EPI)NonAf (>60 ml/min/1.73 sqM) Glucose (74-99) mg/dL Calcium (8.4-10.2) mg/dL Phosphorus (2.5-4.5) mg/dL Magnesium (1.6-2.3) mg/dL Total Bilirubin (0.2-1.3) mg/dL AST (14-36) U/L ALT (4-34) U/L Alkaline Phosphatase (38-126) U/L Troponin I <0.012 (0.000-0.034) ng/mL Total Protein (6.3-8.2) g/dL Albumin (3.5-5.0) g/dL 10/25/23 Range/Units 22:58 WBC (3.8-10.6) k/uL RBC (3.80-5.40) m/uL Hgb (11.4-16.0) gm/dL Hct (34.0-46.0) % MCV (80.0-100.0) fL MCH (25.0-35.0) pg MCHC (31.0-37.0) g/dL RDW (11.5-15.5) % Plt Count (150-450) k/uL MPV Neutrophils % % Lymphocytes % % Monocytes % % Eosinophils % % Basophils % % Neutrophils # (1.3-7.7) k/uL Lymphocytes # (1.0-4.8) k/uL Monocytes # (0-1.0) k/uL Eosinophils # (0-0.7) k/uL Basophils # (0-0.2) k/uL PT (10.0-12.5) sec INR (<1.2) APTT (22.0-30.0) sec Sodium 137 (137-145) mmol/L Potassium 4.3 (3.5-5.1) mmol/L Chloride 113 H (98-107) mmol/L Carbon Dioxide 19 L (22-30) mmol/L Anion Gap 5 mmol/L BUN 19 H (7-17) mg/dL Creatinine 0.82 (0.52-1.04) mg/dL Est GFR (CKD-EPI)AfAm >90 (>60 ml/min/1.73 sqM) Est GFR (CKD-EPI)NonAf 84 (>60 ml/min/1.73 sqM) Glucose 72 L (74-99) mg/dL Calcium 8.3 L (8.4-10.2) mg/dL Phosphorus 3.2 (2.5-4.5) mg/dL Magnesium 1.8 (1.6-2.3) mg/dL Total Bilirubin 0.7 (0.2-1.3) mg/dL AST 28 (14-36) U/L ALT 19 (4-34) U/L Alkaline Phosphatase 70 (38-126) U/L Troponin I (0.000-0.034) ng/mL Total Protein 5.8 L (6.3-8.2) g/dL Albumin 3.6 (3.5-5.0) g/dL Disposition Clinical Impression: Syncopal episodes, Hypotension Disposition: ADMITTED IP TO THIS [facility] Condition: Stable Is patient prescribed a controlled substance at d/c from ED?: No Decision to Admit Reason: Admit from EC Decision Date: 10/25/23 Decision Time: 23:51
[2023-10-25 21:32] LABS: Basophils % (A) 0 %; Eosinophils # (A) 0.1 k/uL (0-0.7); Eosinophils % (A) 1 %; HCT 40.7 % (34.0-46.0); HGB 13.5 gm/dL (11.4-16.0); Lymphocytes # (A) 1.2 k/uL (1.0-4.8); Lymphocytes % (A) 18 %; MCH 32.4 pg (25.0-35.0); MCHC 33.2 g/dL (31.0-37.0); MCV 97.7 fL (80.0-100.0); Mean Platelet Volume 7.4; Monocytes # (A) 0.5 k/uL (0-1.0); Monocytes % (A) 7 %; Neutrophils # (A) 4.7 k/uL (1.3-7.7); Neutrophils % (A) 71 %; Platelet Count 243 k/uL (150-450); RBC 4.17 m/uL (3.80-5.40); WBC 6.6 k/uL (3.8-10.6)
--- NOTE | 2023-10-25 21:37 | XR ---
EXAMINATION TYPE: XR knee complete RT DATE OF EXAM: 10/25/2023 9:13 PM CLINICAL INDICATION:Female, 48 years old with history of fall, pain; COMPARISON: None. TECHNIQUE: XR knee complete RT; examined in Frontal, lateral and oblique projections. FINDINGS: No evidence of any acute osseous pathology, soft tissue swelling, or joint effusion is no shawna. A fabella is present. IMPRESSION: 1. No acute osseous pathology. 2. Mild tricompartmental osteoarthritic changes.
[2023-10-25 21:43] LABS: Partial Thromboplastin Time 25.7 sec (22.0-30.0); Prothrombin Time 11.3 sec (10.0-12.5)
--- NOTE | 2023-10-25 21:43 | CT ---
EXAMINATION TYPE: CT facial bones wo con CT DLP: 335 mGycm, Automated exposure control for dose reduction was used. DATE OF EXAM: 10/25/2023 9:12 PM COMPARISON: None. CLINICAL INDICATION:Female, 48 years old with history of fall, pain; PHH, Fall, facial presenting and laceration to right cheek TECHNIQUE: Multiple unenhanced axial CT images were obtained of the facial bones soft tissue and bone windows. Coronal, axial and sagittal reformatted images were also provided in soft tissue and bone windows and submitted for interpretation. Contrast used: mL of , (none if empty) Oral contrast used: (none if empty) FINDINGS: Right cheek edema. No evidence of fracture. Minimal mucosal thickening of the paranasal sin uses. There is mild deviation of the right nasal bone. Bilateral aphakia. Intracranial portions are g rossly unremarkable. IMPRESSION: 1. Mild right cheek soft tissue swelling. 2. Minimal deviation of the right nasal bone correlate for minimally displaced fracture.
[2023-10-25] MEDS: KETOROLAC 15 MG/ML 1 ML VIAL IVP STA (21:53)
[2023-10-25] MEDS: SODIUM CHLORIDE 0.9% 1,000 ML IV STA (21:54)
[2023-10-25 23:27] LABS: ALT 19 U/L (4-34); AST 28 U/L (14-36); African American GFR (CKD) >90 (>60 ml/min/1.73 sqM); Albumin 3.6 g/dL (3.5-5.0); Alkaline Phosphatase 70 U/L (38-126); Anion Gap 5 mmol/L; Blood Urea Nitrogen 19 mg/dL (7-17); Calcium 8.3 mg/dL (8.4-10.2); Carbon Dioxide 19 mmol/L (22-30); Chloride 113 mmol/L (98-107); Glucose 72 mg/dL (74-99); Magnesium 1.8 mg/dL (1.6-2.3); Non-African American GFR(CKD) 84 (>60 ml/min/1.73 sqM); Phosphorus 3.2 mg/dL (2.5-4.5); Potassium 4.3 mmol/L (3.5-5.1); Sodium 137 mmol/L (137-145); Total Bilirubin 0.7 mg/dL (0.2-1.3); Total Protein 5.8 g/dL (6.3-8.2)
[2023-10-26] MEDS ORDERED: ACETAMINOPHEN TAB 325 MG TAB PO PRN ×2 (00:07→11:02)
[2023-10-26] MEDS ORDERED: IBUPROFEN 400 MG TAB PO PRN (00:07)
[2023-10-26] MEDS ORDERED: NALOXONE 0.4 MG/ML 1 ML VIAL IV PRN (00:07)
[2023-10-26] MEDS: HYDROmorphone 0.5 MG/0.5 ML SYRINGE IVP STA (00:48)
--- NOTE | 2023-10-26 03:02 | P.HPIM ---
History of Present Illness H&P Date: 10/26/23 Patient is a 48-year-old female with a PMH of leukemia (in remission for the past 7 years), congenital heart disease, type II DM, COPD who presents to the emergency room for multiple episodes of syncope. Patient reports that she experienced a near syncopal episode roughly a week ago where she developed lightheadedness after standing up suddenly. She did not lose consciousness during this episode. She was seen at her PCPs office where she was noted to have hypotension and 2 of her antihypertensives were discontinued. The patient reports that she continued to feel lightheaded and had a syncopal episode earlier today where she opened the door to greet her boyfriend when she suddenly lost consciousness without any warning symptoms. She had fallen to the ground hitting her face. She immediately regained consciousness as per her boyfriend and had no complaints of tongue biting, urinary incontinence, or shaking movements. She reports continued lightheadedness while laying in bed at the time of interview. Denies experiencing chest discomfort, shortness of breath, nausea, vomiting, diaphoresis. Facial CT in the emergency room revealed mild right cheek soft tissue swelling with minimal deviation of the right nasal bone concerning for a minimally displaced fracture. Knee x-ray was unremarkable with EKG showing sinus rhythm at 91 bpm with left axis deviation and poor R wave progression. Laboratory evaluation was remarkable for WC count 6.6, sodium 137, potassium 4.3, chloride 113, CO2 19, BUN 19, creatinine 0.82, glucose 72, troponin less than 0.012. The patient's blood pressure upon arrival at the emergency room was 94/65 with pulse 109, SpO2 95% on room air, and temp 99.4 F. ED documentation reviewed and case discussed with ED provider. Review of systems: Pertinent positives and negatives as discussed in HPI, a complete review of systems was performed and all other systems are negative. Physical examination: Vital signs reviewed General: non toxic, no distress, appears at stated age, overweight Derm: no unusual rashes/lesions, warm Head: atraumatic, normocephalic, symmetric Eyes: EOMI, no lid lag, anicteric sclera, pupils equal round reactive to light ENT: Nose and ears atraumatic Neck: No cervical lymphadenopathy, trachea midline, supple Mouth: no lip lesion, mucus membranes moist Cardiovascular: S1S2 reg, no murmur, positive dorsalis pedis pulse bilateral, no edema Lungs: CTA bilateral, no rhonchi, no rales, no accessory muscle use Abdominal: soft, nontender to palpation, no guarding Ext: muscle strength 5 out of 5 in all 4 extremities grossly, no gross muscle atrophy, no contractures, Neuro: CN II-XI grossly intact, no gross focal neuro deficits Psych: Alert, oriented, appropriate affect Assessment: Lightheadedness, suspect may be due to hypotension from excessive antihypertensives Hypoglycemia Chronic conditions: COPD, type II DM, congenital heart disease Imaging: Facial CT in the emergency room revealed mild right cheek soft tissue swelling with minimal deviation of the right nasal bone concerning for a minimally displaced fracture. Knee x-ray was unremarkable with EKG showing sinus rhythm at 91 bpm with left axis deviation and poor R wave progression. Data Review: Laboratory evaluation was remarkable for WC count 6.6, sodium 137, potassium 4.3, chloride 113, CO2 19, BUN 19, creatinine 0.82, glucose 72, troponin less th an 0.012. The patient's blood pressure upon arrival at the emergency room was 94/65 with pulse 109, SpO2 95% on room air, and temp 99.4 F. Plan: Continue patient on IV fluids normal saline 75 cc/h Hold patient's home antihypertensives Fall precautions Cardiac monitoring Check orthostatics Monitor blood glucose levels with insulin sliding scale Resume remaining home medications once reconciled Obtain echocardiogram DVT prophylaxis: Lovenox Subq The patient is admitted with an anticipated less than 2 midnight stay for evaluation of syncope CODE STATUS: Full Code Discussed with: Patient Anticipated discharge place: Home 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, non-alcoholic fatty liver disease/cirrhosis (pt was found to have this during attempted surgery 01/2022) History of Any Multi-Drug Resistant Organisms: None Reported Past Surgical History: Bariatric Surgery, Section, Cholecystectomy, Hernia Repair, Orthopedic Surgery, Tubal Ligation, Uterine Ablation Additional Past Surgical History / Comment(s): left knee arthroscopy, left shoulder torn rotator cuff repair has pin in place, bone marrow transplant, open heart surgery at age 18 months "they took an artery out of leg to use in heart"., robotic assisted laproscopic sleeve gastrectomy 05-27-23 Past Anesthesia/Blood Transfusion Reactions: No Reported Reaction Additional Past Anesthesia/Blood Transfusion Reaction / Comment(s): several blood transfusion-pt denies any reaction Past Psychological History: Anxiety, Depression Smoking Status: Former smoker Past Alcohol Use History: Occasional Past Drug Use History: Marijuana - Past Family History Mother Family Medical History: Hyperlipidemia, Renal Disease Additional Family Medical History / Comment(s): vit d- deficiency, anemia Father Family Medical History: COPD Additional Family Medical History / Comment(s): "bowel problems-hx resection" Medications and Allergies Home Medications Medication Instructions Recorded Confirmed Type Acyclovir [Zovirax] 800 mg PO BID 05/18/17 06/28/23 History Levothyroxine Sodium 25 mcg PO DAILY 10/03/21 06/28/23 History Pioglitazone [Actos] 15 mg PO DAILY 10/03/21 06/28/23 History Ruxolitinib Phosphate [Jakafi] 5 mg PO BID 10/03/21 06/28/23 History Empagliflozin [Jardiance] 25 mg PO DAILY 02/12/22 06/28/23 History HYDROcodone/APAP 5-325MG [Bradner 1 tab PO Q6HR PRN 10/18/22 06/28/23 History 5-325] Prochlorperazine [Compazine] 10 mg PO DAILY 10/18/22 06/28/23 History Omeprazole [PriLOSEC] 40 mg PO DAILY #30 cap 10/24/22 06/28/23 Rx Tacrolimus [Prograf] 0.5 mg PO BID 05/23/23 06/28/23 History Apixaban [Eliquis] 5 mg PO BID #180 tab 05/28/23 06/28/23 Rx Metoprolol Tartrate [Lopressor] 25 mg PO BID #180 tab 05/28/23 06/28/23 Rx Allergies Allergy/AdvReac Type Severity Reaction Status Date / Time fondaparinux [From Arixtra] Allergy Intermediate Rash/Hives Verified 10/25/23 20:12 propoxyphene napsylate Allergy Intermediate Rash/Hives Verified 10/25/23 20:12 [From Darvocet-N] Physical Exam Vitals: Vital Signs Temp Pulse Resp BP Pulse Ox 10/26/23 01:00 87 18 121/76 98 10/25/23 23:00 79 18 106/71 97 10/25/23 21:56 82 18 106/74 95 10/25/23 20:12 99.4 F 109 H 18 94/65 95 Intake and Output 10/25/23 10/25/23 10/26/23 14:59 22:59 06:59 Other: Weight 68.039 kg Results CBC & Chem 7: 10/25/23 20:53 10/25/23 22:58 Labs: Abnormal Lab Results - Last 24 Hours (Table) 10/25/23 Range/Units 22:58 Chloride 113 H (98-107) mmol/L Carbon Dioxide 19 L (22-30) mmol/L BUN 19 H (7-17) mg/dL Glucose 72 L (74-99) mg/dL Calcium 8.3 L (8.4-10.2) mg/dL Total Protein 5.8 L (6.3-8.2) g/dL
[2023-10-26 03:22] LABS: Glucose,Whole Blood 88 mg/dL (70-110)
[2023-10-26] MEDS: SODIUM CHLORIDE 0.9% 1,000 ML IV SCH (03:30)
[2023-10-26] MEDS: KETOROLAC 15 MG/ML 1 ML VIAL IVP PRN (06:09)
[2023-10-26] MEDS: ENOXAPARIN 40 MG/0.4 ML SYRINGE SQ SCH (08:58)
[2023-10-26] MEDS: PANTOPRAZOLE 40 MG TABLET PO SCH ×2 (10:14→19:58)
[2023-10-26] MEDS: ACYCLOVIR 800 MG TAB PO SCH (10:14)
[2023-10-26] MEDS: TACROLIMUS 0.5 MG CAP PO SCH (10:14)
[2023-10-26] MEDS: APIXABAN 5 MG TAB PO SCH (10:14)
[2023-10-26] MEDS ORDERED: HYDROcodone/APAP 5-325MG 1 EACH TAB PO PRN (11:02)
[2023-10-26] MEDS: METOPROLOL TARTRATE 25 MG TAB PO SCH (12:13)
[2023-10-26] MEDS: LEVOTHYROXINE 25 MCG TAB PO SCH (12:14)
[2023-10-26] MEDS: RUXOLITINIB PHOSPHATE 5 MG PO SCH (12:17)
[2023-10-26 12:46] LABS: Glucose,Whole Blood 85 mg/dL (70-110)
--- NOTE | 2023-10-26 13:07 | P.PN ---
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 She presented to the emergency department with a chief complaint of syncopal episode. Upon arrival to our facility, patient underwent evaluation in the emergency department. Vital signs upon arrival show blood pressure 94/65, heart rate 109, respiratory rate 18, temp 99.4 F, and SpO2 of 95% on room air. EKG completed showing normal sinus rhythm at 91 bpm with T wave inversion in lateral lead aVL upon personal review and interpretation. Labs completed and reviewed. CBC and coagulation profile normal findings. BMP showing metabolic acidosis with chloride of 113, bicarb of 19, and anion gap of 5 and mild prerenal azotemia with BUN of 19. Blood glucose was also slightly low at 72. Magnesium normal findings at 1.8. And liver profile normal findings. Troponin negative at less than 0.012. CT facial bones was completed showing mild right cheek soft tissue swelling and minimal jana ation of the right nasal bone concerning for minimally displaced fracture. Admitted under our services with consultation to cardiology. Physical exam: Vital signs reviewed and stable. General: Nontoxic, no distress and appears stated age. Derm: Skin warm and dry, normal coloration for ethnicity. Head: normocephalic and symmetric. Mild swelling right cheek and jaw Eyes: EOMs intact, no lid lag, and anicteric sclera Mouth: no lip lesions, mucus membranes moist Cardiovascular: regular rate and rhythm with normal S1S2, soft systolic murmur, positive posterior tibial pulses bilaterally, and cap refill < 2 seconds. Lungs: Respirations even, regular, and unlabored on room air. Lungs CTA bilaterally, no rhonchi, no rales, no wheezing, and no accessory muscle usage. Abdominal: soft, nontender to palpation, no guarding, no appreciable organomeg estephanie Ext: ROM intact. No gross muscle atrophy, no edema, no contractures Neuro: Speech clear, face symmetrical and CN II-XII grossly intact with no noted focal neuro deficits Psych: Alert and oriented to person, place, time, and situation. Appropriate and pleasant affect. Assessment and Plan of Care: Recurrent syncopal episodes, possibly resulting from orthostatic hypotension vs hypoglycemic event Facial trauma resulting in mildly displaced nasal bone fracture Reports of memory loss Hypotension Type 2 diabetes mellitus with hypoglycemia -Neurology consulted, recurrent syncopal episodes and reports of memory loss. Appreciate recommendations -ENT consulted for evaluation of mildly displaced nasal bone fracture. -Telemetry monitoring. -Orthostatic vitals -Fall precautions -Symptomatic care and pain management -Hold Ozempic and Jardiance and place patient on glycemic protocol. Will obtain hemoglobin A1c. 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 -Order placed for tacrolimus level Paroxysmal atrial fibrillation and flutter, currently maintaining sinus mechanism Hypertension -Discussed with radiologist if need for repeat CT or if images of brain can be obtained from facial CT as patient did have syncopal episode falling onto face while on anticoagulation with Eliquis and radiologist reviewing imaging at this time, if unable to see full view will order repeat CT head at this time. -At this time patient to continue anticoagulation with Eliquis 5 mg twice daily and carvedilol 3.125 mg twice daily Anxiety and depression -Continue Lexapro 10 mg daily Data and imaging reviewed: -EKG completed showing normal sinus rhythm at 91 bpm with T wave inversion in lateral lead aVL upon personal review and interpretation. -Labs completed and reviewed. CBC and coagulation profile normal findings. BMP showing metabolic acidosis with chloride of 113, bicarb of 19, and anion gap of 5 and mild prerenal azotemia with BUN of 19. Blood glucose was also slightly low at 72. Magnesium normal findings at 1.8. And liver profile normal findings. Troponin negative at less than 0.012. -CT facial bones was completed showing mild right cheek soft tissue swelling and minimal deviation of the right nasal bone concerning for minimally displaced fracture. CODE STATUS: Full code DVT prophylaxis: Eliquis Anticipated discharge date: Clinical course to determine Anticipated discharge place: Home Patient was seen independently by Nurse Pracitioner. This document was prepared using [employer] dictation software. Please allow for errors in pen rider, while rare they do occur. Eber Lorenzo NP rendered care for this patient independently, reviewed the findings and plan as documented in the note above. I did not physically speak with or examine the patient on this date. Objective - Vital Signs Vital signs: Vital Signs Temp 97.9 F 10/26/23 05:25 Pulse 74 10/26/23 05:25 Resp 16 10/26/23 05:25 BP 121/81 10/26/23 05:25 Pulse Ox 95 10/26/23 05:25 FiO2 Intake & Output 10/25/23 10/26/23 10/26/23 18:59 06:59 18:59 Weight 68.039 kg - Labs CBC & Chem 7: 10/25/23 20:53 10/25/23 22:58 Labs: Abnormal Lab Results - Last 24 Hours (Table) 10/25/23 Range/Units 22:58 Chloride 113 H (98-107) mmol/L Carbon Dioxide 19 L (22-30) mmol/L BUN 19 H (7-17) mg/dL Glucose 72 L (74-99) mg/dL Calcium 8.3 L (8.4-10.2) mg/dL Total Protein 5.8 L (6.3-8.2) g/dL
[2023-10-26] MEDS: HYDROmorphone 0.5 MG/0.5 ML SYRINGE IVP PRN (13:30)
--- NOTE | 2023-10-26 14:58 | CA ---
Transthoracic Echo Report Name: Maddy Key Age: 48 Gender: F : 1975 Exam Date: 10/26/2023 10:27 Exam Location: [facility] Ht (in): 60 Wt (lb): 150 Ordering Physician: Lela Benson MD Attending/Referring Phys: Program Manager Transportation Lashawn Deleon RDCS Procedure CPT: Indications: Syncope Cardiac Hx: Technical Quality: Fair Contrast 1: Total Dose (mL): Contrast 2: Total Dose (mL): MEASUREMENTS (Male / Female) Normal Values 2D ECHO LV Diastolic Diameter PLAX 4.4 cm 4.2 - 5.9 / 3.9 - 5.3 cm LV Systolic Diameter PLAX 3.1 cm IVS Diastolic Thickness 0.9 cm 0.6 - 1.0 / 0.6 - 0.9 cm LVPW Diastolic Thickness 1.1 cm 0.6 - 1.0 / 0.6 - 0.9 cm LV Relative Wall Thickness 0.5 RV Internal Dim ED PLAX 2.9 cm LA Volume 57.9 cm??? 18 - 58 / 22 - 52 cm??? LA Volume Index 33.6 cm???/m??? 16 - 28 cm???/m??? M-MODE Aortic Root Diameter MM 3.3 cm LA Systolic Diameter MM 5.7 cm LA Ao Ratio MM 1.7 DOPPLER AV Peak Velocity 139.1 cm/s AV Peak Gradient 7.7 mmHg AV Mean Velocity 101.8 cm/s AV Mean Gradient 4.5 mmHg AV Velocity Time Integral 27.1 cm LVOT Peak Velocity 121.2 cm/s LVOT Peak Gradient 5.9 mmHg LVOT Velocity Time Integral 25.0 cm MV Area PHT 4.4 cm??? Mitral E Point Velocity 74.8 cm/s Mitral A Point Velocity 95.8 cm/s Mitral E to A Ratio 0.8 MV Deceleration Time 172.3 ms MV E' Velocity 4.3 cm/s Mitral E to MV E' Ratio 17.3 TR Peak Velocity 129.8 cm/s TR Peak Gradient 6.7 mmHg Right Ventricular Systolic Press 11.7 mmHg FINDINGS Left Ventricle Mildly increased left ventricular wall thickness. Left ventricular cavity size normal. Abnormal (paradoxical) septal motion consistent with postoperative state. Reduced global left ventricular systolic function.left ventricular ejection fraction is estimated at 40-45 %. Grade 1 diastolic dysfunction. Right Ventricle Normal right ventricular size and function. Right ventricular systolic pressure within normal limits. Right Atrium Normal right atrial size. Left Atrium Mildly increased left atrial volume. Mildly increased left atrial area. Mitral Valve Structurally normal mitral valve. Mitral valve thickened. Moderate mitral annular calcification. Moderate mitral regurgitation. Aortic Valve Trileaflet aortic valve. No aortic valve stenosis or regurgitation. Tricuspid Valve Structurally normal tricuspid valve. Mild tricuspid regurgitation. Pulmonic Valve Structurally normal pulmonic valve. Trace pulmonic regurgitation. Pericardium No pericardial effusion. Aorta Normal size aortic root and proximal ascending aorta. CONCLUSIONS Impaired LV function with EF between 40-45% Thickened/prolapsed mitral valve leaflets with moderate mitral regurgitation Previewed by: Dr. Jayson Cartagena MD (Electronically Signed) Final Date: 26 October 2023 14:58
[2023-10-26] MEDS ORDERED: DEXTROSE 50% SYRINGE 50 ML IVP PRN ×2 (16:36)
[2023-10-26 17:16] LABS: Glucose,Whole Blood 113 mg/dL (70-110)
[2023-10-26] MEDS: NON FORMULARY DRUG (Pentosan Polysulfate Sodium [Elmiron] 100 MG Capsule) PO SCH (19:56)
[2023-10-26] MEDS: carvediloL 3.125 MG TAB PO SCH (19:58)
--- NOTE | 2023-10-26 20:22 | P.CNNES ---
History of Present Illness Consult date: 10/26/23 Requesting physician: Eber Lorenzo Reason for Consult: syncope w/ reports of memory loss History of Present Illness: Patient is a 48-year-old left-handed female came to the hospital 2 days ago, 10/25/2023 at 8:06 PM for syncopal spell. Patient states that in the last 1 week she had 3 syncopal spells. Patient's was also present. 1 week ago, she was going from living room to the kitchen to get a drink, when she arrived to the refrigerator, got dizzy and next thing she found herself on the knees and t rying to get back up. About 2 days ago, on , she was getting out of shower when she became lightheaded and then passed out. Her came to, and there was no convulsive activity. She is out for about only 30 seconds. The third episode occurred yesterday on Saturday, when her rang the huang, and she tried to open the door, and without any warning she passed out. Her could not catch her and she fell, bruising her knees. There was no shaking, seizure-like activity, tongue bite or loss of control of urine. Patient states that for the last few weeks, patient has been having dizziness, on getting up. She saw her primary physician, and her blood pressure was noted to be low. She was taking 3 blood pressure medication. Metoprolol, and another blood pressure medication the name but she does not remember was discontinued. She was continued on Coreg. Vital signs on arrival blood pressure 94/65, pulse rate 109 temperature 99.4. Patient has been afebrile. Patient had orthostatics checked, in which supine blood pressure 117/78, pulse rate 66, sitting was 118/79 with pulse of 70 and standing up was 99/69, pulse of 92. It is very borderline. Blood test shows normal CBC PT PTT, normal electrolytes, renal functions, hepatic panel, tropo rafita. CT facial region shows mild right cheek soft tissue swelling. Minimal deviation of the right nasal bone, correlate for minimal displaced fracture. X- ray of the right knee showed no acute osseous pathology. Mild tricompartmental osteoarthritic change. EKG shows sinus rhythm. Patient states that she has been very forgetful lately. She would be talking, and while talking the thought goes out and forgets what she was talking. She forgot to put things in her 's lunch. Patient mentions that she underwent gastric sleeve surgery in May 2023. Since then she has lost about 50 pounds. She has hardly any appetite. She only eats an apple sauce. She does take multivitamins and a vitamins for her hair and nails. Patient smokes marijuana. Drinks alcohol very occasionally no more than once a month. Patient does take Laona, Lexapro, tacrolimus, oxybutynin, Ozempic, Protonix, Bactrim SS, vitamin D, Coreg, Flexeril, Eliquis 5 mg twice daily, Jardiance ruxolitinib and acyclovir 800 mg twice daily. Review of Systems As mentioned above in detail. All pertinent positive and negative mentioned. Otherwise negative. 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, non-alcoholic fatty liver disease/cirrhosis (pt was found to have this during attempted surgery 01/2022) History of Any Multi-Drug Resistant Organisms: None Reported Past Surgical History: Bariatric Surgery, Section, Cholecystectomy, Hernia Repair, Orthopedic Surgery, Tubal Ligation, Uterine Ablation Additional Past Surgical History / Comment(s): left knee arthroscopy, left shoulder torn rotator cuff repair has pin in place, bone marrow transplant, open heart surgery at age 18 months "they took an artery out of leg to use in heart"., robotic assisted laproscopic sleeve gastrectomy 05-27-23 Past Anesthesia/Blood Transfusion Reactions: No Reported Reaction Additional Past Anesthesia/Blood Transfusion Reaction / Comment(s): several blood transfusion-pt denies any reaction Past Psychological History: Anxiety, Depression Additional Psychological History / Comment(s): no medications at this time Smoking Status: Former smoker Past Alcohol Use History: Occasional Additional Past Alcohol Use History / Comment(s): started smoking age 17(1992) and quit age 22(1998), smoked less than 1 ppd. Past Drug Use History: Marijuana Additional Drug Use History / Comment(s): uses marijuana for appetite, edibles.or oil - Past Family History Mother Family Medical History: Hyperlipidemia, Renal Disease Additional Family Medical History / Comment(s): vit d- deficiency, anemia Father Family Medical History: COPD Additional Family Medical History / Comment(s): "bowel problems-hx resection" Medications and Allergies Home Medications Medication Instructions Recorded Confirmed Type Acyclovir [Zovirax] 800 mg PO BID 05/18/17 10/26/23 History Ruxolitinib Phosphate [Jakafi] 5 mg PO BID 10/03/21 10/26/23 History Empagliflozin [Jardiance] 25 mg PO DAILY 02/12/22 10/26/23 History Prochlorperazine [Compazine] 10 mg PO DAILY 10/18/22 10/26/23 History Apixaban [Eliquis] 5 mg PO BID #180 tab 05/28/23 10/26/23 Rx Cyclobenzaprine [Flexeril] 10 mg PO BID 10/26/23 10/26/23 History Docusate [Colace] 100 mg PO DAILY 10/26/23 10/26/23 History Ergocalciferol [Vitamin D2 (1250 1,250 mcg PO FLOYD 10/26/23 10/26/23 History Mcg = 93376 Iu)] Escitalopram [Lexapro] 10 mg PO DAILY 10/26/23 10/26/23 History HYDROcodone/APAP 10-325MG [Laona 1 tab PO QID PRN 10/26/23 10/26/23 History 10-325] Naloxone HCl [Narcan] 4 mg NASAL DIRECTED PRN 10/26/23 10/26/23 History Oxybutynin ER [Ditropan XL] 10 mg PO DAILY 10/26/23 10/26/23 History Pantoprazole [Protonix] 40 mg PO BID 10/26/23 10/26/23 History Pentosan Polysulfate Sodium 100 mg PO TID 10/26/23 10/26/23 History [Elmiron] Semaglutide [Ozempic] 1 mg SQ TH 10/26/23 10/26/23 History Sulfamethox-Tmp 400-80Mg [Bactrim 1 tab PO DAILY 10/26/23 10/26/23 History SS 400-80 mg] Tacrolimus [Prograf] 0.5 mg PO BID 10/26/23 10/26/23 History carvediloL [Coreg] 3.125 mg PO BID 10/26/23 10/26/23 History Allergies Allergy/AdvReac Type Severity Reaction Status Date / Time fondaparinux [From Arixtra] Allergy Intermediate Rash/Hives Verified 10/26/23 13:06 propoxyphene napsylate Allergy Intermediate Rash/Hives Verified 10/26/23 13:06 [From Darvocet-N] Physical Examination - Vital Signs Vital Signs: Vital Signs Temp Pulse Pulse Pulse Pulse Pulse Resp 10/26/23 18:27 98.1 F 86 16 10/26/23 15:00 98.6 F 76 16 10/26/23 08:15 98.3 F 70 92 66 16 10/26/23 05:25 97.9 F 74 16 10/26/23 01:00 87 18 10/25/23 23:00 79 18 10/25/23 21:56 82 18 10/25/23 20:12 99.4 F 109 H 18 BP BP BP BP Pulse Ox 10/26/23 18:27 116/79 99 10/26/23 15:00 113/74 98 10/26/23 08:15 118/79 99/69 117/78 99 10/26/23 05:25 121/81 95 10/26/23 01:00 121/76 98 10/25/23 23:00 106/71 97 10/25/23 21:56 106/74 95 10/25/23 20:12 94/65 95 Intake and Output 10/26/23 10/26/23 10/26/23 06:59 14:59 22:59 Intake Total 236 Balance 236 Intake: Oral 236 Other: Voiding Method Toilet # Voids 2 Weight 68.039 kg Patient is a middle aged female, very pleasant in no acute distress. Patient is alert awake oriented to time place and person. Speech and language functions are normal. Patient can name and repeat very well. No aphasia or dysarthria. Attention, concentration and fund of knowledge is adequate. On cranial nerve examination, pupils are equal, round and reacting to light, visual quach are full on confrontation, with no neglect on double simultaneous stimulation. Extraocular muscles are intact with no nystagmus. Face is symmetric, tongue protrudes to the midline. Palatal elevation and sensation normal, hearing and shoulder shrug normal, facial sensation normal. On muscle strength testing, there is no pronator drift and the strength is normal in arms and legs distally and proximally. Deep tendon reflexes are symmetric 2+ all over and plantars downgoing. Sensory to touch is equal with no neglect on double simultaneous stimulation. Cerebellar function showed no ataxia for obnwkv-xj-vsee testing. No dysdiadochokinesia. No ataxia for [id number]-[id number] testing on either side. Tone and bulk of muscles normal. Gait deferred.. On general examination, there is no carotid bruit or murmur, S1-S2 audible. Chest is clear on consultation. Abdomen is soft nontender. No organomegaly, bowel sounds present. Peripheral pulses are present. No peripheral edema. Results - Laboratory Findings CBC and BMP: 10/25/23 20:53 10/25/23 22:58 Abnormal Lab Findings: Abnormal Labs 10/25/23 10/26/23 22:58 17:15 Chloride 113 H Carbon Dioxide 19 L BUN 19 H Glucose 72 L POC Glucose (mg/dL) 113 H Calcium 8.3 L Total Protein 5.8 L Assessment and Plan Assessment: * Syncopal episodes, likely due to orthostasis. Patient has lost 50 pounds since she underwent gastric sleeve surgery in May 2023. She has hardly any appetite, likely resulting in hypovolemia and orthostasis. Patient was hydrated in the hospital and even then her orthostatics were borderline n ormal, with drop in systolic only 19 mm. (Positive if drop in systolic more than 20 points). * Status post gastric sleeve surgery May 2023 * History of hypertension * Memory disturbance, probably due to electrolyte/nutritional deficiency * Marijuana use Plan: * Orthostatics checked were very borderline normal. Continue checking orthostatics. May need tilt table test. * If patient continues to have drop in the blood pressure on standing up, or feels dizzy, then she may need midodrine. Two of the blood pressure medications already have been stopped. Currently only on Coreg. * 2D echo revealed impaired left ventricular function with EF is 40 to 45%. Lef t ventricular cavity size is normal. Abnormal/paradoxical septal motion consistent with postoperative state. Reduced global left ventricular systolic function. Normal right atrial size. Mildly increased left atrial volume. Thickened/prolapsed mitral valve leaflets with moderate MR. * Check carotid Doppler * Patient currently on Eliquis 5 mg twice daily. * CT head completed, results pending. * Regarding memory loss, will check detailed blood test to rule out nutritional/mineral deficiency. * Neurology will follow sporadically. * Thank you for the consult.
--- NOTE | 2023-10-26 21:17 | CT ---
EXAMINATION TYPE: CT brain wo con CT DLP: 1064.3 mGycm, Automated exposure control for dose reduction was used. DATE OF EXAM: 10/26/2023 5:47 PM COMPARISON: None.. CLINICAL INDICATION:Female, 48 years old with history of fall prior to arrival on [facility], [facility] TECHNIQUE: Brain: Axial CT images of the brain were obtained with coronal and sagittal reformats created and rev iewed. Contrast used: None. Oral contrast used: None. FINDINGS: Extra-axial spaces: No abnormal extra-axial fluid collections. Basilar cisterns are patent. Ventricular system: Ventricles appear dilated in proportion to the degree of cerebral atrophy. Cerebral parenchyma: No increased attenuation to suggest acute intraparenchymal hemorrhage. The gra y-white matter interface appears maintained. Mild generalized brain atrophy. Scattered hypoattenuat ing areas are seen within the cerebral white matter, nonspecific but most often seen with chronic lynn rovascular ischemic changes; mild in degree. Cerebellum: No acute abnormality. Mass effect: No evidence of mass effect or midline shift. Intracranial vasculature: Atherosclerotic calcifications of the larger arteries near the skull base. Soft tissues: No acute or concerning abnormality. Visualized orbits: No acute intraorbital abnormality. It appears previous lens surgery has been per formed bilaterally. Calvarium/osseous structures: No evidence of calvarial fracture. Paranasal sinuses and mastoid air cells: Small foci polypoid mucosal thickening in the bilateral maxi llary sinuses. Otherwise clear. MRI is more sensitive for detecting acute processes such as infarct, and may be considered if clinica lly warranted. IMPRESSION: No acute intracranial CT abnormality.
[2023-10-26 21:41] LABS: Glucose,Whole Blood 90 mg/dL (70-110)
[2023-10-27 05:51] LABS: Glucose,Whole Blood 83 mg/dL (70-110)
[2023-10-27] MEDS: DOCUSATE 100 MG CAP PO SCH (08:28)
[2023-10-27] MEDS: SULFAMETHOX-TMP 400-80MG 1 EACH TAB PO SCH (08:29)
[2023-10-27] MEDS: OXYBUTYNIN 10 MG TAB.ER.24 PO SCH (08:30)
[2023-10-27] MEDS: ESCITALOPRAM 10 MG TAB PO SCH (08:30)
--- NOTE | 2023-10-27 09:05 | US ---
EXAMINATION TYPE: US carotid duplex BILAT DATE OF EXAM: 10/27/2023 COMPARISON: NONE CLINICAL INDICATION: Female, 48 years old with history of Recurrent syncope; syncope TECHNIQUE: Carotid duplex ultrasound examination. Indirect Doppler criteria was utilized. FINDINGS: EXAM MEASUREMENTS: RIGHT: Peak Systolic Velocity (PSV) cm/sec ----- Right CCA: 94.4 ----- Right ICA: 81.3 ----- Right ECA: 117.2 ICA/CCA ratio: 0.9 RIGHT: End Diastole cm/sec ----- Right CCA: 34.8 ----- Right ICA: 31.8 ----- Right ECA: 21.2 LEFT: Peak Systolic Velocity (PSV) cm/sec ----- Left CCA: 94.1 ----- Left ICA: 79.7 ----- Left ECA: 123.7 ICA/CCA ratio: 0.8 LEFT: End Diastole cm/sec ----- Left CCA: 36.9 ----- Left ICA: 38.3 ----- Left ECA: 26.8 VERTEBRALS (direction of flow): Right Vertebral: Antegrade Left Vertebral: Antegrade Rhythm: Normal MILIEU THERAPIST NOTES: No plaque seen. No elevated velocities IMPRESSION: Less than 50% stenosis of the bilateral carotid bifurcations Criteria for Assigning % of Stenosis / Diameter reduction (Estimation based on the indirect measurements of the internal carotid artery velocities (ICA PSV). 1. Normal (no stenosis)=ICA PSV < 125 cm/s: ratio < 2.0: ICA EDV<40 cm/s. 2. Less than 50% stenosis=ICA PSV < 125 cm/s: ratio < 2.0: ICA EDV<40 cm/s. 3. 50 to 69% stenosis=ICA PSV of 125 to 230 cm/s: ration 2.0 ? 4.0: ICA EDV 40-100 cm/s. 4. Greater than 70% stenosis to near occlusion= ICA PSV > 230 cm/s: ratio > 4.0: ICA EDV > 100 cm/s. 5. Near occlusion= ICA PSV velocities may be low or undetectable: variable ratio and ICA EDV. 6. Total occlusion=unable to detect flow.
[2023-10-27 09:36] LABS: Basophils # (A) 0.02 X 10*3/uL (0.00-0.10); Basophils % (A) 0.5 %; Eosinophils # (A) 0.07 X 10*3/uL (0.04-0.35); Eosinophils % (A) 1.8 %; HCT 34.5 % (37.2-46.3); HGB 11.4 g/dL (12.0-15.0); Lymphocytes # (A) 0.96 X 10*3/uL (0.90-5.00); Lymphocytes % (A) 24.4 %; MCH 32.7 pg (27.0-32.0); MCV 98.9 FL (80.0-97.0); Mean Platelet Volume 9.4 FL (9.5-12.2); Monocytes # (A) 0.46 X 10*3/uL (0.20-1.00); Monocytes % (A) 11.7 %; NRBC Per 100 WBC 0 X 10*3/uL (0.00-0.01); Neutrophils # (A) 2.41 X 10*3/uL (1.80-7.70); Neutrophils % (A) 61.3 %; Platelet Count 192 X 10*3/uL (140-440); RBC 3.49 X 10*6/uL (4.10-5.20); RDW 15.4 % (11.5-14.5); WBC 3.93 X 10*3/uL (4.50-10.00)
[2023-10-27 09:50] LABS: Blood Urea Nitrogen 10.5 mg/dL (9.0-27.0); Carbon Dioxide 20.6 mmol/L (21.6-31.8); Chloride 109 mmol/L (96-109); Glucose 77 mg/dL (70-110); Potassium 3.9 mmol/L (3.5-5.5); Sodium 141 mmol/L (135-145)
[2023-10-27 09:51] LABS: ALT 16 U/L (8-44); AST 21 U/L (13-35); Albumin 3.7 g/dL (3.8-4.9); Albumin/Globulin Ratio 2.18 Ratio (1.60-3.17); Alkaline Phosphatase 64 U/L (41-126); Calcium 8.7 mg/dL (8.7-10.3); Globulin 1.7 g/dL (1.6-3.3); Total Bilirubin 0.5 mg/dL (0.3-1.2); Total Protein 5.4 g/dL (6.2-8.2)
--- NOTE | 2023-10-27 10:46 | P.PN ---
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 She presented to the emergency department with a chief complaint of syncopal episode. Upon arrival to our facility, patient underwent evaluation in the emergency department. Vital signs upon arrival show blood pressure 94/65, heart rate 109, respiratory rate 18, temp 99.4 F, and SpO2 of 95% on room air. EKG completed showing normal sinus rhythm at 91 bpm with T wave inversion in lateral lead aVL upon personal review and interpretation. Labs completed and reviewed. CBC and coagulation profile normal findings. BMP showing metabolic acidosis with chloride of 113, bicarb of 19, and anion gap of 5 and mild prerenal azotemia with BUN of 19. Blood glucose was also slightly low at 72. Magnesium normal findings at 1.8. And liver profile normal findings. Troponin negative at less than 0.012. CT facial bones was completed showing mild right cheek soft tissue swelling and minimal deviation of the right nasal bone concerning for minimally displaced fracture. Admitted under our services with consultation to neurology. Physical exam: Patient seen and fully evaluated at bedside this morning, she was drinking an iced coffee visiting with family at bedside. She reports feeling better this morning states feeling just a little foggy otherwise back to her baseline. Patient denies having any headache, lightheadedness, dizziness, chest pain, palpitations, shortness of breath, or any other complaints. Carotid Dopplers we re completed and currently awaiting results. Vital signs reviewed and stable. General: Nontoxic, no distress and appears stated age. Derm: Skin warm and dry, normal coloration for ethnicity. Head: normocephalic and symmetric. Mild swelling right cheek and jaw Eyes: EOMs intact, no lid lag, and anicteric sclera Mouth: no lip lesions, mucus membranes moist Cardiovascular: regular rate and rhythm with normal S1S2, soft systolic murmur, positive posterior tibial pulses bilaterally, and cap refill < 2 seconds. Lungs: Respirations even, regular, and unlabored on room air. Lungs CTA bilatera lly, no rhonchi, no rales, no wheezing, and no accessory muscle usage. Abdominal: soft, nontender to palpation, no guarding, no appreciable organomegaly Ext: ROM intact. No gross muscle atrophy, no edema, no contractures Neuro: Speech clear, face symmetrical and CN II-XII grossly intact with no noted focal neuro deficits Psych: Alert and oriented to person, place, time, and situation. Appropriate and pleasant affect. Assessment and Plan of Care: Recurrent syncopal episodes, possibly resulting from orthostatic hypotension vs hypoglycemic event Facial trauma resulting in mildly displaced nasal bone fracture Reports of memory loss Hypotension Type 2 diabetes mellitus with hypoglycemia -Neurology consulted, discussed plan of care with Dr. Galan. Awaiting carotid Doppler results and repeat Ortho static vitals. -ENT consulted for evaluation of mildly displaced nasal bone fracture. -Telemetry monitoring. -Orthostatic vitals -Fall precautions -Symptomatic care and pain management -Hold Ozempic and Jardiance and place patient on glycemic protocol. Hemoglobin A1c 5.6%. 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 -Order placed for tacrolimus level Paroxysmal atrial fibrillation and flutter, currently maintaining sinus mechanism Hypertension -At this time patient to continue anticoagulation with Eliquis 5 mg twice daily and carvedilol 3.125 mg twice daily Anxiety and depression -Continue Lexapro 10 mg daily Data and imaging reviewed: -Echocardiogram was completed showing a reduced EF of 40 to 45% with thickened/prolapsed mitral valve leaflets with moderate mitral regurgitation. -CT brain was negative for acute intracranial process. -CT facial bones was completed showing mild right cheek soft tissue swelling and minimal deviation of the right nasal bone concerning for minimally displaced fracture. -Morning labs reviewed. CBC showing WBC count of 3.93, hemoglobin of 11.4, and platelet count of 192. BMP was unremarkable. Hemoglobin A1c 5.6%. -Vital signs reviewed and stable. Blood pressure 108/72, heart rate 92, respiratory rate 15, temp 98.3 F, and SpO2 of 99% on room air. CODE STATUS: Full code DVT prophylaxis: Eliquis Anticipated discharge date: Likely within the next 24 hours, possibly this afternoon pending neurology clearance. Anticipated discharge place: Home Patient was seen independently by Nurse Pracitioner. This document was prepared using [employer] dictation software. Please allow for errors in preparation plant supervisor, while rare they do occur. Eber Lorenzo PROBATE CLERK rendered care for this patient independently, reviewed the findings and plan as documented in the note above. I did not physically speak with or examine the patient on this date. Objective - Vital Signs Vital signs: Vital Signs Temp 98.3 F 10/27/23 07:30 Pulse 92 10/27/23 07:30 Resp 15 10/27/23 07:30 BP 108/72 10/27/23 07:30 Pulse Ox 99 10/27/23 07:30 FiO2 Intake & Output 10/26/23 10/27/23 10/27/23 18:59 06:59 18:59 Intake Total 236 Balance 236 Weight 68.039 kg Intake: Oral 236 Other: Voiding Method Toilet Toilet # Voids 2 3 - Labs CBC & Chem 7: 10/27/23 05:51 10/27/23 05:51 Labs: Abnormal Lab Results - Last 24 Hours (Table) 10/26/23 Range/Units 17:15 POC Glucose (mg/dL) 113 H (70-110) mg/dL
[2023-10-27 12:11] LABS: Glucose,Whole Blood 108 mg/dL (70-110)
[2023-10-27] MEDS: CYANOCOBALAMIN 1,000 MCG/ML 1 ML VIAL IM ONE (17:26)
[2023-10-27] MEDS: ERGOCALCIFEROL 1,250 MCG (50,000 IU) CAPSULE PO SCH (17:26)
[2023-10-27 17:27] LABS: Glucose,Whole Blood 98 mg/dL (70-110)
[2023-10-27 20:22] LABS: Glucose,Whole Blood 83 mg/dL (70-110)
[2023-10-28 06:01] LABS: Glucose,Whole Blood 97 mg/dL (70-110)
[2023-10-28 07:29] VITALS: BP 100/65; PULSE 88; RESP 16; TEMP 97.9
[2023-10-28] MEDS: CYANOCOBALAMIN 500 MCG TAB PO SCH (10:22)
[2023-10-28 12:16] LABS: Glucose,Whole Blood 85 mg/dL (70-110)
--- NOTE | 2023-10-28 12:27 | P.DS ---
Providers Date of admission: 10/26/23 00:08 Expected date of discharge: 10/28/23 Attending physician: Lela Benson MD Consults: 10/26/23 11:00 Consult Physician Routine Consulting Provider: Shabbir Galan Consult Reason/Comments: syncope w/ reports of memory loss Do you want consulting provider notified?: Yes 10/26/23 16:01 Consult Physician Routine Consulting Provider: Vasyl Mahan Consult Reason/Comments: displaced nasal bone fx s/p syncopal episode Do you want consulting provider notified?: Yes Primary care physician: Guru Kline MD Hospital Course: Discharge Diagnosis: Recurrent syncopal episodes, believed to be secondary to recurrent episodes of hypoglycemia. Secondary to recurrent episodes of syncope and findings of hypoglycemia, it is recommended to discontinue Ozempic and Jardiance at this time.Hemoglobin A1c is 5.6%. It is likely that pt no longer needs these me dications since her > 50 lb weight loss after having gastric sleeve surgery. Recommend repeat A1c level in 3 months and continued close monitoring of blood glucose levels, if they begin to elevate greater than 200s on a consistent basis to discuss this with PCP for further guidance. Facial trauma resulting in mildly displaced nasal bone fracture. Patient to follow-up outpatient with ENT, Dr. Chang. Reports of memory loss Orthostatic hypotension ruled out. Blood pressure stable. Orthostatic hypotension ruled out. Type 2 diabetes mellitus with hypoglycemia. Hemoglobin A1c 5.6%. Secondary to recurrent episodes of syncope and findings of hypoglycemia, it is recommended to discontinue Ozempic and Jardiance at this time.Hemoglobin A1c is 5.6%. It is likely that pt no longer needs these medications since her > 50 lb weight loss after having gastric sleeve surgery. Recommend repeat A1c level in 3 months and continued close monitoring of blood glucose levels, if they begin to elevate greater than 200s on a consistent basis to discuss this with PCP for further guidance. History of leukemia status post stem cell and bone marrow transplant Continue tacrolimus 0.5 mg twice daily, ruxolitinib 5 mg twice daily, Bactrim 400/80 mg tablet daily, and acyclovir 800 mg twice daily. Paroxysmal atrial fibrillation and flutter, currently maintaining sinus mechanism. Continue anticoagulation with Eliquis 5 mg twice daily and carvedilol 3.125 mg twice daily Hypertension. 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 She presented to the emergency department with a chief complaint of syncopal episode. Upon arrival to our facility, patient underwent evaluation in the emergency department. Vital signs upon arrival show blood pressure 94/65, heart rate 109, respiratory rate 18, temp 99.4 F, and SpO2 of 95% on room air. EKG completed showing normal sinus rhythm at 91 bpm with T wave inversion in lateral lead aVL upon personal review and interpretation. Labs completed and reviewed. CBC and coagulation profile normal findings. BMP showing metabolic acidosis with chloride of 113, bicarb of 19, and anion gap of 5 and mild prerenal azotemia with BUN of 19. Blood glucose was also slightly low at 72. Magnesium normal findings at 1.8. And liver profile normal findings. Troponin negative at less than 0.012. CT facial bones was completed showing mild right cheek soft tissue swelling and minimal deviation of the right nasal bone concerning for minimally displaced fracture. Admitted under our services with consultation to neurology.Echocardiogram was completed showing a reduced EF of 40 to 45% with thickened/prolapsed mitral valve leaflets with moderate mitral regurgitation. CT brain was negative for acute intracranial process. Carotid Dopplers negative for stenosis. Patient cleared from neurology perspective for discharge. ENT was notified of consult stated patient to be seen outpatient in their office after discharge. Patient was found to have episodes of hypoglycemia and with her recurrent syncopal episodes at home and current hemoglobin A1c of 5.6%, recommended patient discontinue Jardiance and Ozempic. It is likely that patient no longer needs these medications after her greater than 50 pound weight loss over the past 6 months due to her gastric sleeve. Patient was recommended to continue to monitor her blood glucose levels daily and if she begins to have elevated levels greater than 200 to notify her PCP for further direction but at this time to stop Ozempic and Jardiance due to recurrent episodes of hypoglycemia and syncopal episodes. Medically, patient is stable for discharge at this time. Patient to follow-up outpatient with PCP and ENT. Physical exam: Vital signs reviewed and stable. General: Nontoxic, no distress and appears stated age. Derm: Skin warm and dry, normal coloration for ethnicity. Head: normocephalic and symmetric. Mild swelling right cheek and jaw Eyes: EOMs intact, no lid lag, and anicteric sclera Mouth: no lip lesions, mucus membranes moist Cardiovascular: regular rate and rhythm with normal S1S2, soft systolic murmur, positive posterior tibial pulses bilaterally, and cap refill < 2 seconds. Lungs: Respirations even, regular, and unlabored on room air. Lungs CTA bilaterally, no rhonchi, no rales, no wheezing, and no accessory muscle usage. Abdominal: soft, nontender to palpation, no guarding, no appreciable organomegaly Ext: ROM intact. No gross muscle atrophy, no edema, no contractures Neuro: Speech clear, face symmetrical and CN II-XII grossly intact with no noted focal neuro deficits Psych: Alert and oriented to person, place, time, and situation. Appropriate and pleasant affect. A total of 34 minutes of time were spent preparing this complex discharge summary. Pt was discharged on 10/28/2023 at 12:23 PM. Patient was seen independently by Nurse Practitioner. This document was prepared using datat[employer] dictation software. Please allow for errors in refuge manager while rare they do occur. Eber Lorenzo NP rendered care for this patient independently, reviewed the findings and plan as documented in the note above. I did not physically speak with or examine the patient on this date. Patient Condition at Discharge: Stable Plan - Discharge Summary Discharge Rx Participant: No New Discharge Prescriptions: New Cyanocobalamin [Vitamin B-12] 1,000 mcg PO DAILY 30 Days #30 tab Continue Acyclovir [Zovirax] 800 mg PO BID Prochlorperazine [Compazine] 10 mg PO DAILY Apixaban [Eliquis] 5 mg PO BID #180 tab Docusate [Colace] 100 mg PO DAILY Cyclobenzaprine [Flexeril] 10 mg PO BID carvediloL [Coreg] 3.125 mg PO BID Ergocalciferol [Vitamin D2 (1250 Mcg = 96977 Iu)] 1,250 mcg PO FLOYD Sulfamethox-Tmp 400-80Mg [Bactrim SS 400-80 mg] 1 tab PO DAILY Pantoprazole [Protonix] 40 mg PO BID Ruxolitinib Phosphate [Jakafi] 5 mg PO BID Naloxone HCl [Narcan] 4 mg NASAL DIRECTED PRN PRN Reason: Opioid Reversal Pentosan Polysulfate Sodium [Elmiron] 100 mg PO TID Oxybutynin ER [Ditropan XL] 10 mg PO DAILY Tacrolimus [Prograf] 0.5 mg PO BID Escitalopram [Lexapro] 10 mg PO DAILY HYDROcodone/APAP 10-325MG [[place] 10-325] 1 tab PO QID PRN PRN Reason: Pain Discontinued Semaglutide [Ozempic] 1 mg SQ TH Empagliflozin [Jardiance] 25 mg PO DAILY Discharge Medication List Acyclovir [Zovirax] 800 mg PO BID 05/18/17 [History] Ruxolitinib Phosphate [Jakafi] 5 mg PO BID 10/03/21 [History] Prochlorperazine [Compazine] 10 mg PO DAILY 10/18/22 [History] Apixaban [Eliquis] 5 mg PO BID #180 tab 05/28/23 [Rx] Cyclobenzaprine [Flexeril] 10 mg PO BID 10/26/23 [History] Docusate [Colace] 100 mg PO DAILY 10/26/23 [History] Ergocalciferol [Vitamin D2 (1250 Mcg = 50470 Iu)] 1,250 mcg PO FLOYD 10/26/23 [History] Escitalopram [Lexapro] 10 mg PO DAILY 10/26/23 [History] HYDROcodone/APAP 10-325MG [[place] 10-325] 1 tab PO QID PRN 10/26/23 [History] Naloxone HCl [Narcan] 4 mg NASAL DIRECTED PRN 10/26/23 [History] Oxybutynin ER [Ditropan XL] 10 mg PO DAILY 10/26/23 [History] Pantoprazole [Protonix] 40 mg PO BID 10/26/23 [History] Pentosan Polysulfate Sodium [Elmiron] 100 mg PO TID 10/26/23 [History] Sulfamethox-Tmp 400-80Mg [Bactrim SS 400-80 mg] 1 tab PO DAILY 10/26/23 [History] Tacrolimus [Prograf] 0.5 mg PO BID 10/26/23 [History] carvediloL [Coreg] 3.125 mg PO BID 10/26/23 [History] Cyanocobalamin [Vitamin B-12] 1,000 mcg PO DAILY 30 Days #30 tab 10/27/23 [Rx] Follow up Appointment(s)/Referral(s): Guru Kline MD [Primary Care Provider] - 1-2 days (Call to schedule follow-up appointment.) Nicola Chang MD [STAFF PHYSICIAN] - 1 Week (Please call office after 9am to schedule follow up appointment for nasal fracture.) Patient Instructions/Handouts: Syncope (DC), Hypoglycemia in a Person with Diabetes (DC) Activity/Diet/Wound Care/Special Instructions: Activity: As tolerated. Take breaks as needed. Diet: Heart healthy and carb consistent diet. Avoid salts, or foods with hidden salts such as canned or boxed foods and frozen dinners. Extra salt makes your heart work harder and traps the fluid in your body for longer. Special Instructions: Take all of your medications as directed and remember to keep all of your doctor's appointments and follow-up as needed. You will follow-up with ENT, Dr. Chang in office for evaluation of mildly displaced nasal bone fracture. Secondary to recurrent episodes of syncope and findings of hypoglycemia, it is recommended to discontinue Ozempic and Jardiance at this time. Your hemoglobin A1c is 5.6%. It is likely that you no longer need these medications since your weight loss. Recommend repeat A1c level in 3 months and continued close monitoring of blood glucose levels, if they begin to elevate greater than 200s consistent basis, it is important to discuss this with your PCP on your follow- up visit. [place] state law states no driving until seizure/syncope free for greater than 6 months. Thank you for allowing us to participate in your care, it was truly a pleasure having you for our patient!!! Discharge Disposition: HOME SELF-CARE
[2023-10-29 04:23] LABS: Methylmalonic Acid 0.12 umol/L (<0.40)
--- NOTE | 2023-11-02 00:03 | P.PN ---
Subjective Progress Note Date: 10/28/23 Objective - Vital Signs Vital signs: Vital Signs Temp 97.9 F 10/28/23 07:05 Pulse 88 10/28/23 07:05 Resp 16 10/28/23 07:05 BP 100/65 10/28/23 07:05 Pulse Ox 98 10/28/23 07:05 FiO2 Intake & Output 10/27/23 10/28/23 10/28/23 18:59 06:59 18:59 Intake Total 708 Balance 708 Intake: Oral 708 Other: Voiding Method Toilet Toilet Toilet # Voids 1 2 1 - Labs CBC & Chem 7: 10/27/23 05:51 10/27/23 05:51 Labs: Abnormal Lab Results - Last 24 Hours (Table) 10/26/23 Range/Units 11:33 Tacrolimus 3.2 L (5.0-20.0) ng/mL Assessment and Plan Assessment: * Syncopal episodes, likely due to orthostasis. Patient has lost 50 pounds since she underwent gastric sleeve surgery in May 2023. She has hardly any appetite, likely resulting in hypovolemia and orthostasis. Patient was hydrated in the hospital and even then her orthostatics were borderline normal, with drop in systolic only 19 mm Hg. (Positive if drop in systolic more than 20 points). * Status post gastric sleeve surgery May 2023 * History of hypertension * Memory disturbance, probably due to electrolyte/nutritional deficiency * Marijuana use Plan: * Orthostatics checked again, and now are negative. Supine blood pressure 100/65, sitting 112/78 and standing 104/71. Pulse rate remained between 88 and 89. * If patient continues to have drop in the blood pressure on standing up, or feels dizzy, then she may need midodrine. Two of the blood pressure medications already have been stopped. Currently only on Coreg. Orthostatics have improved with adjustment of the blood pressure medication. * 2D echo revealed impaired left ventricular function with EF is 40 to 45%. Left ventricular cavity size is normal. Abnormal/paradoxical septal motion consistent with postoperative state. Reduced global left ventricular systolic function. Normal right atrial size. Mildly increased left atrial volume. Thickened/prolapsed mitral valve leaflets with moderate MR. * Carotid Doppler revealed less than 50% stenosis of bilateral carotid bif urcations. Antegrade flow in both vertebral arteries. * Patient currently on Eliquis 5 mg twice daily. * CT head showed no acute abnormalities. * Regarding memory loss, patient's blood test shows copper normal 1155, zinc normal 90 (60- 30), B12 322, B6 17, BUN 49, methylmalonic acid 0.12, folate 15.40, all normal. TSH 1.41. Hemoglobin A1c 5.6. All blood test came back normal. * Neurologically clear for discharge.
== END 2023-10-28 15:45 | disposition home or self-care (01) ==
LOC: EC 20:06 → 6NMEDSUR 10-26 00:08
PROVIDERS: ADMIT Internal Medicine; ATTEND Internal Medicine
DX: R55 Syncope and collapse (principal); R42 Dizziness and giddiness; S02.2XXA Fracture of nasal bones, initial encounter for closed fracture; W19.XXXA Unspecified fall, initial encounter; E11.649 Type 2 diabetes mellitus with hypoglycemia without coma; J44.9 Chronic obstructive pulmonary disease, unspecified; C92.01 Acute myeloblastic leukemia, in remission; F32.A Depression, unspecified; F41.9 Anxiety disorder, unspecified; I10 Essential (primary) hypertension; R41.3 Other amnesia; F12.90 Cannabis use, unspecified, uncomplicated; Q24.9 Congenital malformation of heart, unspecified; I48.0 Paroxysmal atrial fibrillation; K21.9 Gastro-esophageal reflux disease without esophagitis; Z87.891 Personal history of nicotine dependence; Z94.81 Bone marrow transplant status; Z94.84 Stem cells transplant status; Z98.84 Bariatric surgery status; Z79.01 Long term (current) use of anticoagulants; Z79.84 Long term (current) use of oral hypoglycemic drugs; Z79.899 Other long term (current) drug therapy
CPT/HCPCS: 96376 ×4; 96361 ×2; 96372 ×2; 96374; 96375; 99285; 36415; 93005; 93306; 84207; 83921; 84425; 80053 ×2; 80197; 84443; 82607; 82525; 82746; 83735; 84100; 84484; 84630; 85025 ×2; 85610; 85730; 83036; 73562; 93880; 70486; 70450; G0378 ×3; J3420; J1650; J1885 ×2; J1170 ×3

== ENCOUNTER 2024-03-23 07:56 | Emergency (ER) | payer MEDICARE ==
[2024-03-23 08:01] VITALS: RESP 18
--- NOTE | 2024-03-23 08:15 | ED ---
Lower Extremity Injury HPI - General Chief Complaint: Extremity Injury, Lower Stated Complaint: ankle injury Time Seen by Provider: 03/23/24 08:03 Source: patient, RN notes reviewed Mode of arrival: ambulatory Limitations: no limitations - History of Present Illness Initial Comments: This is a 48-year-old female who presents to the emergency department for a right ankle injury. Patient was trying to do chair yoga this morning and lost her balance and slipped, injuring her right ankle. She heard a large crack when she fell and states that she has been unable to bear weight since. She has not yet taken anything for pain. Most of the pain is on the outside of the right ankle. MD Complaint: ankle injury - Related Data Home Medications Medication Instructions Recorded Confirmed Acyclovir [Zovirax] 800 mg PO BID 05/18/17 10/26/23 Ruxolitinib Phosphate [Jakafi] 5 mg PO BID 10/03/21 10/26/23 Prochlorperazine [Compazine] 10 mg PO DAILY 10/18/22 10/26/23 Cyclobenzaprine [Flexeril] 10 mg PO BID 10/26/23 10/26/23 Docusate [Colace] 100 mg PO DAILY 10/26/23 10/26/23 Ergocalciferol [Vitamin D2 (1250 1,250 mcg PO FLOYD 10/26/23 10/26/23 Mcg = 16541 Iu)] Escitalopram [Lexapro] 10 mg PO DAILY 10/26/23 10/26/23 HYDROcodone/APAP 10-325MG [Mcville 1 tab PO QID PRN 10/26/23 10/26/23 10-325] Naloxone HCl [Narcan] 4 mg NASAL DIRECTED PRN 10/26/23 10/26/23 Oxybutynin ER [Ditropan XL] 10 mg PO DAILY 10/26/23 10/26/23 Pantoprazole [Protonix] 40 mg PO BID 10/26/23 10/26/23 Pentosan Polysulfate Sodium 100 mg PO TID 10/26/23 10/26/23 [Elmiron] Sulfamethox-Tmp 400-80Mg [Bactrim 1 tab PO DAILY 10/26/23 10/26/23 SS 400-80 mg] Tacrolimus [Prograf] 0.5 mg PO BID 10/26/23 10/26/23 carvediloL [Coreg] 3.125 mg PO BID 10/26/23 10/26/23 Previous Rx's Medication Instructions Recorded Apixaban [Eliquis] 5 mg PO BID #180 tab 05/28/23 Cyanocobalamin [Vitamin B-12] 1,000 mcg PO DAILY 30 Days #30 tab 10/27/23 HYDROcodone/APAP 7.5-325MG [Mcville 1 tab PO Q6HR PRN 3 Days #12 tab 03/23/24 7.5-325] Allergies Allergy/AdvReac Type Severity Reaction Status Date / Time fondaparinux [From Arixtra] Allergy Intermediate Rash/Hives Verified 03/23/24 08:01 propoxyphene napsylate Allergy Intermediate Rash/Hives Verified 03/23/24 08:01 [From Darvocet-N] Review of Systems ROS Statement: Those systems with pertinent positive or pertinent negative responses have been documented in the HPI. ROS Other: All systems not noted in ROS Statement are negative. 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, non-alcoholic fatty liver disease/cirrhosis (pt was found to have this during attempted surgery 01/2022) History of Any Multi-Drug Resistant Organisms: None Reported Past Surgical History: Bariatric Surgery, Section, Cholecystectomy, Hernia Repair, Orthopedic Surgery, Tubal Ligation, Uterine Ablation Additional Past Surgical History / Comment(s): left knee arthroscopy, left shoulder torn rotator cuff repair has pin in place, bone marrow transplant, open heart surgery at age 18 months "they took an artery out of leg to use in heart"., robotic assisted laproscopic sleeve gastrectomy 05-27-23 Past Anesthesia/Blood Transfusion Reactions: No Reported Reaction Additional Past Anesthesia/Blood Transfusion Reaction / Comment(s): several blood transfusion-pt denies any reaction Past Psychological History: Anxiety, Depression Smoking Status: Former smoker Past Alcohol Use History: Occasional Past Drug Use History: Marijuana - Past Family History Mother Family Medical History: Hyperlipidemia, Renal Disease Additional Family Medical History / Comment(s): vit d- deficiency, anemia Father Family Medical History: COPD Additional Family Medical History / Comment(s): "bowel problems-hx resection" General Exam Limitations: no limitations General appearance: alert, in no apparent distress Head exam: Present: atraumatic, normocephalic, normal inspection Respiratory exam: Present: normal lung sounds bilaterally. Absent: respiratory distress, wheezes, rales, rhonchi, stridor Cardiovascular Exam: Present: regular rate, normal rhythm, normal heart sounds. Absent: systolic murmur, diastolic murmur, rubs, gallop, clicks Extremities exam: Present: other (Tenderness to palpation over the right lateral malleolus. Range of motion limited by pain. 2+ DP and PT pulses) Neurological exam: Present: alert, oriented X3, CN II-XII intact Psychiatric exam: Present: normal affect, normal mood Skin exam: Present: warm, dry, intact, normal color. Absent: rash Course Vital Signs 03/23/24 03/23/24 07:58 10:15 Temperature 97.9 F 98.1 F Pulse Rate 83 80 Respiratory 18 18 Rate Blood Pressure 119/75 126/80 O2 Sat by Pulse 99 99 Oximetry Procedures - Orthopedic Splinting/Casting Injury #1 Side: right Lower Extremity Injury Location: ankle Lower Extremity Immobilizer: posterior splint, stirrup splint, fiberglass cast Other Orthopedic Equipment: crutches Medical Decision Making - Medical Decision Making This is a 48-year-old female who presents to the emergency department for a right ankle injury. Was pt. sent in by a medical professional or institution? @ -No Did you speak to anyone other than the patient for history? @ -No Did you review nursing and triage notes? @ -Yes, and I agree, it is accurate with regards to the patient's symptoms. Were old charts reviewed? @ -No Differential Diagnosis? @ -Differential Musculoskeletal: Muscular strain, contusion, ligament sprain, fracture, arthritis, septic arthritis, bursitis, cellulitis, muscle spasm, nerve compression, DVT, arterial occlusion, herpes zoster, electrolyte abnormality, tumor.... This is not meant t o be in all inclusive list EKG interpreted by me (3pts min.)? @ -Not obtained X-rays interpreted by me (1pt min.)? @ -X-ray of the right foot and ankle obtained. My interpretation identifies a distal fibular fracture. CT interpreted by me (1pt min.)? @ -Not obtained U/S interpreted by me (1pt. min.)? @ -Not obtained What testing was considered but not performed? (CT, X-rays, U/S, labs)? Why? @ -None What meds were considered but not given? Why? @ -None Did you discuss the management of the patient with other professionals? @ -No Did you reconcile home meds? @ -No Was smoking cessation discussed for >3mins.? @ -No Was critical care preformed (if so, how long)? @ -No Were there social determinants of health that impacted care today? How? (Homelessness, low income, unemployed, alcoholism, drug addiction, transportation, low edu. Level, literacy, decrease access to med. care, group home, rehab)? @ -No Was there de-escalation of care discussed even if they declined? (Discuss DNR or withdrawal of care, Hospice)? @ -No What co-morbidities impacted this encounter? (DM, HTN, Smoking, COPD, CAD, Cancer, CVA, Hep., AIDS, mental health diagnosis, sleep apnea, morbid obesity)? @ -Osteoarthritis Was patient admitted / discharged? @ -Discharged. X-ray of the right foot and ankle obtained. Patient found to have an acute hairline minimally displaced fracture of the distal fibula. Posterior stirrup splint applied and she was given crutches. Pain managed in the emergency department. Mcville prescribed for severe pain. Otherwise advised Tylenol, ice, and elevation. Information for orthopedic follow-up provided. She is instructed to contact them for a follow-up appointment. Patient discharged home in stable condition. Case discussed with ED attending Dr. Garcia. Return precautions reviewed in depth, the patient is instructed to return to the emergency department with any new, worsening, or concerning symptoms. Patient verbalized understanding. Undiagnosed new problem with uncertain prognosis? @ -None Drug Therapy requiring intensive monitoring for toxicity (Heparin, Nitro, Insulin, Cardizem)? @ -None Were any procedures done? @ -Posterior stirrup splint application to right foot Diagnosis/symptom? @ -Right distal fibular fracture Acute, or Chronic, or Acute on Chronic? @ -Acute Uncomplicated (without systemic symptoms) or Complicated (systemic symptoms)? @ -Uncomplicated Side effects of treatment? @ -None Exacerbation, Progression, or Severe Exacerbation] @ -Not applicable Poses a threat to life or bodily function? @ -Will limit her ability to ambulate for the mean time. - Radiology Data Radiology results: report reviewed, image reviewed Disposition Clinical Impression: Fracture of distal fibula Disposition: HOME SELF-CARE Instructions (If sedation given, give patient instructions): Ankle Fracture (ED), Splint Care (ED) Additional Instructions: Return to the emergency department with any new, worsening, or concerning symptoms. Elevate the leg and apply ice. Take the Mcville sparingly when your pain is the most severe and otherwise take Tylenol. Contact orthopedics as listed below for a follow-up appointment. Let them know that you were seen in the emergency department and found to have fractured your fibula. They will schedule you for a follow-up appointment. Follow up with your primary care provider in 1-2 days. Prescriptions: HYDROcodone/APAP 7.5-325MG [Mcville 7.5-325] 1 tab PO Q6HR PRN 3 Days #12 tab PRN Reason: Pain Is patient prescribed a controlled substance at d/c from ED?: Yes When asked, does pt state using other controlled substances?: No If prescribed controlled substance>3 days was MAPS reviewed?: Prescribed <3 Days Referrals: Guru Kline MD [Primary Care Provider] - 1-2 days Geovani Bundy MD [STAFF PHYSICIAN] - 1-2 days Time of Disposition: 09:59
[2024-03-23] MEDS: KETOROLAC 15 MG/ML 1 ML VIAL IM STA (08:19)
[2024-03-23] MEDS: HYDROmorphone 1 MG/ML 1 ML SYRINGE IM STA (08:20)
--- NOTE | 2024-03-23 08:47 | XR ---
EXAMINATION TYPE: XR ankle complete RT DATE OF EXAM: 03/23/2024 COMPARISON: NONE HISTORY: Pain FINDINGS: Three views of the ankle demonstrate the ankle mortise to be intact and symmetric. There is a fractur e through the distal fibula with minimal displacement.. Soft tissue edema. IMPRESSION: 1. Acute hairline minimally displaced fracture distal fibula [facility], , 03/23/2024 8:44 AM
--- NOTE | 2024-03-23 08:49 | XR ---
EXAMINATION TYPE: XR foot complete RT DATE OF EXAM: 03/23/2024 COMPARISON: NONE CLINICAL INDICATION: Female, 48 years old with history of Injury; TECHNIQUE: Three views are submitted. FINDINGS: Minimally displaced hairline fracture through the distal fibula. Hammertoe deformities are noted. The re is no acute fracture or dislocation. Joint spaces are preserved. IMPRESSION: 1. Minimally displaced oblique fracture distal fibula. [facility], , 03/23/2024 8:46 AM
[2024-03-23 10:17] VITALS: BP 126/80; PULSE 80; TEMP 98.1
== END 2024-03-23 10:18 | disposition home or self-care (01) ==
LOC: EC 07:56
DX: S82.831A Other fracture of upper and lower end of right fibula, initial encounter for closed fracture (principal); Z88.8 Allergy status to other drugs, medicaments and biological substances; Z87.891 Personal history of nicotine dependence; W01.0XXA Fall on same level from slipping, tripping and stumbling without subsequent striking against object, initial encounter
CPT/HCPCS: 73610; 73630; 29515; 99284; 96372 ×2; J1171; J1885

== ENCOUNTER → 2024-07-17 | Outpatient (CLI) | payer MEDICARE ==
[2024-07-17 15:08] LABS: INR 0.9 (<1.2); Partial Thromboplastin Time 25.6 sec (22.0-30.0); Prothrombin Time 10.4 sec (10.0-12.5)
[2024-07-17 18:18] LABS: HCT 40.9 % (37.2-46.3); HGB 13.1 g/dL (12.0-15.0); MCH 31.3 pg (27.0-32.0); MCV 97.6 FL (80.0-97.0); Mean Platelet Volume 9.3 FL (9.5-12.2); NRBC Per 100 WBC 0 X 10*3/uL (0.00-0.01); Platelet Count 343 X 10*3/uL (140-440); RBC 4.19 X 10*6/uL (4.10-5.20); RDW 13.7 % (11.5-14.5); WBC 5.14 X 10*3/uL (4.50-10.00)
[2024-07-17 18:26] LABS: Prealbumin 25.8 mg/dL (18.0-42.0)
[2024-07-17 18:46] LABS: % Iron Saturation 21.11 (12.00-45.00); ALT 30 U/L (8-44); AST 31 U/L (13-35); Albumin 4.5 g/dL (3.8-4.9); Albumin/Globulin Ratio 1.73 Ratio (1.60-3.17); Alkaline Phosphatase 109 U/L (41-126); Blood Urea Nitrogen 22.2 mg/dL (9.0-27.0); Calcium 9.3 mg/dL (8.7-10.3); Carbon Dioxide 23.9 mmol/L (21.6-31.8); Chloride 102 mmol/L (96-109); Chol/HDL Ratio 4.05 Ratio; Globulin 2.6 g/dL (1.6-3.3); Glucose 142 mg/dL (70-110); Iron 84 UG/DL (50-170); Magnesium 2.1 mg/dL (1.5-2.4); Phosphorus 3.8 mg/dL (2.4-5.1); Potassium 4.9 mmol/L (3.5-5.5); Sodium 139 mmol/L (135-145); Total Bilirubin <0.2 mg/dL (0.3-1.2); Total Iron Binding Capacity 398 UG/DL (228-460); Total Protein 7.1 g/dL (6.2-8.2)
== END | disposition home or self-care (01) ==
LOC: LABWHC1 13:57
PROVIDERS: ATTEND Surgery Plastic and Reconstructive Surgery
DX: E66.01 Morbid (severe) obesity due to excess calories (principal); E89.1 Postprocedural hypoinsulinemia; D50.8 Other iron deficiency anemias; K91.2 Postsurgical malabsorption, not elsewhere classified; E44.0 Moderate protein-calorie malnutrition; E55.9 Vitamin D deficiency, unspecified; E45 Retarded development following protein-calorie malnutrition; K74.1 Hepatic sclerosis; N19 Unspecified kidney failure; T56.894A Toxic effect of other metals, undetermined, initial encounter; K50.90 Crohn's disease, unspecified, without complications
CPT/HCPCS: 36415; 80053; 80061; 82306; 82525; 82607; 82728; 82746; 83036; 83540; 83550; 83735; 83970; 84100; 84134; 84255; 84425; 84443; 84590; 84630; 85027; 85610; 85730

== ENCOUNTER 2024-07-20 08:15 | Day surgery (SDC) | payer MEDICARE ==
--- NOTE | 2024-07-20 07:53 | P.GSHP ---
History of Present Illness H&P Date: 07/20/24 CHIEF COMPLAINT: GERD and colon screen HISTORY OF PRESENT ILLNESS: The patient is a 48-year-old female who presents with gastroesophageal reflux disease and need for colon screen. Upper and lower endoscopy were offered for further evaluation and management. PAST MEDICAL HISTORY: Please see list. PAST SURGICAL HISTORY: Please see list. MEDICATIONS: Please see list. ALLERGIES: Please see list. SOCIAL HISTORY: No illicit drug use FAMILY HISTORY: No reports of Crohn disease or ulcerative colitis. REVIEW OF ORGAN SYSTEMS: CONSTITUTIONAL: No reports of fevers or chills. GI: Denies any blood in stools or constipation. PHYSICAL EXAM: VITAL SIGNS: Stable GENERAL: Well-developed pleasant in no acute distress. HEENT: No scleral icterus. Extraocular movements grossly intact. Moist buccal mucosa. NECK: Supple without lymphadenopathy. CHEST: Unlabored respirations. Equal bilateral excursions. CARDIOVASCULAR: Regular rate and rhythm. Distal 2+ pulses. ABDOMEN: Soft, nondistended. MUSCULOSKELETAL: No clubbing, cyanosis, or edema. ASSESSMENT: 1. Gastroesophageal reflux disease 2. Colon screen. PLAN: 1. 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, non-alcoholic fatty liver disease/cirrhosis (pt was found to have this during attempted surgery 01/2022) syncopal episode 2023 History of Any Multi-Drug Resistant Organisms: None Reported Past Surgical History: Bariatric Surgery, Section, Cholecystectomy, Her baylee Repair, Orthopedic Surgery, Tubal Ligation, Uterine Ablation Additional Past Surgical History / Comment(s): left knee arthroscopy, left shoulder torn rotator cuff repair has pin in place, bone marrow transplant, open heart surgery at age 18 months "they took an artery out of leg to use in heart"., robotic assisted laproscopic sleeve gastrectomy 05-27-23 Past Anesthesia/Blood Transfusion Reactions: No Reported Reaction Additional Past Anesthesia/Blood Transfusion Reaction / Comment(s): several blood transfusion-pt denies any reaction Smoking Status: Former smoker - Past Family History Mother Family Medical History: Hyperlipidemia, Renal Disease Additional Family Medical History / Comment(s): vit d- deficiency, anemia Father Family Medical History: COPD Additional Family Medical History / Comment(s): "bowel problems-hx resection" Medications and Allergies Home Medications Medication Instructions Recorded Confirmed Type Acyclovir [Zovirax] 800 mg PO BID 05/18/17 07/16/24 History Ruxolitinib Phosphate [Jakafi] 5 mg PO BID 10/03/21 07/16/24 History Prochlorperazine [Compazine] 10 mg PO DAILY 10/18/22 07/16/24 History Apixaban [Eliquis] 5 mg PO BID #180 tab 05/28/23 07/16/24 Rx Cyclobenzaprine [Flexeril] 10 mg PO BID 10/26/23 07/16/24 History Docusate [Colace] 100 mg PO BID 10/26/23 07/16/24 History Ergocalciferol [Vitamin D2 (1250 1,250 mcg PO FLOYD 10/26/23 07/16/24 History Mcg = 56756 Iu)] Escitalopram [Lexapro] 10 mg PO DAILY 10/26/23 07/16/24 History Pantoprazole [Protonix] 40 mg PO BID 10/26/23 07/16/24 History Sulfamethox-Tmp 400-80Mg [Bactrim 1 tab PO DAILY 10/26/23 07/16/24 History SS 400-80 mg] Tacrolimus [Prograf] 0.5 mg PO DAILY 10/26/23 07/16/24 History Magnesium Oxide [Mag-Oxide] 1 tab PO BID 06/24/24 07/16/24 History Cyanocobalamin [Vitamin B-12] 1,000 mcg PO Q7D 07/16/24 07/16/24 History Allergies Allergy/AdvReac Type Severity Reaction Status Date / Time fondaparinux [From Arixtra] Allergy Intermediate Rash/Hives Verified 07/16/24 14:26 propoxyphene napsylate Allergy Intermediate Rash/Hives Verified 07/16/24 14:26 [From Darvocet-N]
[2024-07-20] MEDS: IV FLUID CONTINUATION 1,000 ML IV ONE (08:51)
[2024-07-20 09:04] VITALS: TEMP 97
[2024-07-20] MEDS: LACTATED RINGERS 1,000 ML IV SCH (09:08)
[2024-07-20] MEDS ORDERED: PROPOFOL 10 MG/ML 20 ML VIAL IV ONE (09:09)
[2024-07-20] MEDS ORDERED: LIDOCAINE 1% INJ 10MG/ML (20 ML MDV) ONE (09:09)
[2024-07-20 10:08] LABS: Glucose,Whole Blood 106 mg/dL (70-110)
[2024-07-20 10:09] VITALS: BP 126/81; PULSE 68; RESP 17
--- NOTE | 2024-07-20 10:12 | P.PCN ---
Date of Procedure: 07/20/24 Description of Procedure: PREOPERATIVE DIAGNOSIS: Dysphagia. Gastroesophageal reflux disease. s/p sleeve gastrectomy. POSTOPERATIVE DIAGNOSIS: Dysphagia. Gastroesophageal reflux disease. s/p vertical sleeve gastrectomy. Esophageal dysmotility Upper esophageal stenosis OPERATION: Esophagogastroduodenoscopy with rigid dilation 54-Qatari SURGEON: Aleena Vanegas MD ANESTHESIA: MAC. INDICATIONS: The patient is a 48-year-old female who presents with a history of dysphagia, sleeve gastrectomy including gastroesophageal reflux disease. Benefits and risks of the procedure were described. Informed consent was obtained. DESCRIPTION: The patient was brought into the endoscopy suite and laid in the left lateral decubitus position. After a timeout was confirmed, the procedure was initiated. An Olympus gastroscope was passed along the posterior oropharynx down to the distal esophagus where the squamocolumnar junction was unremarkable. Multiple tertiary esophageal contractions were identified consistent with esophageal dysmotility. No large hiatal hernias were identified. The gastric pouch was entered. No gastric strictures were identified along her sleeve. The antrum was unremarkable. The scope was removed as a guidewire was placed. A guidewire followed 54-Qatari rigid dilator for 2 minutes. Dilators were removed with guidewire. The upper scope was reinserted. The scope was easily passed without resistance consistent with her esophageal dysmotility. The mucosa was intact. No full-thickness injury was encountered. The GI tract was desufflated. The patient tolerated the procedure well. FINDINGS: Upper esophageal stenosis Tertiary esophageal contractions present with esophageal dysmotility dilated LA grade B erosive esophagitis. No diaphragmatic hiatal hernia Rigid dilation 54-Qatari achieved RECOMMENDATIONS: Upper endoscopy as needed
--- NOTE | 2024-07-20 10:15 | P.PCN ---
Date of Procedure: 07/20/24 Description of Procedure: PREOPERATIVE DIAGNOSIS: Colonoscopy screening. POSTOPERATIVE DIAGNOSIS: Colonoscopy screening. Diverticulosis, scattered. OPERATION: Colonoscopy to the cecum, ileocecal valve and appendiceal orifice. SURGEON: Aleena Vanegas MD. ANESTHESIA: MAC. INDICATIONS: The patient is a 48-year-old female who presents for colonoscopy screening. Benefits and risks were described and informed consent was obtained. DESCRIPTION OF PROCEDURE: The patient had undergone Suprep. The patient had been brought into the operating room and laid in the left lateral decubitus position. After adequate intravenous sedation, the rectum was examined with 2% lidocaine jelly. External hemorrhoids were encountered. The rectal tone was within normal limits. No lesions were palpated in the rectal vault. An Olympus colonoscope was advanced until the cecum, ileocecal valve and appendiceal orifice were clearly viewed. The prep was excellent. Scattered diverticulosis was encountered. No colonic polyps were found. No evidence of focal colitis was found. Retroflexion of the scope demonstrated grade 2 internal hemorrhoids without active bleeding or inflammation. The colon was desufflated. The patient had tolerated the procedure well. Withdrawal time was over 6 minutes. FINDINGS: Aronchick preparation quality scale (1-5) Internal hemorrhoids, grade 2 External prolapsed hemorrhoids, grade 2 No arteriovenous malformations. No adenomatous polyps. No focal colitis. Scattered diverticulosis RECOMMENDATIONS: Lower endoscopy in 5 years2029 Plan - Discharge Summary Discharge Rx Participant: No New Discharge Prescriptions: Continue Acyclovir [Zovirax] 800 mg PO BID Prochlorperazine [Compazine] 10 mg PO DAILY Apixaban [Eliquis] 5 mg PO BID #180 tab Docusate [Colace] 100 mg PO BID Cyclobenzaprine [Flexeril] 10 mg PO BID Ergocalciferol [Vitamin D2 (1250 Mcg = 42471 Iu)] 1,250 mcg PO FLOYD Sulfamethox-Tmp 400-80Mg [Bactrim SS 400-80 mg] 1 tab PO DAILY Pantoprazole [Protonix] 40 mg PO BID Ruxolitinib Phosphate [Jakafi] 5 mg PO BID Tacrolimus [Prograf] 0.5 mg PO DAILY Escitalopram [Lexapro] 10 mg PO DAILY Magnesium Oxide [Mag-Oxide] 1 tab PO BID Cyanocobalamin [Vitamin B-12] 1,000 mcg PO Q7D Discharge Medication List Acyclovir [Zovirax] 800 mg PO BID 05/18/17 [History] Ruxolitinib Phosphate [Jakafi] 5 mg PO BID 10/03/21 [History] Prochlorperazine [Compazine] 10 mg PO DAILY 10/18/22 [History] Apixaban [Eliquis] 5 mg PO BID #180 tab 05/28/23 [Rx] Cyclobenzaprine [Flexeril] 10 mg PO BID 10/26/23 [History] Docusate [Colace] 100 mg PO BID 10/26/23 [History] Ergocalciferol [Vitamin D2 (1250 Mcg = 78889 Iu)] 1,250 mcg PO FLOYD 10/26/23 [History] Escitalopram [Lexapro] 10 mg PO DAILY 10/26/23 [History] Pantoprazole [Protonix] 40 mg PO BID 10/26/23 [History] Sulfamethox-Tmp 400-80Mg [Bactrim SS 400-80 mg] 1 tab PO DAILY 10/26/23 [History] Tacrolimus [Prograf] 0.5 mg PO DAILY 10/26/23 [History] Magnesium Oxide [Mag-Oxide] 1 tab PO BID 06/24/24 [History] Cyanocobalamin [Vitamin B-12] 1,000 mcg PO Q7D 07/16/24 [History] Follow [facility] [place] [facility] - As Needed Patient Instructions/Handouts: Esophageal Dilation (DC), Diverticulosis (GEN) Activity/Diet/Wound Care/Special Instructions: Diet as tolerated. Repeat colonoscopy 5 years, 2009 Discharge Disposition: HOME SELF-CARE
== END 2024-07-20 11:10 | disposition home or self-care (01) ==
LOC: ORWHC2ENDO 08:15
PROVIDERS: ATTEND Surgery Plastic and Reconstructive Surgery
DX: Z12.11 Encounter for screening for malignant neoplasm of colon (principal); K57.30 Diverticulosis of large intestine without perforation or abscess without bleeding; K64.1 Second degree hemorrhoids; K64.4 Residual hemorrhoidal skin tags; K22.2 Esophageal obstruction; K21.00 Gastro-esophageal reflux disease with esophagitis, without bleeding; K22.4 Dyskinesia of esophagus; I48.91 Unspecified atrial fibrillation; E11.9 Type 2 diabetes mellitus without complications; C95.91 Leukemia, unspecified, in remission; J44.9 Chronic obstructive pulmonary disease, unspecified; D89.813 Graft-versus-host disease, unspecified; K76.0 Fatty (change of) liver, not elsewhere classified; K74.60 Unspecified cirrhosis of liver; M19.90 Unspecified osteoarthritis, unspecified site; Z79.624 Long term (current) use of inhibitors of nucleotide synthesis; Z79.01 Long term (current) use of anticoagulants; Z79.2 Long term (current) use of antibiotics; Z79.621 Long term (current) use of calcineurin inhibitor; Z79.899 Other long term (current) drug therapy; Z87.891 Personal history of nicotine dependence; Z98.84 Bariatric surgery status; Z88.8 Allergy status to other drugs, medicaments and biological substances; Z88.5 Allergy status to narcotic agent
CPT/HCPCS: 81025; 45378; 43248; J2003; J2704

== ENCOUNTER 2024-07-20 21:46 | Observation (INO) | payer MEDICARE ==
--- NOTE | 2024-07-20 22:22 | ED ---
Chest Pain HPI - General Chief Complaint: Chest Pain Stated Complaint: Chest pain Time Seen by Provider: 07/20/24 21:51 Source: patient, EMS, RN notes reviewed, old records reviewed Mode of arrival: EMS Limitations: no limitations - History of Present Illness Initial Comments: This is a 48-year-old female to the ER with chest pain today. Patient coming in with left-sided chest tightness and chest heaviness. That pain does go to her neck jaw left sided and back as well as symptoms on her right arm. Symptoms are persistent here in the ER, she states she did have a upper endoscopy ordered today but does not believe the symptoms are gas related to her that she has had prior upper endoscopies without the symptoms after, no current shortness of [place] ath or swelling but persistent chest pain MD Complaint: chest pain -: hour(s) Onset: during rest Pain Location: substernal, left chest Pain Radiation: back, jaw/teeth Severity: moderate Severity scale (1-10): 4 Quality: tightness Consistency: constant Improves With: nothing Worsens With: nothing Other Symptoms: palpitations Treatments Prior to Arrival: none - Related Data Home Medications Medication Instructions Recorded Confirmed Acyclovir [Zovirax] 800 mg PO BID 05/18/17 07/20/24 Ruxolitinib Phosphate [Jakafi] 5 mg PO BID 10/03/21 07/20/24 Prochlorperazine [Compazine] 10 mg PO DAILY 10/18/22 07/20/24 Cyclobenzaprine [Flexeril] 10 mg PO BID 10/26/23 07/20/24 Docusate [Colace] 100 mg PO BID 10/26/23 07/20/24 Ergocalciferol [Vitamin D2 (1250 1,250 mcg PO FLOYD 10/26/23 07/20/24 Mcg = 20269 Iu)] Escitalopram [Lexapro] 10 mg PO DAILY 10/26/23 07/20/24 Pantoprazole [Protonix] 40 mg PO BID 10/26/23 07/20/24 Sulfamethox-Tmp 400-80Mg [Bactrim 1 tab PO DAILY 10/26/23 07/20/24 SS 400-80 mg] Tacrolimus [Prograf] 0.5 mg PO DAILY 10/26/23 07/20/24 Magnesium Oxide [Mag-Oxide] 1 tab PO BID 06/24/24 07/20/24 Cyanocobalamin [Vitamin B-12] 1,000 mcg PO Q7D 07/16/24 07/20/24 Previous Rx's Medication Instructions Recorded Apixaban [Eliquis] 5 mg PO BID #180 tab 05/28/23 Allergies Allergy/AdvReac Type Severity Reaction Status Date / Time fondaparinux [From Arixtra] Allergy Intermediate Rash/Hives Verified 07/20/24 21:59 propoxyphene napsylate Allergy Intermediate Rash/Hives Verified 07/20/24 21:59 [From Darvocet-N] Review of Systems ROS Statement: Those systems with pertinent positive or pertinent negative responses have been documented in the HPI. ROS Other: All systems not noted in ROS Statement are negative. 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, non-alcoholic fatty liver disease/cirrhosis (pt was found to have this during attempted surgery 01/2022) syncopal episode 2023 History of Any Multi-Drug Resistant Organisms: None Reported Past Surgical History: Bariatric Surgery, Section, Cholecystectomy, Hernia Repair, Orthopedic Surgery, Tubal Ligation, Uterine Ablation Additional Past Surgical History / Comment(s): left knee arthroscopy, left shoulder torn rotator cuff repair has pin in place, bone marrow transplant, open heart surgery at age 18 months "they took an artery out of leg to use in heart"., robotic assisted laproscopic sleeve gastrectomy 05-27-23 Past Anesthesia/Blood Transfusion Reactions: No Reported Reaction Additional Past Anesthesia/Blood Transfusion Reaction / Comment(s): several blood transfusion-pt denies any reaction Past Psychological History: Anxiety, Depression Smoking Status: Former smoker Past Alcohol Use History: Occasional Past Drug Use History: Marijuana - Past Family History Mother Family Medical History: Hyperlipidemia, Renal Disease Additional Family Medical History / Comment(s): vit d- deficiency, anemia Father Family Medical History: COPD Additional Family Medical History / Comment(s): "bowel problems-hx resection" General Exam General appearance: alert, in no apparent distress Head exam: Present: atraumatic, normocephalic, normal inspection Eye exam: Present: normal appearance, PERRL, EOMI. Absent: scleral icterus, conjunctival injection, periorbital swelling ENT exam: Present: normal exam, mucous membranes moist Neck exam: Present: normal inspection. Absent: tenderness, meningismus, lymphadenopathy Respiratory exam: Present: normal lung sounds bilaterally. Absent: respiratory distress, wheezes, rales, rhonchi, stridor Cardiovascular Exam: Present: regular rate, normal rhythm, normal heart sounds. Absent: systolic murmur, diastolic murmur, rubs, gallop, clicks GI/Abdominal exam: Present: soft, normal bowel sounds. Absent: distended, tenderness, guarding, rebound, rigid Extremities exam: Present: normal inspection, full ROM, normal capillary refill. Absent: tenderness, pedal edema, joint swelling, calf tenderness Back exam: Present: normal inspection Neurological exam: Present: alert, oriented X3, CN II-XII intact Psychiatric exam: Present: normal affect, normal mood Skin exam: Present: warm, dry, intact, normal color. Absent: rash Course Vital Signs 07/20/24 21:55 Temperature 98.3 F Pulse Rate 82 Respiratory 18 Rate Blood Pressure 122/85 O2 Sat by Pulse 94 L Oximetry - Reevaluation(s) Reevaluation #1: 07/20/24 23:42 Medical records reviewed patient had upper GI earlier today with Dr. Vanegas No noted complications. Reevaluation #2: 07/20/24 23:42 Patient chest pain remains persistent here in the ER Reevaluation #3: 07/20/24 23:42 Patient informed of results questions answered Reevaluation #4: Was pt. sent in by a medical professional or institution (, PA, TANKMAN, urgent care, hospital, or fci...) When possible be specific @ -no Did you speak to anyone other than the patient for history (EMS, parent, family, police, friend...)? What history was obtained from this source @ -no Did you review nursing and triage notes (agree or disagree)? Why? @ -agree Are old charts reviewed (outside hosp., previous admission, EMS record, old EKG, old radiological studies, urgent care reports/EKG's, fci records)? Report findings @ -yes Differential Diagnosis (chest pain, altered mental status, abdominal pain women, abdominal pain men, vaginal bleeding, weakness, fever, dyspnea, syncope, headache, dizziness, GI bleed, back pain, seizure, CVA, palpatations, mental h ealth, musculoskeletal)? @ -prior EKG interpreted by me (3pts min.). @ -yes X-rays interpreted by me (1pt min.). @ -yes negative for acute disease CT interpreted by me (1pt min.). @ -no U/S interpreted by me (1pt. min.). @ -no What testing was considered but not performed or refused? (CT, X-rays, U/S, labs)? Why? @ -none What meds were considered but not given or refused? Why? @ -none Did you discuss the management of the patient with other professionals (professionals i.e. , PA, TANKMAN, lab, RT, psych nurse, social worker masters, light rail vehicle operator, teacher, chairman & chief executive officer, case finishing machine adjuster)? Give summary @ -no Was smoking cessation discussed for >3mins.? @ -no Was critical care preformed (if so, how long)? @ -no Were there social determinants of health that impacted care today? How? (Homelessness, low income, unemployed, alcoholism, drug addiction, transportation, low edu. Level, literacy, decrease access to med. care, senior care, rehab)? @ -none Was there de-escalation of care discussed even if they declined (Discuss DNR or withdrawal of care, Hospice)? DNR status @ -no What co-morbidities impacted this encounter? (DM, HTN, Smoking, COPD, CAD, Cancer, CVA, ARF, Chemo, Hep., AIDS, mental health diagnosis, sleep apnea, morbid obesity)? @ -none Was patient admitted / discharged? Hospital course, mention meds given and route, prescriptions, significant lab abnormalities, going to OR and other p ertinent info. @ - Undiagnosed new problem with uncertain prognosis? @ -no Drug Therapy requiring intensive monitoring for toxicity (Heparin, Nitro, Insulin, Cardizem)? @ -no Were any procedures done? @ -no Diagnosis/symptom? @ - Acute, or Chronic, or Acute on Chronic? @ -Acute Uncomplicated (without systemic symptoms) or Complicated (systemic symptoms)? @ -Complicated Side effects of treatment? @ -no Exacerbation, Progression, or Severe Exacerbation? @ -exacerbation Poses a threat to life or bodily function? How? (Chest pain, USA, MS, pneumonia, PE, COPD, DKA, ARF, appy, cholecystitis, CVA, Diverticulitis, Homicidal, Suicidal, threat to staff... and all critical care pts) @ -yes Reevaluation #5: Differential Chest Pain: Stable Angina, Unstable Angina, STEMI, NSTEMI Aortic Dissection, Pneumothorax, Musculoskeletal, Esophageal Spasm GERD, Cholecystitis, Pancreatitis, Zoster, this is not meant to be an all-inclusive list. - Consultations Consultation #1: Mamadou who agrees to admit this patient Chest Pain MDM - MDM 48 female to ER diabetic coming in with left-sided chest pain chest pain to the jaw back and arm and then down the right arm patient recently had upper endoscopy with dilation but she does not feel that that was causative reason for for pain today, patient has history of heart surgery as a baby but presents today for chest pain. Patient has persistent chest pain here in the emergency department and will admit for cardiac observation Disposition Clinical Impression: Chest pain Disposition: ADMITTED IP TO THIS HOSP Condition: Fair Is patient prescribed a controlled substance at d/c from ED?: No Referrals: Guru Kline MD [Primary Care Provider] - 1-2 days Time of Disposition: 23:30
[2024-07-20 22:29] LABS: Basophils % (A) 0 %; Eosinophils # (A) 0.1 k/uL (0-0.7); Eosinophils % (A) 2 %; HCT 42.2 % (34.0-46.0); HGB 13.4 gm/dL (11.4-16.0); Lymphocytes # (A) 1.5 k/uL (1.0-4.8); Lymphocytes % (A) 29 %; MCH 31.3 pg (25.0-35.0); MCHC 31.7 g/dL (31.0-37.0); MCV 98.6 fL (80.0-100.0); Monocytes # (A) 0.3 k/uL (0-1.0); Monocytes % (A) 6 %; Neutrophils # (A) 3.2 k/uL (1.3-7.7); Neutrophils % (A) 61 %; Platelet Count 206 k/uL (150-450); RBC 4.28 m/uL (3.80-5.40); RDW 13.8 % (11.5-15.5); WBC 5.3 k/uL (3.8-10.6)
[2024-07-20 22:38] LABS: ALT 29 U/L (4-34); AST 40 U/L (14-36); African American GFR (CKD) 88 (>60 ml/min/1.73 sqM); Albumin 4.5 g/dL (3.5-5.0); Alkaline Phosphatase 81 U/L (38-126); Anion Gap 10 mmol/L; Blood Urea Nitrogen 15 mg/dL (7-17); Calcium 9.3 mg/dL (8.4-10.2); Carbon Dioxide 23 mmol/L (22-30); Chloride 104 mmol/L (98-107); Glucose 115 mg/dL (74-99); Lipase 59 U/L (23-300); Magnesium 2.2 mg/dL (1.6-2.3); Non-African American GFR(CKD) 76 (>60 ml/min/1.73 sqM); Potassium 4.7 mmol/L (3.5-5.1); Sodium 137 mmol/L (137-145); Total Bilirubin 0.6 mg/dL (0.2-1.3); Total Protein 7.4 g/dL (6.3-8.2)
--- NOTE | 2024-07-20 22:45 | XR ---
EXAMINATION TYPE: XR chest 2V DATE OF EXAM: 07/20/2024 10:32 PM COMPARISON: Chest radiographs from 05/23/2018 CLINICAL INDICATION: Female, 48 years old with history of Chest Pain; TECHNIQUE: XR chest 2V Frontal and lateral views of the chest. FINDINGS: Lungs/Pleura: There is flattening of the diaphragm with increased lucency of the lungs. No evidence o f pneumothorax, pleural effusion or focal consolidation. Pulmonary vascularity: Unremarkable. Heart/mediastinum: Cardiomediastinal silhouette is unremarkable. Musculoskeletal: No acute osseous pathology. Midline sternotomy wires are noted. Other findings: None IMPRESSION: 1. No acute cardiopulmonary disease process. 2. COPD changes. [facility], , 07/20/2024 10:42 PM
[2024-07-20 22:47] LABS: NT-Pro-B-Type Natriuretic Pept 451 pg/mL
[2024-07-20] MEDS: SODIUM CHLORIDE 0.9% 1,000 ML IV STA (23:34)
[2024-07-20 23:49] LABS: INR 0.9 (<1.2); Partial Thromboplastin Time 23.1 sec (22.0-30.0); Prothrombin Time 10.5 sec (10.0-12.5)
--- NOTE | 2024-07-20 23:51 | CT ---
EXAMINATION TYPE: CT angio chest DATE OF EXAM: 07/20/2024 11:28 PM COMPARISON: Chest radiograph from same day. CLINICAL INDICATION: Female, 48 years old with history of cp; complaints of chest pain x couple hours , 8/10, pressure like squeezing into back and shoulder. TECHNIQUE/CONTRAST: CTA scan of the thorax is performed with IV Contrast, patient injected with 100 mL of Isovue 370, MIP images are created and reviewed these are created on a separate workstation.. CT DLP: 373.3 mGycm, Automated exposure control for dose reduction was used. FINDINGS: Lungs/Pleura: No evidence of focal consolidation, pleural effusion or pneumothorax. Airway: Large airways are patent. Heart: Size within normal limits. Vasculature: There is no evidence for a filling defect within the pulmonary vasculature to suggest ac [place] pulmonary embolism. The pulmonary artery is of normal size. Mediastinum: No gross evidence of adenopathy. Small hiatal hernia. Musculoskeletal: Mild disc degeneration changes are present throughout the thoracolumbar spine second yonatan to osteophyte formation, Schmorl's nodes and facet joint arthropathy. Soft Tissues/lymph nodes: Unremarkable. Lower neck: No significant findings. Upper Abdomen: Postsurgical changes of gastric lumen. IMPRESSION: 1. No evidence of pulmonary embolism. 2. Postsurgical changes of the gastric lumen. Small hiatal hernia. Follow up recommendations for incidental pulmonary nodules, if there are any, are per [employer] or [employer]. https://radiopaedia.org/articles/htpjexmqbd-tblseid-kbuckqudf-sseeuo-foqmryvfdbktfnh-[email or web address]?lang=us [facility], , 07/20/2024 11:49 PM
[2024-07-21] MEDS ORDERED: NITROGLYCERIN SL TABS 0.4 MG TAB SUBLINGUAL PRN (00:15)
[2024-07-21] MEDS: ASPIRIN 81 MG PO STA (00:24)
[2024-07-21] MEDS ORDERED: ACETAMINOPHEN TAB 325 MG TAB PO PRN (02:29)
--- NOTE | 2024-07-21 03:21 | P.HPIM ---
History of Present Illness H&P Date: 07/21/24 Chief Complaint: chest pain 48-year-old female with migraine, paroxysmal A-fib, COPD, leukemia, history of open heart surgery, borderline diabetes Patient coming in complaining of chest pain she describes it as pressure-like 8 out of 10 in severity central on her chest radiating to the back and left shoulder no associated nausea vomiting also reports some shortness of breath denies any associated palpitations or profuse sweating Earlier today she had upper endoscopy done and dilation of esophagus. Patient has history of gastric sleeve surgery, patient otherwise denies any GI bleeding denies any nausea vomiting denies any fevers or chills she denies any history of myocardial infarction or coronary artery disease While in the ED her pain persisted for which she was admitted for further cardiology workup at time of my evaluation patient was walking from the bathroom seemed comfortable but upon questioning she started reporting chest pain Patient denies tobacco smoking illicit drugs or heavy alcohol review of systems Pertinent positives as noted in HPI. All other systems were reviewed and are negative on exam Constitutional: No acute distress, conversant, pleasant Eyes: Anicteric sclerae, moist conjunctiva, Pupils equal round reactive to light ENMT: NC/AT Oropharynx clear, no erythema, or exudates Neck: Supple, no masses, or JVD No carotid bruits No thyromegaly Lungs: Clear to auscultation Clear to percussion Normal respiratory effort, no accessory muscle use Cardiovascular: Heart regular in rate and rhythm, No murmurs, gallops, or rubs No peripheral edema Abdominal: Soft Nontender, no guarding, rebound or rigidity Abdomen moving with respiration Normoactive bowel sounds Extremities: No digital cyanosis No clubbing Pedal pulses intact and symmetrical Radial pulses intact and symmetrical No calf tenderness Psychiatric: Alert and oriented to person, place and time Appropriate affect fair judgement Neuro Muscles Strength 5/5 in all 4 extremities Sensation to light touch grossly present throughout Cranial nerves II-XII grossly intact Past Medical History Past Medical History: Atrial Fibrillation, Cancer, COPD, Diabetes Mellitus, Liver Disease, Osteoarthritis (OA), Syncope Additional Past Medical History / Comment(s): Congenital heart disease, leukemia 2017-in remission, hx of kidney stones,. 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, non-alcoholic fatty liver disease/cirrhosis History of Any Multi-Drug Resistant Organisms: None Reported Past Surgical History: Bariatric Surgery, Section, Cholecystectomy, Hernia Repair, Orthopedic Surgery, Tubal Ligation, Uterine Ablation Additional Past Surgical History / Comment(s): left knee arthroscopy, left shoulder torn rotator cuff repair has pin in place, bone marrow transplant, open heart surgery at age 18 months "they took an artery out of leg to use in heart"., robotic assisted laproscopic sleeve gastrectomy 05-27-23 Past Anesthesia/Blood Transfusion Reactions: No Reported Reaction Additional Past Anesthesia/Blood Transfusion Reaction / Comment(s): several blood transfusion-pt denies any reaction Past Psychological History: Anxiety, Depression Additional Psychological History / Comment(s): no medications at this time Smoking Status: Former smoker Past Alcohol Use History: Occasional Additional Past Alcohol Use History / Comment(s): started smoking age 17(1992) and quit age 22(1998), smoked less than 1 ppd. 4-5 drinks/month Past Drug Use History: Marijuana Additional Drug Use History / Comment(s): uses marijuana for appetite, edibles, oil, smokes - Past Family History Mother Family Medical History: Hyperlipidemia, Renal Disease Additional Family Medical History / Comment(s): vit d- deficiency, anemia Father Family Medical History: COPD Additional Family Medical History / Comment(s): "bowel problems-hx resection" Medications and Allergies Home Medications Medication Instructions Recorded Confirmed Type Acyclovir [Zovirax] 800 mg PO BID 05/18/17 07/20/24 History Ruxolitinib Phosphate [Jakafi] 5 mg PO BID 10/03/21 07/20/24 History Prochlorperazine [Compazine] 10 mg PO DAILY 10/18/22 07/20/24 History Apixaban [Eliquis] 5 mg PO BID #180 tab 05/28/23 07/20/24 Rx Cyclobenzaprine [Flexeril] 10 mg PO BID 10/26/23 07/20/24 History Docusate [Colace] 100 mg PO BID 10/26/23 07/20/24 History Ergocalciferol [Vitamin D2 (1250 1,250 mcg PO FLOYD 10/26/23 07/20/24 History Mcg = 94685 Iu)] Escitalopram [Lexapro] 10 mg PO DAILY 10/26/23 07/20/24 History Pantoprazole [Protonix] 40 mg PO BID 10/26/23 07/20/24 History Sulfamethox-Tmp 400-80Mg [Bactrim 1 tab PO DAILY 10/26/23 07/20/24 History SS 400-80 mg] Tacrolimus [Prograf] 0.5 mg PO DAILY 10/26/23 07/20/24 History Magnesium Oxide [Mag-Oxide] 1 tab PO BID 06/24/24 07/20/24 History Cyanocobalamin [Vitamin B-12] 1,000 mcg PO Q7D 07/16/24 07/20/24 History Allergies Allergy/AdvReac Type Severity Reaction Status Date / Time fondaparinux [From Arixtra] Allergy Intermediate Rash/Hives Verified 07/20/24 2 1:59 propoxyphene napsylate Allergy Intermediate Rash/Hives Verified 07/20/24 21:59 [From Darvocet-N] Physical Exam Vitals: Vital Signs Temp Pulse Pulse Resp BP BP Pulse Ox 07/21/24 01:49 98.4 F 77 16 125/82 98 07/21/24 01:25 78 18 130/93 97 07/20/24 21:55 98.3 F 82 18 122/85 94 L Intake and Output 07/20/24 07/20/24 07/21/24 14:59 22:59 06:59 Other: Weight 78.471 kg 78.471 kg Results CBC & Chem 7: 07/20/24 22:22 07/20/24 22:22 Labs: Abnormal Lab Results - Last 24 Hours (Table) 07/20/24 Range/Units 22:22 Glucose 115 H (74-99) mg/dL AST 40 H (14-36) U/L Thrombosis Risk Factor Assmnt - Choose All That Apply Each Factor Represents 1 point: Age 41-60 years, Obesity (BMI >25) Thrombosis Risk Factor Assessment Total Risk Factor Score: 2 Thrombosis Risk Factor Assessment Level: Low Risk Assessment and Plan Assessment: 48-year-old female with paroxysmal A-fib, congenital heart disease coming in for evaluation of chest pain earlier today she had EGD with esophageal stretching, I discussed case with the doctor and accepted the admission for chest pain rule out acute coronary syndrome Atypical chest pain rule out acute coronary syndrome Troponins negative continue to trend EKG showed no acute ST changes Status post EGD and esophageal stretching today Nitro as needed for chest pain CT angio of the chest no acute findings Pain control with morphine 2 mg as needed every 3 hours IV push Oxygen supplemental as needed oxygen saturation above 94% Monitor vital signs Cardiology consult Check lipid profile A1c Status post aspirin 324 mg in the ED, continue with aspirin 81 mg daily Chest x-ray unremarkable no acute cardiopulmonary process Chronic conditions History of congenital heart disease continue follow-up with cardiology as outpatient Portal diabetes mellitus, continue ACHS blood sugar checks History of leukemia continue outpatient follow-up Paroxysmal A-fib continue with Eliquis 5 mg twice daily Blood work overall unremarkable White count 5.3 hemoglobin 13.4 platelet 202 Sodium 137 potassium 4.7 BUN 15 creatinine 0.8 Full code DVT prophylaxis continue with Eliquis for A-fib Anticipated length of stay less than 2 midnights Anticipated discharge home
[2024-07-21] MEDS: SODIUM CHLORIDE 0.9% 1,000 ML IV SCH (03:46)
[2024-07-21 06:03] LABS: Glucose,Whole Blood 106 mg/dL (70-110)
[2024-07-21] MEDS: PANTOPRAZOLE 40 MG TABLET PO SCH (06:09)
[2024-07-21] MEDS ORDERED: REGADENOSON 0.4 MG/5 ML SYRINGE IV PRN (07:49)
[2024-07-21] MEDS ORDERED: CAFFEINE CITRATE 60 MG/3 ML VIAL IV PRN (07:49)
[2024-07-21] MEDS ORDERED: AMINOPHYLLINE 500 MG/20 ML VIAL IV PRN (07:49)
[2024-07-21] MEDS: APIXABAN 5 MG TAB PO SCH (09:46)
--- NOTE | 2024-07-21 09:52 | P.CRDCN ---
History of Present Illness Consult date: 07/21/24 Consult reason: chest pain History of present illness: This is a 48-year-old female patient of Dr. 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 We have been asked to evaluate the patient for chest pain. Patient gives history that when she was at [facility] in early June it was found that she was in atrial fibrillation which was new for her and she was sent to Dr. Armendariz and was seen by him on 06/24/2024. She was started on Eliquis and Toprol and underwent echocardiogram with a EF of 35 to 40%. Yesterday, patient underwent EGD with Dr. Vanegas because patient has had gastric sleeve in the past was not having ongoing diarrhea and constipation. Patient was found to have esophageal dysmotility and upper esophageal stenosis. Patient states that last evening around 7 PM she started having severe chest pain in the upper left chest area that was a tightness. She also complains of a massive migraine. She states the chest pain gets worse when she walks and she also developed shortness of breath. She states she has had similar chest pain in the past but not as bad. She states she has had some dizziness but no syncope. No lower extremity edema. She has had some pounding of her chest. She is normally not very active due to chronic shortness of breath that is gradually worsened. Blood pressure 118/78, heart rate 82, pulse ox 97% on room air. -EKG: Sinus rhythm with no acute ST changes -Chest x-ray: No acute process. -Laboratory studies: CBC, INR, CMP unremarkable. Troponin negative x 3. proBNP 451. -Home cardiac medications according to office records: Eliquis 5 mg twice daily, Toprol-XL 25 mg daily. -Echocardiogram performed in the office on 07/16/2024 revealed atrial fibrillation, EF 35 to 40%. Moderate mitral regurgitation, mild tricuspid regurgitation. PASP 18 mmHg. -Lexiscan Cardiolite stress test performed in the office on 02/23/2021 was a negative Lexiscan stress test. Abnormal perfusion study with predominantly fixe d defect involving the anterior apical and anterior lateral and lateral wall suggestive of previous RI with minimal kathy-infarction ischemia. Gated images showed hypokinesis of the anterior septal and anterior apical areas with an ejection fraction close to 40%. Review Of Systems: At the time of my exam: CONSTITUTIONAL: Denies fever or chills. HEENT: Denies blurred vision, vision changes, or eye pain. Denies hemoptysis CARDIOVASCULAR: Denies chest pain. Denies orthopnea. Denies PND. Denies pa lpitations RESPIRATORY: Denies shortness of breath. GASTROINTESTINAL: Denies abdominal pain. Denies nausea or vomiting. HEMATOLOGIC: Denies bleeding disorders. GENITOURINARY: Denies any blood in urine. SKIN: Denies puritis. Denies rash. Physical examination: Gen: This is a 48-year-old female in no acute distress VS: reviewed HEENT: Head is atraumatic, normocephalic. Pupils equal, round. Sclerae is anicteric. NECK: Supple. No JVD. LUNGS: Bilateral expiratory wheeze. No intercostal retractions. HEART: Regular rate and rhythm. Systolic murmur. ABDOMEN: Soft No tenderness. EXTREMITIES: No pedal edema. No calf tenderness. NEUROLOGICAL: Patient is awake, alert and oriented x3. 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 Godinez in 1 to 2 weeks. Thank you kindly for this consultation. Nurse practitioner note has been reviewed, I agree with documented findings and plan of care. Patient was seen and examined. Past Medical History Past Medical History: Atrial Fibrillation, Cancer, COPD, Diabetes Mellitus, Liver Disease, Osteoarthritis (OA), Syncope Additional Past Medical History / Comment(s): Congenital heart disease, leukemia 2017-in remission, hx of kidney stones,. 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, no n-alcoholic fatty liver disease/cirrhosis History of Any Multi-Drug Resistant Organisms: None Reported Past Surgical History: Bariatric Surgery, Section, Cholecystectomy, Hernia Repair, Orthopedic Surgery, Tubal Ligation, Uterine Ablation Additional Past Surgical History / Comment(s): left knee arthroscopy, left sh oulder torn rotator cuff repair has pin in place, bone marrow transplant, open heart surgery at age 18 months "they took an artery out of leg to use in heart"., robotic assisted laproscopic sleeve gastrectomy 05-27-23 Past Anesthesia/Blood Transfusion Reactions: No Reported Reaction Additional Past Anesthesia/Blood Transfusion Reaction / Comment(s): several blood transfusion-pt denies any reaction Past Psychological History: Anxiety, Depression Additional Psychological History / Comment(s): no medications at this time Smoking Status: Former smoker Past Alcohol Use History: Occasional Additional Past Alcohol Use History / Comment(s): started smoking age 17(1992) and quit age 22(1998), smoked less than 1 ppd. 4-5 drinks/month Past Drug Use History: Marijuana Additional Drug Use History / Comment(s): uses marijuana for appetite, edibles, oil, smokes - Past Family History Mother Family Medical History: Hyperlipidemia, Renal Disease Additional Family Medical History / Comment(s): vit d- deficiency, anemia Father Family Medical History: COPD Additional Family Medical History / Comment(s): "bowel problems-hx resection" Medications and Allergies Home Medications Medication Instructions Recorded Confirmed Type Acyclovir [Zovirax] 800 mg PO BID 05/18/17 07/20/24 History Ruxolitinib Phosphate [Jakafi] 5 mg PO BID 10/03/21 07/20/24 History Prochlorperazine [Compazine] 10 mg PO DAILY 10/18/22 07/20/24 History Apixaban [Eliquis] 5 mg PO BID #180 tab 05/28/23 07/20/24 Rx Cyclobenzaprine [Flexeril] 10 mg PO BID 10/26/23 07/20/24 History Docusate [Colace] 100 mg PO BID 10/26/23 07/20/24 History Ergocalciferol [Vitamin D2 (1250 1,250 mcg PO FLOYD 10/26/23 07/20/24 History Mcg = 26144 Iu)] Escitalopram [Lexapro] 10 mg PO DAILY 10/26/23 07/20/24 History Pantoprazole [Protonix] 40 mg PO BID 10/26/23 07/20/24 History Sulfamethox-Tmp 400-80Mg [Bactrim 1 tab PO DAILY 10/26/23 07/20/24 History SS 400-80 mg] Tacrolimus [Prograf] 0.5 mg PO DAILY 10/26/23 07/20/24 History Magnesium Oxide [Mag-Oxide] 1 tab PO BID 06/24/24 07/20/24 History Cyanocobalamin [Vitamin B-12] 1,000 mcg PO Q7D 07/16/24 07/20/24 History Allergies Allergy/AdvReac Type Severity Reaction Status Date / Time fondaparinux [From Arixtra] Allergy Intermediate Rash/Hives Verified 07/21/24 09:22 propoxyphene napsylate Allergy Intermediate Rash/Hives Verified 07/21/24 09:22 [From Darvocet-N] Physical Exam Vitals: Vital Signs Temp Pulse Pulse Resp BP BP Pulse Ox 07/21/24 01:49 98.4 F 77 16 125/82 98 07/21/24 01:25 78 18 130/93 97 07/20/24 21:55 98.3 F 82 18 122/85 94 L Intake and Output 07/20/24 07/21/24 07/21/24 22:59 06:59 14:59 Other: # Voids 1 Weight 78.471 kg 78.471 kg Results 07/20/24 22:22 07/20/24 22:22 Cardiac Enzymes 07/20/24 07/20/24 07/21/24 Range/Units 22:22 22:22 01:19 AST 40 H (14-36) U/L Troponin I <0.012 <0.012 (0.000-0.034) ng/mL 07/21/24 Range/Units 05:11 AST (14-36) U/L Troponin I <0.012 (0.000-0.034) ng/mL Coagulation 07/20/24 Range/Units 23:00 PT 10.5 (10.0-12.5) sec APTT 23.1 (22.0-30.0) sec CBC 07/20/24 Range/Units 22:22 WBC 5.3 (3.8-10.6) k/uL RBC 4.28 (3.80-5.40) m/uL Hgb 13.4 (11.4-16.0) gm/dL Hct 42.2 (34.0-46.0) % Plt Count 206 (150-450) k/uL Comprehensive Metabolic Panel 07/20/24 Range/Units 22:22 Sodium 137 (137-145) mmol/L Potassium 4.7 (3.5-5.1) mmol/L Chloride 104 (98-107) mmol/L Carbon Dioxide 23 (22-30) mmol/L BUN 15 (7-17) mg/dL Creatinine 0.89 (0.52-1.04) mg/dL Glucose 115 H (74-99) mg/dL Calcium 9.3 (8.4-10.2) mg/dL AST 40 H (14-36) U/L ALT 29 (4-34) U/L Alkaline Phosphatase 81 (38-126) U/L Total Protein 7.4 (6.3-8.2) g/dL Albumin 4.5 (3.5-5.0) g/dL Current Medications Generic Name Dose Route Start Last Admin Trade Name Freq PRN Reason Stop Dose Admin Acetaminophen 650 mg 07/21/24 02:29 Acetaminophen Tab 325 Mg Tab PO Q6HR PRN Fever and/ or Pain Apixaban 5 mg 07/21/24 09:00 Apixaban 5 Mg Tab PO BID [facility] Protocol Aspirin 325 mg 07/22/24 09:00 Aspirin 325 Mg Tab PO DAILY [facility] Atorvastatin Calcium 80 mg 07/21/24 09:00 Atorvastatin 80 Mg Tab PO DAILY [facility] Sodium Chloride 1,000 mls @ 100 mls/hr 07/21/24 03:30 07/21/24 03:46 Saline 0.9% IV 100 mls/hr .Q10H BINU Administration Metoprolol Tartrate 25 mg 07/21/24 09:00 Metoprolol Tartrate 25 Mg Tab PO BID BINU Nitroglycerin 0.4 mg 07/21/24 00:15 Nitroglycerin Sl Tabs 0.4 Mg Tab SUBLINGUAL Q5M PRN Chest Pain Pantoprazole Sodium 40 mg 07/21/24 07:30 07/21/24 06:09 Pantoprazole 40 Mg Tablet PO 40 mg AC-BID BINU Administration Intake and Output 07/20/24 07/21/24 07/21/24 22:59 06:59 14:59 Other: # Voids 1 Weight 78.471 kg 78.471 kg 07/20/24 22:22 07/20/24 22:22
[2024-07-21] MEDS: METOPROLOL TARTRATE 25 MG TAB PO SCH (12:31)
[2024-07-21 13:27] LABS: Glucose,Whole Blood 129 mg/dL (70-110)
--- NOTE | 2024-07-21 13:34 | CA ---
Lexiscan Nuclear Stress Test Report Name: Maddy Key Exam Date: 07/21/2024 12:08 Exam Location: [place] Stress Ht (in): 60 Wt (lb): 170 BSA: 1.74 Ordering Phys: Lydia Andrews Referring Phys: Crow Technologist: Moris Curiel Age: 48 Gender: F : 1975 Procedure CPT: Indications: Reflex order-Stress test ICD-10 Codes: Patient History: Medications: SEE CHART Meds past 24 hrs: Pretest Chest Pain: STRESS TEST Lexiscan Protocol Exercise Duration (min:sec): 02:[address] Depressions (mm): Angina Score: Eduardo Score: Resting HR (bpm): 74 Peak HR (bpm): 113 Resting BP (mmHg): 141 / 97 Peak BP (mmHg): 176 / 105 MPHR: 170 Target HR: 145 % MPHR: 66 METS: 1.0 Total Dose: Peak Dose: Atropine: Double Product: BP Response: Stress Termination: INFUSION COMPLETE Stress Symptoms: CHEST PAIN Stress Summary: ECG ANALYSIS Resting ECG: Sinus rhythm. Normal conduction. No arrhythmias. Cannot exclude anterior wall myocardial infarction Stress ECG: No ECG changes from baseline with Lexiscan infusion. CONCLUSIONS No ECG evidence of ischemia with Lexiscan infusion. Nuclear test results to follow. Dr. Jenny Huitron MD (Electronically Signed) Final Date: 21 July 2024 13:33
[2024-07-21] MEDS: KETOROLAC 15 MG/ML 1 ML VIAL IVP PRN (13:40)
[2024-07-21] MEDS: ATORVASTATIN 80 MG TAB PO SCH (13:40)
--- NOTE | 2024-07-21 13:43 | CA ---
Transthoracic Echo Report Name: Maddy Key Age: 48 Gender: F : 1975 Exam Date: 07/21/2024 08:56 Exam Location: [place] Echo Ht (in): 60 Wt (lb): 173 Ordering Physician: Edin Woody DO Attending/Referring Phys: [id number], Annalise [employer] Production Engineer January Mtz RDCS Procedure CPT: Indications: CP Cardiac Hx: Technical Quality: Fair Contrast 1: Definity Total Dose (mL): 2 Contrast 2: Total Dose (mL): MEASUREMENTS (Male / Female) Normal Values 2D ECHO LV Diastolic Diameter PLAX 5.0 cm 4.2 - 5.9 / 3.9 - 5.3 cm LV Systolic Diameter PLAX 4.3 cm IVS Diastolic Thickness 0.8 cm 0.6 - 1.0 / 0.6 - 0.9 cm LVPW Diastolic Thickness 1.2 cm 0.6 - 1.0 / 0.6 - 0.9 cm LV Relative Wall Thickness 0.4 RV Internal Dim ED PLAX 2.3 cm LA Systolic Diameter LX 4.5 cm 3.0 - 4.0 / 2.7 - 3.8 cm LV Diastolic Volume MOD 4C 79.6 cm??? LV Systolic Volume MOD 4C 62.6 cm??? LV Ejection Fraction MOD 4C 21.4 % LV Cardiac Index MOD 4C 640.6 cm???/min???m??? LV Diastolic Length 4C 7.7 cm LV Systolic Length 4C 7.2 cm LA Volume 76.2 cm??? 18 - 58 / 22 - 52 cm??? LA Volume Index 41.0 cm???/m??? 16 - 28 cm???/m??? M-MODE Aortic Root Diameter MM 2.5 cm LA Systolic Diameter MM 5.2 cm LA Ao Ratio MM 2.1 AV Cusp Separation MM 1.8 cm DOPPLER MV Area PHT 2.8 cm??? Mitral E Point Velocity 125.1 cm/s Mitral A Point Velocity 129.4 cm/s Mitral E to A Ratio 1.0 MV Deceleration Time 266.6 ms FINDINGS Left Ventricle Left ventricular ejection fraction is estimated at 20-25 %. The anteroapical and anteroseptal lawson are akinetic, the rest of the ventricle is hypokinetic. Right Ventricle Normal right ventricular size and function. Right Atrium Mild right atrial dilatation. Left Atrium Moderately increased left atrial diameter. Severely increased left atrial volume. Mildly increased left atrial area. Mitral Valve Structurally normal mitral valve. [id number] mitral regurgitation. No mitral stenosis. Aortic Valve Trileaflet aortic valve. No aortic valve stenosis or regurgitation. Tricuspid Valve Structurally normal tricuspid valve. Mild tricuspid regurgitation. No tricuspid stenosis. Pulmonic Valve Structurally normal pulmonic valve. Mild pulmonic regurgitation. No pulmonic stenosis. Pericardium Echo free space anterior to the right ventricle likely represents a fat pad. Aorta Normal size aortic root and proximal ascending aorta. CONCLUSIONS 1. Severely impaired left ventricular systolic function with segmental wall motion abnormality 2. Moderate severe mitral regurgitation with mild tricuspid regurgitation Previewed by: Dr. Jenny Huitron MD (Electronically Signed) Final Date: 21 July 2024 13:43
--- NOTE | 2024-07-21 16:49 | NM ---
EXAMINATION TYPE: NM stress lexiscan cardiolite DATE OF EXAM: 07/21/2024 COMPARISON: NONE CLINICAL INDICATION: Female, 48 years old with history of chest pain; TECHNIQUE: After the intravenous administration of 10.4 mCi Tc 99m Sestamibi - Cardiolite resting SP ECT images acquired 45 minutes post injection. The patient received 0.4mg Lexiscan, 23.0 mCi Tc 99m Sestamibi - Stress images obtained [address] injection FINDINGS: Review of stress and rest SPECT images demonstrates fixed perfusion defect involving the anterolatera l wall. However, there is accentuation of the defect on stress particularly to extend to involving th e mid to apical anterior wall. Gated analysis shows lack of augmentation in the region of fixed defec t and an estimated left ventricular ejection fraction of 42 %. TID is upper limits of normal at 1.0. IMPRESSION: 1. Correlate for large area of old infarct involving the lateral wall with inducible kathy-infarct isc hemia which extends to involve the mid to apical anterior wall. 2. Diminished LVEF measured at 42%. [facility], , 07/21/2024 4:47 PM
[2024-07-21 17:33] LABS: Glucose,Whole Blood 106 mg/dL (70-110)
[2024-07-21] MEDS: ACYCLOVIR 800 MG TAB PO SCH (20:24)
[2024-07-21] MEDS: SACUBITRIL/VALSARTAN 24 MG-26 MG TABLET PO SCH (20:24)
[2024-07-21] MEDS: CYCLOBENZAPRINE 10 MG TAB PO SCH (20:24)
[2024-07-21] MEDS: RUXOLITINIB PHOSPHATE 5 MG PO SCH (20:24)
[2024-07-21] MEDS: DOCUSATE 100 MG CAP PO SCH (20:24)
[2024-07-21 20:25] LABS: Glucose,Whole Blood 141 mg/dL (70-110)
[2024-07-22 06:18] LABS: Glucose,Whole Blood 109 mg/dL (70-110)
[2024-07-22 08:10] VITALS: BP 105/70; PULSE 78; RESP 16; TEMP 98.2
[2024-07-22] MEDS: METOPROLOL SUCCINATE (ER) 25 MG TAB.ER.24H PO SCH (08:34)
[2024-07-22] MEDS: PROCHLORPERAZINE 10 MG TAB PO SCH (08:34)
[2024-07-22] MEDS: SULFAMETHOX-TMP 400-80MG 1 EACH TAB PO SCH (08:34)
[2024-07-22] MEDS: TACROLIMUS 0.5 MG CAP PO SCH (08:35)
[2024-07-22] MEDS: ESCITALOPRAM 10 MG TAB PO SCH (08:35)
[2024-07-22] MEDS: ASPIRIN 81 MG PO SCH (08:35)
[2024-07-22] MEDS ORDERED: ASPIRIN 325 MG TAB PO SCH (09:00)
--- NOTE | 2024-07-22 10:58 | P.PN ---
Subjective Progress Note Date: 07/22/24 Consult reason: chest pain History of present illness: This is a 48-year-old female patient of Dr. 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 We have been asked to evaluate the patient for chest pain. Patient gives history that when she was at [facility] in early June it was found that she was in atrial fibrillation which was new for her and she was sent to Dr. Armendariz and was seen by him on 06/24/2024. She was started on Eliquis and Toprol and underwent echocardiogram with a EF of 35 to 40%. Yesterday, patient underwent EGD with Dr. Vanegas because patient has had gastric sleeve in the past was not having ongoing diarrhea and constipation. Patient was found to have esophageal dysmotility and upper esophageal stenosis. Patient states that last evening around 7 PM she started having severe chest pain in the upper left chest area that was a tightness. She also complains of a massive migraine. She states the chest pain gets worse when she walks and she also developed shortness of breath. She states she has had similar chest pain in the past but not as bad. She states she has had some dizziness but no syncope. No lower extremity edema. She has had some pounding of her chest. She is normally not very active due to chronic shortness of breath that is gradually worsened. Blood pressure 118/78, heart rate 82, pulse ox 97% on room air. -EKG: Sinus rhythm with no acute ST changes -Chest x-ray: No acute process. -Laboratory studies: CBC, INR, CMP unremarkable. Troponin negative x 3. proBNP 451. -Home cardiac medications according to office records: Eliquis 5 mg twice daily, Toprol-XL 25 mg daily. -Echocardiogram performed in the office on 07/16/2024 revealed atrial fibrillation, EF 35 to 40%. Moderate mitral regurgitation, mild tricuspid regurgitation. PASP 18 mmHg. -Lexiscan Cardiolite stress test performed in the office on 02/23/2021 was a negative Lexiscan stress test. Abnormal perfusion study with predominantly fixed defect involving the anterior apical and anterior lateral and lateral wall suggestive of previous SC with minimal kathy-infarction ischemia. Gated images showed hypokinesis of the anterior septal and anterior apical areas with an ejection fraction close to 40%. 3/ Patient seen and examined. Echocardiogram reveals severely impaired left ventricular systolic function with segmental wall motion abnormality, EF 20 to 25%. Moderate to severe atrial regurgitation with mild tricuspid regurgitation. Lexiscan Cardiolite stress test performed yesterday revealed correlate for large area of old infarct involving the lateral wall with inducible kathy-infarct ischemia which extends to involve the mid to apical anterior wall. EF 42 percent. Due to reduced EF found on echocardiogram, patient was started on E ntresto. Results of the Lexiscan stress test and echocardiogram have been reviewed with the patient this morning. She states that her chest pain and breathing are better. She has been up and walking and doing well with that. Blood pressure 105/70, heart rate 78, pulse ox 98% on room air. Physical examination: Gen: This is a 48-year-old female in no acute distress VS: reviewed HEENT: Head is atraumatic, normocephalic. Pupils equal, round. Sclerae is anicteric. NECK: Supple. No JVD. LUNGS: Bilateral expiratory wheeze. No intercostal retractions. HEART: Regular rate and rhythm. Systolic murmur. ABDOMEN: Soft No tenderness. EXTREMITIES: No pedal edema. No calf tenderness. NEUROLOGICAL: Patient is awake, alert and oriented x3. 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 Godinez in 1 to 2 weeks. Nurse practitioner note has been reviewed, I agree with documented findings and plan of care. Patient was seen and examined. Objective - Vital Signs Vital signs: Vital Signs Temp 98.7 F 07/22/24 00:52 Pulse 74 07/22/24 00:52 Resp 15 07/22/24 00:52 BP 134/88 07/22/24 00:52 Pulse Ox 97 07/22/24 00:52 FiO2 Intake & Output 07/21/24 07/22/24 07/22/24 18:59 06:59 18:59 Other: # Voids 2 2 - Labs CBC & Chem 7: 07/20/24 22:22 07/20/24 22:22 Labs: Abnormal Lab Results - Last 24 Hours (Table) 07/21/24 07/21/24 07/21/24 Range/Units 05:11 13:26 20:24 POC Glucose (mg/dL) 129 H 141 H (70-110) mg/dL Hemoglobin A1c 6.3 H (<=6.0) %
[2024-07-22 11:32] LABS: Chol/HDL Ratio 4.12 Ratio; LDL Cholesterol,Calculated 132.3 mg/dL (0.0-131.0)
--- NOTE | 2024-07-22 15:57 | P.DS ---
Providers Date of admission: 07/21/24 00:16 Expected date of discharge: 07/22/24 Attending physician: Sri Maria MD Consults: 07/21/24 00:15 Consult Physician Urgent Consulting Provider: Jenny Huitron Consult Reason/Comments: cp Do you want consulting provider notified?: Yes Primary care physician: Guru Kline MD Hospital Course: 48 year old F with PMH of migraine, paroxysmal A-fib, COPD, leukemia, history of open heart surgery, borderline diabetes presented to the ED for chest pain. She underwent extensive evaluation. BP 130/93, HR 78, T 98.4F, RR 18, 97% on RA. CB C, Coag panel, CMP significant for glu 115, AST 40. Trop < 0.012 x 3. BNP 451. Lipase 59. Lipid panel T. Chol 203, LDL 132.3. A1c 6.3. CXR negative for acute pathology. CTA chest neg for PE. EKG sinus rhythm with no ST T wave changes. Echo showed EF 20-25% with ateroapical and anteroseptal akinesis. Cardiology consulted, recommended stress test. Stress test showed EF 42% with large area of old infarct. Started on ASA, Entresto, Lipitor and Metoprolol. 07/22 Patient was seen and examined. She reports no chest pain. Cleared for discharge by Cardiology. Discharge Plan: Prescriptions for ASA, Entresto, Lipitor, Metoprolol and Nitro SL PRN sent to pharmacy. Follow up with PCP within 1-2 days of discharge and Cardiology on 07/29. General: non toxic, no distress, appears at stated age Derm: warm, dry Head: atraumatic, normocephalic, symmetric Eyes: EOMI, no lid lag, anicteric sclera Mouth: no lip lesion, mucus membranes moist Cardiovascular: S1S2 reg, no murmur Lungs: CTA bilateral, no rhonchi, no rales , no accessory muscle use Ext: no gross muscle atrophy, no edema, no contractures Neuro: no focal neuro deficits Psych: Alert and oriented. Discharge Diagnosis: Atypical chest pain Migraine History of congenital heart disease History of ischemic cardiomyopath Pre Diabetes mellitus History of leukemia Paroxysmal A-fib This complex discharge took 35 minutes to complete. Patient Condition at Discharge: Stable Plan - Discharge Summary Discharge Rx Participant: No New Discharge Prescriptions: New Aspirin 81 mg PO DAILY #30 tab Sacubitril/Valsartan [Entresto 24 mg-26 mg Tablet] 1 each PO BID #60 tab Atorvastatin [Lipitor] 80 mg PO DAILY #30 tab Metoprolol Succinate (ER) [Toprol XL] 25 mg PO DAILY #30 tab Acetaminophen Tab [Tylenol] 650 mg PO Q6HR PRN tab PRN Reason: Fever And/ Or Pain Nitroglycerin Sl Tabs [Nitrostat] 0.4 mg SUBLINGUAL Q5M PRN #30 tab PRN Reason: Chest Pain Continue Acyclovir [Zovirax] 800 mg PO BID Prochlorperazine [Compazine] 10 mg PO DAILY Apixaban [Eliquis] 5 mg PO BID #180 tab Docusate [Colace] 100 mg PO BID Cyclobenzaprine [Flexeril] 10 mg PO BID Ergocalciferol [Vitamin D2 (1250 Mcg = 43940 Iu)] 1,250 mcg PO FLOYD Sulfamethox-Tmp 400-80Mg [Bactrim SS 400-80 mg] 1 tab PO DAILY Pantoprazole [Protonix] 40 mg PO BID Ammonium Lactate Cream [Lac-Hydrin 12% Cream] 1 applic TOPICAL BID Ruxolitinib Phosphate [Jakafi] 5 mg PO BID Tacrolimus [Prograf] 0.5 mg PO DAILY Escitalopram [Lexapro] 10 mg PO DAILY Magnesium Oxide [Mag-Oxide] 200 mg PO BID Cyanocobalamin [Vitamin B-12] 1,000 mcg PO FLOYD Ketoconazole 2% Cream [Nizoral 2%] 1 applic TOPICAL DAILY Discharge Medication List Acyclovir [Zovirax] 800 mg PO BID 05/18/17 [History] Ruxolitinib Phosphate [Jakafi] 5 mg PO BID 10/03/21 [History] Prochlorperazine [Compazine] 10 mg PO DAILY 10/18/22 [History] Apixaban [Eliquis] 5 mg PO BID #180 tab 05/28/23 [Rx] Cyclobenzaprine [Flexeril] 10 mg PO BID 10/26/23 [History] Docusate [Colace] 100 mg PO BID 10/26/23 [History] Ergocalciferol [Vitamin D2 (1250 Mcg = 86960 Iu)] 1,250 mcg PO FLOYD 10/26/23 [History] Escitalopram [Lexapro] 10 mg PO DAILY 10/26/23 [History] Pantoprazole [Protonix] 40 mg PO BID 10/26/23 [History] Sulfamethox-Tmp 400-80Mg [Bactrim SS 400-80 mg] 1 tab PO DAILY 10/26/23 [History] Tacrolimus [Prograf] 0.5 mg PO DAILY 10/26/23 [History] Magnesium Oxide [Mag-Oxide] 200 mg PO BID 06/24/24 [History] Cyanocobalamin [Vitamin B-12] 1,000 mcg PO FLOYD 07/16/24 [History] Ammonium Lactate Cream [Lac-Hydrin 12% Cream] 1 applic TOPICAL BID 07/21/24 [History] Ketoconazole 2% Cream [Nizoral 2%] 1 applic TOPICAL DAILY 07/21/24 [History] Acetaminophen Tab [Tylenol] 650 mg PO Q6HR PRN tab 07/22/24 [Rx] Aspirin 81 mg PO DAILY #30 tab 07/22/24 [Rx] Atorvastatin [Lipitor] 80 mg PO DAILY #30 tab 07/22/24 [Rx] Metoprolol Succinate (ER) [Toprol XL] 25 mg PO DAILY #30 tab 07/22/24 [Rx] Nitroglycerin Sl Tabs [Nitrostat] 0.4 mg SUBLINGUAL Q5M PRN #30 tab 07/22/24 [Rx] Sacubitril/Valsartan [Entresto 24 mg-26 mg Tablet] 1 each PO BID #60 tab 07/22/24 [Rx] Follow up Appointment(s)/Referral(s): Guru Kline MD [Primary Care Provider] - 1-2 days Jose Godinez MD [STAFF PHYSICIAN] - 07/29/24 3:00 pm Patient Instructions/Handouts: Chest Pain (DC) Discharge Disposition: HOME SELF-CARE
[2024-07-26] MEDS ORDERED: ERGOCALCIFEROL 1,250 MCG (50,000 IU) CAPSULE PO SCH (09:00)
[2024-07-26] MEDS ORDERED: CYANOCOBALAMIN 500 MCG TAB PO SCH (09:00)
== END 2024-07-22 12:48 | disposition home or self-care (01) ==
LOC: EC 21:46 → 6NMEDSUR 07-21 00:16
PROVIDERS: ADMIT Internal Medicine; ATTEND Internal Medicine
DX: R07.89 Other chest pain (principal); G43.909 Migraine, unspecified, not intractable, without status migrainosus; I48.0 Paroxysmal atrial fibrillation; J44.9 Chronic obstructive pulmonary disease, unspecified; E11.9 Type 2 diabetes mellitus without complications; F32.A Depression, unspecified; F41.9 Anxiety disorder, unspecified; I25.5 Ischemic cardiomyopathy; I34.0 Nonrheumatic mitral (valve) insufficiency; Z85.6 Personal history of leukemia; Z87.891 Personal history of nicotine dependence; Z94.81 Bone marrow transplant status; Z79.01 Long term (current) use of anticoagulants; Z79.899 Other long term (current) drug therapy
CPT/HCPCS: 96376 ×2; 96374; 96361; 99285; 36415; 93005 ×2; 93017; 93306; 83880; 80061; 80053; 83690; 83735; 84484 ×2; 85025; 85610; 85730; 83036; 71046; 71275; 78452; G0378 ×2; A9500; S0183; Q9957; J2785; J1885 ×2; Q9967

== ENCOUNTER 2024-11-29 20:53 | Inpatient (IN) | payer MEDICARE ==
[2024-11-29 22:02] LABS: RSV Not Detected (Not Detectd)
--- NOTE | 2024-11-29 23:11 | XR ---
EXAM: XR Chest, 2 Views CLINICAL HISTORY: ITS.REASON XR Reason: cough TECHNIQUE: Frontal and lateral views of the chest. COMPARISON: Chest x-ray of 07/20/2024. FINDINGS: Lungs: Unremarkable. No consolidative changes or pleural effusions. Pleural space: See above. Heart: Heart is normal in size. No cardiomegaly. Mediastinum: Unremarkable. Normal mediastinal contour. Bones/joints: Sternotomy wires are noted in place. Surgical resection of the lateral left clavicle. Postsurgical changes about the left shoulder joint. Osseous structures and soft tissues are unremarkable. Mild to moderate degenerative disc disease of the thoracic spine. No acute fracture. IMPRESSION: No consolidative changes or pleural effusions.
--- NOTE | 2024-11-30 00:28 | ED ---
General Adult HPI - General Chief complaint: Upper Respiratory Infection Stated complaint: chest pain, pain all over Time Seen by Provider: 11/29/24 21:00 Source: patient Mode of arrival: ambulatory Limitations: no limitations - History of Present Illness Initial comments: 49-year-old female with past medical history of A-fib, leukemia status post bone marrow transplant who presents emergency department with fevers and bodyaches. States that today she has had diffuse bodyaches, nausea without vomiting. Patient noted a temp of 100.8 at home. She does take immunosuppressants as she is a bone marrow transplant patient. She does admit to a cough with shortness of breath. No chest pain. No abdominal pain. Denies any changes in her bowel or bladder habits. Does admit that her significant other does have a cough. She not take any Motrin or Tylenol before coming in. No other alleviating, precipitating or modifying factors - Related Data Home Medications Medication Instructions Recorded Confirmed Acyclovir [Zovirax] 800 mg PO BID 05/18/17 07/21/24 Ruxolitinib Phosphate [Jakafi] 5 mg PO BID 10/03/21 07/21/24 Prochlorperazine [Compazine] 10 mg PO DAILY 10/18/22 07/21/24 Cyclobenzaprine [Flexeril] 10 mg PO BID 10/26/23 07/21/24 Docusate [Colace] 100 mg PO BID 10/26/23 07/21/24 Ergocalciferol [Vitamin D2 (1250 1,250 mcg PO FLOYD 10/26/23 07/21/24 Mcg = 06723 Iu)] Escitalopram [Lexapro] 10 mg PO DAILY 10/26/23 07/21/24 Pantoprazole [Protonix] 40 mg PO BID 10/26/23 07/21/24 Sulfamethox-Tmp 400-80Mg [Bactrim 1 tab PO DAILY 10/26/23 07/21/24 SS 400-80 mg] Tacrolimus [Prograf] 0.5 mg PO DAILY 10/26/23 07/21/24 Magnesium Oxide [Mag-Oxide] 200 mg PO BID 06/24/24 07/21/24 Cyanocobalamin [Vitamin B-12] 1,000 mcg PO FLOYD 07/16/24 07/21/24 Ammonium Lactate Cream [Lac-Hydrin 1 applic TOPICAL BID 07/21/24 07/21/24 12% Cream] Ketoconazole 2% Cream [Nizoral 2%] 1 applic TOPICAL DAILY 07/21/24 07/21/24 Previous Rx's Medication Instructions Recorded Apixaban [Eliquis] 5 mg PO BID #180 tab 05/28/23 Acetaminophen Tab [Tylenol] 650 mg PO Q6HR PRN tab 07/22/24 Aspirin 81 mg PO DAILY #30 tab 07/22/24 Atorvastatin [Lipitor] 80 mg PO DAILY #30 tab 07/22/24 Metoprolol Succinate (ER) [Toprol 25 mg PO DAILY #30 tab 07/22/24 XL] Nitroglycerin Sl Tabs [Nitrostat] 0.4 mg SUBLINGUAL Q5M PRN #30 tab 07/22/24 Sacubitril/Valsartan [Entresto 24 1 each PO BID #60 tab 07/22/24 mg-26 mg Tablet] Allergies Allergy/AdvReac Type Severity Reaction Status Date / Time fondaparinux [From Arixtra] Allergy Intermediate Rash/Hives Verified 11/29/24 20:58 propoxyphene napsylate Allergy Intermediate Rash/Hives Verified 11/29/24 20:58 [From Darvocet-N] Review of Systems ROS Statement: Those systems with pertinent positive or pertinent negative responses have been documented in the HPI. ROS Other: All systems not noted in ROS Statement are negative. 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, non-alcoholic fatty liver disease/cirrhosis (pt was found to have this during attempted surgery 01/2022) syncopal episode 2023 History of Any Multi-Drug Resistant Organisms: None Reported Past Surgical History: Bariatric Surgery, Section, Cholecystectomy, Hernia Repair, Orthopedic Surgery, Tubal Ligation, Uterine Ablation Additional Past Surgical History / Comment(s): left knee arthroscopy, left shoulder torn rotator cuff repair has pin in place, bone marrow transplant, open heart surgery at age 18 months "they took an artery out of leg to use in heart"., robotic assisted laproscopic sleeve gastrectomy 1-8-24 Past Anesthesia/Blood Transfusion Reactions: No Reported Reaction Additional Past Anesthesia/Blood Transfusion Reaction / Comment(s): several blood transfusion-pt denies any reaction Past Psychological History: Anxiety, Depression Smoking Status: Former smoker Past Alcohol Use History: Occasional Past Drug Use History: Marijuana - Past Family History Mother Family Medical History: Hyperlipidemia, Renal Disease Additional Family Medical History / Comment(s): vit d- deficiency, anemia Father Family Medical History: COPD Additional Family Medical History / Comment(s): "bowel problems-hx resection" General Exam Limitations: no limitations General appearance: alert, in no apparent distress Head exam: Present: atraumatic, normocephalic, normal inspection Eye exam: Present: normal appearance, PERRL, EOMI. Absent: scleral icterus, conjunctival injection, periorbital swelling ENT exam: Present: normal exam, mucous membranes moist Neck exam: Present: normal inspection. Absent: tenderness, meningismus, lymp hadenopathy Respiratory exam: Present: wheezes. Absent: respiratory distress, rales, rhonchi, stridor Cardiovascular Exam: Present: regular rate, normal rhythm, normal heart sounds. Absent: systolic murmur, diastolic murmur, rubs, gallop, clicks GI/Abdominal exam: Present: soft, normal bowel sounds. Absent: distended, te nderness, guarding, rebound, rigid Extremities exam: Present: normal inspection, full ROM, normal capillary refill. Absent: tenderness, pedal edema, joint swelling, calf tenderness Back exam: Present: normal inspection Neurological exam: Present: alert, oriented X3, CN II-XII intact Psychiatric exam: Present: normal affect, normal mood Skin exam: Present: warm, dry, intact, normal color. Absent: rash Course Vital Signs 11/29/24 11/30/24 11/30/24 20:56 00:52 01:03 Temperature 99.7 F H Pulse Rate 120 H 60 Respiratory 18 20 18 Rate Blood Pressure 99/74 107/61 O2 Sat by Pulse 96 95 Oximetry 11/30/24 01:05 Temperature 100.4 F H Pulse Rate 62 Respiratory 19 Rate Blood Pressure 107/83 O2 Sat by Pulse 95 Oximetry Medical Decision Making - Medical Decision Making Was pt. sent in by a medical professional or institution (, PA, EKG TECHNICIAN, urgent care, hospital, or senior living...) When possible be specific @ -No Did you speak to anyone other than the patient for history (EMS, parent, family, police, friend...)? What history was obtained from this source @ -No Did you review nursing and triage notes (agree or disagree)? Why? @ -I reviewed and agree with nursing and triage notes Were old charts reviewed (outside hosp., previous admission, EMS record, old EKG, old radiological studies, urgent care reports/EKG's, senior living records)? Report findings @ -No old charts were reviewed Differential Diagnosis (chest pain, altered mental status, abdominal pain women, abdominal pain men, vaginal bleeding, weakness, fever, dyspnea, syncope, headache, dizziness, GI bleed, back pain, seizure, CVA, palpatations, mental health, musculoskeletal)? @ -Differential Fever: Pneumonia, viral URI, endocarditis, myocarditis, pericarditis, otitis, sinusitis, peritonsillar Abscess, retropharyngeal Abscess, epiglottitis, p eritonitis, appendicitis, [place] cystitis, diverticulitis, hepatitis, colitis, UTI, PID, TOA, pyelonephritis, prostatitis, epididymitis, meningitis, encephalitis, pulmonary embolism, CVA, thyroid storm, pancreatitis, adrenal crisis, cavernous sinus thrombosis, this is not meant to be an all-inclusive list. EKG interpreted by me (3pts min.). @ -Yes which demonstrates sinus tachycardia with a rate of 112. AL interval 150. QRS 106. QTc of 401. No acute ST segment elevations or depressions X-rays interpreted by me (1pt min.). @ -Yes which demonstrates no acute process CT interpreted by me (1pt min.). @ -None done U/S interpreted by me (1pt. min.). @ -None done What testing was considered but not performed or refused? (CT, X-rays, U/S, labs)? Why? @ -None What meds were considered but not given or refused? Why? @ -None Did you discuss the management of the patient with other professionals (professionals i.e. , PA, EKG TECHNICIAN, lab, RT, psych nurse, psych social worker, db2 systems programmer, teacher, chief human resources officer, family preservation caseworker)? Give summary @ -Spoke with [facility] for admission Was smoking cessation discussed for >3mins.? @ -No Was critical care preformed (if so, how long)? @ -No Were there social determinants of health that impacted care today? How? (Homelessness, low income, unemployed, alcoholism, drug addiction, transportation, low edu. Level, literacy, decrease access to med. care, correction, rehab)? @ -No Was there de-escalation of care discussed even if they declined (Discuss DNR or withdrawal of care, Hospice)? DNR status @ -No What co-morbidities impacted this encounter? (DM, HTN, Smoking, COPD, CAD, Cancer, CVA, ARF, Chemo, Hep., AIDS, mental health diagnosis, sleep apnea, morbid obesity)? @ -Bone marrow transplant patient Was patient admitted / discharged? Hospital course, mention meds given and route, prescriptions, significant lab abnormalities, going to OR and other pertinent info. @ -Upon arrival patient seen and evaluated in room 20. Thorough history and physical exam was performed. Patient is febrile. IV access was established and laboratory studies are conducted. Viral swab is negative. Chest x-ray demonstrates no acute process. Awaiting urine at this time. Patient will be initiated on antibiotics and admitted to [facility] with infectious disease consult Undiagnosed new problem with uncertain prognosis? @ -Yes Drug Therapy requiring intensive monitoring for toxicity (Heparin, Nitro, Insulin, Cardizem)? @ -No Were any procedures done? @ -No Diagnosis/symptom? @ -Acute pyrexia of unknown source, history of bone marrow transplant Acute, or Chronic, or Acute on Chronic? @ -Acute Uncomplicated (without systemic symptoms) or Complicated (systemic symptoms)? @ -Complicated Side effects of treatment? @ -No Exacerbation, Progression, or Severe Exacerbation? @ -No Poses a threat to life or bodily function? How? (Chest pain, [place], [place], pneumonia, PE, COPD, DKA, ARF, appy, cholecystitis, CVA, Diverticulitis, Homicidal, Suicidal, threat to staff... and all critical care pts) @ -No - Lab Data Result diagrams: 11/30/24 00:35 11/30/24 00:35 Lab Results 11/29/24 11/30/24 11/30/24 Range/Units 20:58 00:35 00:35 WBC 8.23 (4.50-10.00) 10*3/uL RBC 3.93 L (4.10-5.20) 10*6/uL Hgb 13.3 (12.0-15.0) g/dL Hct 38.7 (37.2-46.3) % MCV 98.5 H (80.0-97.0) fL MCH 33.8 H (27.0-32.0) pg MCHC 34.4 (32.0-37.0) g/dL Plt Count 274 (140-440) 10*3/uL MPV 8.9 L (9.5-12.2) fL Immature Gran % (Auto) 0.4 % Neutrophils % 83.3 % Lymphocytes % 11.2 % Monocytes % 4.6 % Eosinophils % 0.4 % Basophils % 0.1 % Immature Gran # 0.03 (0.00-0.04) 10*3/uL Neutrophils # 6.86 (1.80-7.70) 10*3/uL Lymphocytes # 0.92 (0.90-5.00) 10*3/uL Monocytes # 0.38 (0.20-1.00) 10*3/uL Eosinophils # 0.03 L (0.04-0.35) 10*3/uL Basophils # 0.01 (0.00-0.10) 10*3/uL Sodium 137 (137-145) mmol/L Potassium 4.4 (3.5-5.1) mmol/L Chloride 106 (98-107) mmol/L Carbon Dioxide 18 L (22-30) mmol/L Anion Gap 13 mmol/L BUN 25 H (7-17) mg/dL Creatinine 1.12 H (0.52-1.04) mg/dL Est GFR (CKD-EPI)AfAm 66 (>60 ml/min/1.73 sqM) Est GFR (CKD-EPI)NonAf 57 (>60 ml/min/1.73 sqM) Glucose 154 H (74-99) mg/dL Plasma Lactic Acid Cayden (0.7-2.0) mmol/L Calcium 9.7 (8.4-10.2) mg/dL Total Bilirubin 0.9 (0.2-1.3) mg/dL AST 66 H (14-36) U/L ALT 57 H (4-34) U/L Alkaline Phosphatase 96 (38-126) U/L C-Reactive Protein 1.8 H (<1.0) mg/dL Total Protein 7.5 (6.3-8.2) g/dL Albumin 4.9 (3.5-5.0) g/dL Influenza Type A (PCR) Not Detected (Not Detectd) Influenza Type B (PCR) Not Detected (Not Detectd) RSV (PCR) Not Detected (Not Detectd) SARS-CoV-2 (PCR) Not Detected (Not Detectd) 11/30/24 Range/Units 00:35 WBC (4.50-10.00) 10*3/uL RBC (4.10-5.20) 10*6/uL Hgb (12.0-15.0) g/dL Hct (37.2-46.3) % MCV (80.0-97.0) fL MCH (27.0-32.0) pg MCHC (32.0-37.0) g/dL Plt Count (140-440) 10*3/uL MPV (9.5-12.2) fL Immature Gran % (Auto) % Neutrophils % % Lymphocytes % % Monocytes % % Eosinophils % % Basophils % % Immature Gran # (0.00-0.04) 10*3/uL Neutrophils # (1.80-7.70) 10*3/uL Lymphocytes # (0.90-5.00) 10*3/uL Monocytes # (0.20-1.00) 10*3/uL Eosinophils # (0.04-0.35) 10*3/uL Basophils # (0.00-0.10) 10*3/uL Sodium (137-145) mmol/L Potassium (3.5-5.1) mmol/L Chloride (98-107) mmol/L Carbon Dioxide (22-30) mmol/L Anion Gap mmol/L BUN (7-17) mg/dL Creatinine (0.52-1.04) mg/dL Est GFR (CKD-EPI)AfAm (>60 ml/min/1.73 sqM) Est GFR (CKD-EPI)NonAf (>60 ml/min/1.73 sqM) Glucose (74-99) mg/dL Plasma Lactic Acid [place] 1.5 (0.7-2.0) mmol/L Calcium (8.4-10.2) mg/dL Total Bilirubin (0.2-1.3) mg/dL AST (14-36) U/L ALT (4-34) U/L Alkaline Phosphatase (38-126) U/L C-Reactive Protein (<1.0) mg/dL Total Protein (6.3-8.2) g/dL Albumin (3.5-5.0) g/dL Influenza Type A (PCR) (Not Detectd) Influenza Type B (PCR) (Not Detectd) RSV (PCR) (Not Detectd) SARS-CoV-2 (PCR) (Not Detectd) Disposition Clinical Impression: Fever, Immunosuppressed status Disposition: [facility] Condition: Stable Is patient prescribed a controlled substance at d/c from ED?: No Referrals: Boyd Jacobs MD [Primary Care Provider] - 1-2 days Time of Disposition: 01:36 Decision to Admit Reason: Admit from EC Decision Date: 11/30/24 Decision Time: 01:36
[2024-11-30 00:51] LABS: Basophils # (A) 0.01 10*3/uL (0.00-0.10); Basophils % (A) 0.1 %; Eosinophils # (A) 0.03 10*3/uL (0.04-0.35); Eosinophils % (A) 0.4 %; HCT 38.7 % (37.2-46.3); HGB 13.3 g/dL (12.0-15.0); Lymphocytes # (A) 0.92 10*3/uL (0.90-5.00); Lymphocytes % (A) 11.2 %; MCH 33.8 pg (27.0-32.0); MCHC 34.4 g/dL (32.0-37.0); MCV 98.5 fL (80.0-97.0); Monocytes # (A) 0.38 10*3/uL (0.20-1.00); Monocytes % (A) 4.6 %; Neutrophils # (A) 6.86 10*3/uL (1.80-7.70); Neutrophils % (A) 83.3 %; Platelet Count 274 10*3/uL (140-440); RBC 3.93 10*6/uL (4.10-5.20); RDW 13.4 % (11.5-14.5); WBC 8.23 10*3/uL (4.50-10.00)
[2024-11-30] MEDS: LACTATED RINGERS 1,000 ML IV ONE (01:02)
[2024-11-30] MEDS: ACETAMINOPHEN TAB 500 MG TAB PO STA (01:03)
[2024-11-30] MEDS: LACTATED RINGERS 1,000 ML IV SCH (01:03)
[2024-11-30] MEDS: MORPHINE SULFATE 4 MG/ML SYRINGE IVP STA (01:04)
[2024-11-30 01:31] LABS: ALT 57 U/L (4-34); AST 66 U/L (14-36); African American GFR (CKD) 66 (>60 ml/min/1.73 sqM); Albumin 4.9 g/dL (3.5-5.0); Alkaline Phosphatase 96 U/L (38-126); Anion Gap 13 mmol/L; Blood Urea Nitrogen 25 mg/dL (7-17); Calcium 9.7 mg/dL (8.4-10.2); Carbon Dioxide 18 mmol/L (22-30); Chloride 106 mmol/L (98-107); Glucose 154 mg/dL (74-99); Non-African American GFR(CKD) 57 (>60 ml/min/1.73 sqM); Potassium 4.4 mmol/L (3.5-5.1); Sodium 137 mmol/L (137-145); Total Protein 7.5 g/dL (6.3-8.2)
[2024-11-30] MEDS ORDERED: NALOXONE 0.4 MG/ML 1 ML VIAL IV PRN (01:36)
[2024-11-30 01:37] LABS: NT-Pro-B-Type Natriuretic Pept 490 pg/mL
[2024-11-30] MEDS ORDERED: ACETAMINOPHEN TAB 325 MG TAB PO PRN (01:41)
[2024-11-30] MEDS ORDERED: VANCOMYCIN IV PER PHARMACY 1 EACH MISC MISCELLANE PRN (01:46)
[2024-11-30] MEDS: SODIUM CHLORIDE 0.9% 1,000 ML IV SCH (02:31)
[2024-11-30] MEDS: CEFEPIME 2 GM in SODIUM CHLORIDE 0.9% 100 ML IVPB STA (02:35)
[2024-11-30] MEDS: VANCOMYCIN 1,500 MG in SODIUM CHLORIDE 0.9% 500 ML 500 ML IVPB ONE (03:36)
[2024-11-30 05:19] LABS: Bacteria,Urine Rare /hpf; Bilirubin,Urine Negative (Negative); Blood,Urine Moderate (Negative); Budding Yeast,Urine Rare /hpf; Color,Urine Colorless; Glucose,Urine (UA) Negative (Negative); Ketones,Urine Negative (Negative); Leukocyte Esterase,Urine Small (Negative); Mucus,Urine Rare /hpf; Nitrite,Urine Negative (Negative); PH, Urine 5.5 (5.0-8.0); Protein,Urine Negative (Negative); RBC,Urine 4 /hpf (0-5); Specific Gravity,Urine 1.015 (1.001-1.035); Squamous Epithelial Cell,Urine 1 /hpf (0-4); Urobilinogen,Urine <2.0 mg/dL (<2.0); WBC,Urine 3 /hpf (0-5)
--- NOTE | 2024-11-30 11:20 | P.HPIM ---
History of Present Illness H&P Date: 11/30/24 History of present illness; patient is a 49-year-old lady with past medical history significant for COPD, atrial fibrillation, diabetes mellitus, leukemia status bone marrow transplant presented the ER for generalized bodyaches and fever patient stated she was all right yesterday when she started feeling unwell, she started having generalized body aches. Patient stated that she felt feverish and checked her fever at home and was found to be elevated at 100.8. She also started having abdominal pain patient also having nausea. Patient did notice that she was having cough which is nonproductive associate with some shortness of breath. There was no complaint of chills. Patient also complai constance of some chest pain associated with her cough. There was no complaint of orthopnea or PND. Patient denies any palpitation. Patient denies any complaint of dizziness. There is no complaint of headache. Because of the symptoms, patient came to the ER Initial lab work done in the ER showed WBC 8.23, hemoglobin 13.3, platelet count 274, sodium 137, potassium 4.4, BUN 25, creatinine 1.12, glucose 154, lactate 1.5, calcium 9.7, AST 66, ALT 57, troponin 0.012, CRP 1.8 UA negative for infection Influenza A not detected Influenza B not detected RSV not detected COVID-19 not detected EKG done in the ER showed heart rate of 111, no ST segment elevation or depression seen, no T-wave inversions seen. Chest x-ray done in the ER no consolidative changes or pleural Patient admitted to internal medicine service REVIEW OF SYSTEMS: CONSTITUTIONAL: No fever, no malaise, no fatigue. HEENT: No recent visual problems or hearing problems. Denied any sore throat. CARDIOVASCULAR: As mentioned above PULMONARY: As mentioned above GASTROINTESTINAL: Mentioned above NEUROLOGICAL: No headaches, no weakness, no numbness. HEMATOLOGICAL: Denies any bleeding or petechiae. GENITOURINARY: Denies any burning micturition, frequency, or urgency. MUSCULOSKELETAL/RHEUMATOLOGICAL: Denies any joint pain, swelling, or any muscle pain. ENDOCRINE: Denies any polyuria or polydipsia. The rest of the 14-point review of systems is negative. PHYSICAL EXAMINATION: GENERAL: The patient is alert and oriented x3, not in any acute distress. Well developed, well nourished. HEENT: Pupils are round and equally reacting to light. EOMI. No scleral icterus. No conjunctival pallor. Normocephalic, atraumatic. No pharyngeal erythema. No thyromegaly. CARDIOVASCULAR: S1 and S2 present. No murmurs, rubs, or gallops. PULMONARY: Chest is clear to auscultation, no wheezing or crackles. ABDOMEN: Soft, nontender, nondistended, normoactive bowel sounds. No palpable organomegaly. MUSCULOSKELETAL: No joint swelling or deformity. EXTREMITIES: No cyanosis, clubbing, or pedal edema. NEUROLOGICAL: Gross neurological examination did not reveal any focal deficits. SKIN: No rashes. 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 Continue same treatment. Continue with symptomatic treatment. Resume home medication. Monitor labs and vitals. DVT and GI prophylaxis. Further recommendations as per clinical course of the patient Dictation was produced using [employer] dictation software. please excuse any grammatical, word or spelling errors. 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, non-alcoholic fatty liver disease/cirrhosis (pt was found to have this during attempted surgery 01/2022) syncopal episode 2023 History of Any Multi-Drug Resistant Organisms: None Reported Past Surgical History: Bariatric Surgery, Section, Cholecystectomy, Hernia Repair, Orthopedic Surgery, Tubal Ligation, Uterine Ablation Additional Past Surgical History / Comment(s): left knee arthroscopy, left shoulder torn rotator cuff repair has pin in place, bone marrow transplant, open heart surgery at age 18 months "they took an artery out of leg to use in heart"., robotic assisted laproscopic sleeve gastrectomy 05-27-23 Past Anesthesia/Blood Transfusion Reactions: No Reported Reaction Additional Past Anesthesia/Blood Transfusion Reaction / Comment(s): several blood transfusion-pt denies any reaction Past Psychological History: Anxiety, Depression Additional Psychological History / Comment(s): no medications at this time Smoking Status: Former smoker Past Alcohol Use History: Occasional Additional Past Alcohol Use History / Comment(s): started smoking age 17(1992) and quit age 22(1998), smoked less than 1 ppd. 4-5 drinks/month Past Drug Use History: Marijuana Additional Drug Use History / Comment(s): uses marijuana for appetite, edibles, oil, smokes - Past Family History Mother Family Medical History: Hyperlipidemia, Renal Disease Additional Family Medical History / Comment(s): vit d- deficiency, anemia Father Family Medical History: COPD Additional Family Medical History / Comment(s): "bowel problems-hx resection" Medications and Allergies Home Medications Medication Instructions Recorded Confirmed Type Acyclovir [Zovirax] 800 mg PO BID 05/18/17 11/30/24 History Ruxolitinib Phosphate [Jakafi] 5 mg PO BID 10/03/21 11/30/24 History Prochlorperazine [Compazine] 10 mg PO BID 10/18/22 11/30/24 History Apixaban [Eliquis] 5 mg PO BID #180 tab 05/28/23 11/30/24 Rx Cyclobenzaprine [Flexeril] 10 mg PO BID 10/26/23 11/30/24 History Docusate [Colace] 100 mg PO BID 10/26/23 11/30/24 History Ergocalciferol [Vitamin D2 (1250 1,250 mcg PO FLOYD 10/26/23 11/30/24 History Mcg = 56279 Iu)] Escitalopram [Lexapro] 10 mg PO DAILY 10/26/23 11/30/24 History Pantoprazole [Protonix] 40 mg PO BID 10/26/23 11/30/24 History Sulfamethox-Tmp 400-80Mg [Bactrim 1 tab PO DAILY 10/26/23 11/30/24 History SS 400-80 mg] Tacrolimus [Prograf] 0.5 mg PO DAILY 10/26/23 11/30/24 History Magnesium Oxide [Mag-Oxide] 200 mg PO BID 06/24/24 11/30/24 History Cyanocobalamin [Vitamin B-12] 1,000 mcg PO FLOYD 07/16/24 11/30/24 History Ammonium Lactate Cream [Lac-Hydrin 1 applic TOPICAL BID 07/21/24 11/30/24 History 12% Cream] Ketoconazole 2% Cream [Nizoral 2%] 1 applic TOPICAL DAILY 07/21/24 11/30/24 History Acetaminophen Tab [Tylenol] 650 mg PO Q6HR PRN tab 07/22/24 11/30/24 Rx Aspirin 81 mg PO DAILY #30 tab 07/22/24 11/30/24 Rx Atorvastatin [Lipitor] 80 mg PO DAILY #30 tab 07/22/24 11/30/24 Rx Metoprolol Succinate (ER) [Toprol 25 mg PO DAILY #30 tab 07/22/24 11/30/24 Rx XL] Nitroglycerin Sl Tabs [Nitrostat] 0.4 mg SUBLINGUAL Q5M PRN #30 tab 07/22/24 11/30/24 Rx SUMAtriptan succinate [Imitrex] 25 mg PO Q2H PRN MDD 200mg 11/30/24 11/30/24 History Sacubitril/Valsartan [Entresto 24 1 tab PO BID 11/30/24 11/30/24 History mg-26 mg Tablet] Triamcinolone Acetonide 1 applic TOPICAL QID PRN 11/30/24 11/30/24 History [Triamcinolone Acetonide 0.025%] Allergies Allergy/AdvReac Type Severity Reaction Status Date / Time fondaparinux [From Arixtra] Allergy Intermediate Rash/Hives Verified 11/30/24 07:21 propoxyphene napsylate Allergy Intermediate Rash/Hives Verified 11/30/24 07:21 [From Darvocet-N] Physical Exam Vitals: Vital Signs Temp Pulse Pulse Resp BP BP Pulse Ox 11/30/24 08:00 98.7 F 73 117/80 99 11/30/24 06:50 98.2 F 112 H 18 130/100 94 L 11/30/24 02:38 98.9 F 107 H 16 128/76 94 L 11/30/24 01:05 100.4 F H 62 19 107/83 95 11/30/24 01:03 60 18 107/61 95 11/30/24 00:52 20 11/29/24 20:56 99.7 F H 120 H 18 99/74 96 Intake and Output 11/29/24 11/30/24 11/30/24 22:59 06:59 14:59 Other: Voiding Method Toilet Weight 80.739 kg 80.739 kg Results CBC & Chem 7: 11/30/24 00:35 11/30/24 00:35 Labs: Abnormal Lab Results - Last 24 Hours (Table) 11/30/24 11/30/24 11/30/24 Range/Units 00:35 00:35 04:45 RBC 3.93 L (4.10-5.20) 10*6/uL MCV 98.5 H (80.0-97.0) fL MCH 33.8 H (27.0-32.0) pg MPV 8.9 L (9.5-12.2) fL Eosinophils # 0.03 L (0.04-0.35) 10*3/uL Carbon Dioxide 18 L (22-30) mmol/L BUN 25 H (7-17) mg/dL Creatinine 1.12 H (0.52-1.04) mg/dL Glucose 154 H (74-99) mg/dL AST 66 H (14-36) U/L ALT 57 H (4-34) U/L C-Reactive Protein 1.8 H (<1.0) mg/dL Urine Blood Moderate H (Negative) Ur Leukocyte Esterase Small H (Negative) Urine Bacteria Rare H (None) /hpf Urine Mucus Rare H (None) /hpf Urine Yeast (Budding) Rare H (None) /hpf Thrombosis Risk Factor Assmnt - Choose All That Apply Any of the Below Risk Factors Present?: Yes Each Factor Represents 1 point: Age 41-60 years Thrombosis Risk Factor Assessment Total Risk Factor Score: 1 Thrombosis Risk Factor Assessment Level: Low Risk
[2024-11-30] MEDS: HYDROcodone/APAP 5-325MG 1 EACH TAB PO PRN (11:30)
--- NOTE | 2024-11-30 11:32 | CT ---
EXAMINATION TYPE: CT chest angio for PE DATE OF EXAM: 11/30/2024 11:00 AM COMPARISON: 07/20/2024 CLINICAL INDICATION: Female, 49 years old with history of Dyspnea; shortness of breath TECHNIQUE/CONTRAST: CTA scan of the thorax is performed without and with IV Contrast, patient injected with 100 ml mL of Isovue 370, MIP images are created and reviewed these are created on a separate workstation.. CT DLP: 331.9 mGycm, Automated exposure control for dose reduction was used. FINDINGS: The heart is normal size without pericardial effusion. No flattening of the interventricular septum r eflux of contrast into the hepatic veins. Aorta normal caliber with conventional arch vessel branching anatomy. No thoracic lymphadenopathy by CT size criteria. Satisfactory opacification of the pulmonary arterial system without evidence for pulmonary embolus. Mild diffuse bronchial wall thickening. No consolidation or pleural effusion. Tiny hiatal hernia. Postsurgical change sleeve gastrectomy and cholecystectomy. Bones: Mild to moderate degenerative disc disease midthoracic spine. IMPRESSION: 1. No evidence of pulmonary embolism. 2. Bronchial wall thickening suggests bronchitis or asthma. No focal infiltrate seen. [facility], , 11/30/2024 11:29 AM
[2024-11-30] MEDS: MORPHINE SULFATE 2 MG/ML SYRINGE IVP PRN (16:27)
[2024-11-30] MEDS: PANTOPRAZOLE 40 MG TABLET PO SCH (16:27)
[2024-11-30] MEDS: ONDANSETRON 4 MG/2 ML VIAL IVP PRN (20:07)
[2024-11-30 20:10] LABS: Glucose,Whole Blood 122 mg/dL (70-110)
[2024-11-30] MEDS: CYCLOBENZAPRINE 10 MG TAB PO SCH (21:04)
[2024-11-30] MEDS: CEFEPIME 2 GM in SODIUM CHLORIDE 0.9% 100 ML IVPB SCH (21:04)
[2024-11-30] MEDS: DOCUSATE 100 MG CAP PO SCH (21:04)
[2024-11-30] MEDS: APIXABAN 5 MG TAB PO SCH (21:05)
[2024-11-30] MEDS: MAGNESIUM OXIDE 400 MG TAB PO SCH (21:06)
[2024-11-30] MEDS: ACYCLOVIR 800 MG TAB PO SCH (22:33)
--- NOTE | 2024-11-30 22:39 | P.CONS ---
History of Present Illness - Reason for Consult Consult date: 11/30/24 Pyrexia, immunocompromised Requesting physician: Nickolas Rivera - Chief Complaint Fever and bodyaches x 1 day - History of Present Illness "Symptom has been going on for a day before presentation to hospital patient did have mild headache but no photophobia denies significant URI symptoms patient denies having any chest pain or shortness of breath she did have some cough brin ging up some clear sputum no hemoptysis did have nausea but no vomiting no abdominal pain did have diarrhea with some mucus but no blood in the stool, patient on presentation to the hospital was febrile with a temperature 100.4 F patient was tachycardic but not hypotensive or hypoxic did have a white count of 8.23 BUN and creatinine mildly elevated liver enzymes are elevated CRP is 1.8 UA mildly positive influenza RSV COVID testing negative patient did have a chest x- ray no consolidative changes or effusion did have a CT angiogram of the chest that was negative for PE bronchial wall thickening suggesting bronchitis or asthma no focal infiltrate patient has been admitted to the hospital infectious disease was consulted regarding pyrexia immunocompromise state patient has been started empirically on vancomycin and cefepime Review of Systems Positive point and negatives has been mentioned in the HPI, complete review of systems was performed and all other systems are negative Past Medical History Past Medical History: Atrial Fibrillation, Cancer, COPD, Diabetes Mellitus, Liver Disease, Osteoarthritis (OA), Syncope Additional Past Medical History / Comment(s): Congenital heart disease, [facility]-in remission, hx of kidney stones, murmur, "leaky heart valve", 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, non-alcoholic fatty liver disease/cirrhosis (pt was found to have this during attempted surgery 01/2022) syncopal episode 2023 History of Any Multi-Drug Resistant Organisms: None Reported Past Surgical History: Bariatric Surgery, Section, Cholecystectomy, Hernia Repair, Orthopedic Surgery, Tubal Ligation, Uterine Ablation Additional Past Surgical History / Comment(s): left knee arthroscopy, left shoulder torn rotator cuff repair has pin in place, bone marrow transplant, open heart surgery at age 18 months "they took an artery out of leg to use in heart"., robotic assisted laproscopic sleeve gastrectomy 05-27-23 Past Anesthesia/Blood Transfusion Reactions: No Reported Reaction Additional Past Anesthesia/Blood Transfusion Reaction / Comm: several blood transfusion-pt denies any reaction Past Psychological History: Anxiety, Depression Additional Psychological History / Comment(s): no medications at this time Smoking Status: Former smoker Past Alcohol Use History: Occasional Additional Past Alcohol Use History / Comment(s): started smoking age 17(1992) and quit age 22(1998), smoked less than 1 ppd. 4-5 drinks/month Past Drug Use History: Marijuana Additional Drug Use History / Comment(s): uses marijuana for appetite, edibles, oil, smokes - Past Family History Mother Family Medical History: Hyperlipidemia, Renal Disease Additional Family Medical History / Comment(s): vit d- deficiency, anemia Father Family Medical History: COPD Additional Family Medical History / Comment(s): "bowel problems-hx resection" Medications and Allergies Home Medications Medication Instructions Recorded Confirmed Type Acyclovir [Zovirax] 800 mg PO BID 05/18/17 11/30/24 History Ruxolitinib Phosphate [Jakafi] 5 mg PO BID 10/03/21 11/30/24 History Prochlorperazine [Compazine] 10 mg PO BID 10/18/22 11/30/24 History Apixaban [Eliquis] 5 mg PO BID #180 tab 05/28/23 11/30/24 Rx Cyclobenzaprine [Flexeril] 10 mg PO BID 10/26/23 11/30/24 History Docusate [Colace] 100 mg PO BID 10/26/23 11/30/24 History Ergocalciferol [Vitamin D2 (1250 1,250 mcg PO FLOYD 10/26/23 11/30/24 History Mcg = 61641 Iu)] Escitalopram [Lexapro] 10 mg PO DAILY 10/26/23 11/30/24 History Pantoprazole [Protonix] 40 mg PO BID 10/26/23 11/30/24 History Sulfamethox-Tmp 400-80Mg [Bactrim 1 tab PO DAILY 10/26/23 11/30/24 History SS 400-80 mg] Tacrolimus [Prograf] 0.5 mg PO DAILY 10/26/23 11/30/24 History Magnesium Oxide [Mag-Oxide] 200 mg PO BID 06/24/24 11/30/24 History Cyanocobalamin [Vitamin B-12] 1,000 mcg PO FLOYD 07/16/24 11/30/24 History Ammonium Lactate Cream [Lac-Hydrin 1 applic TOPICAL BID 07/21/24 11/30/24 History 12% Cream] Ketoconazole 2% Cream [Nizoral 2%] 1 applic TOPICAL DAILY 07/21/24 11/30/24 History Acetaminophen Tab [Tylenol] 650 mg PO Q6HR PRN tab 07/22/24 11/30/24 Rx Aspirin 81 mg PO DAILY #30 tab 07/22/24 11/30/24 Rx Atorvastatin [Lipitor] 80 mg PO DAILY #30 tab 07/22/24 11/30/24 Rx Metoprolol Succinate (ER) [Toprol 25 mg PO DAILY #30 tab 07/22/24 11/30/24 Rx XL] Nitroglycerin Sl Tabs [Nitrostat] 0.4 mg SUBLINGUAL Q5M PRN #30 tab 07/22/24 11/30/24 Rx SUMAtriptan succinate [Imitrex] 25 mg PO Q2H PRN MDD 200mg 11/30/24 11/30/24 History Sacubitril/Valsartan [Entresto 24 1 tab PO BID 11/30/24 11/30/24 History mg-26 mg Tablet] Triamcinolone Acetonide 1 applic TOPICAL QID PRN 11/30/24 11/30/24 History [Triamcinolone Acetonide 0.025%] Allergies Allergy/AdvReac Type Severity Reaction Status Date / Time fondaparinux [From Arixtra] Allergy Intermediate Rash/Hives Verified 11/30/24 07:21 propoxyphene napsylate Allergy Intermediate Rash/Hives Verified 11/30/24 07:21 [From Darsaludcet-N] Physical Exam Vitals: Vital Signs Temp Pulse Pulse Resp BP BP Pulse Ox 11/30/24 08:00 98.7 F 73 117/80 99 11/30/24 06:50 98.2 F 112 H 18 130/100 94 L 11/30/24 02:38 98.9 F 107 H 16 128/76 94 L 11/30/24 01:05 100.4 F H 62 19 107/83 95 11/30/24 01:03 60 18 107/61 95 11/30/24 00:52 20 11/29/24 20:56 99.7 F H 120 H 18 99/74 96 Intake and Output 11/29/24 11/30/2425 22:59 06:59 14:59 Other: Voiding Method Toilet Weight 80.739 kg 80.739 kg GENERAL DESCRIPTION: Middle-age female lying in bed, no distress. No tachypnea or accessory muscle of respiration use. HEENT: Shows Pallor , no scleral icterus. Oral mucous membrane is dry. No pharyngeal erythema or thrush NECK: Trachea central, no thyromegaly. LUNGS: Unlabored breathing. Bilateral expiratory wheezes HEART: S1, S2, regular rate and rhythm. No loud murmur ABDOMEN: Soft, no tenderness , EXTREMITIES: No edema of feet. SKIN: No rash, no masses palpable. NEUROLOGICAL: The patient is awake, alert, oriented x3, mood and affect normal. Results CBC & Chem 7: 12/01/24 03:44 12/01/24 03:44 Labs: Abnormal Lab Results - Last 24 Hours (Table) 11/30/24 11/30/24 11/30/24 Range/Units 00:35 00:35 04:45 RBC 3.93 L (4.10-5.20) 10*6/uL MCV 98.5 H (80.0-97.0) fL MCH 33.8 H (27.0-32.0) pg MPV 8.9 L (9.5-12.2) fL Eosinophils # 0.03 L (0.04-0.35) 10*3/uL Carbon Dioxide 18 L (22-30) mmol/L BUN 25 H (7-17) mg/dL Creatinine 1.12 H (0.52-1.04) mg/dL Glucose 154 H (74-99) mg/dL AST 66 H (14-36) U/L ALT 57 H (4-34) U/L C-Reactive Protein 1.8 H (<1.0) mg/dL Urine Blood Moderate H (Negative) Ur Leukocyte Esterase Small H (Negative) Urine Bacteria Rare H (None) /hpf Urine Mucus Rare H (None) /hpf Urine Yeast (Budding) Rare H (None) /hpf Assessment and Plan (1) Fever Current Visit: Yes Status: Acute Code(s): R50.9 - FEVER, UNSPECIFIED SNOMED Code(s): 631875330 (2) Immunosuppressed status Current Visit: Yes Status: Acute Code(s): D84.9 - IMMUNODEFICIENCY, UNSPECIFIED SNOMED Code(s): 87036073 Plan: 1patient is a 49-year-old female with history of leukemia status post normal transplant patient is current on tacrolimus presenting to the hospital with fever generalized bodyaches did have a respiratory symptoms and wheezing on auscultation however CT abdominal chest concern for possible bronchitis no evidence of any consolidation she also has some diarrhea but no significant abdominal tenderness 2-we will request for sputum for Gram stain and culture check stool for C. dif ficile and stool culture 3-patient empirically treated with vancomycin cefepime while waiting for the workup to be completed We will follow on clinical condition and cultures to further adjust medication if needed Thank you for this consultation we will follow the patient along with you Dictation was produced using [employer] dictation software. please excuse any grammatical, word or spelling errors. Time with Patient: Greater than 30
--- NOTE | 2024-11-30 22:56 | XR ---
EXAM: XR Chest, 1 View CLINICAL HISTORY: ITS.REASON XR Reason: shortness of breath TECHNIQUE: Frontal view of the chest. COMPARISON: 11/29/2024 FINDINGS: Lungs: No consolidation. Pleural space: No significant pleural effusion. No pneumothorax. Heart: No cardiomegaly or pulmonary vascular congestion. Bones/joints: Previous sternotomy with dehiscent sternal wires. No acute osseous findings. Suture anchor left humerus head. IMPRESSION: No acute findings in the chest.
[2024-11-30] MEDS: VANCOMYCIN 1,500 MG in SODIUM CHLORIDE 0.9% 500 ML 500 ML IVPB SCH (23:01)
[2024-12-01 06:14] LABS: Glucose,Whole Blood 118 mg/dL (70-110)
[2024-12-01 08:21] LABS: Basophils # (A) 0.01 X 10*3/uL (0.00-0.10); Basophils % (A) 0.3 %; Eosinophils # (A) 0.08 X 10*3/uL (0.04-0.35); Eosinophils % (A) 2.4 %; HCT 32.2 % (37.2-46.3); HGB 10.5 g/dL (12.0-15.0); Immature Grans, Automated 0.30 %; Lymphocytes # (A) 1.40 X 10*3/uL (0.90-5.00); Lymphocytes % (A) 41.9 %; MCH 33.1 pg (27.0-32.0); MCHC 32.6 g/dL (32.0-37.0); MCV 101.6 FL (80.0-97.0); Monocytes # (A) 0.46 X 10*3/uL (0.20-1.00); Monocytes % (A) 13.8 %; NRBC Per 100 WBC 0 X 10*3/uL (0.00-0.01); Neutrophils # (A) 1.38 X 10*3/uL (1.80-7.70); Neutrophils % (A) 41.3 %; Platelet Count 190 X 10*3/uL (140-440); RBC 3.17 X 10*6/uL (4.10-5.20); RDW 13.2 % (11.5-14.5); WBC 3.34 X 10*3/uL (4.50-10.00)
[2024-12-01 08:33] LABS: Anion Gap 9.10 mmol/L (4.00-12.00); BUN/Creat Ratio 17.12 Ratio (12.00-20.00); Blood Urea Nitrogen 13.7 mg/dL (9.0-27.0); Calcium 8.1 mg/dL (8.7-10.3); Carbon Dioxide 20.9 mmol/L (21.6-31.8); Chloride 109 mmol/L (96-109); Glucose 123 mg/dL (70-110); Potassium 4.4 mmol/L (3.5-5.5); Sodium 139 mmol/L (135-145)
[2024-12-01] MEDS: ATORVASTATIN 80 MG TAB PO SCH (09:00)
[2024-12-01] MEDS: SULFAMETHOX-TMP 400-80MG 1 EACH TAB PO SCH (09:00)
[2024-12-01] MEDS: ASPIRIN 81 MG PO SCH (09:00)
[2024-12-01] MEDS: TACROLIMUS 0.5 MG CAP PO SCH (09:01)
[2024-12-01] MEDS: JAKAFI 5 MG PO SCH (09:03)
[2024-12-01] MEDS: METOPROLOL SUCCINATE (ER) 25 MG TAB.ER.24H PO SCH (09:12)
[2024-12-01 11:07] LABS: Glucose,Whole Blood 113 mg/dL (70-110)
--- NOTE | 2024-12-01 14:02 | P.PN ---
Subjective Progress Note Date: 12/01/24 49-year-old lady with past medical history significant for COPD, atrial fibrillation, diabetes mellitus, leukemia status bone marrow transplant presented the ER for generalized bodyaches and fever patient stated she was all right yesterday when she started feeling unwell, she started having generalized body aches. Patient stated that she felt feverish and checked her fever at home and was found to be elevated at 100.8. She also started having abdominal pain patient also having nausea. Patient did notice that she was having cough which is nonproductive associate with some shortness of breath. There was no complaint of chills. Patient also complaining of some chest pain associated with her cough. There was no complaint of orthopnea or PND. Patient denies any palpitation. Patient denies any complaint of dizziness. There is no complaint of headache. Because of the symptoms, patient came to the ER Initial lab work done in the ER showed WBC 8.23, hemoglobin 13.3, platelet count 274, sodium 137, potassium 4.4, BUN 25, creatinine 1.12, glucose 154, lactate 1.5, calcium 9.7, AST 66, ALT 57, troponin 0.012, CRP 1.8 UA negative for infection Influenza A not detected Influenza B not detected RSV not detected COVID-19 not detected EKG done in the ER showed heart rate of 111, no ST segment elevation or depression seen, no T-wave inversions seen. Chest x-ray done in the ER no consolidative changes or pleural Patient admitted to internal medicine service 12/01. Patient seen and examined. Blood work done showed WBC 3.34, hemoglobin 12, platelet count 190, sodium 139, potassium 4.4 point BUN 13.7, creatinine 0.8, glucose 123. Temperature 97.8, heart rate 73, respiration 18, blood p ressure 118/82 States she feels better REVIEW OF SYSTEMS: CONSTITUTIONAL: No fever, no malaise,. CARDIOVASCULAR: No chest pain, no palpitations, no syncope. PULMONARY: No shortness of breath, no cough, GASTROINTESTINAL: No diarrhea, no nausea, no vomiting, no abdominal pain. NEUROLOGICAL: No headaches, no weakness, PHYSICAL EXAMINATION: GENERAL: The patient is alert and oriented x3, not in any acute distress. Well developed, well nourished. HEENT: Pupils are round and equally reacting to light. EOMI. No scleral icterus. No conjunctival pallor. Normocephalic, atraumatic. No pharyngeal erythema. No thyromegaly. CARDIOVASCULAR: S1 and S2 present. No murmurs, rubs, or gallops. PULMONARY: Chest is clear to auscultation, no wheezing or crackles. ABDOMEN: Soft, nontender, nondistended, normoactive bowel sounds. No palpable organomegaly. MUSCULOSKELETAL: No joint swelling or deformity. EXTREMITIES: No cyanosis, clubbing, or pedal edema. NEUROLOGICAL: Gross neurological examination did not reveal any focal deficits. SKIN: No rashes. 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 Continue same treatment. Continue with symptomatic treatment. Resume home medication. Monitor labs and vitals. DVT and GI prophylaxis. Further recommendations as per clinical course of the patient Dictation was produced using [employer] dictation software. please excuse any grammatical, word or spelling errors. Objective - Vital Signs Vital signs: Vital Signs Temp 97.8 F 12/01/24 08:00 Pulse 73 12/01/24 08:00 Resp 18 12/01/24 08:00 BP 118/82 12/01/24 08:00 Pulse Ox 94 L 12/01/24 08:00 FiO2 Intake & Output 11/30/24 12/01/24 12/01/24 18:59 06:59 18:59 Intake Total 150 Balance 150 Weight 80.739 kg Intake: Oral 150 Other: Voiding Method Toilet # Voids 1 2 - Labs CBC & Chem 7: 12/01/24 03:44 12/01/24 03:44 Labs: Abnormal Lab Results - Last 24 Hours (Table) 11/30/24 11/30/24 12/01/24 Range/Units 00:35 20:07 03:44 WBC 3.34 L (4.50-10.00) X 10*3/uL RBC 3.17 L (4.10-5.20) X 10*6/uL Hgb 10.5 L (12.0-15.0) g/dL Hct 32.2 L (37.2-46.3) % MCV 101.6 H (80.0-97.0) FL MCH 33.1 H (27.0-32.0) pg MPV 8.9 L (9.5-12.2) FL Neutrophils # 1.38 L (1.80-7.70) X 10*3/uL Carbon Dioxide (21.6-31.8) mmol/L Glucose (70-110) mg/dL POC Glucose (mg/dL) 122 H (70-110) mg/dL Calcium (8.7-10.3) mg/dL Tacrolimus <1.5 L (5.0-20.0) ng/mL 12/01/24 12/01/24 Range/Units 03:44 06:13 WBC (4.50-10.00) X 10*3/uL RBC (4.10-5.20) X 10*6/uL Hgb (12.0-15.0) g/dL Hct (37.2-46.3) % MCV (80.0-97.0) FL MCH (27.0-32.0) pg MPV (9.5-12.2) FL Neutrophils # (1.80-7.70) X 10*3/uL Carbon Dioxide 20.9 L (21.6-31.8) mmol/L Glucose 123 H (70-110) mg/dL POC Glucose (mg/dL) 118 H (70-110) mg/dL Calcium 8.1 L (8.7-10.3) mg/dL Tacrolimus (5.0-20.0) ng/mL Microbiology - Last 24 Hours (Table) 11/30/24 22:45 Gram Stain - Preliminary Sputum
--- NOTE | 2024-12-01 14:13 | P.PN ---
Subjective Progress Note Date: 12/01/24 Principal diagnosis: Reason for follow-up is fever Patient is a 49-year-old female with a past medical history significant for Atrial Fibrillation, Cancer, COPD, Diabetes Mellitus, Liver Disease, Osteoarthritis (OA), Syncope, history of leukemia status post bony marrow transplant patient is currently on tacrolimus and prophylactic sulfamethoxazole and acyclovir patient presenting to the hospital for evaluation of generalized bodyaches and fevers patient did have a fever 100.4 F, mild elevated enzymes CT, the chest concerning for bronchial wall thickening. On today's evaluation that is 12/01/2024, Patient did have resolution of the fever and is afebrile this morning patient still complaining of generalized body muscle and bodyaches she did have a cough mild intensity not bringing up any sputum no nausea vomiting did have resolution of her diarrhea. Patient white count is dropped to 3.34 creatinine 0.8 tacrolimus level was subtherapeutic. Chest x-ray no acute findings Objective - Vital Signs Vital signs: Vital Signs Temp 97.8 F 12/01/24 08:00 Pulse 73 12/01/24 08:00 Resp 18 12/01/24 08:00 BP 118/82 12/01/24 08:00 Pulse Ox 94 L 12/01/24 08:00 FiO2 Intake & Output 11/30/24 12/01/24 12/01/24 18:59 06:59 18:59 Intake Total 150 Balance 150 Weight 80.739 kg Intake: Oral 150 Other: Voiding Method Toilet Toilet # Voids 1 2 - Exam GENERAL DESCRIPTION: Middle age female lying in bed in no distress RESPIRATORY SYSTEM: Unlabored breathing , bilateral wheezing HEART: S1 S2 regular rate and rhythm , ABDOMEN: Soft , no tenderness EXTREMITIES: No edema feet - Labs CBC & Chem 7: 12/01/24 03:44 12/01/24 03:44 Labs: Abnormal Lab Results - Last 24 Hours (Table) 11/30/24 11/30/24 12/01/24 Range/Units 00:35 20:07 03:44 WBC 3.34 L (4.50-10.00) X 10*3/uL RBC 3.17 L (4.10-5.20) X 10*6/uL Hgb 10.5 L (12.0-15.0) g/dL Hct 32.2 L (37.2-46.3) % MCV 101.6 H (80.0-97.0) FL MCH 33.1 H (27.0-32.0) pg MPV 8.9 L (9.5-12.2) FL Neutrophils # 1.38 L (1.80-7.70) X 10*3/uL Carbon Dioxide (21.6-31.8) mmol/L Glucose (70-110) mg/dL POC Glucose (mg/dL) 122 H (70-110) mg/dL Calcium (8.7-10.3) mg/dL Tacrolimus <1.5 L (5.0-20.0) ng/mL 12/01/24 12/01/24 12/01/24 Range/Units 03:44 06:13 11:05 WBC (4.50-10.00) X 10*3/uL RBC (4.10-5.20) X 10*6/uL Hgb (12.0-15.0) g/dL Hct (37.2-46.3) % MCV (80.0-97.0) FL MCH (27.0-32.0) pg MPV (9.5-12.2) FL Neutrophils # (1.80-7.70) X 10*3/uL Carbon Dioxide 20.9 L (21.6-31.8) mmol/L Glucose 123 H (70-110) mg/dL POC Glucose (mg/dL) 118 H 113 H (70-110) mg/dL Calcium 8.1 L (8.7-10.3) mg/dL Tacrolimus (5.0-20.0) ng/mL Microbiology - Last 24 Hours (Table) 11/30/24 00:35 Blood Culture - Preliminary Blood 11/30/24 22:45 Gram Stain - Preliminary Sputum Assessment and Plan (1) Fever Current Visit: Yes Status: Acute Code(s): R50.9 - FEVER, UNSPECIFIED SNOMED Code(s): 247175666 (2) Immunosuppressed status Current Visit: Yes Status: Acute Code(s): D84.9 - IMMUNODEFICIENCY, UNSPECIFIED SNOMED Code(s): 00564779 Plan: 1patient is a 49-year-old female with history of leukemia status post normal transplant patient is current on tacrolimus presenting to the hospital with fever generalized bodyaches did have a respiratory symptoms and wheezing on auscultation however CT abdominal chest concern for possible bronchitis no evidence of any consolidation she also has some diarrhea on admission that has resolved 2-blood and sputum culture currently pending 3-patient clinical picture is more suspicious for early dlylr-kymjcf-xlvx disease versus early immune reconstitution syndrome, in this patient with subtherapeutic tacrolimus level mild elevated liver enzymes CT angiogram with mostly features of bronchitis rather than pneumonia, will benefit from oncology evaluation and adjustment of the tacrolimus level, may continue with the empiric antibiotics while waiting for the culture to finalize Dictation was produced using [employer] software. please excuse any grammatical, word or spelling errors. Time with Patient: Greater than 30
[2024-12-01] MEDS: VANCOMYCIN 1,500 MG in SODIUM CHLORIDE 0.9% 500 ML 500 ML IVPB SCH (15:45)
[2024-12-01 16:33] LABS: Glucose,Whole Blood 104 mg/dL (70-110)
[2024-12-01] MEDS: ESCITALOPRAM 10 MG TAB PO SCH (17:36)
[2024-12-01] MEDS: ONDANSETRON 4 MG/2 ML VIAL IVP PRN (20:05)
[2024-12-01 20:47] LABS: Glucose,Whole Blood 135 mg/dL (70-110)
--- NOTE | 2024-12-02 03:34 | P.CNPUL ---
History of Present Illness Consult date: 12/02/24 Requesting physician: Nickolas Rivera Reason for consult: dyspnea Chief complaint: Generalized bone and joint pain History of present illness: Patient is a 49-year-old female with past medical history significant for atrial fibrillation, congenital heart disease and previous open heart surgery, COPD, gastric sleeve, AML, and odpeo-iyzoez-wpqs disease. She follows at [facility] with Dr. Hillman for management of her AML. Diagnosed back in 2015, and underwent bone marrow transplant in 2017. She is on tacrolimus. Reportedly, also has adpjq-qsldui-sjvr disease and on Jakafi. Presents the emergency department back on 11/29/2024 with generalized bone and joint pain. Also, nausea, vomiting, and diarrhea. Low-grade fevers, recorded 100.8 F at home. Workup done previously including a chest CT angiogram which not show any evidence of pulmonary embolism. There is bronchial wall thickening suggestive of bronchitis or asthma. No focal infiltrates. Most recent labs including a CBC with a WBC count of 3.34, hemoglobin 10.5, platelets 190. BMP unremarkable, electrolytes WDL, creatinine 0.8, glucose 123. Tacrolimus level less than 1.5. Cepheid negative for influenza A/B, RSV, COVID. A pulmonary consultation was placed for "respiratory failure". Patient currently being seen on the general medical floor. She is alert and oriented and not in any distress. On room air. Reportedly, does become short of breath with exertion. Wheezing and rhonchi noted on auscultation. States that approximately 1 week ago her and her boyfriend were sick with a cold. She had runny nose, watery eyes, and intermittent cough with clear sputum. She also has history of COPD, she uses and as needed albuterol inhaler. She does not smoke cigarettes, however, routinely smokes marijuana. her PFTs are being monitored at [facility]. No reported pulmonary involvement or SORAYA from her mtwac-amfftu-sayr. Above- mentioned bone and joint pain, was the primary reason she came to the emergency department for evaluation. It is severe,generalized, limiting ambulation. Nausea, vomiting, and diarrhea have subsided. She previously had multiple watery bowel movements over the last 24 hours. No history of C. difficile. No hematemesis, melena, hematochezia. Abdomen is soft and nontender. No orop haryngeal sores, rash, Poikiloderma. Previously, did have a fever of 100.4 F on arrival, currently afebrile. She denies any urinary complaints. Infectious disease has placed the patient on a combination of acyclovir, Bactrim, cefepime, and vancomycin. Current vital signs: Temperature 98.3 F, heart rate 75 bpm, blood pressure 112/79 mmHg, nontachypneic, SpO2 recorded at 96% on room air. Review of Systems Constitutional: Reports chills, Reports fatigue, Reports fever, Denies night sweats, Denies poor appetite, Denies weight gain, Denies weight loss Ears, nose, mouth and throat: Reports nasal congestion, Reports nasal discharge, Reports post-nasal drip, Denies headache, Denies sinus pain, Denies sinus pressure, Denies sore throat Cardiovascular: Denies chest pain, Denies leg edema, Denies lightheadedness, Denies orthopnea, Denies palpitations, Denies paroxysmal nocturnal dyspnea, Denies syncope Respiratory: Reports as per HPI Gastrointestinal: Reports as per HPI Genitourinary: Reports as per HPI Musculoskeletal: Denies limitation of motion Musculoskeletal: bilateral: as per HPI (Generalized pain involving bones and joints) Integumentary: Denies lesions, Denies rash, Denies sores Neurological: Denies seizures, Denies syncope Psychiatric: Denies anxiety, Denies depression 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, non-alcoholic fatty liver disease/cirrhosis (pt was found to have this during attempted surgery 01/2022) syncopal episode 2023 History of Any Multi-Drug Resistant Organisms: None Reported Past Surgical History: Bariatric Surgery, Section, Cholecystectomy, Hernia Repair, Orthopedic Surgery, Tubal Ligation, Uterine Ablation Additional Past Surgical History / Comment(s): left knee arthroscopy, left shoulder torn rotator cuff repair has pin in place, bone marrow transplant, open heart surgery at age 18 months "they took an artery out of leg to use in heart"., robotic assisted laproscopic sleeve gastrectomy 05-27-23 Past Anesthesia/Blood Transfusion Reactions: No Reported Reaction Additional Past Anesthesia/Blood Transfusion Reaction / Comment(s): several blood transfusion-pt denies any reaction Past Psychological History: Anxiety, Depression Additional Psychological History / Comment(s): no medications at this time Smoking Status: Former smoker Past Alcohol Use History: Occasional Additional Past Alcohol Use History / Comment(s): started smoking age 17(1992) and quit age 22(1998), smoked less than 1 ppd. 4-5 drinks/month Past Drug Use History: Marijuana Additional Drug Use History / Comment(s): uses marijuana for appetite, edibles, oil, smokes - Past Family History Mother Family Medical History: Hyperlipidemia, Renal Disease Additional Family Medical History / Comment(s): vit d- deficiency, anemia Father Family Medical History: COPD Additional Family Medical History / Comment(s): "bowel problems-hx resection" Medications and Allergies Home Medications Medication Instructions Recorded Confirmed Type Acyclovir [Zovirax] 800 mg PO BID 05/18/17 11/30/24 History Ruxolitinib Phosphate [Jakafi] 5 mg PO BID 10/03/21 11/30/24 History Prochlorperazine [Compazine] 10 mg PO BID 10/18/22 11/30/24 History Apixaban [Eliquis] 5 mg PO BID #180 tab 05/28/23 11/30/24 Rx Cyclobenzaprine [Flexeril] 10 mg PO BID 10/26/23 11/30/24 History Docusate [Colace] 100 mg PO BID 10/26/23 11/30/24 History Ergocalciferol [Vitamin D2 (1250 1,250 mcg PO FLOYD 10/26/23 11/30/24 History Mcg = 92218 Iu)] Escitalopram [Lexapro] 10 mg PO DAILY 10/26/23 11/30/24 History Pantoprazole [Protonix] 40 mg PO BID 10/26/23 11/30/24 History Sulfamethox-Tmp 400-80Mg [Bactrim 1 tab PO DAILY 10/26/23 11/30/24 History SS 400-80 mg] Tacrolimus [Prograf] 0.5 mg PO DAILY 10/26/23 11/30/24 History Magnesium Oxide [Mag-Oxide] 200 mg PO BID 06/24/24 11/30/24 History Cyanocobalamin [Vitamin B-12] 1,000 mcg PO FLOYD 07/16/24 11/30/24 History Ammonium Lactate Cream [Lac-Hydrin 1 applic TOPICAL BID 07/21/24 11/30/24 History 12% Cream] Ketoconazole 2% Cream [Nizoral 2%] 1 applic TOPICAL DAILY 07/21/24 11/30/24 History Acetaminophen Tab [Tylenol] 650 mg PO Q6HR PRN tab 07/22/24 11/30/24 Rx Aspirin 81 mg PO DAILY #30 tab 07/22/24 11/30/24 Rx Atorvastatin [Lipitor] 80 mg PO DAILY #30 tab 07/22/24 11/30/24 Rx Metoprolol Succinate (ER) [Toprol 25 mg PO DAILY #30 tab 07/22/24 11/30/24 Rx XL] Nitroglycerin Sl Tabs [Nitrostat] 0.4 mg SUBLINGUAL Q5M PRN #30 tab 07/22/24 11/30/24 Rx SUMAtriptan succinate [Imitrex] 25 mg PO Q2H PRN MDD 200mg 11/30/24 11/30/24 History Sacubitril/Valsartan [Entresto 24 1 tab PO BID 11/30/24 11/30/24 History mg-26 mg Tablet] Triamcinolone Acetonide 1 applic TOPICAL QID PRN 11/30/24 11/30/24 History [Triamcinolone Acetonide 0.025%] Allergies Allergy/AdvReac Type Severity Reaction Status Date / Time fondaparinux [From Arixtra] Allergy Intermediate Rash/Hives Verified 11/30/24 07:21 propoxyphene napsylate Allergy Intermediate Rash/Hives Verified 11/30/24 07:21 [From Darvocet-N] Physical Exam Vitals: Vital Signs Temp Pulse Resp BP Pulse Ox 12/01/24 19:11 98.3 F 75 18 112/79 96 12/01/24 14:00 98.3 F 74 18 100/65 95 12/01/24 08:00 97.8 F 73 18 118/82 94 L Intake and Output 12/01/24 12/01/24 12/02/24 14:59 22:59 06:59 Other: Voiding Method Toilet # Voids 3 1 # Bowel Movements 0 GENERAL EXAM: Alert, 49-year-old female, nontoxic-appearing, comfortable in no apparent distress. HEAD: Normocephalic and atraumatic EYES: Normal reaction of pupils, equal size. NOSE: Clear with pink turbinates. THROAT: No erythema or exudates. NECK: No masses, no JVD. CHEST: No chest wall deformity. LUNGS: Equal air entry with diffuse expiratory wheezing and rhonchi. On room air. No conversational dyspnea or accessory muscle use while at rest CVS: S1 and S2 normal with no audible murmur, regular rhythm. No extra heart sounds ABDOMEN: No hepatosplenomegaly, active bowel sounds, no guarding or rigidity. SPINE: No scoliosis or deformity SKIN: No rashes CENTRAL NERVOUS SYSTEM: No focal deficits, tone is normal in all 4 extremities. EXTREMITIES: There is no peripheral edema, clubbing, or cyanosis. Peripheral pulses are intact. Results - Laboratory Findings CBC and BMP: 12/02/24 05:58 12/02/24 05:58 Abnormal lab findings: Abnormal Labs 11/30/24 11/30/24 11/30/24 00:35 00:35 00:35 WBC RBC 3.93 L Hgb Hct MCV 98.5 H MCH 33.8 H MPV 8.9 L Neutrophils # Eosinophils # 0.03 L Carbon Dioxide 18 L BUN 25 H Creatinine 1.12 H Glucose 154 H POC Glucose (mg/dL) Calcium AST 66 H ALT 57 H C-Reactive Protein 1.8 H Urine Blood Ur Leukocyte Esterase Urine Bacteria Urine Mucus Urine Yeast (Budding) Tacrolimus <1.5 L 11/30/24 11/30/24 12/01/24 04:45 20:07 03:44 WBC 3.34 L RBC 3.17 L Hgb 10.5 L Hct 32.2 L MCV 101.6 H MCH 33.1 H MPV 8.9 L Neutrophils # 1.38 L Eosinophils # Carbon Dioxide BUN Creatinine Glucose POC Glucose (mg/dL) 122 H Calcium AST ALT C-Reactive Protein Urine Blood Moderate H Ur Leukocyte Esterase Small H Urine Bacteria Rare H Urine Mucus Rare H Urine Yeast (Budding) Rare H Tacrolimus 12/01/24 12/01/24 12/01/24 03:44 06:13 11:05 WBC RBC Hgb Hct MCV MCH MPV Neutrophils # Eosinophils # Carbon Dioxide 20.9 L BUN Creatinine Glucose 123 H POC Glucose (mg/dL) 118 H 113 H Calcium 8.1 L AST ALT C-Reactive Protein Urine Blood Ur Leukocyte Esterase Urine Bacteria Urine Mucus Urine Yeast (Budding) Tacrolimus 12/01/24 20:45 WBC RBC Hgb Hct MCV MCH MPV Neutrophils # Eosinophils # Carbon Dioxide BUN Creatinine Glucose POC Glucose (mg/dL) 135 H Calcium AST ALT C-Reactive Protein Urine Blood Ur Leukocyte Esterase Urine Bacteria Urine Mucus Urine Yeast (Budding) Tacrolimus - Diagnostic Findings Chest x-ray: image reviewed CT scan - chest: image reviewed Assessment and Plan Assessment: Acute dyspnea, secondary to acute COPD exacerbation and possible acute bronchitis. Chest CT angiogram did not show any evidence of pulmonary embolism. There is bronchial wall thickening suggestive of bronchitis or asthma. No groundglass or focal consolidations. No history of pulmonary involvement from her rbkwa-iqnwvk-cngu disease. AML, status post bone marrow transplant in 2016, on tacrolimus. Levels were less than 1.5 on arrival. Follow[address] with Dr. Michelle Hillman out of [facility] Ijbvz-haclbc-wlpg disease, maintained on Jakafi Bicytopenia, with leukopenia and anemia Acute febrile illness Nausea, vomiting, diarrhea History of congenital heart disease and previous open heart surgery Paroxysmal atrial fibrillation, anticoagulated on Eliquis, currently sinus mechanism History of hyperlipidemia Hypertension History of gastric sleeve Marijuana user Plan: Patient's medications, labs, imaging reviewed Currently on room air Add DuoNebs Add IV Solu-Medrol Antibiotics being directed by infectious disease C. difficile ordered Prograf has been resumed Oncology consulted chronic marijuana use Case to be reviewed with Dr. Holloway, further recommendations to follow I have personally seen and examined the patient, performed the documentation and the assessment and plan as written. Number of minutes spent on the visit:20 This is a joint evaluation that was done along with the nurse practitioner. This evaluation was done and 35 minutes. The patient is presenting to the hospital for symptoms of nausea and emesis and diarrhea. At the same time, the patient was seen by pulmonary services for increased shortness of breath. The patient is actively bronchospastic and wheezy. She is known to have COPD. CT of the chest was done and shows some changes consistent with bronchitis. No a irspace disease. No consolidation. No groundglass pulmonary filtrates. The patient has history of AML and the patient undergone bone marrow transplantation back in 2017. Since then, the patient has been maintained on a combination of Prograf and Jakafi. The patient has also been maintained on antibiotic prophylaxis with Bactrim single strength 1 tablet a day, acyclovir 800 mg p.o. twice daily. Denies having any recurrent respiratory infections or pneumonias. She is also known to have congenital heart disease and the patient has undergone an open heart surgery at the age of 8 months. She has history of paroxysmal atrial fibrillation the patient has been maintained on anticoagulation with Eliquis. At this point in time, no pleurisy or hemoptysis. The patient is on room air oxygen with a pulse ox of 95%. No pleurisy or hemoptysis. She is afebrile and hemodynamically stable. She was already started on a broad- spectrum biotics and the patient is currently on a combination of cefepime and vancomycin. Dose will be continued. Will modify the Solu-Medrol dose to 60 mg IV push every 6 hours. Will continue the Prograf for now. Will continue DuoNeb nebulized him [id number]. Continue Bactrim. Collect sputum sample if possible. Blood cultures still pending for now. Will continue to follow and make further recommendations based on her progress. The patient will be also seen by medical oncology. Her white cell count is at 3.9 with a heme of 10.8 and a platelet count of 203. Normal renal function. Normal electrolytes. The viral screen at the time of admission was negative. Time with Patient: Greater than 30
[2024-12-02 06:03] LABS: Glucose,Whole Blood 99 mg/dL (70-110)
[2024-12-02 06:53] LABS: ALT 42 U/L (4-34); AST 41 U/L (14-36); African American GFR (CKD) >90 (>60 ml/min/1.73 sqM); Albumin 3.5 g/dL (3.5-5.0); Albumin/Globulin Ratio 1.6; Alkaline Phosphatase 68 U/L (38-126); Anion Gap 9 mmol/L; Blood Urea Nitrogen 16 mg/dL (7-17); Calcium 9.0 mg/dL (8.4-10.2); Carbon Dioxide 24 mmol/L (22-30); Chloride 105 mmol/L (98-107); Globulin 2.2 g/dL; Glucose 91 mg/dL (74-99); Non-African American GFR(CKD) >90 (>60 ml/min/1.73 sqM); Potassium 4.3 mmol/L (3.5-5.1); Sodium 138 mmol/L (137-145); Total Protein 5.7 g/dL (6.3-8.2)
--- NOTE | 2024-12-02 07:40 | P.CONS ---
History of Present Illness - Reason for Consult Consult date: 12/01/24 hx AML, bone marrow transplant Requesting physician: Nickolas Rivera - Chief Complaint fever, malaise - History of Present Illness Ms Key is a 49 year old female with a history of AML and bone marrow transplant in 2016, in remission. She currently follows with Dr Loomis at [facility]. She was initially seen by Dr. Rodriguez in 2016 for anemia. Initial blood workup was negative. Pt began having progressing anemia, and underwent bone marrow biopsy in December, which was positive for AML. Patient presented to the emergency room with complaints of fever, malaise, body aches nausea diarrhea and abdominal pain. Tmax since admit 100.4. Blood culture, sputum culture and stool studies pending. Started on empiric antibiotics with vancomycin and cefepime. CTA chest was negative for PE. Bronchial wall thickening suggesting bronchitis or asthma with no focal infiltrate seen. Labs reviewed, WBC 3.3, ANC 1.38, hemoglobin 10.5, platelets 190,000. Creatinine 1.12, GFR 57. 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, non-alcoholic fatty liver disease/cirrhosis (pt was found to have this during attempted surgery 01/2022) syncopal episode 2023 History of Any Multi-Drug Resistant Organisms: None Reported Past Surgical History: Bariatric Surgery, Section, Cholecystectomy, Hernia Repair, Orthopedic Surgery, Tubal Ligation, Uterine Ablation Additional Past Surgical History / Comment(s): left knee arthroscopy, left shoulder torn rotator cuff repair has pin in place, bone marrow transplant, open heart surgery at age 18 months "they took an artery out of leg to use in heart"., robotic assisted laproscopic sleeve gastrectomy 05-27-23 Past Anesthesia/Blood Transfusion Reactions: No Reported Reaction Additional Past Anesthesia/Blood Transfusion Reaction / Comm: several blood transfusion-pt denies any reaction Past Psychological History: Anxiety, Depression Additional Psychological History / Comment(s): no medications at this time Smoking Status: Former smoker Past Alcohol Use History: Occasional Additional Past Alcohol Use History / Comment(s): started smoking age 17(1992) and quit age 22(1998), smoked less than 1 ppd. 4-5 drinks/month Past Drug Use History: Marijuana Additional Drug Use History / Comment(s): uses marijuana for appetite, edibles, oil, smokes - Past Family History Mother Family Medical History: Hyperlipidemia, Renal Disease Additional Family Medical History / Comment(s): vit d- deficiency, anemia Father Family Medical History: COPD Additional Family Medical History / Comment(s): "bowel problems-hx resection" Medications and Allergies Home Medications Medication Instructions Recorded Confirmed Type Acyclovir [Zovirax] 800 mg PO BID 05/18/17 11/30/24 History Ruxolitinib Phosphate [Jakafi] 5 mg PO BID 10/03/21 11/30/24 History Prochlorperazine [Compazine] 10 mg PO BID 10/18/22 11/30/24 History Apixaban [Eliquis] 5 mg PO BID #180 tab 05/28/23 11/30/24 Rx Cyclobenzaprine [Flexeril] 10 mg PO BID 10/26/23 11/30/24 History Docusate [Colace] 100 mg PO BID 10/26/23 11/30/24 History Ergocalciferol [Vitamin D2 (1250 1,250 mcg PO FLOYD 10/26/23 11/30/24 History Mcg = 20867 Iu)] Escitalopram [Lexapro] 10 mg PO DAILY 10/26/23 11/30/24 History Pantoprazole [Protonix] 40 mg PO BID 10/26/23 11/30/24 History Sulfamethox-Tmp 400-80Mg [Bactrim 1 tab PO DAILY 10/26/23 11/30/24 History SS 400-80 mg] Tacrolimus [Prograf] 0.5 mg PO DAILY 10/26/23 11/30/24 History Magnesium Oxide [Mag-Oxide] 200 mg PO BID 06/24/24 11/30/24 History Cyanocobalamin [Vitamin B-12] 1,000 mcg PO FLOYD 07/16/24 11/30/24 History Ammonium Lactate Cream [Lac-Hydrin 1 applic TOPICAL BID 07/21/24 11/30/24 History 12% Cream] Ketoconazole 2% Cream [Nizoral 2%] 1 applic TOPICAL DAILY 07/21/24 11/30/24 History Acetaminophen Tab [Tylenol] 650 mg PO Q6HR PRN tab 07/22/24 11/30/24 Rx Aspirin 81 mg PO DAILY #30 tab 07/22/24 11/30/24 Rx Atorvastatin [Lipitor] 80 mg PO DAILY #30 tab 07/22/24 11/30/24 Rx Metoprolol Succinate (ER) [Toprol 25 mg PO DAILY #30 tab 07/22/24 11/30/24 Rx XL] Nitroglycerin Sl Tabs [Nitrostat] 0.4 mg SUBLINGUAL Q5M PRN #30 tab 07/22/24 11/30/24 Rx SUMAtriptan succinate [Imitrex] 25 mg PO Q2H PRN MDD 200mg 11/30/24 11/30/24 History Sacubitril/Valsartan [Entresto 24 1 tab PO BID 11/30/24 11/30/24 History mg-26 mg Tablet] Triamcinolone Acetonide 1 applic TOPICAL QID PRN 11/30/24 11/30/24 History [Triamcinolone Acetonide 0.025%] Allergies Allergy/AdvReac Type Severity Reaction Status Date / Time fondaparinux [From Arixtra] Allergy Intermediate Rash/Hives Verified 11/30/24 07:21 propoxyphene napsylate Allergy Intermediate Rash/Hives Verified 11/30/24 07:21 [From Darvocet-N] Physical Exam Vitals: Vital Signs Temp Pulse Resp BP Pulse Ox 12/01/24 08:00 97.8 F 73 18 118/82 94 L 12/01/24 02:00 97.4 F L 96 18 110/73 11/30/24 20:54 98.3 F 76 18 107/62 98 11/30/24 14:00 98.1 F 71 16 122/84 94 L Intake and Output 11/30/24 12/01/24 12/01/24 22:59 06:59 14:59 Other: Voiding Method Toilet # Voids 1 2 - Constitutional General appearance: average body habitus, no acute distress - EENT Eyes: anicteric sclerae, EOMI ENT: hearing grossly normal - Respiratory Respiratory: bilateral: CTA - Cardiovascular Rhythm: regular - Gastrointestinal General gastrointestinal: soft, no tenderness - Integumentary Integumentary: no cyanotic, no jaundiced - Musculoskeletal Musculoskeletal: generalized weakness - Psychiatric Psychiatric: A&O x's 3 Results CBC & Chem 7: 12/01/24 03:44 12/02/24 05:58 Labs: Abnormal Lab Results - Last 24 Hours (Table) 11/30/24 11/30/24 12/01/24 Range/Units 00:35 20:07 03:44 WBC 3.34 L (4.50-10.00) X 10*3/uL RBC 3.17 L (4.10-5.20) X 10*6/uL Hgb 10.5 L (12.0-15.0) g/dL Hct 32.2 L (37.2-46.3) % MCV 101.6 H (80.0-97.0) FL MCH 33.1 H (27.0-32.0) pg MPV 8.9 L (9.5-12.2) FL Neutrophils # 1.38 L (1.80-7.70) X 10*3/uL Carbon Dioxide (21.6-31.8) mmol/L Glucose (70-110) mg/dL POC Glucose (mg/dL) 122 H (70-110) mg/dL Calcium (8.7-10.3) mg/dL Tacrolimus <1.5 L (5.0-20.0) ng/mL 12/01/24 12/01/24 12/01/24 Range/Units 03:44 06:13 11:05 WBC (4.50-10.00) X 10*3/uL RBC (4.10-5.20) X 10*6/uL Hgb (12.0-15.0) g/dL Hct (37.2-46.3) % MCV (80.0-97.0) FL MCH (27.0-32.0) pg MPV (9.5-12.2) FL Neutrophils # (1.80-7.70) X 10*3/uL Carbon Dioxide 20.9 L (21.6-31.8) mmol/L Glucose 123 H (70-110) mg/dL POC Glucose (mg/dL) 118 H 113 H (70-110) mg/dL Calcium 8.1 L (8.7-10.3) mg/dL Tacrolimus (5.0-20.0) ng/mL Microbiology - Last 24 Hours (Table) 11/30/24 22:45 Gram Stain - Preliminary Sputum Chest x-ray: report reviewed CT scan - chest: report reviewed Assessment and Plan (1) AML (acute myeloid leukemia) in remission Current Visit: No Status: Acute Priority: High Code(s): C92.01 - ACUTE MYELOBLASTIC LEUKEMIA, IN REMISSION SNOMED Code(s): 89990637 (2) Fever Current Visit: Yes Status: Acute Priority: High Code(s): R50.9 - FEVER, UNSPECIFIED SNOMED Code(s): 667354115 Plan: Fever of unknown origin: Presented wiith complaints of fever, malaise, body aches nausea diarrhea and abdominal pain. -Tmax since admit 100.4. Blood culture, sputum culture and stool studies pending. Started on empiric antibiotics with vancomycin and cefepime. -ID following -CTA chest was negative for PE. Bronchial wall thickening suggesting bronchitis or asthma with no focal infiltrate seen. -CBC on admit, showed WBC 8.2, hgb 13.3, plt 274,000. Today, mild leukopenia noted with WBC 3.3, ANC 1.38. Hemoglobin 10.5, platelets 190,000. -Mild cytopenias appear reactive. Continue to monitor CBC. No G-CSF at this time -Spoke with her oncologist, Dr. Loomis, she wants pt to continue on tacrolimus. -At this time, clinically based on blood work and radiographic workup, do not believe this is GVHD AML: -Diagnosed in 2016 -Underwent bone marrow transplant in 2017, currently in remission. -Patient will continue in follow up with her oncologist, Dr Loomis at [facility]. Case discussed with admitting team Doctor attests: I performed a history and physical examination of this patient, developed impression and plan of care. Discussed with dictator. I agree with dictators note, documented as a scribe.
[2024-12-02] MEDS: TACROLIMUS 0.5 MG CAP PO SCH (09:48)
[2024-12-02] MEDS: IPRATROPIUM-ALBUTEROL 3 ML NEB INHALATION SCH (09:54)
[2024-12-02] MEDS: methylPREDNISolone SOD SUCCI 40 MG/ML 1 ML VIAL IV SCH (09:56)
[2024-12-02 10:41] LABS: Basophils # (A) 0.02 X 10*3/uL (0.00-0.10); Basophils % (A) 0.5 %; Eosinophils # (A) 0.10 X 10*3/uL (0.04-0.35); Eosinophils % (A) 2.5 %; HCT 33.1 % (37.2-46.3); HGB 10.8 g/dL (12.0-15.0); Immature Grans, Automated 0.30 %; Lymphocytes # (A) 1.77 X 10*3/uL (0.90-5.00); Lymphocytes % (A) 44.7 %; MCH 32.6 pg (27.0-32.0); MCHC 32.6 g/dL (32.0-37.0); MCV 100.0 FL (80.0-97.0); Monocytes # (A) 0.35 X 10*3/uL (0.20-1.00); Monocytes % (A) 8.8 %; NRBC Per 100 WBC 0 X 10*3/uL (0.00-0.01); Neutrophils # (A) 1.71 X 10*3/uL (1.80-7.70); Neutrophils % (A) 43.2 %; Platelet Count 203 X 10*3/uL (140-440); RBC 3.31 X 10*6/uL (4.10-5.20); RDW 13.1 % (11.5-14.5); WBC 3.96 X 10*3/uL (4.50-10.00)
[2024-12-02 11:02] LABS: Glucose,Whole Blood 141 mg/dL (70-110)
--- NOTE | 2024-12-02 13:27 | P.PN ---
Subjective Progress Note Date: 12/02/24 49-year-old lady with past medical history significant for COPD, atrial fibrillation, diabetes mellitus, leukemia status bone marrow transplant presented the ER for generalized bodyaches and fever patient stated she was all right yesterday when she started feeling unwell, she started having generalized body aches. Patient stated that she felt feverish and checked her fever at home and was found to be elevated at 100.8. She also started having abdominal pain patient also having nausea. Patient did notice that she was having cough which is nonproductive associate with some shortness of breath. There was no complaint of chills. Patient also complaining of some chest pain associated with her cough. There was no complaint of orthopnea or PND. Patient denies any palpitation. Patient denies any complaint of dizziness. There is no complaint of headache. Because of the symptoms, patient came to the ER Initial lab work done in the ER showed WBC 8.23, hemoglobin 13.3, platelet count 274, sodium 137, potassium 4.4, BUN 25, creatinine 1.12, glucose 154, lactate 1.5, calcium 9.7, AST 66, ALT 57, troponin 0.012, CRP 1.8 UA negative for infection Influenza A not detected Influenza B not detected RSV not detected COVID-19 not detected EKG done in the ER showed heart rate of 111, no ST segment elevation or depression seen, no T-wave inversions seen. Chest x-ray done in the ER no consolidative changes or pleural Patient admitted to internal medicine service 12/01. Patient seen and examined. Blood work done showed WBC 3.34, hemoglobin 12, platelet count 190, sodium 139, potassium 4.4 point BUN 13.7, creatinine 0.8, glucose 123. Temperature 97.8, heart rate 73, respiration 18, blood p ressure 118/82 States she feels better 12/02. Patient seen and examined. States she feels little bit better compared to yesterday but still complaining of lethargy. REVIEW OF SYSTEMS: CONSTITUTIONAL: No fever, no malaise,. CARDIOVASCULAR: No chest pain, no palpitations, no syncope. PULMONARY: No shortness of breath, no cough, GASTROINTESTINAL: No diarrhea, no nausea, no vomiting, no abdominal pain. NEUROLOGICAL: No headaches, no weakness, PHYSICAL EXAMINATION: GENERAL: The patient is alert and oriented x3, not in any acute distress. Ill looking HEENT: Pupils are round and equally reacting to light. EOMI. No scleral icterus. No conjunctival pallor. Normocephalic, atraumatic. No pharyngeal erythema. No thyromegaly. CARDIOVASCULAR: S1 and S2 present. No murmurs, rubs, or gallops. PULMONARY: Chest is clear to auscultation, no wheezing or crackles. ABDOMEN: Soft, nontender, nondistended, normoactive bowel sounds. No palpable organomegaly. MUSCULOSKELETAL: No joint swelling or deformity. EXTREMITIES: No cyanosis, clubbing, or pedal edema. NEUROLOGICAL: Gross neurological examination did not reveal any focal deficits. SKIN: No rashes. 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 Continue same treatment. Continue with symptomatic treatment. Resume home medication. Monitor labs and vitals. DVT and GI prophylaxis. Further recommendations as per clinical course of the patient Dictation was produced using [employer] dictation software. please excuse any grammatical, word or spelling errors. Objective - Vital Signs Vital signs: Vital Signs Temp 97.7 F 12/02/24 07:36 Pulse 92 12/02/24 13:02 Resp 18 12/02/24 07:36 BP 101/68 12/02/24 07:36 Pulse Ox 95 12/02/24 07:36 FiO2 Intake & Output 12/01/24 12/02/24 12/02/24 18:59 06:59 18:59 Other: Voiding Method Toilet Toilet # Voids 3 5 # Bowel Movements 0 - Labs CBC & Chem 7: 12/02/24 05:58 12/02/24 05:58 Labs: Abnormal Lab Results - Last 24 Hours (Table) 12/01/24 12/02/24 12/02/24 Range/Units 20:45 05:58 05:58 WBC 3.96 L (4.50-10.00) X 10*3/uL RBC 3.31 L (4.10-5.20) X 10*6/uL Hgb 10.8 L (12.0-15.0) g/dL Hct 33.1 L (37.2-46.3) % MCV 100.0 H (80.0-97.0) FL MCH 32.6 H (27.0-32.0) pg MPV 9.2 L (9.5-12.2) FL Neutrophils # 1.71 L (1.80-7.70) X 10*3/uL POC Glucose (mg/dL) 135 H (70-110) mg/dL AST 41 H (14-36) U/L ALT 42 H (4-34) U/L Total Protein 5.7 L (6.3-8.2) g/dL 12/02/24 Range/Units 10:59 WBC (4.50-10.00) X 10*3/uL RBC (4.10-5.20) X 10*6/uL Hgb (12.0-15.0) g/dL Hct (37.2-46.3) % MCV (80.0-97.0) FL MCH (27.0-32.0) pg MPV (9.5-12.2) FL Neutrophils # (1.80-7.70) X 10*3/uL POC Glucose (mg/dL) 141 H (70-110) mg/dL AST (14-36) U/L ALT (4-34) U/L Total Protein (6.3-8.2) g/dL Microbiology - Last 24 Hours (Table) 11/30/24 22:45 Gram Stain - Preliminary Sputum Sputum Culture - Preliminary 11/30/24 00:35 Blood Culture Gram Stain - Preliminary Blood Blood Culture - Preliminary
[2024-12-02] MEDS: methylPREDNISolone SOD SUCCI 125 MG/2 ML VIAL IV SCH (15:49)
[2024-12-02] MEDS: CEFEPIME 2 GM in SODIUM CHLORIDE 0.9% 100 ML IVPB SCH (15:51)
[2024-12-02 16:47] LABS: Glucose,Whole Blood 189 mg/dL (70-110)
[2024-12-02] MEDS: VANCOMYCIN 1,500 MG in SODIUM CHLORIDE 0.9% 500 ML 500 ML IVPB SCH (18:12)
[2024-12-02 20:12] LABS: Glucose,Whole Blood 217 mg/dL (70-110)
[2024-12-02] MEDS ORDERED: RUXOLITINIB PHOSPHATE 5 MG PO SCH (21:00)
[2024-12-02] MEDS: METOCLOPRAMIDE 5 MG/ML 2 ML VIAL IVP PRN (21:32)
[2024-12-02] MEDS ORDERED: MAGNESIUM HYDROXIDE 2,400 MG/30 ML CUP PO PRN (21:35)
[2024-12-03 06:12] LABS: Glucose,Whole Blood 207 mg/dL (70-110)
--- NOTE | 2024-12-03 08:38 | P.PN ---
Subjective Progress Note Date: 12/02/24 Principal diagnosis: Reason for follow-up is fever Patient is a 49-year-old female with a past medical history significant for Atrial Fibrillation, Cancer, COPD, Diabetes Mellitus, Liver Disease, Osteoarthritis (OA), Syncope, history of leukemia status post bony marrow transplant patient is currently on tacrolimus and prophylactic sulfamethoxazole and acyclovir patient presenting to the hospital for evaluation of generalized bodyaches and fevers patient did have a fever 100.4 F, mild elevated enzymes CT, the chest concerning for bronchial wall thickening. On today's evaluation that is 12/02/2024,the patient denies any fever or any chills, patient is breathing slightly comfortably on room air, the patient denies chest pain still complaining of cough no significant sputum production, patient denies abdominal pain, no nausea vomiting or diarrhea. Patient white count is 3.96 creatinine 0.72 liver enzymes slightly improved blood culture with gram-positive bacilli sputum cultures pending Objective - Vital Signs Vital signs: Vital Signs Temp 97.7 F 12/02/24 07:36 Pulse 70 12/02/24 10:09 Resp 18 12/02/24 07:36 BP 101/68 12/02/24 07:36 Pulse Ox 95 12/02/24 07:36 FiO2 Intake & Output 12/01/24 12/02/24 12/02/24 18:59 06:59 18:59 Other: Voiding Method Toilet Toilet # Voids 3 5 # Bowel Movements 0 - Exam GENERAL DESCRIPTION: Middle age female lying in bed in no distress RESPIRATORY SYSTEM: Unlabored breathing , bilateral wheezing HEART: S1 S2 regular rate and rhythm , ABDOMEN: Soft , no tenderness EXTREMITIES: No edema feet - Labs CBC & Chem 7: 12/02/24 05:58 12/02/24 05:58 Labs: Abnormal Lab Results - Last 24 Hours (Table) 12/01/24 12/02/24 12/02/24 Range/Units 20:45 05:58 05:58 WBC 3.96 L (4.50-10.00) X 10*3/uL RBC 3.31 L (4.10-5.20) X 10*6/uL Hgb 10.8 L (12.0-15.0) g/dL Hct 33.1 L (37.2-46.3) % MCV 100.0 H (80.0-97.0) FL MCH 32.6 H (27.0-32.0) pg MPV 9.2 L (9.5-12.2) FL Neutrophils # 1.71 L (1.80-7.70) X 10*3/uL POC Glucose (mg/dL) 135 H (70-110) mg/dL AST 41 H (14-36) U/L ALT 42 H (4-34) U/L Total Protein 5.7 L (6.3-8.2) g/dL 12/02/24 Range/Units 10:59 WBC (4.50-10.00) X 10*3/uL RBC (4.10-5.20) X 10*6/uL Hgb (12.0-15.0) g/dL Hct (37.2-46.3) % MCV (80.0-97.0) FL MCH (27.0-32.0) pg MPV (9.5-12.2) FL Neutrophils # (1.80-7.70) X 10*3/uL POC Glucose (mg/dL) 141 H (70-110) mg/dL AST (14-36) U/L ALT (4-34) U/L Total Protein (6.3-8.2) g/dL Microbiology - Last 24 Hours (Table) 11/30/24 00:35 Blood Culture Gram Stain - Preliminary Blood Blood Culture - Preliminary Assessment and Plan (1) Fever Current Visit: Yes Status: Acute Priority: High Code(s): R50.9 - FEVER, UNSPECIFIED SNOMED Code(s): 032972554 (2) Immunosuppressed status Current Visit: Yes Status: Acute Code(s): D84.9 - IMMUNODEFICIENCY, UNSPECIFIED SNOMED Code(s): 32697062 Plan: 1patient is a 49-year-old female with history of leukemia status post normal transplant patient is current on tacrolimus presenting to the hospital with fever generalized bodyaches did have a respiratory symptoms and wheezing on auscultation however CT abdominal chest concern for possible bronchitis no evidence of any consolidation she also has some diarrhea on admission that has resolved 2-blood and sputum culture currently pending 3-patient clinical picture is more suspicious for early [id number]-aonu disease versus early immune reconstitution syndrome, in this patient with subtherapeutic tacrolimus level mild elevated liver enzymes CT angiogram with mostly features of bronchitis rather than pneumonia, will benefit from oncology evaluation and adjustment of the tacrolimus dose, 4positive blood culture with gram-positive bacilli more likely contamination blood culture repeated multiple question concern answered Dictation was produced using [employer] software. please excuse any grammatical, word or spelling errors. Time with Patient: Less than 30
[2024-12-03 11:45] LABS: Glucose,Whole Blood 215 mg/dL (70-110)
--- NOTE | 2024-12-03 13:46 | P.PN ---
Subjective Progress Note Date: 12/03/24 Principal diagnosis: Reason for follow-up is fever Patient is a 49-year-old female with a past medical history significant for Atrial Fibrillation, Cancer, COPD, Diabetes Mellitus, Liver Disease, Osteoarthritis (OA), Syncope, history of leukemia status post bony marrow transplant patient is currently on tacrolimus and prophylactic sulfamethoxazole and acyclovir patient presenting to the hospital for evaluation of generalized bodyaches and fevers patient did have a fever 100.4 F, mild elevated enzymes CT, the chest concerning for bronchial wall thickening. On today's evaluation that is 12/03/2024,the patient remains to be afebrile, patient is on room air not requiring supplemental oxygen and mention breathing more comfortably no chest pain and cough has decreased in intensity.Patient denies having any nausea or vomiting, no abdominal pain and no diarrhea has been reported. No new lab has been obtained today sputum culture negative blood culture with gram-positive bacilli Objective - Vital Signs Vital signs: Vital Signs Temp 98.2 F 12/03/24 07:24 Pulse 78 12/03/24 11:44 Resp 17 12/03/24 07:24 BP 98/63 12/03/24 07:24 Pulse Ox 95 12/03/24 07:24 FiO2 Intake & Output 12/02/24 12/03/24 12/03/24 18:59 06:59 18:59 Other: Voiding Method Toilet # Voids 3 3 # Bowel Movements 0 - Exam GENERAL DESCRIPTION: Middle age female lying in bed in no distress RESPIRATORY SYSTEM: Unlabored breathing , bilateral wheezing HEART: S1 S2 regular rate and rhythm , ABDOMEN: Soft , no tenderness EXTREMITIES: No edema feet - Labs CBC & Chem 7: 12/02/24 05:58 12/02/24 05:58 Labs: Abnormal Lab Results - Last 24 Hours (Table) 12/02/24 12/02/24 12/03/24 Range/Units 16:41 20:11 06:10 POC Glucose (mg/dL) 189 H 217 H 207 H (70-110) mg/dL 12/03/24 Range/Units 11:43 POC Glucose (mg/dL) 215 H (70-110) mg/dL Microbiology - Last 24 Hours (Table) 11/30/24 22:45 Gram Stain - Final Sputum Sputum Culture - Final 11/30/24 00:35 Blood Culture Gram Stain - Preliminary Blood Blood Culture - Preliminary Assessment and Plan (1) Fever Current Visit: Yes Status: Acute Priority: High Code(s): R50.9 - FEVER, UNSPECIFIED SNOMED Code(s): 972398015 (2) Immunosuppressed status Current Visit: Yes Status: Acute Code(s): D84.9 - IMMUNODEFICIENCY, UNSPECIFIED SNOMED Code(s): 68832824 (3) Bronchitis Current Visit: Yes Status: Acute Code(s): J40 - BRONCHITIS, NOT SPECIFIED ACUTE OR CHRONIC SNOMED Code(s): 02602704 Plan: 1patient is a 49-year-old female with history of leukemia status post normal transplant patient is current on tacrolimus presenting to the hospital with fever generalized bodyaches did have a respiratory symptoms and wheezing on auscultation however CT abdominal chest concern for possible bronchitis no daniel dence of any consolidation she also has some diarrhea on admission that has resolved 2-blood culture positive for gram-positive bacilli and sputum culture so far negative 3-patient clinical picture is more suspicious for early xsiuz-okgpzx-dofm disease versus early immune reconstitution syndrome, in this patient with subtherapeutic tacrolimus level mild elevated liver enzymes CT angiogram with mostly features of bronchitis rather than pneumonia, 4with sputum negative for MRSA vancomycin will be discontinued May continue cefepime at this point Dictation was produced using [employer] dictation software. please excuse any grammatical, word or spelling errors.
[2024-12-03 16:42] LABS: Glucose,Whole Blood 236 mg/dL (70-110)
[2024-12-03] MEDS ORDERED: VANCOMYCIN TROUGH DUE 1 EACH MISC MISCELLANE ONE (17:00)
--- NOTE | 2024-12-03 19:53 | P.PN ---
Subjective Progress Note Date: 12/03/24 Pt reporting improvement in symptoms, fever now resolved. Continues IV abx. Repeat BC pending. WBC 3.9, ANC 1.7, hgb 10.8, plt 203,000. Objective - Vital Signs Vital signs: Vital Signs Temp 98.2 F 12/03/24 07:24 Pulse 78 12/03/24 11:44 Resp 17 12/03/24 07:24 BP 98/63 12/03/24 07:24 Pulse Ox 95 12/03/24 07:24 FiO2 Intake & Output 12/02/24 12/03/24 12/03/24 18:59 06:59 18:59 Other: Voiding Method Toilet # Voids 3 3 # Bowel Movements 0 - Constitutional General appearance: Present: no acute distress - EENT Eyes: Present: anicteric sclerae, EOMI ENT: Present: hearing grossly normal - Respiratory Details: breathing is even and unlabored - Cardiovascular Details: skin warm and dry - Gastrointestinal General gastrointestinal: Present: soft. Absent: tenderness - Psychiatric Psychiatric: Present: A&O x's 3 - Labs CBC & Chem 7: 12/02/24 05:58 12/02/24 05:58 Labs: Abnormal Lab Results - Last 24 Hours (Table) 12/02/24 12/02/24 12/03/24 Range/Units 16:41 20:11 06:10 POC Glucose (mg/dL) 189 H 217 H 207 H (70-110) mg/dL 12/03/24 Range/Units 11:43 POC Glucose (mg/dL) 215 H (70-110) mg/dL Microbiology - Last 24 Hours (Table) 11/30/24 22:45 Gram Stain - Final Sputum Sputum Culture - Final 11/30/24 00:35 Blood Culture Gram Stain - Preliminary Blood Blood Culture - Preliminary Assessment and Plan (1) AML (acute myeloid leukemia) in remission Current Visit: No Status: Acute Priority: High Code(s): C92.01 - ACUTE MYELOBLASTIC LEUKEMIA, IN REMISSION SNOMED Code(s): 45520385 (2) Fever Current Visit: Yes Status: Acute Priority: High Code(s): R50.9 - FEVER, UNSPECIFIED SNOMED Code(s): 861161705 Plan: Fever of unknown origin: Presented wiith complaints of fever, malaise, body aches nausea diarrhea and abdominal pain. -Tmax since admit 100.4. Blood culture, sputum culture and stool studies pending. Started on empiric antibiotics with vancomycin and cefepime. -ID following -CTA chest was negative for PE. Bronchial wall thickening suggesting bronchitis or asthma with no focal infiltrate seen. -CBC on admit, showed WBC 8.2, hgb 13.3, plt 274,000. Leukopenia now noted but WBC/ANC within safe range. -Mild cytopenias appear reactive. Continue to monitor CBC. No G-CSF at this time -Spoke with her oncologist, Dr. Loomis, she wants pt to continue on tacrolimus and Jakafi -At this time, clinically based on lab and radiographic workup, do not believe this is GVHD AML: -Diagnosed in 2016 -Underwent bone marrow transplant in 2017, currently in remission. -Patient will continue in follow up with her oncologist, Dr Loomis at [facility]. Case discussed with admitting team
[2024-12-03 20:04] LABS: Glucose,Whole Blood 200 mg/dL (70-110)
--- NOTE | 2024-12-03 20:43 | P.PN ---
Subjective Progress Note Date: 12/03/24 Patient is a 49-year-old female with past medical history significant for atrial fibrillation, congenital heart disease and previous open heart surgery, COPD, gastric sleeve, AML, and wbaqd-avjrfg-gibp disease. She follows at [facility] with Dr. Hillman for management of her AML. Diagnosed back in 2016, and underwent bone marrow transplant in 2017. She is on tacrolimus. Reportedly, also has atszq-kxlqsg-ryts disease and on Jakafi. Presents the emergency department back on 11/29/2024 with generalized bone and joint pain. Also, nausea, vomiting, and diarrhea. Low-grade fevers, recorded 100.8 F at home. Workup done previously including a chest CT angiogram which not show any evidence of pulmonary embolism. There is bronchial wall thickening suggestive of bronchitis or asthma. No focal infiltrates. Most recent labs including a CBC with a WBC count of 3.34, hemoglobin 10.5, platelets 190. BMP unremarkable, electrolytes WDL, creatinine 0.8, glucose 123. Tacrolimus level less than 1.5. Cepheid negative for influenza A/B, RSV, COVID. A pulmonary consultation was placed for "respiratory failure". Patient currently being seen on the general medical floor. She is alert and oriented and not in any distress. On room air. Reportedly, does become short of breath with exertion. Wheezing and rhonchi noted on auscultation. States that approximately 1 week ago her and her boyfr iend were sick with a cold. She had runny nose, watery eyes, and intermittent cough with clear sputum. She also has history of COPD, she uses and as needed albuterol inhaler. She does not smoke cigarettes, however, routinely smokes marijuana. her PFTs are being monitored at [facility]. No reported pulmonary involvement or SORAYA from her rizdq-rdzwvs-jepc. Above-mentioned bone and joint pain, was the primary reason she came to the emergency department for evaluation. It is severe,generalized, limiting ambulation. Nausea, vomiting, and diarrhea have subsided. She previously had multiple watery bowel movements over the last 24 hours. No history of C. difficile. No hematemesis, melena, hematochezia. Abdomen is soft and nontender. No oropharyngeal sores, rash, Poikiloderma. Previously, did have a fever of 100.4 F on arrival, currently afebrile. She denies any urinary complaints. Infectious disease has placed the patient on a combination of acyclovir, Bactrim, cefepime, and vancomycin. Current vital signs: Temperature 98.3 F, heart rate 75 bpm, blood pressure 112/79 mmHg, nontachypneic, SpO2 recorded at 96% on room air. On 12/03/2024, the patient is being seen for a follow-up. Much improved compared to yesterday the patient is being treated for symptoms of an acute bronchitis and COPD exacerbation. No fever. No chills. Cough and congestion and chest discomfort is improved considerably compared to yesterday. Meanwhile, the blood culture is negative, sputum culture is also negative. The patient remains on DuoNeb nebulizer treatments [id number]. The patient remains on IV Solu- Medrol. Antibiotics have been modified and the patient was taken off the vancomycin. The patient remains on IV cefepime. Remains on Bactrim and acyclovir. He remains on Prograf. The patient is also covered with Solu-Medrol 60 mg IV push every 6 hours. Oxygenation is stable and the patient is on room air oxygen with a pulse ox of 98%. No other significant events overnight. Objective - Vital Signs Vital signs: Vital Signs Temp 98.2 F 12/03/24 07:24 Pulse 80 12/03/24 08:47 Resp 17 12/03/24 07:24 BP 98/63 12/03/24 07:24 Pulse Ox 95 12/03/24 07:24 FiO2 Intake & Output 12/02/24 12/03/24 12/03/24 18:59 06:59 18:59 Other: Voiding Method Toilet # Voids 3 3 # Bowel Movements 0 - Exam GENERAL EXAM: Alert, 49-year-old female, nontoxic-appearing, comfortable in no apparent distress. Patient is currently on room air oxygen. HEAD: Normocephalic and atraumatic EYES: Normal reaction of pupils, equal size. NOSE: Clear with pink turbinates. THROAT: No erythema or exudates. NECK: No masses, no JVD. CHEST: No chest wall deformity. LUNGS: Equal air entry with diffuse expiratory wheezing and rhonchi. Air entry is improved significantly and the patient is much less bronchospastic and wheezy compared to yesterday. CVS: S1 and S2 normal with no audible murmur, regular rhythm. No extra heart sounds ABDOMEN: No hepatosplenomegaly, active bowel sounds, no guarding or rigidity. SPINE: No scoliosis or deformity SKIN: No rashes CENTRAL NERVOUS SYSTEM: No focal deficits, tone is normal in all 4 extremities. EXTREMITIES: There is no peripheral edema, clubbing, or cyanosis. Peripheral pulses are intact. - Labs CBC & Chem 7: 12/02/24 05:58 12/02/24 05:58 Labs: Abnormal Lab Results - Last 24 Hours (Table) 12/02/24 12/02/24 12/02/24 Range/Units 05:58 10:59 16:41 WBC 3.96 L (4.50-10.00) X 10*3/uL RBC 3.31 L (4.10-5.20) X 10*6/uL Hgb 10.8 L (12.0-15.0) g/dL Hct 33.1 L (37.2-46.3) % MCV 100.0 H (80.0-97.0) FL MCH 32.6 H (27.0-32.0) pg MPV 9.2 L (9.5-12.2) FL Neutrophils # 1.71 L (1.80-7.70) X 10*3/uL POC Glucose (mg/dL) 141 H 189 H (70-110) mg/dL 12/02/24 12/03/24 Range/Units 20:11 06:10 WBC (4.50-10.00) X 10*3/uL RBC (4.10-5.20) X 10*6/uL Hgb (12.0-15.0) g/dL Hct (37.2-46.3) % MCV (80.0-97.0) FL MCH (27.0-32.0) pg MPV (9.5-12.2) FL Neutrophils # (1.80-7.70) X 10*3/uL POC Glucose (mg/dL) 217 H 207 H (70-110) mg/dL Microbiology - Last 24 Hours (Table) 11/30/24 22:45 Gram Stain - Final Sputum Sputum Culture - Final 11/30/24 00:35 Blood Culture Gram Stain - Preliminary Blood Blood Culture - Preliminary Assessment and Plan Assessment: Acute dyspnea, secondary to acute COPD exacerbation and possible acute bronchitis. Chest CT angiogram did not show any evidence of pulmonary embolism. There is bronchial wall thickening suggestive of bronchitis or asthma. No groundglass or focal consolidations. No history of pulmonary involvement from her ucpkg-qwnjje-cjwo disease. Clinically improving and the patient is less bronchospastic and wheezy. AML, status post bone marrow transplant in 2017, on tacrolimus. Levels were less than 1.5 on arrival. Follows with Dr. Michelle Hillman out of [facility] Hbdnb-utlrhg-qxrh disease, maintained on Jakafi Bicytopenia, with leukopenia and anemia Acute febrile illness Nausea, vomiting, diarrhea History of congenital heart disease and previous open heart surgery Paroxysmal atrial fibrillation, anticoagulated on Eliquis, currently sinus mechanism History of hyperlipidemia Hypertension History of gastric sleeve Marijuana user Plan: Clinically improving Currently on room air Continue DuoNebs Continue IV Solu-Medrol Antibiotics being directed by infectious disease, currently on IV cefepime C. difficile ordered Prograf has been resumed Maintain on acyclovir Maintained on Bactrim Oncology consulted chronic marijuana use
[2024-12-03] MEDS: INSULIN LISPRO (HumaLOG) 100 UNIT/ML 10 mL VL SQ SCH (21:12)
[2024-12-04 05:42] LABS: African American GFR (CKD) >90 (>60 ml/min/1.73 sqM); Non-African American GFR(CKD) >90 (>60 ml/min/1.73 sqM)
[2024-12-04 06:15] LABS: Glucose,Whole Blood 172 mg/dL (70-110)
[2024-12-04 11:45] LABS: Glucose,Whole Blood 158 mg/dL (70-110)
--- NOTE | 2024-12-04 14:02 | P.PN ---
Subjective Progress Note Date: 12/04/24 Patient is a 49-year-old female with past medical history significant for atrial fibrillation, congenital heart disease and previous open heart surgery, COPD, gastric sleeve, AML, and wejta-ljygrf-uoft disease. She follows at [facility] with Dr. Hillman for management of her AML. Diagnosed back in 2016, and underwent bone marrow transplant in 2017. She is on tacrolimus. Reportedly, also has rwlme-ecuxrl-hfwl disease and on Jakafi. Presents the emergency department back on 11/29/2024 with generalized bone and joint pain. Also, nausea, vomiting, and diarrhea. Low-grade fevers, recorded 100.8 F at home. Workup done previously including a chest CT angiogram which not show any evidence of pulmonary embolism. There is bronchial wall thickening suggestive of bronchitis or asthma. No focal infiltrates. Most recent labs including a CBC with a WBC count of 3.34, hemoglobin 10.5, platelets 190. BMP unremarkable, electrolytes WDL, creatinine 0.8, glucose 123. Tacrolimus level less than 1.5. Cepheid negative for influenza A/B, RSV, COVID. A pulmonary consultation was placed for "respiratory failure". Patient currently being seen on the general medical floor. She is alert and oriented and not in any distress. On room air. Reportedly, does become short of breath with exertion. Wheezing and rhonchi noted on auscultation. States that approximately 1 week ago her and her boyfr iend were sick with a cold. She had runny nose, watery eyes, and intermittent cough with clear sputum. She also has history of COPD, she uses and as needed albuterol inhaler. She does not smoke cigarettes, however, routinely smokes marijuana. her PFTs are being monitored at [facility]. No reported pulmonary involvement or SORAYA from her wgpfj-fbzfmm-qhnd. Above-mentioned bone and joint pain, was the primary reason she came to the emergency department for evaluation. It is severe,generalized, limiting ambulation. Nausea, vomiting, and diarrhea have subsided. She previously had multiple watery bowel movements over the last 24 hours. No history of C. difficile. No hematemesis, melena, hematochezia. Abdomen is soft and nontender. No oropharyngeal sores, rash, Poikiloderma. Previously, did have a fever of 100.4 F on arrival, currently afebrile. She denies any urinary complaints. Infectious disease has placed the patient on a combination of acyclovir, Bactrim, cefepime, and vancomycin. Current vital signs: Temperature 98.3 F, heart rate 75 bpm, blood pressure 112/79 mmHg, nontachypneic, SpO2 recorded at 96% on room air. On 12/03/2024, the patient is being seen for a follow-up. Much improved compared to yesterday the patient is being treated for symptoms of an acute bronchitis and COPD exacerbation. No fever. No chills. Cough and congestion and chest discomfort is improved considerably compared to yesterday. Meanwhile, the blood culture is negative, sputum culture is also negative. The patient remains on DuoNeb nebulizer treatments [id number]. The patient remains on IV Solu- Medrol. Antibiotics have been modified and the patient was taken off the vancomycin. The patient remains on IV cefepime. Remains on Bactrim and acyclovir. He remains on Prograf. The patient is also covered with Solu-Medrol 60 mg IV push every 6 hours. Oxygenation is stable and the patient is on room air oxygen with a pulse ox of 98%. No other significant events overnight. On 12/04/2024, the patient is being seen for a follow-up. Much improved. Less bronchospastic and wheezy and overall hospice has back to baseline. She remains on IV Solu-Medrol. She remains on IV cefepime in addition to a combination of acyclovir and Bactrim. She is also on DuoNebseems on the clock. She is on room air oxygen. No new labs are available from today. Blood cultures were negative. Sputum culture was also negative. The patient denies having any other specific complaints. Objective - Vital Signs Vital signs: Vital Signs Temp 98.0 F 12/04/24 06:53 Pulse 78 12/04/24 12:15 Resp 16 12/04/24 06:53 BP 108/69 12/04/24 06:53 Pulse Ox 95 12/04/24 06:53 FiO2 Intake & Output 12/03/24 12/04/24 12/04/24 18:59 06:59 18:59 Other: Voiding Method Toilet # Voids 5 2 # Bowel Movements 1 - Exam GENERAL EXAM: Alert, 49-year-old female, nontoxic-appearing, comfortable in no apparent distress. Patient is currently on room air oxygen. HEAD: Normocephalic and atraumatic EYES: Normal reaction of pupils, equal size. NOSE: Clear with pink turbinates. THROAT: No erythema or exudates. NECK: No masses, no JVD. CHEST: No chest wall deformity. LUNGS: Equal air entry with diffuse expiratory wheezing and rhonchi. Air entry is improved significantly and the patient is much less bronchospastic and wheezy compared to yesterday. CVS: S1 and S2 normal with no audible murmur, regular rhythm. No extra heart sounds ABDOMEN: No hepatosplenomegaly, active bowel sounds, no guarding or rigidity. SPINE: No scoliosis or deformity SKIN: No rashes CENTRAL NERVOUS SYSTEM: No focal deficits, tone is normal in all 4 extremities. EXTREMITIES: There is no peripheral edema, clubbing, or cyanosis. Peripheral pulses are intact. - Labs CBC & Chem 7: 12/02/24 05:58 12/04/24 04:37 Labs: Abnormal Lab Results - Last 24 Hours (Table) 12/03/24 12/03/24 12/04/24 Range/Units 16:40 20:03 06:13 POC Glucose (mg/dL) 236 H 200 H 172 H (70-110) mg/dL 12/04/24 Range/Units 11:44 POC Glucose (mg/dL) 158 H (70-110) mg/dL Microbiology - Last 24 Hours (Table) 12/02/24 12:08 Blood Culture - Preliminary Blood 11/30/24 22:45 Gram Stain - Final Sputum Sputum Culture - Final Assessment and Plan Assessment: Acute dyspnea, secondary to acute COPD exacerbation and possible acute bronchitis. Chest CT angiogram did not show any evidence of pulmonary embolism. There is bronchial wall thickening suggestive of bronchitis or asthma. No groundglass or focal consolidations. No history of pulmonary involvement from her gkgvb-ueezpu-fgva disease. Clinically improved and back to her baseline. AML, status post bone marrow transplant in 2017, on tacrolimus. Levels were less than 1.5 on arrival. Follows with Dr. Michelle Hillman out of [facility] Skcfw-cazitr-rapm disease, maintained on Jakafi Bicytopenia, with leukopenia and anemia Acute febrile illness Nausea, vomiting, diarrhea History of congenital heart disease and previous open heart surgery Paroxysmal atrial fibrillation, anticoagulated on Eliquis, currently sinus mechanism History of hyperlipidemia Hypertension History of gastric sleeve Marijuana user Plan: Clinically improving and the patient is being considered for discharge home today on oral antibiotics and a prednisone burst taper. No respiratory distress Currently on room air Continue DuoNebs Prograf has been resumed Maintain on acyclovir Maintained on Bactrim Oncology consulted chronic marijuana use Possible discharge home today.
--- NOTE | 2024-12-04 15:31 | P.PN ---
Subjective Progress Note Date: 12/04/24 Principal diagnosis: Reason for follow-up is fever Patient is a 49-year-old female with a past medical history significant for Atrial Fibrillation, Cancer, COPD, Diabetes Mellitus, Liver Disease, Osteoarthritis (OA), Syncope, history of leukemia status post bony marrow transplant patient is currently on tacrolimus and prophylactic sulfamethoxazole and acyclovir patient presenting to the hospital for evaluation of generalized bodyaches and fevers patient did have a fever 100.4 F, mild elevated enzymes CT, the chest concerning for bronchial wall thickening. On today's evaluation that is 12/04/2024, the patient continues to be afebrile, the patient is on room air and breathing comfortably, the Pt denies having any chest pain and cough has decreased in intensity, the patient denies having any abdominal pain no vomiting or any diarrhea has been reported by the nursing staff. Patient did have creatinine 0.64 blood culture with Corynebacterium sputum culture negative Objective - Vital Signs Vital signs: Vital Signs Temp 98.0 F 12/04/24 06:53 Pulse 86 12/04/24 12:30 Resp 16 12/04/24 06:53 BP 108/69 12/04/24 06:53 Pulse Ox 95 12/04/24 06:53 FiO2 Intake & Output 12/03/24 12/04/24 12/04/24 18:59 06:59 18:59 Other: Voiding Method Toilet # Voids 5 2 # Bowel Movements 1 - Exam GENERAL DESCRIPTION: Middle age female lying in bed in no distress RESPIRATORY SYSTEM: Unlabored breathing , bilateral wheezing HEART: S1 S2 regular rate and rhythm , ABDOMEN: Soft , no tenderness EXTREMITIES: No edema feet - Labs CBC & Chem 7: 12/02/24 05:58 12/04/24 04:37 Labs: Abnormal Lab Results - Last 24 Hours (Table) 12/03/24 12/03/24 12/04/24 Range/Units 16:40 20:03 06:13 POC Glucose (mg/dL) 236 H 200 H 172 H (70-110) mg/dL 12/04/24 Range/Units 11:44 POC Glucose (mg/dL) 158 H (70-110) mg/dL Microbiology - Last 24 Hours (Table) 11/30/24 00:35 Blood Culture Gram Stain - Final Blood Blood Culture - Final Corynebacterium species 12/02/24 12:08 Blood Culture - Preliminary Blood Assessment and Plan (1) Fever Current Visit: Yes Status: Acute Priority: High Code(s): R50.9 - FEVER, UNSPECIFIED SNOMED Code(s): 740043643 (2) Immunosuppressed status Current Visit: Yes Status: Acute Code(s): D84.9 - IMMUNODEFICIENCY, UNSPECIFIED SNOMED Code(s): 81869787 (3) Bronchitis Current Visit: Yes Status: Acute Code(s): J40 - BRONCHITIS, NOT SPECIFIED ACUTE OR CHRONIC SNOMED Code(s): 11480422 Plan: 1patient is a 49-year-old female with history of leukemia status post normal transplant patient is current on tacrolimus presenting to the hospital with fever generalized bodyaches did have a respiratory symptoms and wheezing on auscultation however CT abdominal chest concern for possible bronchitis no evidence of any consolidation she also has some diarrhea on admission that has resolved 2-blood culture positive for corynebacterium species likely contamination blood culture repeat negative sputum culture have been negative so far 3-patient clinical picture is more suspicious for early lnazu-hfxeyq-fstl di sease versus early immune reconstitution syndrome, in this patient with subtherapeutic tacrolimus level mild elevated liver enzymes CT angiogram with mostly features of bronchitis rather than pneumonia, and the patient said to have clinic responded to the steroids with a culture negative for any resistant pathogen we will discontinue cefepime and add a short course of doxycycline Dictation was produced using Tk20 dictation software. please excuse any grammatical, word or spelling errors. Time with Patient: Less than 30
[2024-12-04 16:24] LABS: Glucose,Whole Blood 206 mg/dL (70-110)
[2024-12-04 20:24] LABS: Glucose,Whole Blood 153 mg/dL (70-110)
[2024-12-04] MEDS: DOXYCYCLINE 100 MG TABLET PO SCH (21:49)
[2024-12-05] MEDS: SIMETHICONE 40 MG/0.6 ML DROPS 2,000 MG/30 ML BOTTLE PO PRN (01:03)
[2024-12-05 02:56] VITALS: RESP 18
[2024-12-05 06:08] LABS: Glucose,Whole Blood 231 mg/dL (70-110)
[2024-12-05] MEDS ORDERED: IPRATROPIUM-ALBUTEROL 3 ML NEB INHALATION PRN (09:12)
[2024-12-05 11:35] LABS: Glucose,Whole Blood 125 mg/dL (70-110)
--- NOTE | 2024-12-05 14:47 | P.PN ---
Subjective Progress Note Date: 12/04/24 49-year-old lady with past medical history significant for COPD, atrial fibrillation, diabetes mellitus, leukemia status bone marrow transplant presented the ER for generalized bodyaches and fever patient stated she was all right yesterday when she started feeling unwell, she started having generalized body aches. Patient stated that she felt feverish and checked her fever at home and was found to be elevated at 100.8. She also started having abdominal pain patient also having nausea. Patient did notice that she was having cough which is nonproductive associate with some shortness of breath. There was no complaint of chills. Patient also complaining of some chest pain associated with her cough. There was no complaint of orthopnea or PND. Patient denies any palpitation. Patient denies any complaint of dizziness. There is no complaint of headache. Because of the symptoms, patient came to the ER Initial lab work done in the ER showed WBC 8.23, hemoglobin 13.3, platelet count 274, sodium 137, potassium 4.4, BUN 25, creatinine 1.12, glucose 154, lactate 1.5, calcium 9.7, AST 66, ALT 57, troponin 0.012, CRP 1.8 UA negative for infection Influenza A not detected Influenza B not detected RSV not detected COVID-19 not detected EKG done in the ER showed heart rate of 111, no ST segment elevation or depression seen, no T-wave inversions seen. Chest x-ray done in the ER no consolidative changes or pleural Patient admitted to internal medicine service Objective - Vital Signs Vital signs: Vital Signs Temp 98.0 F 12/04/24 06:53 Pulse 75 12/04/24 06:53 Resp 16 12/04/24 06:53 BP 108/69 12/04/24 06:53 Pulse Ox 95 12/04/24 06:53 FiO2 Intake & Output 12/03/24 12/04/24 12/04/24 18:59 06:59 18:59 Other: Voiding Method Toilet # Voids 5 2 # Bowel Movements 1 - Exam GENERAL: The patient is alert and oriented x3, not in any acute distress. Ill looking HEENT: Pupils are round and equally reacting to light. EOMI. No scleral icterus. No conjunctival pallor. Normocephalic, atraumatic. No pharyngeal erythema. No thyromegaly. CARDIOVASCULAR: S1 and S2 present. No murmurs, rubs, or gallops. PULMONARY: Chest is clear to auscultation, no wheezing or crackles. ABDOMEN: Soft, nontender, nondistended, normoactive bowel sounds. No palpable organomegaly. MUSCULOSKELETAL: No joint swelling or deformity. EXTREMITIES: No cyanosis, clubbing, or pedal edema. NEUROLOGICAL: Gross neurological examination did not reveal any focal deficits. SKIN: No rashes. 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
--- NOTE | 2024-12-05 14:48 | P.DS ---
Providers Date of admission: 11/30/24 01:46 Expected date of discharge: 12/05/24 Attending physician: Isaak Fraga MD Consults: 11/30/24 01:41 Consult Physician Urgent Consulting Provider: Crystal Davis Consult Reason/Comments: pyrexia, immunocompromised status Do you want consulting provider notified?: Yes 11/30/24 10:04 Consult Physician Routine Consulting Provider: Campos Rodriguez Consult Reason/Comments: History of bone marrow transplant Do you want consulting provider notified?: Yes 12/01/24 15:09 Consult Physician Routine Consulting Provider: Kadeem Holloway Consult Reason/Comments: Acute respiratory failure Do you want consulting provider notified?: Yes Primary care physician: Boyd Jacobs MD Hospital Course: 49-year-old lady with past medical history significant for COPD, atrial fibrillation, diabetes mellitus, leukemia status bone marrow transplant presented the ER for generalized bodyaches and fever patient stated she was all right yesterday when she started feeling unwell, she started having generalized body aches. Patient stated that she felt feverish and checked her fever at home and was found to be elevated at 100.8. She also started having abdominal pain patient also having nausea. Patient did notice that she was having cough which is nonproductive associate with some shortness of breath. There was no complaint of chills. Patient also complaining of some chest pain associated with her cough. There was no complaint of orthopnea or PND. Patient denies any palpitation. Patient denies any complaint of dizziness. There is no complaint of headache. Because of the symptoms, patient came to the ER Initial lab work done in the ER showed WBC 8.23, hemoglobin 13.3, platelet count 274, sodium 137, potassium 4.4, BUN 25, creatinine 1.12, glucose 154, lactate 1.5, calcium 9.7, AST 66, ALT 57, troponin 0.012, CRP 1.8 UA negative for infection Influenza A not detected Influenza B not detected RSV not detected COVID-19 not detected EKG done in the ER showed heart rate of 111, no ST segment elevation or depression seen, no T-wave inversions seen. 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 Patient seen and examined. Blood work done showed WBC 3.34, hemoglobin 12, platelet count 190, sodium 139, potassium 4.4 point BUN 13.7, creatinine 0.8, glucose 123. Temperature 97.8, heart rate 73, respiration 18, blood pressure 118/82 States she feels better 12/02. Patient seen and examined. States she feels little bit better compared to yesterday but still complaining of lethargy. Given negative repeat blood cultures, ID recommending to discontinue IV antibiotics and patient is placed on doxycycline; patient to be discharged home with 3-day supply of oral doxycycline Patient Condition at Discharge: Stable Plan - Discharge Summary New Discharge Prescriptions: No Action Acyclovir [Zovirax] 800 mg PO BID Prochlorperazine [Compazine] 10 mg PO BID Apixaban [Eliquis] 5 mg PO BID #180 tab Docusate [Colace] 100 mg PO BID Cyclobenzaprine [Flexeril] 10 mg PO BID Ergocalciferol [Vitamin D2 (1250 Mcg = 60343 Iu)] 1,250 mcg PO FLOYD Sulfamethox-Tmp 400-80Mg [Bactrim SS 400-80 mg] 1 tab PO DAILY Pantoprazole [Protonix] 40 mg PO BID Ammonium Lactate Cream [Lac-Hydrin 12% Cream] 1 applic TOPICAL BID Aspirin 81 mg PO DAILY #30 tab Atorvastatin [Lipitor] 80 mg PO DAILY #30 tab Metoprolol Succinate (ER) [Toprol XL] 25 mg PO DAILY #30 tab Acetaminophen Tab [Tylenol] 650 mg PO Q6HR PRN tab PRN Reason: Fever And/ Or Pain Triamcinolone Acetonide [Triamcinolone Acetonide 0.025%] 1 applic TOPICAL QID PRN PRN Reason: Rash Ruxolitinib Phosphate [Jakafi] 5 mg PO BID Tacrolimus [Prograf] 0.5 mg PO DAILY Escitalopram [Lexapro] 10 mg PO DAILY Magnesium Oxide [Mag-Oxide] 200 mg PO BID Cyanocobalamin [Vitamin B-12] 1,000 mcg PO FLOYD Ketoconazole 2% Cream [Nizoral 2%] 1 applic TOPICAL DAILY Nitroglycerin Sl Tabs [Nitrostat] 0.4 mg SUBLINGUAL Q5M PRN #30 tab PRN Reason: Chest Pain Sacubitril/Valsartan [Entresto 24 mg-26 mg Tablet] 1 tab PO BID SUMAtriptan succinate [Imitrex] 25 mg PO Q2H PRN MDD 200mg PRN Reason: Migraine Headache Discharge Medication List Acyclovir [Zovirax] 800 mg PO BID 05/18/17 [History] Ruxolitinib Phosphate [Jakafi] 5 mg PO BID 10/03/21 [History] Prochlorperazine [Compazine] 10 mg PO BID 10/18/22 [History] Apixaban [Eliquis] 5 mg PO BID #180 tab 05/28/23 [Rx] Cyclobenzaprine [Flexeril] 10 mg PO BID 10/26/23 [History] Docusate [Colace] 100 mg PO BID 10/26/23 [History] Ergocalciferol [Vitamin D2 (1250 Mcg = 83830 Iu)] 1,250 mcg PO FLOYD 10/26/23 [History] Escitalopram [Lexapro] 10 mg PO DAILY 10/26/23 [History] Pantoprazole [Protonix] 40 mg PO BID 10/26/23 [History] Sulfamethox-Tmp 400-80Mg [Bactrim SS 400-80 mg] 1 tab PO DAILY 10/26/23 [History] Tacrolimus [Prograf] 0.5 mg PO DAILY 10/26/23 [History] Magnesium Oxide [Mag-Oxide] 200 mg PO BID 06/24/24 [History] Cyanocobalamin [Vitamin B-12] 1,000 mcg PO FLOYD 07/16/24 [History] Ammonium Lactate Cream [Lac-Hydrin 12% Cream] 1 applic TOPICAL BID 07/21/24 [History] Ketoconazole 2% Cream [Nizoral 2%] 1 applic TOPICAL DAILY 07/21/24 [History] Acetaminophen Tab [Tylenol] 650 mg PO Q6HR PRN tab 07/22/24 [Rx] Aspirin 81 mg PO DAILY #30 tab 07/22/24 [Rx] Atorvastatin [Lipitor] 80 mg PO DAILY #30 tab 07/22/24 [Rx] Metoprolol Succinate (ER) [Toprol XL] 25 mg PO DAILY #30 tab 07/22/24 [Rx] Nitroglycerin Sl Tabs [Nitrostat] 0.4 mg SUBLINGUAL Q5M PRN #30 tab 07/22/24 [Rx] SUMAtriptan succinate [Imitrex] 25 mg PO Q2H PRN MDD 200mg 11/30/24 [History] Sacubitril/Valsartan [Entresto 24 mg-26 mg Tablet] 1 tab PO BID 11/30/24 [History] Triamcinolone Acetonide [Triamcinolone Acetonide 0.025%] 1 applic TOPICAL QID PRN 11/30/24 [History] Follow up Appointment(s)/Referral(s): Boyd Jacobs MD [Primary Care Provider] - 1-2 days
--- NOTE | 2024-12-05 15:02 | P.PN ---
Subjective Progress Note Date: 12/05/24 Principal diagnosis: Reason for follow-up is fever Patient is a 49-year-old female with a past medical history significant for Atrial Fibrillation, Cancer, COPD, Diabetes Mellitus, Liver Disease, Osteoarthritis (OA), Syncope, history of leukemia status post bony marrow transplant patient is currently on tacrolimus and prophylactic sulfamethoxazole and acyclovir patient presenting to the hospital for evaluation of generalized bodyaches and fevers patient did have a fever 100.4 F, mild elevated enzymes CT, the chest concerning for bronchial wall thickening. On today's evaluation that is 12/05/2024, patient did have a temperature of 97.6 F this morning and denies having any chills, patient is on room air and breathing comfortably no chest pain or cough, the patient did not have any nausea vomiting abdominal pain or any diarrhea, feeling better wants to go home. No new lab has been obtained today blood culture repeat has been negative Objective - Vital Signs Vital signs: Vital Signs Temp 97.6 F 12/05/24 06:56 Pulse 64 12/05/24 09:30 Resp 18 12/05/24 09:30 BP 126/84 12/05/24 06:56 Pulse Ox 97 12/05/24 06:56 FiO2 Intake & Output 12/04/24 12/05/24 12/05/24 18:59 06:59 18:59 Other: Voiding Method Toilet # Voids 2 - Exam GENERAL DESCRIPTION: Middle age female lying in bed in no distress RESPIRATORY SYSTEM: Unlabored breathing , bilateral wheezing HEART: S1 S2 regular rate and rhythm , ABDOMEN: Soft , no tenderness EXTREMITIES: No edema feet - Labs CBC & Chem 7: 12/02/24 05:58 12/04/24 04:37 Labs: Abnormal Lab Results - Last 24 Hours (Table) 12/04/24 12/04/24 12/05/24 Range/Units 16:24 20:22 06:07 POC Glucose (mg/dL) 206 H 153 H 231 H (70-110) mg/dL 12/05/24 Range/Units 11:33 POC Glucose (mg/dL) 125 H (70-110) mg/dL Microbiology - Last 24 Hours (Table) 12/02/24 12:08 Blood Culture - Preliminary Blood 11/30/24 00:35 Blood Culture Gram Stain - Final Blood Blood Culture - Final Corynebacterium species Assessment and Plan (1) Fever Current Visit: Yes Status: Acute Priority: High Code(s): R50.9 - FEVER, UNSPECIFIED SNOMED Code(s): 931543746 (2) Immunosuppressed status Current Visit: Yes Status: Acute Code(s): D84.9 - IMMUNODEFICIENCY, UNSPECIFIED SNOMED Code(s): 59453753 (3) Bronchitis Current Visit: Yes Status: Acute Code(s): J40 - BRONCHITIS, NOT SPECIFIED ACUTE OR CHRONIC SNOMED Code(s): 32924164 Plan: 1patient is a 49-year-old female with history of leukemia status post normal transplant patient is current on tacrolimus presenting to the hospital with fever generalized bodyaches did have a respiratory symptoms and wheezing on auscultation however CT abdominal chest concern for possible bronchitis no evidence of any consolidation she also has some diarrhea on admission that has resolved 2-blood culture positive for corynebacterium species likely contamination blood culture repeat negative sputum culture have been negative so far 3-patient has shown overall clinical improvement we will consider short course of oral doxycycline on discharge discussed with admitting physician Dictation was produced using hoccer dictation software. please excuse any grammatical, word or spelling errors. Time with Patient: Less than 30
[2024-12-05 16:06] VITALS: BP 106/68; PULSE 72; TEMP 98.2
--- NOTE | 2024-12-05 21:03 | P.PN ---
Subjective Progress Note Date: 12/05/24 Patient is a 49-year-old female with past medical history significant for atrial fibrillation, congenital heart disease and previous open heart surgery, COPD, gastric sleeve, AML, and xqmou-dfxswc-hzhu disease. She follows at [facility] with Dr. Hillman for management of her AML. Diagnosed back in 2016, and underwent bone marrow transplant in 2017. She is on tacrolimus. Reportedly, also has orjcm-zzvukk-vzcj disease and on Jakafi. Presents the emergency department back on 11/29/2024 with generalized bone and joint pain. Also, nausea, vomiting, and diarrhea. Low-grade fevers, recorded 100.8 F at home. Workup done previously including a chest CT angiogram which not show any evidence of pulmonary embolism. There is bronchial wall thickening suggestive of bronchitis or asthma. No focal infiltrates. Most recent labs including a CBC with a WBC count of 3.34, hemoglobin 10.5, platelets 190. BMP unremarkable, electrolytes WDL, creatinine 0.8, glucose 123. Tacrolimus level less than 1.5. Cepheid negative for influenza A/B, RSV, COVID. A pulmonary consultation was placed for "respiratory failure". Patient currently being seen on the general medical floor. She is alert and oriented and not in any distress. On room air. Reportedly, does become short of breath with exertion. Wheezing and rhonchi noted on auscultation. States that approximately 1 week ago her and her boyfr iend were sick with a cold. She had runny nose, watery eyes, and intermittent cough with clear sputum. She also has history of COPD, she uses and as needed albuterol inhaler. She does not smoke cigarettes, however, routinely smokes marijuana. her PFTs are being monitored at [facility]. No reported pulmonary involvement or SORAYA from her rmqxs-rftxaj-xxoi. Above-mentioned bone and joint pain, was the primary reason she came to the emergency department for evaluation. It is severe,generalized, limiting ambulation. Nausea, vomiting, and diarrhea have subsided. She previously had multiple watery bowel movements over the last 24 hours. No history of C. difficile. No hematemesis, melena, hematochezia. Abdomen is soft and nontender. No oropharyngeal sores, rash, Poikiloderma. Previously, did have a fever of 100.4 F on arrival, currently afebrile. She denies any urinary complaints. Infectious disease has placed the patient on a combination of acyclovir, Bactrim, cefepime, and vancomycin. Current vital signs: Temperature 98.3 F, heart rate 75 bpm, blood pressure 112/79 mmHg, nontachypneic, SpO2 recorded at 96% on room air. On 12/03/2024, the patient is being seen for a follow-up. Much improved compared to yesterday the patient is being treated for symptoms of an acute bronchitis and COPD exacerbation. No fever. No chills. Cough and congestion and chest discomfort is improved considerably compared to yesterday. Meanwhile, the blood culture is negative, sputum culture is also negative. The patient remains on DuoNeb nebulizer treatments [id number]. The patient remains on IV Solu- Medrol. Antibiotics have been modified and the patient was taken off the vancomycin. The patient remains on IV cefepime. Remains on Bactrim and acyclovir. He remains on Prograf. The patient is also covered with Solu-Medrol 60 mg IV push every 6 hours. Oxygenation is stable and the patient is on room air oxygen with a pulse ox of 98%. No other significant events overnight. On 12/04/2024, the patient is being seen for a follow-up. Much improved. Less bronchospastic and wheezy and overall hospice has back to baseline. She remains on IV Solu-Medrol. She remains on IV cefepime in addition to a combination of acyclovir and Bactrim. She is also on DuoNebseems on the clock. She is on room air oxygen. No new labs are available from today. Blood cultures were negative. Sputum culture was also negative. The patient denies having any other specific complaints. On 12/05/2024, the patient is doing well. No specific complaints. No respiratory difficulties. No significant cough sputum production chest tightness or wheezing. Blood culture was positive for corynebacterium. 1 out of 2 blood culture was positive. The patient otherwise is doing well. H emodynamically stable. No new labs are available from today. She is on room air oxygen. No nausea or emesis. No fever or chills. Overall respiratory status is back to his baseline. Objective - Vital Signs Vital signs: Vital Signs Temp 97.6 F 12/05/24 06:56 Pulse 64 12/05/24 06:56 Resp 18 12/05/24 06:56 BP 126/84 12/05/24 06:56 Pulse Ox 97 12/05/24 06:56 FiO2 Intake & Output 12/04/24 12/05/24 12/05/24 18:59 06:59 18:59 Other: # Voids 2 - Exam GENERAL EXAM: Alert, 49-year-old female, nontoxic-appearing, comfortable in no apparent distress. Patient is currently on room air oxygen. HEAD: Normocephalic and atraumatic EYES: Normal reaction of pupils, equal size. NOSE: Clear with pink turbinates. THROAT: No erythema or exudates. NECK: No masses, no JVD. CHEST: No chest wall deformity. LUNGS: Equal air entry with diffuse expiratory wheezing and rhonchi. Air entry is improved significantly and the patient is much less bronchospastic and wheezy compared to yesterday. CVS: S1 and S2 normal with no audible murmur, regular rhythm. No extra heart sounds ABDOMEN: No hepatosplenomegaly, active bowel sounds, no guarding or rigidity. SPINE: No scoliosis or deformity SKIN: No rashes CENTRAL NERVOUS SYSTEM: No focal deficits, tone is normal in all 4 extremities. EXTREMITIES: There is no peripheral edema, clubbing, or cyanosis. Peripheral pulses are intact. - Labs CBC & Chem 7: 12/02/24 05:58 12/04/24 04:37 Labs: Abnormal Lab Results - Last 24 Hours (Table) 12/04/24 12/04/24 12/04/24 Range/Units 11:44 16:24 20:22 POC Glucose (mg/dL) 158 H 206 H 153 H (70-110) mg/dL 12/05/24 Range/Units 06:07 POC Glucose (mg/dL) 231 H (70-110) mg/dL Microbiology - Last 24 Hours (Table) 12/02/24 12:08 Blood Culture - Preliminary Blood 11/30/24 00:35 Blood Culture Gram Stain - Final Blood Blood Culture - Final Corynebacterium species Assessment and Plan Assessment: Acute dyspnea, secondary to acute COPD exacerbation and possible acute bronchitis. Chest CT angiogram did not show any evidence of pulmonary embolism. There is bronchial wall thickening suggestive of bronchitis or asthma. No groundglass or focal consolidations. No history of pulmonary involvement from her nwenr-avbykp-eend disease. Clinically improved and back to her baseline. AML, status post bone marrow transplant in 2017, on tacrolimus. Levels were less than 1.5 on [address] with Dr. Michelle Hillman out of [facility] Fzwnq-avembx-nuqc disease, maintained on Jakafi Bicytopenia, with leukopenia and anemia Acute febrile illness Nausea, vomiting, diarrhea History of congenital heart disease and previous open heart surgery Paroxysmal atrial fibrillation, anticoagulated on Eliquis, currently sinus mechanism History of hyperlipidemia Hypertension History of gastric sleeve Corynebacterium in the blood, likely colonizer. Marijuana user Plan: Patient is to be discharged home on a prednisone burst taper and a course of doxycycline No respiratory distress Currently on room air Continue DuoNebs Prograf has been resumed Maintain on acyclovir Maintained on Bactrim Oncology consulted chronic marijuana use Possible discharge home today.
[2024-12-06] MEDS ORDERED: CYANOCOBALAMIN 500 MCG TAB PO SCH (09:00)
== END 2024-12-05 16:55 | disposition home or self-care (01) | DRG 202 ==
LOC: EC 20:53 → 5NMEDONC 11-30 01:46 → OBSVTOIN 11-30 01:46 → 1SOBS 11-30 05:13 → 4SSUR 11-30 14:38
PROVIDERS: ADMIT Internal Medicine; ATTEND Internal Medicine
DX: J20.9 Acute bronchitis, unspecified (principal); C92.01 Acute myeloblastic leukemia, in remission; D89.813 Graft-versus-host disease, unspecified; T86.09 Other complications of bone marrow transplant; R78.81 Bacteremia; J44.0 Chronic obstructive pulmonary disease with (acute) lower respiratory infection; E11.9 Type 2 diabetes mellitus without complications; I10 Essential (primary) hypertension; J44.1 Chronic obstructive pulmonary disease with (acute) exacerbation; I48.0 Paroxysmal atrial fibrillation; E78.5 Hyperlipidemia, unspecified; I25.5 Ischemic cardiomyopathy; Y83.0 Surgical operation with transplant of whole organ as the cause of abnormal reaction of the patient, or of later complication, without mention of misadventure at the time of the procedure; Z79.01 Long term (current) use of anticoagulants; Z79.621 Long term (current) use of calcineurin inhibitor; Z79.622 Long term (current) use of Janus kinase inhibitor; Z79.899 Other long term (current) drug therapy; Z87.891 Personal history of nicotine dependence; Z98.84 Bariatric surgery status; Z87.74 Personal history of (corrected) congenital malformations of heart and circulatory system; Z82.5 Family history of asthma and other chronic lower respiratory diseases
CPT/HCPCS: 36415; 71045; 71046; 71275; 80048; 80053; 80197; 81001; 82565; 83605; 83880; 84145; 84484; 85025; 85652; 86140; 87040; 87070; 87205; 87636; 93005; 94640; 96361; 96365; 96366; 96367; 96375; 99285